=== PATIENT | female | born 1940 | race Caucasian/White ===

== ENCOUNTER 2018-06-09 12:43 | Outpatient (REF) | payer MEDICARE, OTHER, SELFPAY ==
[2018-06-09 20:32] LABS: Abs Immature Grans 0.01 k/cumm (0.0-0.09); Absolute Basophil Count 0.02 k/cumm (0.0-0.2); Absolute Eosinophil Count 0.12 k/cumm (0.0-0.7); Absolute Lymphocyte Count 1.36 k/cumm (1.2-3.4); Absolute Monocyte Count 0.38 k/cumm (0.11-0.7); Absolute Neutrophil Count 1.95 k/cumm (1.2-6.7); Basophils % 0.5; Eosinophils % 3.1; HCT 37.9 % (36.0-46.0); HGB 12.2 g/dL (12.0-15.5); Immature Grans % 0.3; Lymphocytes % 35.4; Mean Corp. HGB Concentration 32.2 g/dL (32.0-36.0); Mean Corpuscular Hemoglobin 26.1 pg (27.0-33.0); Mean Corpuscular Volume 81.2 fL (80-95); Mean Platelet Volume 11.3 fL (8.0-11.0); Monocytes % 9.9; Neutrophils % 50.8; Platelet Count 183 x1000/uL (130-400); RBC 4.67 m/cumm (4.00-5.20); RBC Distribution Width 17.2 % (11.7-14.6); White Blood Cell Count 3.84 k/cumm (4.4-10.8)
[2018-06-09 21:08] LABS: Iron 150 ug/dL (50-175); Total Iron Binding Capacity 386 ug/dL (250-450); Transferrin Sat 39 % (15-50)
[2018-06-09 21:26] LABS: Anion Gap 10.1 mmol/L (3-11); BUN 17 mg/dL (7-18); CO2 25.9 mmol/L (21.0-32.0); CREATININE 0.99 mg/dL (0.55-1.02); Calcium 8.8 mg/dL (8.5-10.1); Chloride 106 mmol/L (98-107); Estimated GFR 54.25 (mL/min/1.73m2); Glucose 95 mg/dL (70-100); Potassium 4.5 mmol/L (3.5-5.1); Sodium 142 mmol/L (136-145); TSH (W/Ref FT4) 0.44 uIU/mL (0.358-3.74)
[2018-06-09 21:57] LABS: Cholesterol 160 mg/dL (50-200); Ferritin 13 ng/mL (8-388); HDL Cholesterol 63 mg/dL (40-60); LDL CHOLESTEROL 86 mg/dL (<100); Triglyceride 69 mg/dL (30-150)
== END 2018-06-09 13:03 ==
LOC: NCHCN 12:43
PROVIDERS: PCP Nurse Practitioner Family; Visit Provider Nurse Practitioner Family
DX: I71.2 Thoracic aortic aneurysm, without rupture (principal); D50.9 Iron deficiency anemia, unspecified; K92.1 Melena; R42 Dizziness and giddiness; I48.0 Paroxysmal atrial fibrillation; I10 Essential (primary) hypertension; E03.9 Hypothyroidism, unspecified; F41.9 Anxiety disorder, unspecified
CPT/HCPCS: 80048; 80061; 83721; 82728; 83540; 83550; 84443; 85025

== ENCOUNTER 2018-08-06 11:54 | Emergency (ER) | payer MEDICARE, OTHER, SELFPAY ==
[2018-08-06 11:59] VITALS: BP 166/105; PULSE 75; RESP 18; TEMP 37.1; O2SAT 98
--- NOTE | 2018-08-06 12:08 | DI.RAD_ITS ---
SYMPTOM/DIAGNOSIS: MEDIAL LEFT KNEE PAIN AFTER FALL. LEFT KNEE: Three views. No acute fracture or dislocation is identified. There is moderate joint space narrowing in medial femoral tibial joint space. Periarticular spurring is seen involving all three joint compartments. There is chondrocalcinosis present. The soft tissues are unremarkable. IMPRESSION: 1. No acute abnormality. 2. Osteoarthritis of the left knee.
[2018-08-06] MEDS: Acetaminophen 500 MG TAB 1000 MG PO (12:22)
[2018-08-06] MEDS: Lidocaine 5% Patch 1 PATCH TP (12:25)
--- NOTE | 2018-08-06 13:03 | NUR.NOTE ---
Nursing Note: Escort to xray via stretcher with therapy technician
--- NOTE | 2018-08-06 13:12 | NUR.NOTE ---
returns from xray to EDNursing Note:
--- NOTE | 2018-08-06 13:26 | W.ED.GENAD ---
Discharge Plan Disposition Patient Disposition: HOME Condition: Good Discharge Details Chief Complaint: Orthopedic Clinical Impression: Arthritis of left knee Primary Care Provider: Fatuma Boyer ED Provider: Garrett Antonio Home Meds and New Rx's Prescriptions: New acetaminophen [Mapap Extra Strength] 500 MG tablet 1,000 mg PO Q6H 5 Days Qty: 60 RF: 0 lidocaine [Lidoderm] 1 PATCH patch 1 patch Topical Q24H Qty: 4 RF: 0 No Action ascorbic acid (vitamin C) [Vitamin C] 500 MG tablet 500 mg PO DAILY RF: 0 warfarin [Coumadin] 3 MG tablet 3 mg PO HS RF: 0 kcqfmrqr-ryhog-jgl 2-C-D3-kiersten [Yzsokssv-Lxspxi-ZFK with vit D] 1 EACH tablet 1 ea PO DAILY RF: 0 multivitamin [Daily Multiple] 1 EACH tablet 1 ea PO DAILY RF: 0 verapamil 180 MG tablet extended release 180 mg PO DAILY RF: 0 acetaminophen [Tylenol Extra Strength] 500 MG tablet 1,000 tab PO DAILY PRNRF: 0 levothyroxine 88 MCG tablet 88 mcg PO DAILY RF: 0 calcium carbonate-vitamin D3 1 EACH tablet 1 tab PO DAILY RF: 0 Discharge Instructions Instructions: Arthritis (ED) Additional Instructions: Please take the Tylenol and use Lidoderm patch as directed. Please follow-up with Dr. Montague as soon as possible for reassessment. Please use a cane or walker to help relieve the stress on your knee. Please keep your knee elevated and wrapped in an Reynold wrap as often as possible. If you notice any worsening of your symptoms, or any new symptoms such as vomiting, diarrhea, fever, chills, shortness of breath, chest pain, numbness, weakness, or fainting , please return immediately to the emergency department for reevaluation. Please follow up with your primary care provider as soon as possible for reassessment and reevaluation. As always, it was a pleasure participating in your medical care today. Referrals: Fatuma Boyer [Primary Care Provider] - Discharge Data Discharge Date/Time-TO BE ENTERED AT DEPARTURE: 08/06/18 13:53 Medical Decision Making This is a pleasant 78-year-old female with a history of arthritis in her left knee was also on Coumadin for A. fib who presents for left knee pain after she fell 4 days ago. Is gradually worsening, it is worsened with movement, improved with acetaminophen. She denies any swelling, no evidence of effusion on exam. Pain is located over the medial aspect of the knee over the tibial plateau, as well as minimal pain worsening with posterior cruciate ligament stressing. X-ray demonstrates no acute fracture, however notable severe arthritis over the patient's point of maximal tenderness. After Lidoderm patch and Tylenol she had complete improvement of her pain. I have discussed with her the importance of using a cane, crutches or a walker to relieve stress over the leg however the patient is refusing all of these. She states that if it gets really bad she can start using them but she would rather just walk on her own without any assistance. We did get her up and ambulate her and she seems to do well with this. I have encouraged her to continue her follow-up with Dr. Montague, we discussed red flags which to return the patient understands. I have extensively reviewed the treatment plan and discharge instructions with the patient. I have addressed all patient concerns at this time. The patient was made aware of what symptoms to monitor for that would warrant a return to the emergency department. Discussed the plan with the patient, they demonstrate verbal understanding and agreement with our assessment and plan at this time. HPI General Date/Time Provider Initiated Documentation: 08/06/18 11:57. HPI Narrative: This is a 78-year-old female with a past medical history of A. fib, for which she is on Coumadin, as well as chronic left-sided knee pain, who presents today for left knee pain. Patient states that he she has an appointment with Dr. Montague in the next 3-4 days for chronic knee pain however there is been a notable worsening over the last 4 days. 4 days ago she was walking upstairs when she fell and hit her left knee, since then she has had pain on the medial aspect. It is worse with movement, improved with acetaminophen. She has not been using a cane, crutches or a walker for assistance. She denies any significant swelling. She denies any other pain on her lower extremity. The time that she did fall she only hit her knee, she denies hitting her head or any other component of her body. She denies any previous surgeries on the knees. She denies any other modifying factors at this time Related Data Home Medications Medication Instructions Recorded Confirmed acetaminophen [Tylenol Extra 1,000 tab PO DAILY PRN 07/28/17 08/06/18 Strength] calcium carbonate-vitamin D3 1 tab PO DAILY 07/28/17 08/06/18 levothyroxine 88 mcg PO DAILY 07/28/17 08/06/18 multivitamin [Daily Multiple] 1 ea PO DAILY 07/28/17 08/06/18 verapamil 180 mg PO DAILY 07/28/17 08/06/18 ascorbic acid (vitamin C) [Vitamin 500 mg PO DAILY 08/17/17 08/06/18 C] hluxuwkh-hcrpb-lpm 2-C-D3-kiersten 1 ea PO DAILY 08/17/17 08/06/18 [Grobjioxpq-Fphizgcyodl-UBD Tab] warfarin [Coumadin] 3 mg PO HS 08/17/17 08/06/18 acetaminophen [Mapap Extra 1,000 mg PO Q6H 5 Days #60 tab 08/06/18 Strength] lidocaine [Lidoderm] 1 patch TOPICAL Q24H #4 patch 08/06/18 Previous Rx's Medication Instructions Recorded acetaminophen [Mapap Extra 1,000 mg PO Q6H 5 Days #60 tab 08/06/18 Strength] lidocaine [Lidoderm] 1 patch TOPICAL Q24H #4 patch 08/06/18 Allergies Allergy/AdvReac Type Severity Reaction Status Date / Time No Known Allergies Allergy Unverified 08/06/18 12:03 General Stated Complaint: Orthopedic DARIUS: 4 Review of Systems Review of Systems All systems reviewed & are unremarkable except as noted in HPI and below PFSH Medical History Carotid stenosis GERD (gastroesophageal reflux disease) HTN (hypertension) Hypothyroidism Social History Smoking/Tobacco Use Status: Never Surgical History Cholecystectomy Colonoscopy - MAC (08/23/17) EGD - MAC (08/23/17) Exam Narrative Exam Narrative: 1.Const: Well-nourished, Well-developed, appearing stated age 2.Eyes: PERRL, no conjunctival injection, and symmetrical lids. 3.ENT: Atraumatic external nose and ears. Moist MM. Neck: Symmetric, trachea midline, No thyromegaly. 4.CVS: +S1/S2, No murmurs or gallops. Peripheral pulses 2+ and equal in all extremities. Brisk capillary refill in all extremities. 5.RESP: Unlabored respiratory effort. Clear to auscultation bilaterally. No wheezes rales or rhonchi 6.GI: Soft, Nontender/Nondistended, No hepatosplenomegaly. No guarding or rebound. 7.MSK: Normocephalic/Atraumatic, Extremities w/o deformity No cyanosis or clubbing, Normal movement of all extremities. In regards to the patient's left knee she demonstrates mild point tenderness on the medial aspect of the knee by the medial tibial plateau. No pain over the patella. No pain in the posterior or other components of the knee. No pain with flexion or extension, normal 5 out of 5 strength and normal sensation. No pain with varus stressing, however she does have mild pain with valgus stressing. Mild pain on stressing of the posterior cruciate ligament no pain with the anterior drawer test. No pain with Rupa's test. Patient is able to ambulate with a mild limp. No cracking or popping with movement of the knee. 8.Skin: Warm, Dry. No rashes or lesions. 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 Sensation grossly intact, no focal neurologic deficits. 10.Psych: (AAO) x3. Appropriate mood and affect Course Vital Signs Temperature 37.1 C 08/06/18 11:59 Pulse 75 08/06/18 11:59 Respiratory Rate 18 08/06/18 11:59 Blood Pressure 166/105 H 08/06/18 11:59 Pulse Oximetry 98 08/06/18 11:59 Temperature 37.1 C 08/06/18 11:59 Temperature Source Skin 08/06/18 11:59 Pulse 75 08/06/18 11:59 Respiratory Rate 18 08/06/18 11:59 Respiratory Effort 08/06/18 12:04 Blood Pressure 166/105 H 08/06/18 11:59 Blood Pressure Position Sitting 08/06/18 11:59 Pulse Oximetry 98 08/06/18 11:59 Oxygen Delivery Method Room Air 08/06/18 11:59 Oxygen Flow Rate 0 08/06/18 11:59 Pain Level 0 08/06/18 13:04
--- NOTE | 2018-08-06 13:33 | ED.GENADUL_ITS ---
Discharge Plan Disposition Patient Disposition: HOME Condition: Good Discharge Details Chief Complaint: Orthopedic Clinical Impression: Arthritis of left knee Primary Care Provider: Fatuma Boyer ED Provider: Garrett Antonio Home Meds and New Rx's Prescriptions: New acetaminophen [Mapap Extra Strength] 500 MG tablet 1,000 mg PO Q6H 5 Days Qty: 60 RF: 0 lidocaine [Lidoderm] 1 PATCH patch 1 patch Topical Q24H Qty: 4 RF: 0 No Action ascorbic acid (vitamin C) [Vitamin C] 500 MG tablet 500 mg PO DAILY RF: 0 warfarin [Coumadin] 3 MG tablet 3 mg PO HS RF: 0 axhcxgbi-lkthu-rvs 2-C-D3-kiersten [Biixgmlz-Oastem-POK with vit D] 1 EACH tablet 1 ea PO DAILY RF: 0 multivitamin [Daily Multiple] 1 EACH tablet 1 ea PO DAILY RF: 0 verapamil 180 MG tablet extended release 180 mg PO DAILY RF: 0 acetaminophen [Tylenol Extra Strength] 500 MG tablet 1,000 tab PO DAILY PRNRF: 0 levothyroxine 88 MCG tablet 88 mcg PO DAILY RF: 0 calcium carbonate-vitamin D3 1 EACH tablet 1 tab PO DAILY RF: 0 Discharge Instructions Instructions: Arthritis (ED) Additional Instructions: Please take the Tylenol and use Lidoderm patch as directed. Please follow-up with Dr. Montague as soon as possible for reassessment. Please use a cane or walker to help relieve the stress on your knee. Please keep your knee elevated and wrapped in an Reynold wrap as often as possible. If you notice any worsening of your symptoms, or any new symptoms such as vomiting, diarrhea, fever, chills , shortness of breath, chest pain, numbness, weakness, or fainting , please return immediately to the emergency department for reevaluation. Please follow up with your primary care provider as soon as possible for reassessment and reevaluation. As always, it was a pleasure participating in your medical care today. Referrals: Fatuma Boyer [Primary Care Provider] - Discharge Data Discharge Date/Time-TO BE ENTERED AT DEPARTURE: 08/06/18 13:53 Medical Decision Making This is a pleasant 78-year-old female with a history of arthritis in her left knee was also on Coumadin for A. fib who presents for left knee pain after she fell 4 days ago. Is gradually worsening, it is worsened with movement , improved with acetaminophen. She denies any swelling, no evidence of effusion on exam. Pain is located over the medial aspect of the knee over the tibial plateau, as well as minimal pain worsening with posterior cruciate ligament stressing. X-ray demonstrates no acute fracture, however notable severe arthritis over the patient's point of maximal tenderness. After Lidoderm patch and Tylenol she had complete improvement of her pain. I have discussed with her the importance of using a cane, crutches or a walker to relieve stress over the leg however the patient is refusing all of these. She states that if it gets really bad she can start using them but she would rather just walk on her own without any assistance. We did get her up and ambulate her and she seems to do well with this. I have encouraged her to continue her follow-up with Dr. Montague, we discussed red flags which to return the patient understands. I have extensively reviewed the treatment plan and discharge instructions with the patient. I have addressed all patient concerns at this time. The patient was made aware of what symptoms to monitor for that would warrant a return to the emergency department. Discussed the plan with the patient, they demonstrate verbal understanding and agreement with our assessment and plan at this time. HPI General Date/Time Provider Initiated Documentation: 08/06/18 11:57 . HPI Narrative: This is a 78-year-old female with a past medical history of A. fib, for which she is on Coumadin, as well as chronic left-sided knee pain, who presents today for left knee pain. Patient states that he she has an appointment with Dr. Montague in the next 3-4 days for chronic knee pain however there is been a notable worsening over the last 4 days. 4 days ago she was walking upstairs when she fell and hit her left knee, since then she has had pain on the medial aspect. It is worse with movement, improved with acetaminophen. She has not been using a cane, crutches or a walker for assistance. She denies any significant swelling. She denies any other pain on her lower extremity. The time that she did fall she only hit her knee, she denies hitting her head or any other component of her body. She denies any previous surgeries on the knees. She denies any other modifying factors at this time Related Data Home Medications Medication Instructions Recorded Confirmed acetaminophen [Tylenol Extra 1,000 tab PO DAILY PRN 07/28/17 08/06/18 Strength] calcium carbonate-vitamin D3 1 tab PO DAILY 07/28/17 08/06/18 levothyroxine 88 mcg PO DAILY 07/28/17 08/06/18 multivitamin [Daily Multiple] 1 ea PO DAILY 07/28/17 08/06/18 verapamil 180 mg PO DAILY 07/28/17 08/06/18 ascorbic acid (vitamin C) [Vitamin 500 mg PO DAILY 08/17/17 08/06/18 C] vzrwwakm-tnaoe-jqa 2-C-D3-kiersten 1 ea PO DAILY 08/17/17 08/06/18 [Vabfbbnhmd-Tcnejmbhjpl-RAO Tab] warfarin [Coumadin] 3 mg PO HS 08/17/17 08/06/18 acetaminophen [Mapap Extra 1,000 mg PO Q6H 5 Days #60 tab 08/06/18 Strength] lidocaine [Lidoderm] 1 patch TOPICAL Q24H #4 patch 08/06/18 Previous Rx's Medication Instructions Recorded acetaminophen [Mapap Extra 1,000 mg PO Q6H 5 Days #60 tab 08/06/18 Strength] lidocaine [Lidoderm] 1 patch TOPICAL Q24H #4 patch 08/06/18 Allergies Allergy/AdvReac Type Severity Reaction Status Date / Time No Known Allergies Allergy Unverified 08/06/18 12:03 General Stated Complaint: Orthopedic DARIUS: 4 Review of Systems Review of Systems All systems reviewed & are unremarkable except as noted in HPI and below PFSH Medical History Carotid stenosis GERD (gastroesophageal reflux disease) HTN (hypertension) Hypothyroidism Social History Smoking/Tobacco Use Status: Never Surgical History Cholecystectomy Colonoscopy - MAC (08/23/17) EGD - MAC (08/23/17) Exam Narrative Exam Narrative: 1.Const: Well-nourished, Well-developed, appearing stated age 2.Eyes: PERRL, no conjunctival injection, and symmetrical lids. 3.ENT: Atraumatic external nose and ears. Moist MM. Neck: Symmetric, trachea midline, No thyromegaly. 4.CVS: +S1/S2, No murmurs or gallops. Peripheral pulses 2+ and equal in all extremities. Brisk capillary refill in all extremities. 5.RESP: Unlabored respiratory effort. Clear to auscultation bilaterally. No wheezes rales or rhonchi 6.GI: Soft, Nontender/Nondistended, No hepatosplenomegaly. No guarding or rebound. 7.MSK: Normocephalic/Atraumatic, Extremities w/o deformity No cyanosis or clubbing, Normal movement of all extremities. In regards to the patient's left knee she demonstrates mild point tenderness on the medial aspect of the knee by the medial tibial plateau. No pain over the patella. No pain in the posterior or other components of the knee. No pain with flexion or extension, normal 5 out of 5 strength and normal sensation. No pain with varus stressing, however she does have mild pain with valgus stressing. Mild pain on stressing of the posterior cruciate ligament no pain with the anterior drawer test. No pain with Rupa's test. Patient is able to ambulate with a mild limp. No cracking or popping with movement of the knee. 8.Skin: Warm, Dry. No rashes or lesions. 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 Sensation grossly intact, no focal neurologic deficits. 10.Psych: (AAO) x3. Appropriate mood and affect Course Vital Signs Temperature 37.1 C 08/06/18 11:59 Pulse 75 08/06/18 11:59 Respiratory Rate 18 08/06/18 11:59 Blood Pressure 166/105 H 08/06/18 11:59 Pulse Oximetry 98 08/06/18 11:59 Temperature 37.1 C 08/06/18 11:59 Temperature Source Skin 08/06/18 11:59 Pulse 75 08/06/18 11:59 Respiratory Rate 18 08/06/18 11:59 Respiratory Effort 08/06/18 12:04 Blood Pressure 166/105 H 08/06/18 11:59 Blood Pressure Position Sitting 08/06/18 11:59 Pulse Oximetry 98 08/06/18 11:59 Oxygen Delivery Method Room Air 08/06/18 11:59 Oxygen Flow Rate 0 08/06/18 11:59 Pain Level 0 08/06/18 13:04
--- NOTE | 2018-08-06 13:34 | DI.VRAD_ITS ---
EXAM: XR Left Knee, 3 Views EXAM DATE/TIME: 08/06/2018 12:10 PM CLINICAL HISTORY: 78 years old, female; Pain; Knee; Left; Additional info: Lidocaine patch on affected knee TECHNIQUE: XR Left knee 3 views. COMPARISON: No relevant prior studies available. FINDINGS: Medial joint space narrowing consistent with moderate degenerative arthritis. No acute fracture. Soft tissues unremarkable for age. IMPRESSION: Degenerative arthritis without evidence of acute bony abnormality. Dictated and Authenticated by: Bryon Burrell MD. Ordering:SHANNON ARMSTRONG MD
== END 2018-08-06 13:53 | disposition home or self-care (01) ==
PROVIDERS: Emergency Provider Student in an Organized Health Care Education/Training Program; PCP Nurse Practitioner Family
DX: M17.12 Unilateral primary osteoarthritis, left knee (principal); I48.91 Unspecified atrial fibrillation; Z79.01 Long term (current) use of anticoagulants
CPT/HCPCS: 73562; 96374; 99284

== ENCOUNTER → 2018-08-09 13:40 | Outpatient (BNVA) | payer MEDICARE, OTHER, SELFPAY | PROVIDERS: PCP Nurse Practitioner Family; Referring Provider Nurse Practitioner Family; Visit Provider Student in an Organized Health Care Education/Training Program | DX: S83.412A Sprain of medial collateral ligament of left knee, initial encounter (principal); W10.9XXA Fall (on) (from) unspecified stairs and steps, initial encounter; M17.12 Unilateral primary osteoarthritis, left knee; I10 Essential (primary) hypertension | CPT/HCPCS: 99204; 99214 ==

== ENCOUNTER → 2018-09-04 10:28 | Outpatient (BNVA) | payer MEDICARE, OTHER, SELFPAY | PROVIDERS: PCP Nurse Practitioner Family; Referring Provider Nurse Practitioner Family; Visit Provider Student in an Organized Health Care Education/Training Program | DX: M17.0 Bilateral primary osteoarthritis of knee (principal); I10 Essential (primary) hypertension | CPT/HCPCS: 20610; 99213; J1040 ==

== ENCOUNTER 2018-09-15 12:56 | Outpatient (REF) | payer MEDICARE, OTHER, SELFPAY ==
[2018-09-15 13:46] LABS: INR 3.8 (1.0-3.5); Prothrombin Time 38.4 sec (9.3-11.0)
== END 2018-09-15 13:16 ==
LOC: NCHCN 12:56
PROVIDERS: PCP Nurse Practitioner Family; Visit Provider Nurse Practitioner Family
DX: I48.0 Paroxysmal atrial fibrillation (principal); Z79.01 Long term (current) use of anticoagulants
CPT/HCPCS: 85610

== ENCOUNTER → 2019-01-08 10:27 | Outpatient (BNVA) | payer MEDICARE, OTHER, SELFPAY | PROVIDERS: PCP Nurse Practitioner Family; Referring Provider Nurse Practitioner Family; Visit Provider Student in an Organized Health Care Education/Training Program | DX: M17.12 Unilateral primary osteoarthritis, left knee (principal); M25.561 Pain in right knee; I10 Essential (primary) hypertension | CPT/HCPCS: 20610; 99213; J1040 ==

== ENCOUNTER 2019-03-05 15:32 | Outpatient (REF) | payer MEDICARE, OTHER, SELFPAY ==
[2019-03-05 21:20] LABS: HCT 43.3 % (36.0-46.0); HGB 14.4 g/dL (12.0-15.5); Mean Corp. HGB Concentration 33.3 g/dL (32.0-36.0); Mean Corpuscular Volume 87.3 fL (80-95); Mean Platelet Volume 11.2 fL (8.0-11.0); Platelet Count 186 x1000/uL (130-400); RBC 4.96 m/cumm (4.00-5.20); RBC Distribution Width 14.9 % (11.7-14.6); White Blood Cell Count 5.02 k/cumm (4.4-10.8)
[2019-03-05 22:00] LABS: Anion Gap 10.4 mmol/L (3-11); BUN 22 mg/dL (7-18); CO2 25.6 mmol/L (21.0-32.0); CREATININE 0.98 mg/dL (0.55-1.02); Calcium 9.7 mg/dL (8.5-10.1); Chloride 106 mmol/L (98-107); Estimated GFR 54.89 (mL/min/1.73m2); Glucose 95 mg/dL (70-100); Potassium 4.6 mmol/L (3.5-5.1); Sodium 142 mmol/L (136-145); TSH (W/Ref FT4) 0.56 uIU/mL (0.358-3.74); Vitamin B12 826 pg/mL (193-986)
== END 2019-03-05 15:52 ==
LOC: NCHCN 15:32
PROVIDERS: PCP Nurse Practitioner Family; Visit Provider Nurse Practitioner Family
DX: R41.3 Other amnesia (principal)
CPT/HCPCS: 80048; 85027; 82607; 84443

== ENCOUNTER → 2019-03-21 14:20 | Outpatient (BNVA) | payer MEDICARE, OTHER, SELFPAY | PROVIDERS: PCP Nurse Practitioner Family; Referring Provider Nurse Practitioner Family; Visit Provider Student in an Organized Health Care Education/Training Program | DX: Z01.818 Encounter for other preprocedural examination (principal); I10 Essential (primary) hypertension; M17.12 Unilateral primary osteoarthritis, left knee ==

== ENCOUNTER 2019-04-03 09:41 | Outpatient (CLI) | payer MEDICARE, OTHER, SELFPAY ==
[2019-04-03 11:52] LABS: HGB 13.9 g/dL (12.0-15.5); Mean Corp. HGB Concentration 33.1 g/dL (32.0-36.0); Mean Corpuscular Hemoglobin 29.3 pg (27.0-33.0); Mean Corpuscular Volume 88.6 fL (80-95); Mean Platelet Volume 10.3 fL (8.0-11.0); Platelet Count 168 x1000/uL (130-400); RBC 4.74 m/cumm (4.00-5.20); RBC Distribution Width 14.8 % (11.7-14.6); White Blood Cell Count 5.92 k/cumm (4.4-10.8)
[2019-04-03 12:17] LABS: Prothrombin Time 29.9 sec (9.3-11.0)
[2019-04-03 12:23] LABS: Anion Gap 8.8 mmol/L (3-11); BUN 18 mg/dL (7-18); CO2 25.2 mmol/L (21.0-32.0); CREATININE 0.93 mg/dL (0.55-1.02); Calcium 9.4 mg/dL (8.5-10.1); Chloride 108 mmol/L (98-107); Estimated GFR 58.16 (mL/min/1.73m2); Glucose 105 mg/dL (70-100); Potassium 4.2 mmol/L (3.5-5.1); Sodium 142 mmol/L (136-145)
== END 2019-04-03 10:01 ==
PROVIDERS: PCP Nurse Practitioner Family; Visit Provider Student in an Organized Health Care Education/Training Program
DX: M25.562 Pain in left knee (principal); M17.12 Unilateral primary osteoarthritis, left knee; I10 Essential (primary) hypertension; I48.91 Unspecified atrial fibrillation; Z79.01 Long term (current) use of anticoagulants; Z01.812 Encounter for preprocedural laboratory examination; Z01.818 Encounter for other preprocedural examination
CPT/HCPCS: 36415; 80048; 85027; 85610

== ENCOUNTER → 2019-04-10 07:51 | Outpatient (BNVA) | payer MEDICARE, OTHER, SELFPAY | PROVIDERS: PCP Nurse Practitioner Family; Referring Provider Nurse Practitioner Family; Visit Provider Student in an Organized Health Care Education/Training Program | DX: R69 Illness, unspecified (principal) ==

== ENCOUNTER 2019-04-10 08:46 | Inpatient (IN) | payer MEDICARE, OTHER, SELFPAY ==
[2019-04-03 10:11] VITALS: BP 150/84; PULSE 77; RESP 18; TEMP 36.9; O2SAT 95
[2019-04-03 10:18] VITALS: BP 150/84; PULSE 77; RESP 18; TEMP 36.9; O2SAT 95
[2019-04-10] VITALS (15 sets, daily range): BP systolic 108–150; BP diastolic 59–85; PULSE 53–67; RESP 14–18; TEMP 36.1–36.5; O2SAT 92–99
[2019-04-10] MEDS: Lactated Ringers 1,000 ML 80 ML IV ×2 (09:35→14:21)
[2019-04-10] MEDS: Gabapentin 300 MG CAP PO (09:48)
[2019-04-10] MEDS: oxyCODONE-CR 10 MG TABCR PO (09:48)
[2019-04-10] MEDS: Acetaminophen 500 MG TAB 1000 MG PO ×3 (09:48→19:23)
[2019-04-10] MEDS: Celecoxib 200 MG CAP 400 MG PO (09:49)
[2019-04-10 09:57] LABS: HCT 39.9 % (36.0-46.0); HGB 13.2 g/dL (12.0-15.5); Mean Corp. HGB Concentration 33.1 g/dL (32.0-36.0); Mean Corpuscular Hemoglobin 29.2 pg (27.0-33.0); Mean Corpuscular Volume 88.3 fL (80-95); Mean Platelet Volume 10.6 fL (8.0-11.0); Platelet Count 174 x1000/uL (130-400); RBC 4.52 m/cumm (4.00-5.20); RBC Distribution Width 14.6 % (11.7-14.6); White Blood Cell Count 4.01 k/cumm (4.4-10.8)
[2019-04-10 10:08] LABS: Anion Gap 8.5 mmol/L (3-11); BUN 23 mg/dL (7-18); CO2 26.5 mmol/L (21.0-32.0); CREATININE 0.91 mg/dL (0.55-1.02); Calcium 9.5 mg/dL (8.5-10.1); Chloride 108 mmol/L (98-107); Estimated GFR 59.63 (mL/min/1.73m2); Glucose 103 mg/dL (70-100); Potassium 4.4 mmol/L (3.5-5.1); Sodium 143 mmol/L (136-145)
[2019-04-10 10:21] LABS: INR 1.2 (0.9-1.1); Prothrombin Time 12.3 sec (9.3-11.0)
[2019-04-10] MEDS: Bupivacaine 0.5% Pres-Free 30 ML VIAL (10:34)
[2019-04-10] MEDS: Bupivacaine LIPOSOME/PF 133 MG/10 ML VIAL IJ ×2 (10:34→12:20)
[2019-04-10] MEDS: ceFAZolin 2 GM/50 ML BAG IVPB (10:54)
[2019-04-10] MEDS: Ketorolac 30 MG/ML VIAL (12:20)
[2019-04-10] MEDS: Normal Saline 20 ML VIAL (12:20)
[2019-04-10] MEDS: Bupivacaine 0.25% Pres-Free 30 ML VIAL (12:20)
--- NOTE | 2019-04-10 16:22 | IN_ITS ---
Date of service: 04/10/19 Time of Service: 03:42 PT Notes Inpatient Physical Therapy Evaluation Date: 04/10/2019 Referring Doctor: Иван Montague MD PT Orders: PT CONSULT: Status post left TKA Precautions: Fall. Standard. WBAT on left LE. Patient Profile/Admitting Diagnosis: Patient is a 79-year-old female with primary unilateral osteoarthritis of left knee status post left total knee arthroplasty on post operative day 0. PMHX: Medical History Paroxysmal atrial fibrillation (Chronic) Anxiety (Chronic) Carotid stenosis GERD (gastroesophageal reflux disease) HTN (hypertension) Hypothyroidism Surgical History Cholecystectomy Colonoscopy - MAC (08/23/17) EGD - MAC (08/23/17) Social History/Home Situation: Patient lives with of 60 years in a 1 floor house with 2 steps to enter with rails on both sides. She states that she uses a front wheeled walker at home for all her long distance ambulation and can go without walker for short distances prior to surgery. Patient further reports that she is able to do activities of daily living independently without the need for an adaptive equipment. She states that she has a sister and kids who live close by and are willing to help if needed. Current Functional Limitations: Need for assistive device for all transfer and ambulation tasks for safety Equipment Owned/DME: Front wheeled walker Subjective: Patient is agreeable to a PT consult. She reports no pain on left LE. She report mild lightheadedness upon sitting up that subsided within a few minutes. She denied pain on L knee during weight bearing and short distance ambulation from bedside to chair. She denies headache, chest pain, and dizziness throughout PT session. She is very happy with the result of the surgery and is looking forward to going home as soon as she is safe to do so. Objective: General Observation: Patient seen resting in be. BEREKET wraps on the left LE. Cryocuff on left LE. Anti-embolic pump on the right leg. IV in right UE. Kerr catheter in place. Mental Status: Alert and oriented x4 Pain: 0/10 Vital Signs: Negative for orthostatic hypotension as measured with RADIAL ROUTER OPERATOR. ROM: Right Upper Extremity: Shoulder Flexion WFL. Shoulder abduction WFL. Elbow flexion WFL. Wrist flexion WFL. Functional opening and closing of hand WFL. Left Upper Extremity: Shoulder Flexion WFL. Shoulder abduction WFL. Elbow flexion WFL. Wrist flexion WFL. Functional opening and closing of hand WFL. Right Lower Extremity: Hip flexion WFL. Hip abduction WFL. Knee flexion WFL. Ankle dorsiflexion WFL. Ankle plantarflexion WFL. Left Lower Extremity: Hip flexion WFL. Hip abduction WFL. Knee flexion 0 to 114 degrees with active range minimally limited by BEREKET wraps. Patient is able to achieve full knee extension without any discomfort. Ankle dorsiflexion WFL. An kle plantarflexion WFL. Strength: Right Upper Extremity: Shoulder flexors 5/5. Shoulder abductors 5/5. Elbow flexors 5/5. Elbow extensors 5/5. Child Care Sitter strong. Left Upper Extremity: Shoulder flexors 5/5. Shoulder abductors 5/5. Elbow flexors 5/5. Elbow extensors 5/5. Child Care Sitter strong. Right Lower Extremity: Hip flexors 5/5. Hip abductors 5/5. Knee flexors 5/5. Knee extensors 5/5. Ankle dorsiflexors 5/5. Ankle plantarflexors 5/5. Left Lower Extremity:Hip flexors 4/5. Hip abductors 4/5. Knee flexors 3-/5. Knee extensors 4-/5. Ankle dorsiflexors 5/5. Ankle plantarflexors 5/5. Sensation: Intact as to pain and pressure on right lower extremities. Minimally diminished on the left LE due to post anesthesia effect. Bed Mobility/Transfers: Rolling CGA Supine to sit CGA Sit to supine CGA Sit to stand CGA Stand to sit CGA Bed to chair CGA Chair to bed CGA Gait: Patient was able to tolerate in room ambulation of up to 12 feet using front wheeled walker with CGA and IV pole management provided by this PT. No report of increased pain or instability on the L knee received. Balance: Static Sitting: Good Dynamic Sitting: Good Static Standing: Fair Dynamic Standing: Fair Special Tests: Mobility Limitations Standardized Measure [facility]-P[facility] 6 clicks Basic Mobility Inpatient Short Form: Raw Score: 18 CMS Score: 47% deficit Informed Consent/Education: Patient instructed in purpose of PT consult and plan of care. Assessment: Patient is a 79-year-old female with primary unilateral osteoarthritis of left knee status post left total knee arthroplasty on post operative day 0. Patient presents with clinical signs and symptoms consistent with current/admitting diagnoses that have resulted to mobility limitations, gait instability, generalized weakness, and impairment of motor control as demonstrated by the following impairment level findings: 1. Decreased strength to L kne major muscle groups 2. Impaired sitting/standing balance 3. Impaired activity tolerance 4. Limitation of joint range of motion in L knee Impairments are contributing to the following functional limitations: 1. Dependent bed mobility skills 2. Increased dependence with transfers 3. Inability to safely ambulate without assistive device and physical assistance 4. Increase completion time for mobility ADL performance 5. Increased fall risk 6. Inability to negotiate steps alone safely Patient is assessed as a 28591 moderate complexity based on the following: History: Patient is a 79-year-old female with primary unilateral osteoarthritis of left knee status post left total knee arthroplasty on post operative day 0 Examination: Demonstrable impairment in strength, balance, and range of motion with underlying impairments and functional limitations as documented above Presentation:Evolving Decision Makin moderate complexity Goals: Goals X1 week 1. Supine-Sit independent 2. Sit-Supine independent 3. Sit-Stand independent 4. Stand-Sit independent 5. Bed-Chair independent 6. Chair-Bed independent 7. Independent gait on level surface with use of least restrictive device for at least 200 feet without report of pain nor dyspnea 8. Independent stair negotiation while holding onto bilateral rails for at least 5 steps without report of pain nor dyspnea 9. Independent with home exercise program 10. Good static and dynamic standing balance/tolerance Plan of Care/Treatment Plan: 1-2x/day, 7 days/week x 1 week. Plan of care has been reviewed with the CONCRETE CARPENTER providing the service under Physical Therapy direction. Initiate Physical Therapy intervention for strengthening, bed mobility, transfers, gait, stairs, balance training, use of assistive device. DISCHARGE RECOMMENDATIONS: May benefit from skilled physical therapy services according to orthopedic surgeon timeline recommendations. Patient will be educated and trained on home exercise program per TKA exercise protocol in preparation for outpatient physical therapy services. TREATMENT CODE/TIME: 93587 x 35 minutes beginning at 3:42 PM. Thank you very much for this referral. Natasha Youssef PT, DPT, CLT [facility]
[2019-04-10] MEDS: Celecoxib 100 MG CAP 200 MG PO (19:23)
[2019-04-10] MEDS: oxyCODONE 5 MG TAB PO (22:04)
[2019-04-11] VITALS (7 sets, daily range): BP systolic 109–155; BP diastolic 68–90; PULSE 74–78; RESP 17–20; TEMP 35.8–36.7; O2SAT 94–99
[2019-04-11] MEDS: Lactated Ringers 1,000 ML 80 ML IV (03:57)
[2019-04-11] MEDS: Levothyroxine 88 MCG TAB PO (05:32)
--- NOTE | 2019-04-11 05:43 | ROE_ITS ---
Date of service: 04/10/19 Time of Service: 13:43 Operative Note DATE OF PROCEDURE: 04/10/19 PRE-OP DIAGNOSIS: Left knee osteoarthritis POST-OP DIAGNOSIS: same PROCEDURE: Left Total Knee Replacement SURGEON: Иван Montague SLAT BASKET MAKER HELPER MACHINE: Emmanuelle Kulkarni ANESTHESIA: regional and spinal ESTIMATED BLOOD LOSS: 150 PATHOLOGY: none sent TOURNIQUET TIME: 31 COMPLICATIONS: None Patient was transported to: PACU Patient's condition: stable Implants: 1. Depuy Attune Posterior Stabilized Femoral Component, Size 5 narrow 2. Depuy Attune Fixed Platform Tibial Component, Size 3 3. Depuy Attune 5 x 6 mm fixed, Stabilized Poly 4. Depuy Attune Patellar Component, Size 32 mm Indications: I have seen Shanell in clinic for symptoms of left knee arthritis, confirmed with radiographic findings. Shanell has exhausted nonoperative methods and was having significant limitations in daily function and desired better function and less pain. I discussed the technical details of a knee replacement. I explained the risks of the procedure to include, but not limited to, bleeding, infection, pain, stiffness, fracture, damage to nerves and vessels, damage to muscles and tendons, loosening, need for repeat procedure, blood clot and cardiopulmonary demise. Despite these risks, she elected to proceed. Findings: There was significant signs of arthritis throughout the knee. These are throughout the whole knee with notable eburnation of the medial tibia with large osteophytes. There is also a sizable cyst encountered over the distal end of the medial femur which thinned out the medial cortex of the femur. The cyst was approximately 1 cm wide by 1 similar tall and nearly 7 to 8 mm deep. This was bone grafted with bone removed from the surgery and then cemented with the usual technique. Procedure Description: Shanell was greeted in the preoperative holding area where the correct side was identified and marked. The consent was reviewed with the patient and signed. The history and physical was updated. All questions were answered. Preoperative mediacations were administered: Acetaminophen 1000mg, Celebrex 400mg, Gabapentin 300mg, and Oxycontin 10mg. An adductor canal block was then administered by the anesthesia team in the PACU. Shanell was taken back to the operating room. A spinal anesthestic was then administered. The patient was placed into the supine position on the operating room table. A nonsterile tourniquet was placed high onto the leg but only used for cementing. Posts were placed for positioning during the procedure. All bony prominences were well padded. Prophylactic antibiotics in the form of cefazolin were administered. 1g of Tranxemic Acid was given intravenously within 30 minutes of incision. The left leg was then prepped with Chloraprep and draped in a standard fashion with impervious stockinette and extremity drape with Iodine impregnated skin protection. A timeout to confirm correct identity, side and site, procedure, allergies, anesthesia, and medical concerns was performed. With the knee in some flexion, a midline incision was made overlying the knee. Full thickness skin flaps were raised once the extensor mechanism was encountered. These were raised medially and laterally. Any bleeding was controlled with electrocautery. Once the extensor mechanism was fully exposed, a medial parapatellar arthrotomy was performed in a flexed position. All bleeding from the arthrotomy and the geniculate arteries was coagulated. A medial subperiosteal peel was performed with electrocautery to the midcoronal plane. Due to the significant varus deformity the entire medial tibial plateau was exposed. The fat pad was removed while keeping the patellar tendon protected. The anterior distal femur synovium was removed for later visualization. The ACL and PCL were resected and the anterior horn of the lateral meniscus was transected. The knee was then flexed with the patella everted. Large osteophytes from the tibia were removed. Large osteophytes from the femur were removed. Using a step drill, and based on preoperative templating, the femoral canal was entered. This was done with a step drill without any difficulty. The intramedullary distal femoral cut guide was inserted, set to a 5 degree valgus cut and 10mm cut thickness. The distal femoral cut guide was then held in position and pinned. With the soft tissues protected, the distal cut was performed. This was passed over a few times to ensure a planar cut. After performing this cut there was an obvious cyst encountered on the very medial aspect of the distal femur. It measured approximately was but it would still be on the face of the distal femur was about 7 to 8 mm deep. The cyst and its lining was removed with curette down to bone. There is no suspicious findings about this. I then turned attention to the tibia. The extramedullary guide was placed onto the leg. The distal aspect was slid medial to adjust for position of center of ankle and stay in line with shaft of the tibia. Approximately 3-5 degrees of posterior slope was kept in the proximal cutting guide. The center of the guide was aligned with the PCL. The stylus was used to assess cut thickness. The medial side, most involved side, was set for a 4mm cut. This was then held in position and pinned into place with 2 additional pins and a cross pin for stability. The medial and lateral collateral ligaments were protected and the cut was performed. With this completed, it was assessed and noted to be of appropriate dimensions. The guide was removed. A spacer block was inserted and the knee was brought into extension. The 6mm spacer block provided full extension, without hyperextension and with stability of both the medial and lateral collateral ligaments was assessed. The pins from the femur and the tibia were then removed. The distal femur was then sized. The anterior stylus was placed onto the lateral ridge of the anterior femur. This indicated a size 5 femur. The ext ernal rotation of the guide was adjusted to 3 degrees to match the epicondylar axis, perpendicular to Clive?s line. The 4-in-1 cutting guide was the placed. The posterior medial femur cut was evaluated and appeared of good thickness. The spacer block was inserted underneath the cutting guide and stability was confirmed in 90 degrees of flexion. An aaliyah wing was used to confirm appropriate position of the anterior cut to avoid notching. This cutting guide was ensured to be flush on the cut surface and then pinned into place with headed pins. While protecting the soft tissues, quad tendon, and collateral ligaments, the anterior and posterior cuts were performed with a saw. The central two pins were removed and the posterior and anterior chamfers were cut next. The notch-cutting guide was placed. This was pinned to lateralize the femoral component as much as possible while keeping it flush on the cut surface. This was then pinned into position. A reciprocating saw was used to make the notch cut. A rasp smoothed the cut surfaces. A trial posterior stabilized femoral component was then inserted, impacted down to the cut surfaces, and the lug holes were drilled. A provisional trial tibial component was placed and the knee was brought through range of motion. There was noted to be excellent extension and flexion. There was no significant instability. The patella was tracking without thumbs. The tibial cut surface was fully exposed. The medial and lateral menisci were removed. The tibia was then sized as a 3. The tibia had been previously marked during trialing to correspond to the center of the tibial component to help with rotation. The trial was aligned to this russel, approximately rotated to the medial 1/3rd of the tibial tubercle. The trial was pinned into place. The tibia was prepared with a reamer and a keel punch. The knee was then brought into extension and the patella was measured as 23 mm. Using the patellar clamp and cut guide, this was resected to a flat surface with at least 13mm of thickness remaining. The size 32 patella fit the best. This was oriented and then clamped into position. The lugs were drilled. The trial components were removed. The final components, except for the polyethylene were opened on the back table. The periosteal and capsular tissues, especially posteriorly, around the knee were then systematically injected with a periarticular cocktail consisting of 50cc 0.25% Marcaine, 30mg Ketorolac, 20cc of Exparal and 50cc of injectable saline. The tourniquet was then inflated to 275mmHg. The knee was thoroughly irrigated with a pulse lavage and dried. The cyst of the medial distal femur was then packed with bone graft taken from the bony pieces resected during the cuts. This was impacted with a bone tamp so that the majority of the bone void was filled. On the back table, with the implants opened, the cement was mixed. 2 batches of antibiotic laden cement were prepared with vacuum assistance. After the cement was ready a small amount was placed on to the back side of the tibial component at the keel. A small amount was placed onto the posterior flange of the femur. Cement was manual pressurized and impregnated into the cut surface of the tibia. The tibial component was then inserted into the cut surface and impacted into position. Excess cement was removed and the component was reimpacted. Again, excess cement was removed and our attention was then turned to the femur. The femoral cut surface was once again dried and cement was manually impacted into the cut surface. The femoral component was lined with the lug holes and impacted. Excess cement was removed. It was ensured to be down against the cut surface. Care was taken not to remove cement from under the implant where the cyst resided. The trial polyethylene was then inserted and the leg was brought out into full extension for the duration of the cement curing process, approximately 15min. Cement was lastly manually impacted into the cut surface of the patella and the patellar button was clamped into position and held. During this process attention was turned to the gutters of the knee and for all interfaces for any excess cement. After the cement had finally cured, approximately 15min, the clamp was removed from the patella and the knee was taken through range of motion. A size 6mm polyethylene component provided the best range of motion and stability with less than 2mm gapping with medial and lateral stress and full extension without significant hyperextension. The patella was tracking with a no-thumbs technique. The trial poly was removed and once again the knee was checked for any loose, excess, or errant cement. The poly component was then inserted and impacted into position after cleaning and drying the tibial tray. The capsule was then reapproximated with a No. 1 Vicryl at multiple locations. The capsule was finally closed with a No. 2 Stratafix, barbed suture. The tourniquet was then released and the arthrotomy appeared watertight without significant bleeding. The second dosing of 1g TXA was started. Deep tissues were then reapproximated with 0 Vicryl and 2-0 Vicryl. The skin was closed with a running 3-0 Monocryl in a subcuticular fashion. This was reinforced with skin glue. A Mepilex silver dressing was applied along with a [id number] BEREKET wrap. A CryoCuff was applied. Shanell was transferred to the hospital bed without difficulty an suffering no apparent complication. Shanell has a good prognosis. Physical therapy will start today and without restrictions, weight-bearing as tolerated. Coumadin will be resumed for DVT prophylaxis.
[2019-04-11 07:28] LABS: INR 1.2 (0.9-1.1); Prothrombin Time 11.9 sec (9.3-11.0)
[2019-04-11] MEDS: Acetaminophen 500 MG TAB 1000 MG PO ×3 (07:36→19:38)
[2019-04-11] MEDS: Celecoxib 100 MG CAP 200 MG PO ×2 (07:37→19:40)
[2019-04-11] MEDS: Calcium 600mg/Vit D 200U TAB 1 TAB PO (07:45)
[2019-04-11] MEDS: Oxybutynin 5 MG TAB PO (07:45)
[2019-04-11] MEDS: Multivitamin TAB 1 TAB PO (07:45)
[2019-04-11] MEDS: Losartan 50 MG TAB PO (07:45)
[2019-04-11] MEDS: Docusate Sodium 100 MG CAP PO (10:00)
[2019-04-11] MEDS: traMADol 50 MG TAB PO ×3 (10:00→22:59)
--- NOTE | 2019-04-11 12:48 | PT.INTREAT ---
Date of service: 04/11/19 Time of Service: 12:48 PT Notes Inpatient Physical Therapy Treatment Note [facility] Date: 04/11/19 PRECAUTIONS: Fall, WBAT L SUBJECTIVE: Shanell states this is not as easy as I was hoping it would be. She reports that she had a rough night her first night, which she believes was several nights ago. She indicates that she has a difficult time remembering things. OBJECTIVE: Patient appears easily confused and flustered, requiring significant redirection and cueing t/o sessions. PAIN: Patient reports L knee pain as 10/10 in a.m. with ther ex completion. She reports continued pain in the afternoon, although indicates that it is not as significant as this morning. BED MOBILITY/TRANSFERS Sit-stand: SBA Stand-sit: SBA GAIT Assistive Device: FWW Weight bearing: WBAT L Assist: SBA Distance: 100' in a.m.; 200' in p.m. Deviation: Step-through gait pattern utilized THEREX: Patient completed a LE strengthening program, in a seated position, as per flow sheet. She c/o significant pain, even reporting 10/10 pain in L knee in a.m. Patient ends with cryocuff to L knee. STAIRS: Up/down 3x4 and 2x6 using B rails and a step-to pattern with supervision. ASSESSMENT: Patient tolerated session c/o L knee pain with ther ex and gait training. Patient was able to tolerate a progression in gait distance with FWW support and with SBA. She would benefit from continued gait and transfer training, as well as strengthening for improved mobility. PLAN: Continue with PT's POC TREATMENT CODE/TIME: Session 1: 30 minutes; [id number], [id number] Session 2: 35 minutes; [id number], [id number]
--- NOTE | 2019-04-11 14:50 | CHAPLAIN ---
Shanell was sitting up in her chair. She told me about her knee surgery and said the pain has been more than she expected, but her goal is to get out walking again. Before her knee was very painful, Shanell said she used to walk a lot, and dance with her . She said years ago they went to dance halls on Tuesday and Tuesday night to purnima blum.
--- NOTE | 2019-04-11 15:24 | PDOC.CMIN ---
- If Service Date Differs Date of service: 04/11/19 Time of Service: 15:25 Care Management Initial Assess REASON FOR HOSPITALIZATION:: Primary osteoarthritis of left knee PAST MEDICAL HISTORY/PAST SURGICAL HISTORY:: Medical History. Paroxysmal atrial fibrillation (Chronic). Anxiety (Chronic). Carotid stenosis. GERD (gastroesophageal reflux disease). HTN (hypertension). Hypothyroidism. Surgical History. Cholecystectomy. Colonoscopy - MAC (08/23/17). EGD - MAC (08/23/17) PREVIOUS FUNCTIONAL STATUS/SOCIAL/FAMILY SUPPORTS:: Shanell lives in a single family home in [place] with her Alessandro. They enjoy one floor living. Shanell and Alessandro have 2 children, 2 grandchildren and 4 great grandchildren, and all of them are very supportive. Shanell is independent with all ADLs and self care. CURRENT FUNCTIONAL STATUS:: Shanell was sitting up in the chair visiting with her sister when CM arrived. She was open and friendly and asked many appropriate questions. Shanell was concerned about limitations and expectations after discharge. CM answered questions and provided support to Shanell. ADVANCE DIRECTIVES:: On file. [facility]- [facility] Evangelista Has patient been provided with information about the portal?: Yes Did the patient sign up for the portal?: No CODE STATUS:: DNR/DNI INSURANCE COVERAGE / FINANCIAL ISSUES:: medicare. [employer] CURRENT HOME/COMMUNITY SERVICES/EQUIPMENT:: none currently. Has borrowed a walker to use when she gets home PRIMARY CARE PHYSICIAN:: Fatuma Boyer POTENTIAL DISCHARGE NEEDS:: Follow up with Dr. Montague and discharge plan of care PATIENT/FAMILY EDUCATION NEEDS:: Discharge plan, limitations, follow up plan, Ask Me Three. ANTICIPATED BARRIERS TO DISCHARGE:: none identified TRANSPORTATION:: via private vehicle with sister or PLAN:: Shanell will likely be discharged home with no additional services. She will receive OP PT when directed by physician. CM will continue to provide support to patient, family and discharge planning process.
--- NOTE | 2019-04-11 17:16 | W.PM.PROGNOT ---
Date of Service Date of service: 04/11/19 Time of Service: 12:31 Assessment and Plan (1) Primary osteoarthritis of left knee: Current visit: No Status: Chronic Shanell is status post left knee replacement. Doing well. She did have pain which responded to Tramadol. We will continue to follow her pain as she is not interested in using start pain medication but is concerned about the success and efficacy of the tramadol. She will continue with physical therapy. She will resume her Coumadin at her home dose. Subjective Interval history since last seen: Shanell is doing well. She did have some pain last night which responded well to tramadol. She has been able to work with physical therapy. She still feels unsure of the left leg. She is concerned about her pain control. Her Kerr has been removed and she has been able to void. Exam Narrative Exam Narrative: Resting in the chair. No acute distress. Alert and oriented x3. Left knee dressing is clean dry and intact. She is able to extend the left knee against gravity. She has intact ankle dorsiflexion, plantar flexion, great toe extension. Sensation intact touch over the deep and superficial peroneal nerve and tibial nerve. The foot is warm and well perfused. Objective Objective Clinical Data: Abnormal lab results 04/11/19 Range/Units 06:48 PT 11.9 H (9.3-11.0) sec INR 1.2 H (0.9-1.1) Vital Signs Temperature 36.1 C L 04/11/19 15:00 Temperature Source Tympanic 04/11/19 15:00 Pulse 78 04/11/19 15:00 Pulse Rhythm Irregular 04/11/19 07:26 Respiratory Rate 20 04/11/19 15:00 Respiratory Effort 04/11/19 07:26 Respiratory Depth Normal 04/11/19 07:26 Respiratory Pattern Normal 04/11/19 07:26 Blood Pressure 155/90 H 04/11/19 15:00 Pulse Oximetry 96 04/11/19 15:00 Respiratory End-tidal CO2 32 04/10/19 13:43 Oxygen Delivery Method Room Air 04/11/19 15:00 Oxygen Flow Rate 0 04/11/19 15:00 Pain Level 1 04/11/19 15:00 Intake & Output 04/10/19 04/11/19 04/11/19 23:59 11:59 23:59 Intake Total 2128 / 2238 2140 / 2880 740 / 2880 Output Total 925 / 925 650 / 1350 700 / 1350 Balance 1203 / 1313 1490 / 1530 40 / 1530 Intake: IV 1728 / 1838 1460 / 1460 Oral 400 / 400 680 / 1420 740 / 1420 Output: Urine 775 / 775 650 / 1350 700 / 1350 Estimated Blood Loss 150 / 150 Other: Urine Color Light Jayla Yellow Yellow Urine Appearance Clear Clear Clear Urine Odor Normal Stool Size Small Stool Characteristics Formed Brown Emesis Description None Voiding Methods Toilet Laboratory Results WBC 4.01 k/cumm (4.4-10.8) L 04/10/19 09:47 RBC 4.52 m/cumm (4.00-5.20) 04/10/19 09:47 Hgb 13.2 g/dL (12.0-15.5) 04/10/19 09:47 Hct 39.9 % (36.0-46.0) 04/10/19 09:47 MCV 88.3 fL (80-95) 04/10/19 09:47 MCH 29.2 pg (27.0-33.0) 04/10/19 09:47 MCHC 33.1 g/dL (32.0-36.0) 04/10/19 09:47 RDW 14.6 % (11.7-14.6) 04/10/19 09:47 Plt Count 174 x1000/uL (130-400) 04/10/19 09:47 MPV 10.6 fL (8.0-11.0) 04/10/19 09:47 PT 11.9 sec (9.3-11.0) H 04/11/19 06:48 INR 1.2 (0.9-1.1) H 04/11/19 06:48 Sodium 143 mmol/L (136-145) 04/10/19 09:47 Potassium 4.4 mmol/L (3.5-5.1) 04/10/19 09:47 Chloride 108 mmol/L (98-107) H 04/10/19 09:47 Carbon Dioxide 26.5 mmol/L (21.0-32.0) 04/10/19 09:47 8.5 mmol/L (3-11) 04/10/19 09:47 BUN 23 mg/dL (7-18) H 04/10/19 09:47 0.91 mg/dL (0.55-1.02) 04/10/19 09:47 59.63 (mL/min/1.73m2) 04/10/19 09:47 Glucose 103 mg/dL (70-100) H 04/10/19 09:47 Calcium 9.5 mg/dL (8.5-10.1) 04/10/19 09:47
[2019-04-12 02:45] VITALS: BP 127/80; PULSE 69; RESP 18; TEMP 36.7; O2SAT 95
[2019-04-12] MEDS: traMADol 50 MG TAB PO ×2 (04:18→08:50)
--- NOTE | 2019-04-12 05:52 | DSE_ITS ---
Date of service: 04/12/19 Time of Service: 08:52 DS: Diagnosis Discharge Diagnosis (1) Primary osteoarthritis of left knee: Status: Chronic Discharge Plan Disposition Patient Disposition: HOME Condition: Good Discharge Details Reason For Visit: LEFT KNEE DJD Admit Date/Time: 04/10/19 08:46 Admit Provider: Иван Montague Attending Provider: Иван Montague Primary Care Provider: Fatuma Boyer [facility] Course Hospital Course: Patient was admitted to the medical/surgical floor following the procedure. It was tolerated well without any notable medical, surgical, or anesthetic complications. Mobilization began postoperatively. The burciaga catheter was removed and voiding spontaneously. Vitals were stable. Physical therapy worked with the patient and was cleared for discharge home. No acute medical issues. Home Meds and New Rx's Prescriptions: New acetaminophen 500 mg tablet 1,000 mg PO Q8H PRN (Reason: pain) Qty: 90 RF: 3 celecoxib 100 mg capsule 100 mg PO BID Qty: 60 RF: 0 hydrocodone-acetaminophen 7.5-325 mg Tablet 1 tab PO Q6H PRN PRNQty: 10 RF: 0 Continued oxybutynin chloride 5 mg tablet 5 mg PO DAILY RF: 0 losartan 50 mg tablet 50 mg PO DAILY RF: 0 warfarin [Coumadin] 3 MG tablet 3 mg PO DAILY RF: 0 Vutmxcvf-Hbobyb-XGH with vit D 1 EACH tablet 1 ea PO DAILY RF: 0 multivitamin [Daily Multiple] 1 EACH tablet 1 ea PO DAILY RF: 0 verapamil 180 MG tablet extended release 180 mg PO DAILY RF: 0 levothyroxine 88 MCG tablet 88 mcg PO DAILY RF: 0 calcium carbonate-vitamin D3 1 EACH tablet 1 tab PO DAILY RF: 0 Discontinued acetaminophen [Tylenol Extra Strength] 500 MG tablet 1,000 tab PO DAILY PRNRF: 0 Discharge Instructions Additional Instructions: Dr. Montague?s Total Knee Discharge Instructions Activity: The most important activity is to walk. You should try to take short walks a few times a day. It is important that when resting you work on keeping the knee straight. Avoid putting a pillow behind the knee as this will encourage flexion. Work on range of motion exercises as provided by Physical Therapy. - Start outpatient physical therapy within 2 weeks. - You should wear the BENNY hose on both legs for 2 weeks. Dressing: Keep the surgical dressing in place for at least one week. After the first week it may be removed and replace with light gauze and tape or nothing. It may get wet after 3 days but avoid soaking the dressing. If it gets wet, just lightly pat dry. Medications: - You should take Tylenol and anti-inflammatory Celebrex as your primary pain control medications - You have been prescribed a stronger pain medication tramadol for breakthrough pain, take as needed as prescribed. - You will be taking Coumadin as per your usual schedule and instruction for DVT prevention unless instructed otherwise. - If you have constipation you should take Colace or Miralax (both [id number]). It takes most people 3-4 days to have a bowel movement. Follow-up: 2 weeks 1. Encounter Date and Reason I certify that SHANELL TORO was seen by Иван Montague MD on 04/12/19 and that I had a [id number] encounter with this patient that meets the physician face to face encounter requirements. 2. Clinical Findings Supporting Skilled Need and Homebound Status I certify that home health services are medically necessary, include either intermittent detention and/or physical/speech therapy, and that this patient is homebound in that absences from the home require considerable and taxing effort and are infrequent or of short duration, or are attributable to the need to receive medical care. [X] (a) Attached documentation from encounter provides clinical findings supporting skilled need and homebound status (including what assistance patient requires to leave the home). The encounter with the patient was in whole, or in part, for the following medical condition, which is the primary reason for home health care: LEFT KNEE DJD Custodial: Shanell would benefit from detention to assist with medical management. She has dementia and is under taking new medications. She also has a healing wound from her knee replacement as well as pain medications for treating that. Physical Therapy: Shanell would benefit from physical therapy due to her significant weakness, stiffness, gait disturbance status post left knee replacement. She will need to focus on extension range of motion, and flexion range of motion. She has notable weakness about her quadriceps mechanism which will need to be addressed. She should use an assistive device as indicated, preferably a walker. Speech Therapy: Homebound: Shanell is homebound due to significant weakness and gait abnormality. She is unable to leave her home unassisted. 3. Certification and Authentication I certify that I composed the above information based on my clinical judgement relating to this patient's medical condition and, if applicable, clinical findings communicated to me by the NPP or inpatient physician who performed the Home Health Referral. All further orders will be obtained through Dr. Montague Referrals: Иван Montague MD [ [facility]] - Activity:: Activity as Tolerated Equipment/Supplies:: No Equipment Needed Diet:: As Tolerated Discharge Orders Discharge Orders: Discharge Order (Routine); Ordered 04/13/19 Ordered By: Иван Montague DS: Data Vitals/I&O Vitals and I&O: Vital Signs Temperature 36.7 C 04/12/19 02:45 Temperature Source Tympanic 04/12/19 02:45 Pulse 69 04/12/19 02:45 Pulse Rhythm Regular 04/11/19 23:50 Respiratory Rate 18 04/12/19 02:45 Respiratory Effort 04/11/19 23:50 Respiratory Depth Normal 04/11/19 23:50 Respiratory Pattern Normal 04/11/19 23:50 Blood Pressure 127/80 04/12/19 02:45 Pulse Oximetry 95 04/12/19 02:45 Respiratory End-tidal CO2 32 04/10/19 13:43 Oxygen Delivery Method Room Air 04/12/19 02:45 Oxygen Flow Rate 0 04/12/19 02:45 Pain Level 6 04/12/19 04:18 Intake & Output 04/11/19 04/11/19 04/12/19 11:59 23:59 11:59 Intake Total 2140 / 3120 980 / 3120 Output Total 650 / 1350 700 / 1350 400 / 400 Balance 1490 / 1770 280 / 1770 -400 / -400 Intake: IV 1460 / 1460 Oral 680 / 1660 980 / 1660 Output: Urine 650 / 1350 700 / 1350 400 / 400 Other: Urine Color Yellow Yellow Yellow Urine Appearance Clear Clear Clear Urine Odor Normal Normal Stool Size Small Stool Characteristics Formed Brown Voiding Methods Toilet Toilet Labs on day of discharge: Labs from last 24 hours 04/12/19 04/11/19 05:35 06:48 PT Pending 11.9 H INR Pending 1.2 H PFS Medical History Anxiety (Chronic) Carotid stenosis GERD (gastroesophageal reflux disease) HTN (hypertension) Hypothyroidism Paroxysmal atrial fibrillation (Chronic) Surgical History Cholecystectomy Colonoscopy - MAC (08/23/17) EGD - MAC (08/23/17) History of bladder surgery (Acute) Social History Smoking/Tobacco Use Status: Never Drug use: Never Do you feel safe in your relationship?: Yes
[2019-04-12] MEDS: Levothyroxine 88 MCG TAB PO (06:45)
[2019-04-12 07:20] VITALS: BP 145/82; PULSE 72; RESP 18; TEMP 37.2; O2SAT 96
[2019-04-12 07:26] LABS: INR 1.3 (0.9-1.1); Prothrombin Time 12.7 sec (9.3-11.0)
[2019-04-12] MEDS: Losartan 50 MG TAB PO (07:54)
[2019-04-12] MEDS: Acetaminophen 500 MG TAB 1000 MG PO (07:54)
[2019-04-12] MEDS: Oxybutynin 5 MG TAB PO (07:54)
[2019-04-12] MEDS: Celecoxib 100 MG CAP 200 MG PO ×2 (07:54→20:35)
[2019-04-12] MEDS: Calcium 600mg/Vit D 200U TAB 1 TAB PO (07:54)
[2019-04-12] MEDS: Multivitamin TAB 1 TAB PO (07:54)
[2019-04-12 11:20] VITALS: BP 146/81; PULSE 65; RESP 18; TEMP 36.7; O2SAT 95
--- NOTE | 2019-04-12 11:54 | PDOC.CMDIS ---
- If Service Date Differs Date of service: 04/12/19 Time of Service: 11:54 Care Management Discharge Reason for Hospitalization: Primary osteoarthritis of left knee
[2019-04-12] MEDS: Acetaminophen 500 MG TAB PO ×3 (12:30→23:10)
--- NOTE | 2019-04-12 13:46 | PDOC.CMPRO ---
- If Service Date Differs Date of service: 04/12/19 Time of Service: 13:46 Care Management Progress Note S/O:Shanell was scheduled to be discharged today but is going to remain another day. Shanell was confused about time and events last evening and seems to have problems with memory. Nurse Ever approached with concerns about Shanell's ability to safely administer her own medications at home, especially pain medications. CM contacted Dr. Montague's office and he added nursing for medicaation safety monitoring to the discharge plan. also conversed with Shanell's and sister who confirmed that Shanell has early dementia. Her sister stated that she intends to remain with Shanell and will administer her pain medications and ensure that her other daily medications are taken appropriately. Shanell remains in good spirits and is working with PT to improve mobility. A: Shanell is a pleasant 79 year old lady admitted to [facility] on 04/10/19 for a total knee replacement P: Shanell is receiving PT and medication for pain control. She will be discharged home with new home health services of PT and nursing. will continue to support patient, family and the discharge planning process.
[2019-04-12 15:46] VITALS: BP 146/81; PULSE 62; RESP 17; TEMP 36.5; O2SAT 97
--- NOTE | 2019-04-12 15:48 | PT.INTREAT ---
Date of service: 04/12/19 Time of Service: 15:48 PT Notes Inpatient Physical Therapy Treatment Note [facility] Date: 04/12/19 PRECAUTIONS: Fall, WBAT L SUBJECTIVE: Shanell reports that she had a rough night, she was in a lot of pain. She states that she does not feel ready to return home today due to the pain in her left knee. OBJECTIVE: Patient appears easily confused and flustered, requiring significant redirection and cueing t/o sessions. PAIN: Patient complains of significant left knee pain with ther ex and gait training BED MOBILITY/TRANSFERS Sit?supine: S with HOB flat Sit-stand: SBA Stand-sit: SBA GAIT Assistive Device: FWW Weight bearing: WBAT L Assist: SBA Distance: 200' in a.m.; 200' in p.m. Deviation: Step-through gait pattern utilized following instruction and tactile cueing THEREX: Patient completed a LE strengthening and stabilization program, in a seated position, as per flow sheet. She c/o significant pain and requires assist with SLR. Patient ends with cryocuff to left knee. STAIRS: Up/down 3x4 using B rails and a step-to pattern with supervision. ASSESSMENT: Patient tolerated session c/o L knee pain with ther ex and gait training. Patient required instruction and tactile cueing to resume utilizing step through gait pattern with gait training. She would benefit from continued gait and transfer training, as well as strengthening for improved mobility. Recommend patient participate with Home Health PT upon discharge for continued instruction in appropriate gait mechanics and ther ex completion for safety and improved mobility. PLAN: Continue with PT's POC TREATMENT CODE/TIME: Session 1: 40 minutes; 68069 x2, [id number] Session 2: 30 minutes; [id number], [id number]
[2019-04-12 20:10] VITALS: BP 144/86; PULSE 70; RESP 17; TEMP 36.3; O2SAT 95
[2019-04-12 23:10] VITALS: BP 139/79; PULSE 81; RESP 17; TEMP 36.5; O2SAT 98
[2019-04-13 03:35] VITALS: BP 144/83; PULSE 73; RESP 17; TEMP 36.3; O2SAT 94
[2019-04-13] MEDS: Acetaminophen 500 MG TAB PO ×2 (05:59→11:56)
[2019-04-13] MEDS: Levothyroxine 88 MCG TAB PO (05:59)
[2019-04-13 08:06] LABS: INR 1.3 (0.9-1.1); Prothrombin Time 12.7 sec (9.3-11.0)
[2019-04-13 08:35] VITALS: BP 133/81; PULSE 77; RESP 18; TEMP 36.2; O2SAT 98
[2019-04-13] MEDS: Celecoxib 100 MG CAP 200 MG PO (08:37)
[2019-04-13] MEDS: Losartan 50 MG TAB PO (08:37)
[2019-04-13] MEDS: Oxybutynin 5 MG TAB PO (08:37)
[2019-04-13] MEDS: Multivitamin TAB 1 TAB PO (08:37)
[2019-04-13] MEDS: Calcium 600mg/Vit D 200U TAB 1 TAB PO (08:37)
--- NOTE | 2019-04-13 09:57 | PDOC.CMDIS ---
- If Service Date Differs Date of service: 04/13/19 Time of Service: 09:57 LACE Index Scoring Tool - Questions: Length of Stay (in days): 3 Acuity (Admit via E.D.?): No E.D. Visits: 1 - Answers: Total Score: 4 Risk of Readmission: Low Risk Care Management Discharge Reason for Hospitalization: Primary osteoarthritis of left knee Discharge Plan: Shanell will be discharged home with new home health services of PT and nursing. She will be transported via private vehicle with family. Shanell will follow up with her surgeon and the discharge plan of care. Patient/Family Education Needs: Discharge plan, limitations, follow up plan, Ask Me Three. Services Needed at Discharge: Home Health Care Services
[2019-04-13 11:51] VITALS: BP 128/73; PULSE 75; RESP 20; TEMP 36.3; O2SAT 98
[2019-04-13] MEDS: Normal Saline Flush 10 ML SYR IV (11:57)
--- NOTE | 2019-04-13 13:33 | W.PM.PROGNOT ---
Date of Service Date of service: 04/13/19 Time of Service: 07:33 Assessment and Plan (1) Primary osteoarthritis of left knee: Current visit: No Status: Chronic Shanell is a 79-year-old status post left knee replacement. She is doing well at this point. She did have a hiccup with increasing pain yesterday which is much better now. While she was a plan to discharge home yesterday she was discharged home today with home health services. I reviewed her discharge instructions with her and her family. All questions were answered. I will see her back in 2 weeks. Subjective Interval history since last seen: Shanell reports been doing much better this morning. Initially, we plan on discharge yesterday. However, she continued to have some pain throughout the day. Her pain is much better control with a switch to hydrocodone. She has been able to mobilize with nursing overnight. She denies any chest pain or shortness of breath. She has been able to mobilize in her room to the commode with little assistance. Pain has been well controlled. Exam Narrative Exam Narrative: Shanell is in no acute distress. She is sitting in the chair. Evaluation of the left knee shows a clean and dry dressing. Range of motion is approximately 5 to 85 degrees. The knee is stable to varus and valgus stress. She is able straight leg raise but does so with a lag. Objective Objective Clinical Data: Vital Signs Temperature 36.3 C L 04/13/19 11:51 Temperature Source Tympanic 04/13/19 11:51 Pulse 75 04/13/19 11:51 Pulse Rhythm Regular 04/13/19 08:35 Respiratory Rate 20 04/13/19 11:51 Respiratory Effort Non-Labored 04/13/19 08:35 Respiratory Depth Normal 04/13/19 08:35 Respiratory Pattern Normal 04/13/19 08:35 Blood Pressure 128/73 04/13/19 11:51 Pulse Oximetry 98 04/13/19 11:51 Respiratory End-tidal CO2 32 04/10/19 13:43 Oxygen Delivery Method Room Air 04/13/19 11:51 Oxygen Flow Rate 0 04/13/19 11:51 Pain Level 4 04/13/19 12:20 Comment 04/13/19 11:51 Laboratory Results WBC 4.01 k/cumm (4.4-10.8) L 04/10/19 09:47 RBC 4.52 m/cumm (4.00-5.20) 04/10/19 09:47 Hgb 13.2 g/dL (12.0-15.5) 04/10/19 09:47 Hct 39.9 % (36.0-46.0) 04/10/19 09:47 MCV 88.3 fL (80-95) 04/10/19 09:47 MCH 29.2 pg (27.0-33.0) 04/10/19 09:47 MCHC 33.1 g/dL (32.0-36.0) 04/10/19 09:47 RDW 14.6 % (11.7-14.6) 04/10/19 09:47 Plt Count 174 x1000/uL (130-400) 04/10/19 09:47 MPV 10.6 fL (8.0-11.0) 04/10/19 09:47 PT 12.7 sec (9.3-11.0) H 04/13/19 07:28 INR 1.3 (0.9-1.1) H 04/13/19 07:28 Sodium 143 mmol/L (136-145) 04/10/19 09:47 Potassium 4.4 mmol/L (3.5-5.1) 04/10/19 09:47 Chloride 108 mmol/L (98-107) H 04/10/19 09:47 Carbon Dioxide 26.5 mmol/L (21.0-32.0) 04/10/19 09:47 8.5 mmol/L (3-11) 04/10/19 09:47 BUN 23 mg/dL (7-18) H 04/10/19 09:47 0.91 mg/dL (0.55-1.02) 04/10/19 09:47 59.63 (mL/min/1.73m2) 04/10/19 09:47 Glucose 103 mg/dL (70-100) H 04/10/19 09:47 Calcium 9.5 mg/dL (8.5-10.1) 04/10/19 09:47
--- NOTE | 2019-04-13 15:13 | PT.INTREAT ---
Date of service: 04/13/19 Time of Service: 15:13 PT Notes Inpatient Physical Therapy Treatment Note [facility] Date: 04/13/19 PRECAUTIONS: Fall, WBAT L SUBJECTIVE: Shanell states that she is feeling much better today, she had a much better night last night. She believes that she is ready to be discharged to home today. OBJECTIVE: Patient appears less confused and flustered, however, continues to require redirection and cueing t/o session. PAIN: Patient complains of left knee pain with ther ex and gait training BED MOBILITY/TRANSFERS Sit-stand: S Stand-sit: S GAIT Assistive Device: FWW Weight bearing: WBAT L Assist: SBA Distance: 250' Deviation: Step-through gait pattern, standing rest x3 THEREX: Patient completed a LE strengthening and stabilization program, in a seated position, as per flow sheet. Patient's left knee AROM is -8-101 degrees. Patient ends with cryocuff to left knee. ASSESSMENT: Patient tolerated session with c/o L knee pain with ther ex and gait training. Patient was able to tolerate a progression in gait distance with FWW support and SBA, utilizing a step through gait pattern requiring standing rest x3. Recommend patient participate with Home Health PT upon discharge for continued instruction in appropriate gait mechanics and ther ex completion for safety and improved mobility. PLAN: As per primary PT TREATMENT CODE/TIME: 40 minutes; 94789 x2, [id number]
--- NOTE | 2019-04-13 17:24 | PT.INDS ---
Date of service: 04/13/19 PT Notes Inpatient Physical Therapy Discharge Summary Dates: 04/13/2019 Dates of Service: 04/10/2019 through 04/13/2019 This is a clinical summary of care provided on the duration of dates listed above. No charge was made in the completion of this documentation. Referring Doctor: Иван Montague MD PT Orders: PT CONSULT: Status post left TKA Precautions: Fall. Standard. WBAT on left LE. Patient Profile/Admitting Diagnosis: Patient is a 79-year-old female with primary unilateral osteoarthritis of left knee status post left total knee arthroplasty on post operative day 3. PMHX: Medical History Paroxysmal atrial fibrillation (Chronic) Anxiety (Chronic) Carotid stenosis GERD (gastroesophageal reflux disease) HTN (hypertension) Hypothyroidism Surgical History Cholecystectomy Colonoscopy - MAC (08/23/17) EGD - MAC (08/23/17) Social History/Home Situation: Patient lives with of 60 years in a 1 floor house with 2 steps to enter with rails on both sides. She states that she uses a front wheeled walker at home for all her long distance ambulation and can go without walker for short distances prior to surgery. Patient further reports that she is able to do activities of daily living independently without the need for an adaptive equipment. She states that she has a sister and kids who live close by and are willing to help if needed. Current Functional Limitations: Need for assistive device for all transfer and ambulation tasks for safety Equipment Owned/DME: Front wheeled walker Subjective: NT Objective: General Observation: NT Mental Status: NT Pain: NT Vital Signs: NT ROM: Right Upper Extremity: Shoulder Flexion WFL. Shoulder abduction WFL. Elbow flexion WFL. Wrist flexion WFL. Functional opening and closing of hand WFL. Left Upper Extremity: Shoulder Flexion WFL. Shoulder abduction WFL. Elbow flexion WFL. Wrist flexion WFL. Functional opening and closing of hand WFL. Right Lower Extremity: Hip flexion WFL. Hip abduction WFL. Knee flexion WFL. Ankle dorsiflexion WFL. Ankle plantarflexion WFL. Left Lower Extremity: Hip flexion WFL. Hip abduction WFL. Knee flexion 0 to 114 degrees with active range minimally limited by BEREKET wraps. Patient is able to achieve full knee extension without any discomfort. Ankle dorsiflexion WFL. Ankle plantarflexion WFL. Strength: Right Upper Extremity: Shoulder flexors 5/5. Shoulder abductors 5/5. Elbow flexors 5/5. Elbow extensors 5/5. Energy And Conservation Technician strong. Left Upper Extremity: Shoulder flexors 5/5. Shoulder abductors 5/5. Elbow flexors 5/5. Elbow extensors 5/5. Energy And Conservation Technician strong. Right Lower Extremity: Hip flexors 5/5. Hip abductors 5/5. Knee flexors 5/5. Knee extensors 5/5. Ankle dorsiflexors 5/5. Ankle plantarflexors 5/5. Left Lower Extremity:Hip flexors 4/5. Hip abductors 4/5. Knee flexors 3-/5. Knee extensors 4-/5. Ankle dorsiflexors 5/5. Ankle plantarflexors 5/5. Sensation: Intact as to pain and pressure on right lower extremities. Minimally diminished on the left LE due to post anesthesia effect. Bed Mobility/Transfers: Rolling supervision supervision Supine to sit CGA Sit to supine supervision Sit to stand supervision Stand to sit supervision Bed to chair supervision Chair to bed supervision Gait: Patient was able to tolerate in room ambulation of up to 250 feet using front wheeled walker with SBA and step through gait pattern with 3 standing rests. No report of increased pain or instability on the L knee received. Balance: Static Sitting: Good Dynamic Sitting: Good Static Standing: Fair Dynamic Standing: Fair Assessment: Patient is a 79-year-old female with primary unilateral osteoarthritis of left knee status post left total knee arthroplasty on post operative day 0. Patient presents with clinical signs and symptoms consistent with current/admitting diagnoses that have resulted to mobility limitations, gait instability, generalized weakness, and impairment of motor control as demonstrated by the following impairment level findings: 1. Decreased strength to L kne major muscle groups 2. Impaired sitting/standing balance 3. Impaired activity tolerance 4. Limitation of joint range of motion in L knee Impairments are contributing to the following functional limitations: 1. Dependent bed mobility skills 2. Increased dependence with transfers 3. Inability to safely ambulate without assistive device and physical assistance 4. Increase completion time for mobility ADL performance 5. Increased fall risk 6. Inability to negotiate steps alone safely Goals: Goals X1 week 1. Supine-Sit independent NOT MET 2. Sit-Supine independent NOT MET 3. Sit-Stand independent NOT MET 4. Stand-Sit independent NOT MET 5. Bed-Chair independent NOT MET 6. Chair-Bed independent NOT MET 7. Independent gait on level surface with use of least restrictive device for at least 200 feet without report of pain nor dyspnea NOT MET 8. Independent stair negotiation while holding onto bilateral rails for at least 5 steps without report of pain nor dyspnea NOT MET 9. Independent with home exercise program NOT MET 10. Good static and dynamic standing balance/tolerance NOT MET DISCHARGE RECOMMENDATIONS: Patient will benefit from home health PT services in order to progress mobility level using least restrictive assistive ambulatory device/using no device, assess home safety, identify additional equipment needs, and establish a functional maintenance program that will increase ability of patient to remain at home. TREATMENT CODE/TIME: NC. Thank you very much for this referral. Natasha Youssef PT, DPT, CLT [facility]
== END 2019-04-13 14:15 | disposition home or self-care (01) | DRG 470 ==
LOC: PDS 10:30 → MS 13:52
PROVIDERS: Admitting Provider Student in an Organized Health Care Education/Training Program; PCP Nurse Practitioner Family; Visit Provider Student in an Organized Health Care Education/Training Program
PROC: 0SRD0J9 Replacement of Left Knee Joint with Synthetic Substitute, Cemented, Open Approach (ICD-10-PCS; CPT 27447; principal; 2019-04-10 11:15)
DX: M17.12 Unilateral primary osteoarthritis, left knee (principal); Z96.652 Presence of left artificial knee joint; I48.0 Paroxysmal atrial fibrillation; Z79.01 Long term (current) use of anticoagulants; I10 Essential (primary) hypertension; K21.9 Gastro-esophageal reflux disease without esophagitis; E03.9 Hypothyroidism, unspecified; M85.48 Solitary bone cyst, other site
CPT/HCPCS: 27447; 36415; 76942; 80048; 85027; 97110; 97162; 97530; NC; 85610; J0690; J1100; J1885; J2370

== ENCOUNTER 2019-04-25 14:23 | Outpatient (CLI) | payer MEDICARE, OTHER, SELFPAY ==
--- NOTE | 2019-04-25 13:47 | DI.RAD_ITS ---
SYMPTOMS/DIAGNOSIS: F/U LEFT TOTAL KNEE ARTHROPLASTY LEG LENGTH: The left leg measures 80 cm, the right leg 79 cm. The patient is status post left TKA. There are degenerative changes involving the right knee. LEFT KNEE: A single lateral upright projection of the left knee reveals a TKA, the prosthesis in good position, surrounding bone intact.
== END 2019-04-25 14:43 ==
PROVIDERS: PCP Nurse Practitioner Family; Referring Provider Nurse Practitioner Family; Visit Provider Student in an Organized Health Care Education/Training Program
DX: M17.12 Unilateral primary osteoarthritis, left knee (principal); Z96.652 Presence of left artificial knee joint; M17.11 Unilateral primary osteoarthritis, right knee; Z47.1 Aftercare following joint replacement surgery
CPT/HCPCS: 73560; 77073

== ENCOUNTER → 2019-05-23 13:16 | Outpatient (BNVA) | payer MEDICARE, OTHER, SELFPAY | PROVIDERS: PCP Nurse Practitioner Family; Referring Provider Nurse Practitioner Family; Visit Provider Student in an Organized Health Care Education/Training Program | DX: M17.12 Unilateral primary osteoarthritis, left knee (principal); Z47.1 Aftercare following joint replacement surgery; Z96.652 Presence of left artificial knee joint ==

== ENCOUNTER 2019-06-11 11:54 | Outpatient (REF) | payer MEDICARE, OTHER, SELFPAY ==
[2019-06-11 22:01] LABS: Abs Immature Grans 0.01 k/cumm (0.0-0.09); Absolute Basophil Count 0.03 k/cumm (0.0-0.2); Absolute Eosinophil Count 0.13 k/cumm (0.0-0.7); Absolute Lymphocyte Count 1.41 k/cumm (1.2-3.4); Absolute Monocyte Count 0.47 k/cumm (0.11-0.7); Absolute Neutrophil Count 2.53 k/cumm (1.2-6.7); Basophils % 0.7; Eosinophils % 2.8; HCT 38.9 % (36.0-46.0); HGB 12.8 g/dL (12.0-15.5); Immature Grans % 0.2; Lymphocytes % 30.8; Mean Corp. HGB Concentration 32.9 g/dL (32.0-36.0); Mean Corpuscular Hemoglobin 29.2 pg (27.0-33.0); Mean Corpuscular Volume 88.8 fL (80-95); Mean Platelet Volume 11.2 fL (8.0-11.0); Monocytes % 10.3; Neutrophils % 55.2; Platelet Count 206 x1000/uL (130-400); RBC 4.38 m/cumm (4.00-5.20); RBC Distribution Width 14.4 % (11.7-14.6); White Blood Cell Count 4.58 k/cumm (4.4-10.8)
[2019-06-11 22:24] LABS: Iron 74 ug/dL (50-175)
== END 2019-06-11 12:14 ==
LOC: NCHCN 11:54
PROVIDERS: PCP Nurse Practitioner Family; Visit Provider Nurse Practitioner Family
DX: I48.0 Paroxysmal atrial fibrillation (principal); I77.9 Disorder of arteries and arterioles, unspecified; I71.2 Thoracic aortic aneurysm, without rupture; I51.9 Heart disease, unspecified; R41.3 Other amnesia; I10 Essential (primary) hypertension; Z79.01 Long term (current) use of anticoagulants
CPT/HCPCS: 83540; 85025

== ENCOUNTER → 2019-07-09 13:21 | Outpatient (BNVA) | payer MEDICARE, OTHER, SELFPAY | PROVIDERS: PCP Nurse Practitioner Family; Referring Provider Nurse Practitioner Family; Visit Provider Student in an Organized Health Care Education/Training Program | DX: M17.12 Unilateral primary osteoarthritis, left knee (principal); Z47.1 Aftercare following joint replacement surgery; Z96.652 Presence of left artificial knee joint ==

== ENCOUNTER 2019-09-24 01:00 | Outpatient (CLI) | payer MEDICARE, OTHER, SELFPAY ==
--- NOTE | 2019-09-24 10:45 | DI.MRI_ITS ---
EXAM: MR BRAIN WO CLINICAL HISTORY: MILD COGNITIVE IMPAIRMENT, DIZZINESS, MEMORY PROBLEM. TECHNIQUE: Multiplanar multisequence MRI was performed. COMPARISON: No exams were available for comparison FINDINGS: The ventricles and sulci are consistent with the patient's age. There are multiple foci of hyperinte nse signal in the white matter in the FLAIR and T2 weighted images consistent with small vessel ische victor manuel disease. The diffusion-weighted images show no evidence of an acute infarct. No intracranial he morrhage is seen. The ventricles are intact. The basilar cisterns are patent. There is normal flow void in the [id number]. Pituitary gland is unremarkable. 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
== END 2019-09-24 01:20 ==
PROVIDERS: PCP Nurse Practitioner Family; Visit Provider Psychiatry & Neurology Neurology
DX: R42 Dizziness and giddiness (principal); R41.3 Other amnesia; G31.84 Mild cognitive impairment of uncertain or unknown etiology; I67.82 Cerebral ischemia; G31.89 Other specified degenerative diseases of nervous system
CPT/HCPCS: 70551

== ENCOUNTER 2020-01-15 10:19 | Outpatient (REF) | payer OTHER, SELFPAY ==
[2020-01-15 19:48] LABS: Abs Immature Grans 0.01 k/cumm (0.0-0.09); Absolute Basophil Count 0.02 k/cumm (0.0-0.2); Absolute Eosinophil Count 0.18 k/cumm (0.0-0.7); Absolute Lymphocyte Count 1.75 k/cumm (1.2-3.4); Absolute Neutrophil Count 2.27 k/cumm (1.2-6.7); Basophils % 0.4; Eosinophils % 3.7; HCT 42.8 % (36.0-46.0); Immature Grans % 0.2 %; Lymphocytes % 36.2; Mean Corp. HGB Concentration 32.7 g/dL (32.0-36.0); Mean Corpuscular Hemoglobin 27.9 pg (27.0-33.0); Mean Corpuscular Volume 85.3 fL (80-95); Mean Platelet Volume 11.4 fL (8.0-11.0); Monocytes % 12.4; Neutrophils % 47.1; Platelet Count 199 x1000/uL (130-400); RBC 5.02 m/cumm (4.00-5.20); RBC Distribution Width 15.5 % (11.7-14.6); White Blood Cell Count 4.83 k/cumm (4.4-10.8)
[2020-01-15 20:03] LABS: Iron 81 ug/dL (50-170)
[2020-01-15 20:15] LABS: Anion Gap 7.9 mmol/L (3-11); BUN 15 mg/dL (7-18); CO2 27.1 mmol/L (21.0-32.0); CREATININE 1.02 mg/dL (0.55-1.02); Calcium 9.3 mg/dL (8.5-10.1); Chloride 108 mmol/L (98-107); Estimated GFR 52.28 (mL/min/1.73m2); Glucose 106 mg/dL (74-106); Potassium 4.5 mmol/L (3.5-5.1); Sodium 143 mmol/L (136-145); TSH (W/Ref FT4) 0.53 uIU/mL (0.36-3.74)
[2020-01-15 20:58] LABS: Vitamin B12 951 pg/mL (193-986)
== END 2020-01-15 10:39 ==
LOC: NCHCN 10:19
PROVIDERS: PCP Nurse Practitioner Family; Visit Provider Nurse Practitioner Family
DX: E03.9 Hypothyroidism, unspecified (principal); I10 Essential (primary) hypertension; Z86.2 Personal history of diseases of the blood and blood-forming organs and certain disorders involving the immune mechanism
CPT/HCPCS: 80048; 82607; 83540; 84443; 85025

== ENCOUNTER 2020-04-14 15:38 | Outpatient (CLI) | payer OTHER, MEDICARE, SELFPAY ==
--- NOTE | 2020-04-14 13:00 | DI.RAD_ITS ---
EXAM: XR KNEE LT 2V AP,LAT CLINICAL HISTORY: annual f/u. TECHNIQUE: 2D digital imaging was performed. COMPARISON: CR XR knee LT 3V AP,lat,elena from 08/06/2018 CR XR standing alignment from 04/25/2019 CR XR knee LT 1V from 04/25/2019 FINDINGS: Stable postsurgical changes of a left total knee replacement are noted. The bones are intact. There is a small joint effusion. The soft tissues are unremarkable. IMPRESSION: Left TKR. DATA REPOSITORY: RADIATION DOSE DELIVERED:
== END 2020-04-14 15:58 ==
PROVIDERS: PCP Nurse Practitioner Family; Visit Provider Student in an Organized Health Care Education/Training Program
DX: Z47.1 Aftercare following joint replacement surgery (principal); Z96.652 Presence of left artificial knee joint; M17.12 Unilateral primary osteoarthritis, left knee
CPT/HCPCS: 99213; 73560

== ENCOUNTER 2020-09-11 18:44 | Outpatient (REF) | payer OTHER, MEDICARE, SELFPAY ==
[2020-09-15 17:08] LABS: COVID-19 RT-PCR Result NEGATIVE (Negative)
== END 2020-09-11 19:04 ==
LOC: NCHCN 18:44
PROVIDERS: PCP Nurse Practitioner Family; Visit Provider Internal Medicine
DX: Z20.828 Contact with and (suspected) exposure to other viral communicable diseases (principal)
CPT/HCPCS: U0003

== ENCOUNTER 2020-12-01 18:17 | Outpatient (REF) | payer OTHER, SELFPAY ==
[2020-12-01 21:19] LABS: Absolute Basophil Count 0.03 10^3/uL (0.0-0.2); Absolute Eosinophil Count 0.09 10^3/uL (0.0-0.7); Absolute Lymphocyte Count 1.52 10^3/uL (1.2-3.4); Absolute Monocyte Count 0.42 10^3/uL (0.1-0.8); Absolute Neutrophil Count 2.45 10^3/uL (1.2-6.7); Basophils % 0.7; HCT 39.9 % (36.0-46.0); HGB 12.9 g/dL (11.2-15.7); Lymphocytes % 33.7; MCH 28.3 pg (27.0-33.0); MCHC 32.3 % (32.0-36.0); MCV 87.5 fL (80-95); Monocytes % 9.3; Neutrophils % 54.3; Nucleated RBC 0 %; Platelet Count 175 10^3/uL (130-400); RBC 4.56 10^6/uL (3.93-5.22); RDW 14.8 % (11.7-14.6); RDW-SD 47.8 fL; WBC 4.51 10^3/uL (4.4-10.8)
[2020-12-01 21:46] LABS: ALT 29 U/L (14-59); AST 26 U/L (15-37); Albumin 3.5 g/dL (3.4-5.0); Alkaline Phosphatase 106 U/L (46-116); Anion Gap 4.5 mmol/L (3-11); BUN 18 mg/dL (7-18); Bilirubin, Total 0.9 mg/dL (0.2-1.0); CO2 27.5 mmol/L (21.0-32.0); Calcium 9.3 mg/dL (8.5-10.1); Chloride 110 mmol/L (98-107); Estimated GFR 53.35 (mL/min/1.73m2); Ferritin 18 ng/mL (8-252); Glucose 92 mg/dL (74-106); Potassium 4.9 mmol/L (3.5-5.1); Sodium 142 mmol/L (136-145); TSH (W/Ref FT4) 0.49 uIU/mL (0.36-3.74); Total Protein 6.9 g/dL (6.4-8.2)
[2020-12-01 21:55] LABS: Iron 81 ug/dL (50-170); Total Iron Binding Capacity 396 ug/dL (250-450); Transferrin Sat 20 % (15-50)
== END 2020-12-01 18:18 | disposition home or self-care (01) ==
LOC: NCHCN 18:17
PROVIDERS: PCP Nurse Practitioner Family; Visit Provider Nurse Practitioner Family
DX: I87.8 Other specified disorders of veins (principal); F02.80 Dementia in other diseases classified elsewhere, unspecified severity, without behavioral disturbance, psychotic disturbance, mood disturbance, and anxiety; K20.90 Esophagitis, unspecified without bleeding; R53.83 Other fatigue; E03.9 Hypothyroidism, unspecified; I48.0 Paroxysmal atrial fibrillation; Z86.2 Personal history of diseases of the blood and blood-forming organs and certain disorders involving the immune mechanism; N39.3 Stress incontinence (female) (male)
CPT/HCPCS: 80053; 82728; 83540; 83550; 84443; 85025

== ENCOUNTER 2021-05-14 16:38 | Outpatient (REF) | payer OTHER, SELFPAY ==
[2021-05-16 13:23] LABS: COVID-19 RT-PCR UVMMC Result Negative (Negative)
== END 2021-05-14 16:39 | disposition home or self-care (01) ==
LOC: NCHCN 16:38
PROVIDERS: PCP Nurse Practitioner Family; Visit Provider Nurse Practitioner Family
DX: Z20.822 Contact with and (suspected) exposure to COVID-19 (principal)
CPT/HCPCS: U0003

== ENCOUNTER 2021-06-04 14:57 | Observation (INO) | payer OTHER, SELFPAY ==
[2021-06-04] VITALS (41 sets, daily range): BP systolic 140–183; BP diastolic 60–84; PULSE 60–80; RESP 11–24; TEMP 36.2–36.9; O2SAT 94–100
--- NOTE | 2021-06-04 15:15 | DI.CT_ITS ---
Exam(s) CT HEAD CERVICAL SPINE WO EXAM: CT HEAD CERVICAL SPINE WO CLINICAL HISTORY: fall, [place]. TECHNIQUE: Imaging Protocol: Axial computed tomography images with coronal and sagittal reformatted images were created and reviewed COMPARISON: No exams were available for comparison FINDINGS: Head CT Ventricles and Extra axial spaces: Normal in size and morphology for the patient's age. Hemorrhage: None. Cerebral parenchyma: Atrophy, consistent with the patient's age. Midline shift: None. Brainstem/Cerebellum: Normal. Calvarium: Normal. Visualized Paranasal sinuses/Mastoids: Clear. Cervical Spine CT BONES: Vertebral body heights are maintained. Alignment is normal. There is no evidence of acute frac ture. Degenerative disc changes and facet degenerative changes are seen . SOFT TISSUES: No paraspinal hematoma. The airway appears intact. No pneumothorax is seen at the lung apices. IMPRESSION: Head CT: No acute abnormality. C-spine CT: Degenerative changes, no acute abnormality. RADIATION DOSE DELIVERED: 1,318.63mGy.cm Total DLP DATA REPOSITORY: All CT scans at this facility are submitted to the National Radiology Data Registry (NRDR) Dose Index Registry (DIR) with the [employer] (A[employer]). RADIATION OPTIMIZATION: All CT scans at this facility use at least one of these dose optimization te chniques: automated exposure control; mA and/or kV adjustment per patient size (includes targeted exa ms where dose is matched to clinical indication); or iterative reconstruction.
--- NOTE | 2021-06-04 15:15 | RT.EKG_ITS ---
APPROVED REPORT Exam: Resting ECG Reason for Exam: syncope Patient Location: E HR:70 bpm ECG Measurements Heart Rate 70 AXIS AL 177 P 29 QRSd 104 QRS 27 QT 409 T 24 QTc 441 Conclusion Sinus rhythm...normal P axis, V-rate 60- 99 Inferior infarct, old...Q >35mS, II III aVF. Sinus. No STEMI. I have reviewed and interpreted ECG and agree with software generated interpretation.
--- NOTE | 2021-06-04 15:30 | DI.CT_ITS ---
Exam(s) CT CHEST/ABD/PEL W EXAM: CT CHEST/ABD/PEL W CLINICAL HISTORY: thoracic, aortic aneurysm and fall. TECHNIQUE: Imaging Protocol: Axial computed tomography images with coronal and sagittal reformatted images were created and reviewed CONTRAST MATERIAL: Intravenous: Omnipaque 350 Contrast volume:100 ml COMPARISON: No exams were available for comparison FINDINGS: CHEST: Enlarged nodular thyroid, particularly the left lobe, likely multinodular goiter. Tracheobronchial tree: Patent where visualized. Mediastinum and [place]: No dominant adenopathy or fluid collection. Pulmonary parenchyma: Expiratory changes. No consolidation or dominant measurable mass. Pleura: No effusion or pneumothorax. Lymph nodes: Within normal limits. Aorta: Thoracic portion non-dilated. Heart: Enlarged. Coronary artery and mitral valve calcifications. Bones: Degenerative disc changes, unremarkable for age. No fracture or lytic or blastic lesions. ABDOMEN: Liver: Normal density. No measurable mass. Gallbladder and biliary tract: Status post cholecystectomy. No radiodense calculus or dilation. Pancreas: Normal density, no abnormal calcifications or inflammatory process. Stomach: Moderate size hiatal hernia. Spleen: Normal size. Calcified granulomas. Small accessory spleen.. Kidneys: Normal size, contour and axis. No radiodense stones or obstructive uropathy. No masses seen. Adrenal glands: No masses seen. Aorta: Abdominal portion non-dilated. Atherosclerotic changes. No evidence of a dissection. Lymph nodes: Within normal limits. Soft tissues: Unremarkable. PELVIS: Bladder: Symmetric distention, no gross wall thickening. Bowel: No obstruction or bowel wall thickening. Severe diverticulosis throughout. No evidence of div erticulitis. Peritoneal cavity: No ascites, collection or mesenteric inflammatory response. Bones: Degenerative changes and levoscoliosis. Reproductive organs: Within normal limits. IMPRESSION: No acute abnormality in the chest abdomen or pelvis.. RADIATION DOSE DELIVERED: 1,372.81mGy.cm Total DLP DATA REPOSITORY: All CT scans at this facility are submitted to the National Radiology Data Registry (NRDR) Dose Index Registry (DIR) with the [employer] (ACR). RADIATION OPTIMIZATION: All CT scans at this facility use at least one of these dose optimization te chniques: automated exposure control; mA and/or kV adjustment per patient size (includes targeted exa ms where dose is matched to clinical indication); or iterative reconstruction.
--- NOTE | 2021-06-04 15:33 | NUR.NOTE ---
Fingerstick glucose 110Nursing Note:
[2021-06-04 15:34] LABS: Abs Immature Grans 0.02 10^3/uL (0.0-0.06); Absolute Basophil Count 0.03 10^3/uL (0.0-0.2); Absolute Eosinophil Count 0.11 10^3/uL (0.0-0.7); Absolute Lymphocyte Count 1.91 10^3/uL (1.2-3.4); Absolute Monocyte Count 0.47 10^3/uL (0.1-0.8); Absolute Neutrophil Count 2.46 10^3/uL (1.2-6.7); Basophils % 0.6; Eosinophils % 2.2; HCT 39.4 % (36.0-46.0); HGB 13.1 g/dL (11.2-15.7); Immature Grans % 0.4; Lymphocytes % 38.2; MCH 29.8 pg (27.0-33.0); MCHC 33.2 % (32.0-36.0); MCV 89.7 fL (80-95); MPV 10.5 fL (8.0-11.0); Monocytes % 9.4; Neutrophils % 49.2; Nucleated RBC 0 %; Platelet Count 157 10^3/uL (130-400); RBC 4.39 10^6/uL (3.93-5.22); RDW 14.3 % (11.7-14.6); RDW-SD 46.9 fL
--- NOTE | 2021-06-04 15:34 | NUR.NOTE ---
To DI per cart with transporter Nursing Note:
[2021-06-04 15:45] LABS: Magnesium 1.9 mg/dL (1.8-2.4)
[2021-06-04 15:46] LABS: INR 1.8 (0.9-1.1); Prothrombin Time 17.5 sec (9.3-11.0)
[2021-06-04 15:51] LABS: ALT 23 U/L (14-59); AST 23 U/L (15-37); Albumin 3.6 g/dL (3.4-5.0); Alkaline Phosphatase 80 U/L (46-116); Anion Gap 7.5 mmol/L (3-11); BUN 19 mg/dL (7-18); Bilirubin, Total 1.1 mg/dL (0.2-1.0); CO2 24.5 mmol/L (21.0-32.0); CREATININE 1.1 mg/dL (0.55-1.02); Calcium 9.3 mg/dL (8.5-10.1); Chloride 107 mmol/L (98-107); Estimated GFR 47.67 (mL/min/1.73m2); Glucose 118 mg/dL (74-106); Potassium 4.1 mmol/L (3.5-5.1); Sodium 139 mmol/L (136-145); Total Protein 7.1 g/dL (6.4-8.2)
[2021-06-04 15:54] LABS: Troponin I < 0.05 ng/mL (<0.06)
[2021-06-04] MEDS: Omnipaque 350 MG/ML 100 ML BTL IJ (16:00)
[2021-06-04] MEDS: Normal Saline Flush 10 ML SYR IVP (16:01)
--- NOTE | 2021-06-04 16:19 | ED.GENADUL_ITS ---
Discharge Plan Disposition Patient Disposition: [facility] Condition: Stable Discharge Details Clinical Impression: Acute UTI, Syncope and collapse, Closed head injury Admit Date/Time: 06/04/21 18:56 Admit Provider: Orlando Navas Attending Provider: Orlando Navas Primary Care Provider: Fatuma Boyer ED Provider: Jordyn Kerr Discharge Data Discharge Date/Time-TO BE ENTERED AT DEPARTURE: 06/04/21 20:48 Medical Decision Making <ANIA Melara - Last Filed: 06/06/21 19:09> Patient is alert and oriented, of decisional capacity, she is able to answer all my questions She has some bleeding from her known without septal hematoma, her oropharynx is patent, her uvula is midline She has a small 5 mm laceration to the buccal mucosa on her lower lip without evidence of dental trauma, she is able to move her jaw Her abdomen is nontender and she has no additional evidence of trauma Date concerning presentation is that she does not recall event and did not have any presyncopal findings or symptoms She is also anticoagulated on Coumadin and lives independently, she is pending CT head and cervical spine, chest abdomen and pelvis evaluation by the radiologist She declines any analgesia She has an INR pending She is on telemetry monitoring She will be signed out to Lili Hook nurse practitioner at 1615 pending reassessment and disposition Blood glucose 110 upon arrival, mildly hypertensive at 181/70, Initial EKG reassuring, no QTC prolongation or ST elevation or depression Subtherapeutic, 1.8 with INR, BUN mildly elevated Not grossly changed from prior <Jordyn Kerr - Last Filed: 06/04/21 20:52> Care assumed from provider Vera JORGE, Patient is awaiting CT results and disposition. In short patient is an 81-year-old female who presents to the ER status post syncope and collapse episode and closed head injury prior to arrival. Patient has a past medical history of dementia, CAD, thoracic aortic aneurysm, atrial fibrillation and anxiety. Patient was walking across the street and had a witnessed fall. Patient denies any dizziness or symptoms prior to the syncopal episode. At the time of the signout we are awaiting CT results. Patient is in a c-collar and is returning from diagnostic imaging upon my initial exam. CT results received. C-collar removed, patient alert and oriented, requesting to use bathroom. FINDINGS: Brain: Normal. No hemorrhage. Unremarkable white matter. No mass effect. Cerebral ventricles: No ventriculomegaly. Paranasal sinuses: Visualized sinuses are unremarkable. No fluid levels. Mastoid air cells: Visualized mastoid air cells are well aerated. Bones/joints: Unremarkable. No acute fracture. Soft tissues: Unremarkable. IMPRESSION: No acute intracranial abnormality IMPRESSION: 1. Straightening of the spine which could be related to positional artifact or muscle spasms. 2. Diffuse degenerative disc disease. 3. Disc osteophyte complexes at C4-C5, C5-C6 and C6-C7. 4. Grade 1 anterolisthesis of C7 on T1. 5. Facet arthrosis at C2-C3, C4-C5 and C7-T1. 6. Left paracentral protrusion at C5-C6. 7. Mild bulge at C6-C7. Right neural foraminal narrowing at C4-C5. 8. Bilateral neural foraminal narrowing at C5-C6 and C6-C7. 9. Heterogeneous thyroid gland with multiple subcentimeter bilateral thyroid nodules FINDINGS: Thyroid: There is thyroid heterogeneity with a left lobe nodule up to 2 cm. Recommend sonography. Lungs: Unremarkable. No consolidation. No masses. Pleural spaces: Unremarkable. No pneumothorax. No pleural effusion. Heart: Mild cardiomegaly. Coronary artery calcifications/stents identified. Mediastinal space: Moderate-sized hiatal hernia. Trace fluid is adjacent to the hiatal hernia. Aorta: Ascending aorta upper limits of normal. Lymph nodes: Unremarkable. No enlarged lymph nodes. Bones/joints: No evidence for fracture. Mild thoracic spondylosis. Soft tissues: Unremarkable. Other findings: Respiratory motion noted. IMPRESSION: Trace fluid adjacent to hiatal hernia, uncertain chronicity. No definite acute posttraumatic abnormality. COMPARISON: None relevant. FINDINGS: Liver: Normal. No mass. Gallbladder and bile ducts: Status post cholecystectomy. Pancreas: Normal. No ductal dilation. Spleen: Multiple splenic calcifications consistent with old granulomatous change. Incidental note made of accessory splenic ossicle. Adrenal glands: Normal. No mass. Kidneys and ureters: Normal. No hydronephrosis. Stomach and bowel: Diverticulosis without acute diverticulitis. No abnormal bowel distention or wall edema evident. Appendix: No evidence of appendicitis. Intraperitoneal space: Unremarkable. No free air. No significant fluid collection. Vasculature: Moderate to severe atherosclerotic change present in the vasculature. Lymph nodes: Unremarkable. No enlarged lymph nodes. Urinary bladder: There is minimal soft tissue thickening at the anterior aspect of the bladder with adjacent soft tissue stranding. Reproductive: Unremarkable as visualized. Bones/joints: Mild levoscoliosis with moderate spondylosis. No evidence for fracture. Soft tissues: Unremarkable. IMPRESSION: No evidence for acute posttraumatic abnormality Urine shows large leukocytes, small blood Discussed CT results with patient and family who verbalized understanding. Patient is alert and oriented slightly confused at times. Does ask repetitive questions. Daughter is requesting to have patient admitted for observation overnight due to patients sudden syncopal episode. Will consult with hospitalist. Spoke with Dr. Sosa regarding patient case and details he accepts patient for admission at this time. Patient and family aware of plan of care and are in agreement. Patient remained hemodynamically stable throughout the remainder of her stay. Patient was transported up to the floor. HPI <ANIA Melara - Last Filed: 06/06/21 19:09> General Mode of arrival: EMS . Date/Time Provider Initiated Documentation: 06/04/21 15:08 . Limitations to Documentation: no limitations . Information obtained by: patient . HPI Narrative: This very pleasant 81-year-old female presents with history of dementia, thoracic aortic aneurysm, paroxysmal atrial fibrillation, anticoagulated on Coumadin, carotid artery disease, stress incontinence, osteopenia, diastolic dysfunction. Patient reportedly was going out for a walk when the next thing she remembers is waking up on the ground. She denies any prior history of syncope. She is unsure as to what happened. She states she has stepped up onto the sidewalk and Mepro-As pirin she remembers. She denies remembering hitting her head. She is on Coumadin. She does have a mild headache. She also states she cut her gum. She denies any chest pain or shortness of breath. She denies any dizziness or weakness. She denies any urinary complaints. She felt quite well prior to her walk. Related Data Home Medications Medication Instructions Recorded Confirmed calcium carbonate-vitamin D3 1 tab PO DAILY 07/28/17 06/04/21 levothyroxine 88 mcg PO DAILY 07/28/17 06/04/21 multivitamin [Daily Multiple] 1 ea PO DAILY 07/28/17 06/04/21 verapamil 180 mg PO DAILY 07/28/17 06/04/21 [id number] with vit D 1 ea PO DAILY 08/17/17 06/04/21 warfarin [Coumadin] 3 mg PO DAILY 08/17/17 06/04/21 losartan 50 mg tablet 50 mg PO DAILY 08/09/18 06/04/21 oxybutynin chloride 5 mg tablet 5 mg PO DAILY tab 08/09/18 06/04/21 acetaminophen 1,000 mg PO Q8H PRN #90 tab 04/12/19 06/04/21 Previous Rx's Medication Instructions Recorded acetaminophen 1,000 mg PO Q8H PRN #90 tab 04/12/19 Allergies Allergy/AdvReac Type Severity Reaction Status Date / Time No Known Allergies Allergy Verified 06/04/21 15:03 General Stated Complaint: Trauma DARIUS: 3 Review of Systems <ANIA Melara - Last Filed: 06/06/21 19:09> All systems reviewed & are unremarkable except as noted in HPI and below PFSH <ANIA Melara - Last Filed: 06/06/21 19:09> Medical History Anxiety Carotid stenosis GERD (gastroesophageal reflux disease) HTN (hypertension) Hypothyroidism Paroxysmal atrial fibrillation Surgical History Cholecystectomy Colonoscopy - MAC (08/23/17) EGD - MAC (08/23/17) History of bladder surgery Bladder sling surgery x 2 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 Montague Family History Father Alcohol use disorder Mother Dementia Social History Smoking/Tobacco Use Status: Never Smoking risk assessment performed?: Yes Alcohol Intake: current Alcohol Intake frequency: 0-2 drinks per day Alcohol type: wine Details: rare use, nothing in past several weeks Drug use: Never Substance use type: does not use Current gender identity: female Do you feel safe at home: Yes Do you feel safe in your relationship?: Yes Additional Social history: Lives in her own apartment in [facility]. of many years in 06/2020. Kids in area. Exam <ANIA Melara - Last Filed: 06/06/21 19:09> HENMT Other: No evidence of dental injury, small laceration to buccal mucosa lower lip, swelling noted and tenderness to nasal bridge, no septal hematoma, no active bleeding Eyes Pupils: PERRL Neck Other: No midline tenderness, collar in place Chest Other: No visible sign of trauma, no crepitus Resp Effort & Inspection: normal respiratory effort Auscultation: clear to auscultation bilaterally Cardio Rate: regular rate Rhythm: regular rhythm GI Other: No abdominal tenderness or visible sign of trauma, no abdominal bruit or pulsatile mass Distal pulses intact Bimanual Exam- Vagina & Uterus: uterine mobility normal Neuro General: patient alert, patient oriented x3 and CN's II-XI intact bilaterally Cognition: normal cognition Speech: speech normal Other: Strength and sensation intact distally, GCS 15 Extrem Other: No visible sign of lower extremity trauma Psych Appearance: well kempt Mental Status: mental status grossly normal Course <ANIA Melara - Last Filed: 06/06/21 19:09> Vital Signs Vital signs: Vital Signs Temperature 36.2 C L 06/04/21 14:57 Pulse 67 06/04/21 14:57 Respiratory Rate 16 06/04/21 14:57 Blood Pressure 181/70 H 06/04/21 14:57 Pulse Oximetry 99 06/04/21 14:57 Temperature 36.2 C L 06/04/21 14:57 Temperature Source Skin 06/04/21 14:57 Pulse 68 06/04/21 16:02 Pulse 66 06/04/21 16:10 Respiratory Rate 18 06/04/21 16:10 Respiratory Effort Non-Labored 06/04/21 15:12 Respiratory Depth Normal 06/04/21 15:12 Respiratory Pattern Normal 06/04/21 15:12 Blood Pressure 153/83 H 06/04/21 16:02 Blood Pressure Mean 99 06/04/21 16:02 Blood Pressure Position Supine 06/04/21 14:57 Pulse Oximetry 100 06/04/21 16:10 Oxygen Delivery Method Room Air 06/04/21 14:57 Oxygen Flow Rate 0 06/04/21 14:57 Pain Level 8 06/04/21 14:57 Lab/Test Results Lab/Test Results: Laboratory Tests Range/Units 0906/04/21 06/04/21 15:30 15:30 15:30 WBC (4.4-10.8) 10^3/uL 5.00 RBC (3.93-5.22) 10^6/uL 4.39 Hgb (11.2-15.7) g/dL 13.1 Hct (36.0-46.0) % 39.4 MCV (80-95) fL 89.7 MCH (27.0-33.0) pg 29.8 MCHC (32.0-36.0) % 33.2 RDW (11.7-14.6) % 14.3 Plt Count (130-400) 10^3/uL 157 MPV (8.0-11.0) fL 10.5 Immature Gran % 0.4 Neutrophils % 49.2 Lymphocytes % 38.2 Monocytes % 9.4 Eosinophils % 2.2 Basophils % 0.6 Nucleated RBC % % 0 Absolute Neutrophils (1.2-6.7) 10^3/uL 2.46 Absolute Lymphocytes (1.2-3.4) 10^3/uL 1.91 Absolute Monocytes (0.1-0.8) 10^3/uL 0.47 Absolute Eosinophils (0.0-0.7) 10^3/uL 0.11 Absolute Basophils (0.0-0.2) 10^3/uL 0.03 PT (9.3-11.0) sec INR (0.9-1.1) Sodium (136-145) mmol/L 139 Potassium (3.5-5.1) mmol/L 4.1 Chloride (98-107) mmol/L 107 Carbon Dioxide (21.0-32.0) mmol/L 24.5 Anion Gap (3-11) mmol/L 7.5 BUN (7-18) mg/dL 19 H Creatinine (0.55-1.02) mg/dL 1.1 H Estimated GFR/1.73 m2 (mL/min/1.73m2) 47.67 Glucose (74-106) mg/dL 118 H Calcium (8.5-10.1) mg/dL 9.3 Magnesium (1.8-2.4) mg/dL 1.9 Total Bilirubin (0.2-1.0) mg/dL 1.1 H AST (15-37) U/L 23 ALT (14-59) U/L 23 Alkaline Phosphatase (46-116) U/L 80 Troponin I (<0.06) ng/mL < 0.05 Total Protein (6.4-8.2) g/dL 7.1 Albumin (3.4-5.0) g/dL 3.6 Range/Units /06/16 15:30 WBC (4.4-10.8) 10^3/uL RBC (3.93-5.22) 10^6/uL Hgb (11.2-15.7) g/dL Hct (36.0-46.0) % MCV (80-95) fL MCH (27.0-33.0) pg MCHC (32.0-36.0) % RDW (11.7-14.6) % Plt Count (130-400) 10^3/uL MPV (8.0-11.0) fL Immature Gran % Neutrophils % Lymphocytes % Monocytes % Eosinophils % Basophils % Nucleated RBC % % Absolute Neutrophils (1.2-6.7) 10^3/uL Absolute Lymphocytes (1.2-3.4) 10^3/uL Absolute Monocytes (0.1-0.8) 10^3/uL Absolute Eosinophils (0.0-0.7) 10^3/uL Absolute Basophils (0.0-0.2) 10^3/uL PT (9.3-11.0) sec 17.5 H INR (0.9-1.1) 1.8 H Sodium (136-145) mmol/L Potassium (3.5-5.1) mmol/L Chloride (98-107) mmol/L Carbon Dioxide (21.0-32.0) mmol/L Anion Gap (3-11) mmol/L BUN (7-18) mg/dL Creatinine (0.55-1.02) mg/dL Estimated GFR/1.73 m2 (mL/min/1.73m2) Glucose (74-106) mg/dL Calcium (8.5-10.1) mg/dL Magnesium (1.8-2.4) mg/dL Total Bilirubin (0.2-1.0) mg/dL AST (15-37) U/L ALT (14-59) U/L Alkaline Phosphatase (46-116) U/L Troponin I (<0.06) ng/mL Total Protein (6.4-8.2) g/dL Albumin (3.4-5.0) g/dL Sign Out <ANIA Melara - Last Filed: 06/06/21 19:09> Sign Out Data: Sign Out Comment: pending ct's and reassessment Last updated by Vera Hernandez PA at 06/04/21 16:25
--- NOTE | 2021-06-04 16:40 | DI.VRAD_ITS ---
PROCEDURE INFORMATION: Exam: CT Head Without Contrast Exam date and time: 06/04/2021 3:48 PM Age: 81 years old Clinical indication: Injury or trauma; Patient HX: Fall, hi TECHNIQUE: Imaging protocol: Computed tomography of the head without contrast. COMPARISON: MR BRAIN WO 09/24/2019 10:20 AM FINDINGS: Brain: Normal. No hemorrhage. Unremarkable white matter. No mass effect. Cerebral ventricles: No ventriculomegaly. Paranasal sinuses: Visualized sinuses are unremarkable. No fluid levels. Mastoid air cells: Visualized mastoid air cells are well aerated. Bones/joints: Unremarkable. No acute fracture. Soft tissues: Unremarkable. IMPRESSION: No acute intracranial abnormality. PROCEDURE INFORMATION: Exam: CT Cervical Spine Without Contrast Exam date and time: 06/04/2021 3:48 PM Age: 81 years old Clinical indication: Injury or trauma; Patient HX: Fall, hi TECHNIQUE: Imaging protocol: Computed tomography images of the cervical spine without contrast. COMPARISON: MR BRAIN WO 09/24/2019 10:20 AM FINDINGS: Bones/joints: Grade 1 anterolisthesis of C7 on T1. Discs/Spinal canal/Neural foramina: Diffuse degenerative disc disease. Disc osteophyte complexes at C4-C5, C5-C6 and C6-C7. Facet arthrosis at C2-C3, C4-C5 and C7-T1. Left paracentral protrusion at C5-C6. Mild bulge at C6-C7. Right neural foraminal narrowing at C4-C5. Bilateral neural foraminal narrowing at C5-C6 and C6-C7. Thyroid: Heterogeneous thyroid gland with multiple subcentimeter bilateral thyroid nodules. Lungs: Lung apices are normal. Soft tissues: Straightening of the spine which could be related to positional artifact or muscle spasms. IMPRESSION: 1. Straightening of the spine which could be related to positional artifact or muscle spasms. 2. Diffuse degenerative disc disease. 3. Disc osteophyte complexes at C4-C5, C5-C6 and C6-C7. 4. Grade 1 anterolisthesis of C7 on T1. 5. Facet arthrosis at C2-C3, C4-C5 and C7-T1. 6. Left paracentral protrusion at C5-C6. 7. Mild bulge at C6-C7. Right neural foraminal narrowing at C4-C5. 8. Bilateral neural foraminal narrowing at C5-C6 and C6-C7. 9. Heterogeneous thyroid gland with multiple subcentimeter bilateral thyroid nodules. Dictated and Authenticated by: Raine Wu MD. Ordering:RHEA Gamez MD
[2021-06-04] MEDS: Normal Saline 500 ML IV (16:45)
--- NOTE | 2021-06-04 17:06 | DI.VRAD_ITS ---
PROCEDURE INFORMATION: Exam: CT Chest With Contrast; Diagnostic Exam date and time: 06/04/2021 3:54 PM Age: 81 years old Clinical indication: Other: Fall, thoracic aortic aneurysm; Chest wall pain TECHNIQUE: Imaging protocol: Diagnostic computed tomography of the chest with contrast. 3D rendering (Not supervised by radiologist): MIP and/or 3D reconstructed images were created by the technologist. COMPARISON: None relevant. FINDINGS: Thyroid: There is thyroid heterogeneity with a left lobe nodule up to 2 cm. Recommend sonography. Lungs: Unremarkable. No consolidation. No masses. Pleural spaces: Unremarkable. No pneumothorax. No pleural effusion. Heart: Mild cardiomegaly. Coronary artery calcifications/stents identified. Mediastinal space: Moderate-sized hiatal hernia. Trace fluid is adjacent to the hiatal hernia. Aorta: Ascending aorta upper limits of normal. Lymph nodes: Unremarkable. No enlarged lymph nodes. Bones/joints: No evidence for fracture. Mild thoracic spondylosis. Soft tissues: Unremarkable. Other findings: Respiratory motion noted. IMPRESSION: Trace fluid adjacent to hiatal hernia, uncertain chronicity. No definite acute posttraumatic abnormality. PROCEDURE INFORMATION: Exam: CT Abdomen And Pelvis With Contrast Exam date and time: 06/04/2021 3:54 PM Age: 81 years old Clinical indication: Other: Fall, thoracic aortic aneurysm; Chest wall pain TECHNIQUE: Imaging protocol: Computed tomography of the abdomen and pelvis with contrast. 3D rendering (Not supervised by radiologist): MIP and/or 3D reconstructed images were created by the technologist. COMPARISON: None relevant. FINDINGS: Liver: Normal. No mass. Gallbladder and bile ducts: Status post cholecystectomy. Pancreas: Normal. No ductal dilation. Spleen: Multiple splenic calcifications consistent with old granulomatous change. Incidental note made of accessory splenic ossicle. Adrenal glands: Normal. No mass. Kidneys and ureters: Normal. No hydronephrosis. Stomach and bowel: Diverticulosis without acute diverticulitis. No abnormal bowel distention or wall edema evident. Appendix: No evidence of appendicitis. Intraperitoneal space: Unremarkable. No free air. No significant fluid collection. Vasculature: Moderate to severe atherosclerotic change present in the vasculature. Lymph nodes: Unremarkable. No enlarged lymph nodes. Urinary bladder: There is minimal soft tissue thickening at the anterior aspect of the bladder with adjacent soft tissue stranding. Reproductive: Unremarkable as visualized. Bones/joints: Mild levoscoliosis with moderate spondylosis. No evidence for fracture. Soft tissues: Unremarkable. IMPRESSION: No evidence for acute posttraumatic abnormality. Dictated and Authenticated by: Floresita Diaz MD. Ordering:RHEA Gamez MD
[2021-06-04 17:16] LABS: Bilirubin Negative (Negative); Blood Small (Negative); Clarity Sl Cloudy (Clear); Glucose Negative (Negative); Ketones Negative (Negative); Leukocyte Esterase Large (Negative); Nitrite Negative (Negative); Specific Gravity 1.015 (1.005-1.025)
[2021-06-04 18:50] LABS: Troponin I < 0.05 ng/mL (<0.06)
[2021-06-04 18:59] LABS: Bacteria Few HPF (Negative); Crystals Negative HPF (Negative); Epithelial Cells Negative HPF (Negative); Mucus Negative (Negative); RBC 0-2 HPF (0-2); WBC 0-2 HPF (0-5)
[2021-06-04 19:00] LABS: C & S Indicated? C&S Done As Ordered
[2021-06-04 19:16] LABS: Source Nasal/Nares
[2021-06-04 20:12] LABS: COVID-19 PCR Negative (Negative)
--- NOTE | 2021-06-04 20:37 | NUR.NOTE ---
Report to JUNG Garcia [id number].Nursing Note:
--- NOTE | 2021-06-04 21:56 | W.PM.HP.N ---
Date of service: 06/04/21 Time of Service: 21:56 Assessment and Plan Assessment and plan (1) Syncope and collapse: Status: Acute Assessment and plan: The history suggests cardiogenic source with lack or prodrome, possibly a non-perfusing rhythm. Her quick recovery of baseline mental status and lack of focal neurologic symptoms are not consistent with a seizure or CVA. EKG and troponins do not suggest acute ischemia, though she does have some vascular disease and she is at risk for structural heart disease. Will cycle troponins Telemetry monitoring. Should consider discharge on monitor, especially if she wants to go home tomorrow. Echocardiogram in the morning. Interestingly, stents are noted in the CT scan. Her PCP's EHR is down for maintenance right now, but should clarify history. She may benefit from statin. (2) Thoracic aortic aneurysm: Status: Acute Assessment and plan: Not noted in CT of chest. (3) Closed head injury: Status: Acute Assessment and plan: CT head and neck reassuring. She is at risk for bleeding on warfarin, but no signs on CT. I would only repeat CT for subacute subdural if MS worsens acutely. Continue wound care for facial wounds. (4) Paroxysmal atrial fibrillation: Status: Chronic Assessment and plan: NSR on this admission. She has not had syncope with pAFIB in the past. Continue monitor, verapamil for rate, and warfarin. (5) Memory loss: Status: Acute Assessment and plan: She appears at her baseline dementia based on report. I did hold her oxybutynin which is likely to contribute to her dementia symptoms. (6) Hypothyroidism: Status: None Assessment and plan: TSH low around 0.5 which is lower than ideal for her age, will repeat with labs. Goal of around 2 better to avoid cardiac arrythmias, but will defer Lt4 dose change to PCP. (7) HTN (hypertension): Status: None Assessment and plan: BP running a little high, will resume her home medicaitons and monitor. (8) Acute UTI: Status: Acute Assessment and plan: She denies urinary symtpoms, and her mental status is good enough to report symtoms and give a good history. I don't think +LE should be treated. (9) DVT prophylaxis: Status: Acute Assessment and plan: on warfarin (10) Discharge planning issues: Status: Acute Assessment and plan: stable on medical floor with tele monitor. she is DNR/DNI History of Present Illness Narrative: 81 yo F with history of mild dementia, thoracic aortic aneurysm, and paroxysmal atrial fibrillation who presented after syncopal episode with facial trauma this afternoon. She was feeling in her normal state of health this morning. She went out for her typically walk on [address] from her home in [facility]. She had walked about 2 blocks when episode happened. She doesn't remember the episode, she just woke up on the sidewalk with a bloody face. She denies any symptoms preceding the episode, including headache, chest pain, SOB, palpitations, dizziness, or nausea. She denies any focal numbness or weakness before or after. She denies any abnormal movements. She states a booking police officer was there and came to help immediately after she was on the ground. She hit her face and cyrus hands. She states nothing like this has ever happened to her in the past. She states she may have been eating a little less than normal this week, but she did have breakfast of donut and coffee, orange juice. She denies missing her meds or any medication changes recently. She has a history of GI bleed but she hasn't noticed any bleeding recently. She did not experience incontinence with the event. She did break her upper dentures in the fall. Reviewing the history, carotid disease and diastolic dyfunction are mentioned but I could not find documentation in imaging or cardiology notes. Cardiology notes mention normal LVEF in 2017 (Dr. Carmona in [place]). Review of Systems Constitutional Constitutional: Denies chills, Denies fever(s), Denies frequent falls, Denies headache(s), Denies lethargy, Denies weakness, Denies weight gain and Denies weight loss Eyes Eyes: Denies change in vision and Denies irritation ENT Ears, Nose, Mouth, and Throat: Denies change in voice, Denies dysphagia, Denies vertigo, Denies dizziness, Denies headache(s), Denies nasal congestion (nose just feels congested since trauma, not before), Denies nasal discharge and Denies sore throat Cardiovascular Cardiovascular: Denies chest pain, Denies leg edema, Denies palpitations, Denies dyspnea and Denies orthopnea Respiratory Respiratory: Denies cough, Denies excessive phlegm production, Denies dyspnea and Denies wheezing Gastrointestinal Gastrointestinal: Denies abdominal pain, Denies dysphagia, Denies heartburn and Denies vomiting Genitourinary Genitourinary: Denies hematuria, Denies dysuria and Denies urinary incontinence Musculoskeletal Musculoskeletal: Denies abnormal gait and Denies joint swelling Integumentary/Breasts Skin/Breast: Denies rash and Denies skin ulcer Comments: just cuts/bruises from fall today Neurologic Neurologic: Denies abnormal speech, Denies abnormal gait, Denies vertigo, Denies dizziness, Denies frequent falls, Denies headache(s), Denies lack of coordination, Denies other visual disturbances, Denies convulsions, Denies sensory deficit, Denies tremor(s) and Denies weakness Psychiatric Psychiatric: Denies mood swings and Denies panic attacks Endocrine Endocrine: Denies palpitations Hematologic/Lymphatic Hematologic/Lymphatic: Denies easy bleeding Allergic/Immunologic Allergic/Immunologic: Denies wheezing PFSH Medical History (Updated 06/04/21 @ 22:48 by Orlando Navas) Anxiety Carotid stenosis GERD (gastroesophageal reflux disease) HTN (hypertension) Hypothyroidism Paroxysmal atrial fibrillation Surgical History Cholecystectomy Colonoscopy - MAC (08/23/17) EGD - MAC (08/23/17) History of bladder surgery Bladder sling surgery x 2 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 Montague Family History (Updated 06/04/21 @ 22:20 by Orlando Navas) Father Alcohol use disorder Mother Dementia Social History (Updated 06/04/21 @ 22:21 by Orlando Navas) Smoking/Tobacco Use Status: Never Smoking risk assessment performed?: Yes Alcohol Intake: current Alcohol Intake frequency: 0-2 drinks per day Alcohol type: wine Details: rare use, nothing in past several weeks Drug use: Never Substance use type: does not use Current gender identity: female Do you feel safe at home: Yes Do you feel safe in your relationship?: Yes Additional Social history: Lives in her own apartment in [facility]. of many years in 06/2020. Kids in area. Meds Allergies and Home Medications Allergies Allergy/AdvReac Type Severity Reaction Status Date / Time No Known Allergies Allergy Verified 06/04/21 15:03 Home Medications Medication Instructions Recorded Confirmed Type calcium carbonate-vitamin D3 1 tab PO DAILY 07/28/17 06/04/21 History levothyroxine 88 mcg PO DAILY 07/28/17 06/04/21 History multivitamin [Daily Multiple] 1 ea PO DAILY 07/28/17 06/04/21 History verapamil 180 mg PO DAILY 07/28/17 06/04/21 History Sjtinpal-Tvmewq-ICS with vit D 1 ea PO DAILY 08/17/17 06/04/21 History warfarin [Coumadin] 3 mg PO DAILY 08/17/17 06/04/21 History losartan 50 mg tablet 50 mg PO DAILY 08/09/18 06/04/21 History oxybutynin chloride 5 mg tablet 5 mg PO DAILY tab 08/09/18 06/04/21 History acetaminophen 1,000 mg PO Q8H PRN #90 tab 04/12/19 06/04/21 Rx Exam Narrative Exam Narrative: GEN: Alert and pleasant, able to give linear history. Oriented to self and place, not year/month No acute distress at rest. HEENT: Head with diffuse redness of nose, punctures in upper lip. No scalp lacerations. Conjunctiva clear, no icterus. PEERL, EOMI. no rhinorrhea. MMM, OP benign. Neck is supple with no masses or lymphadenopathy, no thyromegaly LUNGS: CTAB with normal effort CV: RRR with no murmurs, gallops, or rubs. ABD: +BS, soft, NT/ND EXT: no cyanosis, clubbing, or edema, legs not tender to palpation MSK: No joint redness or swelling NEURO: CN 2-12 grossly intact x hearing worse on right. Normal movement of 4 extremities. Normal speech and coordination. no tremor SKIN: No rashs, wounds from traum on mid face. Also excoriation and bruising cyrus thenar eminences. PSYCH: normal mood and affect Results Imaging Abdomen CT scan report/results: report reviewed CT scan - chest: report reviewed (Trace fluid adjacent to hiatal hernia, uncertain chronicity. No definite acute posttraumatic abnormality.) CT scan - pelvis: report reviewed (No evidence for acute posttraumatic abnormality) Additional studies: CT Head: no acute disease CT neck: 1. Straightening of the spine which could be related to positional artifact or muscle spasms. 2. Diffuse degenerative disc disease. 3. Disc osteophyte complexes at C4-C5, C5-C6 and C6-C7. 4. Grade 1 anterolisthesis of C7 on T1. 5. Facet arthrosis at C2-C3, C4-C5 and C7-T1. 6. Left paracentral protrusion at C5-C6. 7. Mild bulge at C6-C7. Right neural foraminal narrowing at C4-C5. 8. Bilateral neural foraminal narrowing at C5-C6 and C6-C7. 9. Heterogeneous thyroid gland with multiple subcentimeter bilateral thyroid nodules EKG: report reviewed and image reviewed (NSR, nl axis/intervals, no ST abnormaliites.) Labs Result diagrams: 06/04/21 15:30 06/04/21 15:30 Labs: Laboratory Results - last 24 hr 06/04/21 06/04/21 06/04/21 15:30 15:30 15:30 WBC 5.00 RBC 4.39 Hgb 13.1 Hct 39.4 MCV 89.7 MCH 29.8 MCHC 33.2 RDW 14.3 Plt Count 157 MPV 10.5 Immature Gran % 0.4 Neutrophils % 49.2 Lymphocytes % 38.2 Monocytes % 9.4 Eosinophils % 2.2 Basophils % 0.6 Nucleated RBC % 0 Absolute Neutrophils 2.46 Absolute Lymphocytes 1.91 Absolute Monocytes 0.47 Absolute Eosinophils 0.11 Absolute Basophils 0.03 PT INR Sodium 139 Potassium 4.1 Chloride 107 Carbon Dioxide 24.5 Anion Gap 7.5 BUN 19 H Creatinine 1.1 H Estimated GFR/1.73 m2 47.67 Glucose 118 H Calcium 9.3 Magnesium 1.9 Total Bilirubin 1.1 H AST 23 ALT 23 Alkaline Phosphatase 80 Troponin I < 0.05 Total Protein 7.1 Albumin 3.6 Urine Color Urine Clarity Urine pH Ur Specific [place] Urine Protein Urine Ketones Urine Blood Urine Nitrite Urine Bilirubin Urine Urobilinogen Ur Leukocyte Esterase Urine RBC Urine WBC Ur Epithelial Cells Urine Crystals Urine Bacteria Urine Casts Urine Mucus Urine Other Ur Culture Indicated? Urine Glucose COVID-19 Source SARS-CoV-2 (PCR) 06/04/21 06/04/21 06/04/21 15:30 16:17 17:34 WBC RBC Hgb Hct MCV MCH MCHC RDW Plt Count MPV Immature Gran % Neutrophils % Lymphocytes % Monocytes % Eosinophils % Basophils % Nucleated RBC % Absolute Neutrophils Absolute Lymphocytes Absolute Monocytes Absolute Eosinophils Absolute Basophils PT 17.5 H INR 1.8 H Sodium Potassium Chloride Carbon Dioxide Anion Gap BUN Creatinine Estimated GFR/1.73 m2 Glucose Calcium Magnesium Total Bilirubin AST ALT Alkaline Phosphatase Troponin I Total Protein Albumin Urine Color Yellow Urine Clarity Sl Cloudy Urine pH 8.0 Ur Specific [place] 1.015 Urine Protein 30 H Urine Ketones Negative Urine Blood Small H Urine Nitrite Negative Urine Bilirubin Negative Urine Urobilinogen 1.0 H Ur Leukocyte Esterase Large H Urine RBC Cancelled 0-2 Urine WBC Cancelled 0-2 Ur Epithelial Cells Cancelled Negative Urine Crystals Cancelled Negative Urine Bacteria Cancelled Few Urine Casts Cancelled Urine Mucus Cancelled Negative Urine Other Cancelled Ur Culture Indicated? Cancelled C&S Done As Ordered Urine Glucose Negative COVID-19 Source SARS-CoV-2 (PCR) 06/04/21 06/04/21 18:15 19:10 WBC RBC Hgb Hct MCV MCH MCHC RDW Plt Count MPV Immature Gran % Neutrophils % Lymphocytes % Monocytes % Eosinophils % Basophils % Nucleated RBC % Absolute Neutrophils Absolute Lymphocytes Absolute Monocytes Absolute Eosinophils Absolute Basophils PT INR Sodium Potassium Chloride Carbon Dioxide Anion Gap BUN Creatinine Estimated GFR/1.73 m2 Glucose Calcium Magnesium Total Bilirubin AST ALT Alkaline Phosphatase Troponin I < 0.05 Total Protein Albumin Urine Color Urine Clarity Urine pH Ur Specific [place] Urine Protein Urine Ketones Urine Blood Urine Nitrite Urine Bilirubin Urine Urobilinogen Ur Leukocyte Esterase Urine RBC Urine WBC Ur Epithelial Cells Urine Crystals Urine Bacteria Urine Casts Urine Mucus Urine Other Ur Culture Indicated? Urine Glucose COVID-19 Source Nasal/Nares SARS-CoV-2 (PCR) Negative Last Vital Signs Temp 36.5 C 06/04/21 21:15 Pulse 65 06/04/21 21:15 Resp 18 06/04/21 21:15 BP 174/84 H 06/04/21 21:15 Pulse Ox 98 06/04/21 21:15
[2021-06-04 22:36] LABS: Troponin I < 0.05 ng/mL (<0.06)
[2021-06-05] VITALS (7 sets, daily range): BP systolic 144–163; BP diastolic 83–87; PULSE 60–74; RESP 14–18; TEMP 36.2–36.5; O2SAT 95–97
[2021-06-05] MEDS: Acetaminophen 500 MG TAB 1000 MG PO (04:45)
[2021-06-05] MEDS: Levothyroxine 88 MCG TAB PO (06:28)
[2021-06-05 07:02] LABS: INR 1.6 (0.9-1.1); Prothrombin Time 16.4 sec (9.3-11.0)
[2021-06-05] MEDS: Losartan 50 MG TAB PO (09:13)
[2021-06-05] MEDS: Glucosamine/Chondroitin CAP 1 CAP PO (09:13)
[2021-06-05] MEDS: Multivitamin TAB 1 TAB PO (09:14)
[2021-06-05] MEDS: Calcium 600mg/Vit D 200U TAB 1 TAB PO (09:14)
--- NOTE | 2021-06-05 09:28 | INITIAL_ITS ---
- If Service Date Differs Date of service: 06/05/21 Time of Service: 09:42 Care Management Initial Assess REASON FOR HOSPITALIZATION:: Sycope PAST MEDICAL HISTORY/PAST SURGICAL HISTORY:: Medical History (Updated 06/04/21 @ 22:48 by Orlando Navas). Anxiety. Carotid stenosis. GERD (gastroesophageal reflux disease). HTN (hypertension). Hypothyroidism. Paroxysmal atrial fibrillation. Surgical History . Cholecystectomy. Colonoscopy - MAC (08/23/17). EGD - MAC (08/23/17). History of bladder surgery. Bladder sling surgery x 2. 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 Dr. Montague PREVIOUS FUNCTIONAL STATUS/SOCIAL/FAMILY SUPPORTS:: Thomas lives by herself at the [facility]. She is independent in her ADL's with no community services. Her daughter Vonda provides transportation and helps her with her daily needs and supports her independence. CURRENT FUNCTIONAL STATUS:: Shanell was lying in bed visiting her daughter when CM met with her. She was alert, oriented and easily engaged in conversation. Shanell shares that she really wanted to be discharged home today, but is agreeable to the doctors recommendation to stay another night on telemetry. Shanell and her daughter met with Dr. Barnett today and anticipate that she will be discharged tomorrow with a 30 day cardiac event monitor if she is stable overnight. ADVANCE DIRECTIVES:: Not on file Has patient been provided with info about the portal/API?: Yes Did the patient sign up for the portal?: No CODE STATUS:: DNR/DNI INSURANCE COVERAGE / FINANCIAL ISSUES:: A[employer]. [employer]. Commercial Medicare Replacement. Medicare CURRENT HOME/COMMUNITY SERVICES/EQUIPMENT:: None at this time PRIMARY CARE PHYSICIAN:: Fatuma Boyer PATIENT/FAMILY EDUCATION NEEDS:: Review of cardiac event recorder info and discharge instructions,limitations and plan to follow up with community providers. ask me three. TRANSPORTATION:: Via private vehicle with daughter Vonda. PLAN:: Discharge home with no new services via private vehicle with family. Anticipate that Shanell will be discharged home with a 30 day cardiac event recorder. Will need to follow up with PCP and cardiology.
--- NOTE | 2021-06-05 14:06 | W.PM.PROGNOT ---
Date of Service Date of service: 06/05/21 Time of Service: 14:06 Assessment and Plan Assessment and plan (1) Syncope and collapse: Status: Acute Assessment and plan: Sudden onset with no prodromal symptoms suggest an arrhythmic event. We will monitor her overnight and if no arrhythmias she can be discharged home in the morning with a 30-day cardiac event recorder with results to go to (2) Thoracic aortic aneurysm: Status: Acute Assessment and plan: Not noted in CT of chest. (3) Closed head injury: Status: Acute Assessment and plan: CT head and neck reassuring. She is at risk for bleeding on warfarin, but no signs on CT. I would only repeat CT for subacute subdural if MS worsens acutely. Continue wound care for facial wounds. (4) Paroxysmal atrial fibrillation: Status: Chronic Assessment and plan: NSR on this admission. She has not had syncope with pAFIB in the past. Continue monitor, verapamil for rate, and warfarin. Of note the patient's verapamil dose of verapamil ER 180 mg is not available. She was given verapamil ER 120 mg this morning. I asked her daughter to bring in her medications. Patient should be discharged on a 30-day cardiac event recorder with results sent to Dr. Sunshine (5) Memory loss: Status: Acute Assessment and plan: Her cognitive function is back to her baseline according to her daughter. Oxybutynin was held by the school coordinator last night (6) Hypothyroidism: Status: None Assessment and plan: TSH low around 0.5 which is lower than ideal for her age, will repeat with labs. Goal of around 2 better to avoid cardiac arrythmias, but will defer Lt4 dose change to PCP. (7) HTN (hypertension): Status: None Assessment and plan: BP running a little high, will resume her home medicaitons and monitor. (8) Acute UTI: Status: Suspected Assessment and plan: I agree with Dr. Navas's decision not to treat her urinalysis since she is asymptomatic. Preliminary urinary culture report is mixed gram-positive chato (9) DVT prophylaxis: Status: Acute Assessment and plan: on warfarin (10) Discharge planning issues: Status: Acute Assessment and plan: stable on medical floor with tele monitor. she is DNR/DNI Subjective Subjective Interval history since last seen: Patient 81-year-old female who lives alone at [facility] who was out walking yesterday when she had a syncopal spell. She had contusions to her face but CT scan of her head was negative for any bleed or skull fracture. Patient has a history of a thoracic aortic aneurysm as well as paroxysmal atrial fibrillation for which she is on warfarin. Patient had no antecedent warning prior to the syncopal spell. The suggest that it was probably an arrhythmic event. Her troponin levels were negative for an acute coronary event. She is not anemic and the rest of her labs are unremarkable. Patient is asking when she can go home I explained her we would like to monitor for a full 24 hours to be sure that she is not having any heart block. Review of telemetry with the ICU nurses reveals her to be in sinus rhythm with no tachydysrhythmias and no AV block. I met with the patient and her daughter and answered all their questions to their satisfaction. I explained to both of them that when the patient leaves tomorrow morning she would need to go on a 30-day event recorder with the results sent to her secretary office clerk Dr. Sunshine in [facility]. Exam Narrative Exam Narrative: Elderly white female who is alert and oriented who has periorbital ecchymosis around the right eye as well as abrasions on her nose and her forehead. 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 and she has an ecchymosis of the right knee but normal range of motion with no crepitus and no pain and no deformity Objective Last Vital Signs Temp 36.5 C 06/05/21 10:44 Pulse 70 06/05/21 10:44 Resp 18 06/05/21 10:44 BP 163/87 H 06/05/21 10:44 Pulse Ox 97 06/05/21 10:44 Laboratory Results - last 24 hr 06/04/21 06/04/21 06/04/21 15:30 15:30 15:30 WBC 5.00 RBC 4.39 Hgb 13.1 Hct 39.4 MCV 89.7 MCH 29.8 MCHC 33.2 RDW 14.3 Plt Count 157 MPV 10.5 Immature Gran % 0.4 Neutrophils % 49.2 Lymphocytes % 38.2 Monocytes % 9.4 Eosinophils % 2.2 Basophils % 0.6 Nucleated RBC % 0 Absolute Neutrophils 2.46 Absolute Lymphocytes 1.91 Absolute Monocytes 0.47 Absolute Eosinophils 0.11 Absolute Basophils 0.03 PT INR Sodium 139 Potassium 4.1 Chloride 107 Carbon Dioxide 24.5 Anion Gap 7.5 BUN 19 H Creatinine 1.1 H Estimated GFR/1.73 m2 47.67 Glucose 118 H Calcium 9.3 Magnesium 1.9 Total Bilirubin 1.1 H AST 23 ALT 23 Alkaline Phosphatase 80 Troponin I < 0.05 Total Protein 7.1 Albumin 3.6 TSH Urine Color Urine Clarity Urine pH Ur Specific [place] Urine Protein Urine Ketones Urine Blood Urine Nitrite Urine Bilirubin Urine Urobilinogen Ur Leukocyte Esterase Urine RBC Urine WBC Ur Epithelial Cells Urine Crystals Urine Bacteria Urine Casts Urine Mucus Urine Other Ur Culture Indicated? Urine Glucose COVID-19 Source SARS-CoV-2 (PCR) 06/04/21 06/04/21 06/04/21 15:30 16:17 17:34 WBC RBC Hgb Hct MCV MCH MCHC RDW Plt Count MPV Immature Gran % Neutrophils % Lymphocytes % Monocytes % Eosinophils % Basophils % Nucleated RBC % Absolute Neutrophils Absolute Lymphocytes Absolute Monocytes Absolute Eosinophils Absolute Basophils PT 17.5 H INR 1.8 H Sodium Potassium Chloride Carbon Dioxide Anion Gap BUN Creatinine Estimated GFR/1.73 m2 Glucose Calcium Magnesium Total Bilirubin AST ALT Alkaline Phosphatase Troponin I Total Protein Albumin TSH Urine Color Yellow Urine Clarity Sl Cloudy Urine pH 8.0 Ur Specific [place] 1.015 Urine Protein 30 H Urine Ketones Negative Urine Blood Small H Urine Nitrite Negative Urine Bilirubin Negative Urine Urobilinogen 1.0 H Ur Leukocyte Esterase Large H Urine RBC Cancelled 0-2 Urine WBC Cancelled 0-2 Ur Epithelial Cells Cancelled Negative Urine Crystals Cancelled Negative Urine Bacteria Cancelled Few Urine Casts Cancelled Urine Mucus Cancelled Negative Urine Other Cancelled Ur Culture Indicated? Cancelled C&S Done As Ordered Urine Glucose Negative COVID-19 Source SARS-CoV-2 (PCR) 06/04/21 06/04/21 06/04/21 18:15 19:10 22:10 WBC RBC Hgb Hct MCV MCH MCHC RDW Plt Count MPV Immature Gran % Neutrophils % Lymphocytes % Monocytes % Eosinophils % Basophils % Nucleated RBC % Absolute Neutrophils Absolute Lymphocytes Absolute Monocytes Absolute Eosinophils Absolute Basophils PT INR Sodium Potassium Chloride Carbon Dioxide Anion Gap BUN Creatinine Estimated GFR/1.73 m2 Glucose Calcium Magnesium Total Bilirubin AST ALT Alkaline Phosphatase Troponin I < 0.05 < 0.05 Total Protein Albumin TSH Urine Color Urine Clarity Urine pH Ur Specific [place] Urine Protein Urine Ketones Urine Blood Urine Nitrite Urine Bilirubin Urine Urobilinogen Ur Leukocyte Esterase Urine RBC Urine WBC Ur Epithelial Cells Urine Crystals Urine Bacteria Urine Casts Urine Mucus Urine Other Ur Culture Indicated? Urine Glucose COVID-19 Source Nasal/Nares SARS-CoV-2 (PCR) Negative 06/05/21 06/05/21 06:07 06:07 WBC RBC Hgb Hct MCV MCH MCHC RDW Plt Count MPV Immature Gran % Neutrophils % Lymphocytes % Monocytes % Eosinophils % Basophils % Nucleated RBC % Absolute Neutrophils Absolute Lymphocytes Absolute Monocytes Absolute Eosinophils Absolute Basophils PT 16.4 H INR 1.6 H Sodium Potassium Chloride Carbon Dioxide Anion Gap BUN Creatinine Estimated GFR/1.73 m2 Glucose Calcium Magnesium Total Bilirubin AST ALT Alkaline Phosphatase Troponin I Total Protein Albumin TSH 0.70 Urine Color Urine Clarity Urine pH Ur Specific [place] Urine Protein Urine Ketones Urine Blood Urine Nitrite Urine Bilirubin Urine Urobilinogen Ur Leukocyte Esterase Urine RBC Urine WBC Ur Epithelial Cells Urine Crystals Urine Bacteria Urine Casts Urine Mucus Urine Other Ur Culture Indicated? Urine Glucose COVID-19 Source SARS-CoV-2 (PCR)
--- NOTE | 2021-06-05 14:13 | CHAPLAIN ---
Shanell told me about her fall on [address] while she was out walking as usual. She lives in the [facility]. Shanell said she doesn't remember feeling dizzy or light headed, but was all of a sudden on the ground. A Police Office nearby helped her and called an ambulance. Shanell hopes to go back home soon, but said she will wait to hear what the doctors says in case she has any heart issue. She walks daily and has not had heart trouble before, she said.
[2021-06-05] MEDS: Normal Saline Flush 10 ML SYR IVP (18:55)
[2021-06-06 03:24] VITALS: BP 169/92; PULSE 77; RESP 16; TEMP 35.2; O2SAT 96
[2021-06-06] MEDS: Levothyroxine 88 MCG TAB PO (06:46)
[2021-06-06 07:00] VITALS: PULSE 60
[2021-06-06 08:06] LABS: INR 1.7 (0.9-1.1); Prothrombin Time 16.7 sec (9.3-11.0)
[2021-06-06 09:36] VITALS: BP 131/76; PULSE 85; RESP 20; TEMP 36.4; O2SAT 97
[2021-06-06] MEDS: Glucosamine/Chondroitin CAP 1 CAP PO (09:45)
[2021-06-06] MEDS: Losartan 50 MG TAB PO (09:46)
[2021-06-06] MEDS: Calcium 600mg/Vit D 200U TAB 1 TAB PO (09:46)
[2021-06-06] MEDS: Multivitamin TAB 1 TAB PO (09:46)
[2021-06-06] MEDS: Normal Saline Flush 10 ML SYR IVP (09:47)
--- NOTE | 2021-06-06 12:48 | W.PM.DS.N ---
Date of service: 06/06/21 Time of Service: 12:50 DS: Diagnosis Discharge Diagnosis (1) Syncope and collapse: Start date: 06/06/21 Start time: 12:50 Status: Acute Asessment and Plan: Suggestive of cardiogenic source however no irregular HR on telemetry, therefore was going to be sent home with 30 day event recorder; however was not comfortable she would remember to be able to carry phone therefore will do 48 hour holter and wait prior auth for zio patch with results to go to . She is at baseline mentation and was at time of syncope which means it is unlikely that this was seizure or CVA Head CT negative for acute abnormality follow up with PCP in 1 week (2) Thoracic aortic aneurysm: Start date: 06/06/21 Start time: 13:33 Status: Chronic Asessment and Plan: Not noted in CT of chest. (3) Closed head injury: Start date: 06/06/21 Start time: 13:35 Status: Acute Asessment and Plan: CT head and neck reassuring. She is at risk for bleeding on warfarin, but no signs on CT. I would only repeat CT for subacute subdural if MS worsens acutely, however over last 24 hours it has not and she is subtheraputic Continue wound care for facial wounds. (4) Paroxysmal atrial fibrillation: Start date: 06/06/21 Start time: 13:35 Status: Chronic Asessment and Plan: NSR on this admission. She has not had syncope with pAFIB in the past. Will continue home dosing on discharge she states she is very active (5) Memory loss: Start date: 06/06/21 Start time: 13:36 Status: Acute Asessment and Plan: Mentation at baseline, she is able to tell us she has dementia. Mild clearly. (6) Hypothyroidism: Start date: 06/06/21 Start time: 13:37 Status: None Asessment and Plan: TSH low around 0.5 which is lower than ideal for her age, will repeat with labs. Goal of around 2 better to avoid cardiac arrythmias, but will defer Lt4 dose change to PCP. (7) HTN (hypertension): Start date: 06/06/21 Start time: 13:38 Status: None Asessment and Plan: continue home medications (8) Acute UTI: Start date: 06/06/21 Start time: 13:38 Status: Suspected Asessment and Plan: 50-100,000 colonies, gram positive chato, mixed, asymptomatic, will not treat at this time due to no symptoms Discussed with Dr. Altman Discharge Plan Disposition Patient Disposition: HOME Condition: Stable Discharge Details Reason For Visit: Syncope Admit Date/Time: 06/04/21 18:56 Admit Provider: Orlando Navas Attending Provider: Orlando Navas Primary Care Provider: Fatuma Boyer Hospital Course Hospital Course: 81 yo F with history of mild dementia, thoracic aortic aneurysm, and paroxysmal atrial fibrillation who was admitted to [facility] after syncopal episode with facial trauma. She was feeling in her normal state of health day of admission. She went out for her typical walk on [address] from her home in [facility]. She had walked about 2 blocks when episode happened. She doesn't remember the episode, she just woke up on the sidewalk with a bloody face. She denies any symptoms preceding the episode, including headache, chest pain, SOB, palpitations, dizziness, or nausea. She denies any focal numbness or weakness before or after. She denies any abnormal movements. She states a police officer booking was there and came to help immediately after she was on the ground. She hit her face and bilateral hands. She states nothing like this has ever happened to her in the past. She was admitted to /s for further management. Labs in ED unremarkable. Head and neck CT negative. She has been NSR on telemetry. Trops negative. She is doing well and has not had any more episodes, therefore she is being discharged home on holter monitor. She was initially going to be sent home on a 30 day event recorder but felt it would be too much for her so she will be discharged home on 48 hour holter while prior auth is arranged for zio patch. She should follow up with her PCP in 1 week. She will need her tfree 4 checked see dx. Also she was subtheraputic on coumadin on admission and is still only 1.7. She was given increased dose to get her theraputic today. She denies CP, SOB, N/V/D. Home Meds and New Rx's Prescriptions: Continued oxybutynin chloride 5 mg tablet 5 mg PO DAILY RF: 0 losartan 50 mg tablet 50 mg PO DAILY RF: 0 warfarin [Coumadin] 3 MG tablet 3 mg PO DAILY RF: 0 Ucoduidf-Axfass-PUO with vit D 1 EACH tablet 1 ea PO DAILY RF: 0 multivitamin [Daily Multiple] 1 EACH tablet 1 ea PO DAILY RF: 0 verapamil 180 MG tablet extended release 180 mg PO DAILY RF: 0 levothyroxine 88 MCG tablet 88 mcg PO DAILY RF: 0 calcium carbonate-vitamin D3 1 EACH tablet 1 tab PO DAILY RF: 0 acetaminophen 500 mg tablet 1,000 mg PO Q8H PRN (Reason: pain) Qty: 90 RF: 3 Discharge Instructions Instructions: Warfarin (By mouth), Syncope (DC), Head Injury (DC), Holter Monitor (GEN) Additional Instructions: Follow up with your PCP in 1 week call Tuesday to make appt. Tell them you just got released from hospital. You can use cold packs for swelling and take tylenol for pain three times a day Increased confusion, or headaches after head injury is not uncommon Stand Alone Forms: Nursing Discharge Form Referrals: Fatuma Boyer [Primary Care Provider] - Activity:: Activity as Tolerated Equipment/Supplies:: No Equipment Needed Diet:: Low Sodium Discharge Orders Discharge Orders: Discharge Order (Routine); Ordered 06/06/21 Ordered By: Jill Hsu Other Ambulatory Orders: Cardiac Event Recorder (Routine) Timeframe: 30 Days Facility: [facility] - Location: Respiratory Therapy Ordered By: Jill Hsu DS: Summary Time Spent with Patient providing and/or coordinating discharge services: Greater than 30 minutes Status at Discharge Functional status at discharge: independent ambulation Overall status at discharge: patient is back to baseline Mental Status: mental status grossly normal Speech and Movement: speech and movement normal Mood: congruent mood Affect: normal affect Exam Narrative Exam Narrative: Elderly female who is alert and oriented who has periorbital ecchymosis around the right eye as well as abrasions on her nose and her forehead. 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 and she has an ecchymosis of the right knee but normal range of motion with no crepitus and no pain and no deformity Psych Mental Status: mental status grossly normal Speech and Movement: speech and movement normal Mood: congruent mood Affect: normal affect DS: Data Vitals/I&O Vitals and I&O: Vital Signs Temperature 36.4 C L 06/06/21 09:36 Temperature Source Tympanic 06/06/21 09:36 Pulse 85 06/06/21 09:36 Pulse Rhythm Regular 06/06/21 09:30 Pulse 66 06/04/21 20:32 Respiratory Rate 20 06/06/21 09:36 Respiratory Effort 06/06/21 09:30 Respiratory Depth Normal 06/06/21 09:30 Respiratory Pattern Normal 06/06/21 09:30 Blood Pressure 131/76 06/06/21 09:36 Blood Pressure Mean 90 06/04/21 20:31 Blood Pressure Position Supine 06/04/21 14:57 Pulse Oximetry 97 06/06/21 09:36 Oxygen Delivery Method Room Air 06/06/21 09:36 Oxygen Flow Rate 0 06/06/21 09:36 Pain Level 0 06/06/21 09:36 Comment 06/06/21 09:36 Intake & Output 06/05/21 06/06/21 06/06/21 23:59 11:59 23:59 Intake Total 240 / 240 Output Total 300 / 300 Balance 240 / -60 -300 / -60 Intake: Oral 240 / 240 Output: Urine 300 / 300 Other: Urine Color Yellow Pale Yellow Yellow Urine Appearance Clear Clear Clear Urine Odor Normal Comment patient was ambulated to the toilet for void and bm unmeasured in toilet Stool Size Large Large Stool Characteristics Soft Soft Formed Voiding Methods Toilet Toilet Toilet Data Completed and Pending Completed studies during hospitalization [Text1]: : 1940Age: 81 Exam(s) a CT:CT head & cervical spine wo Exam(s) CT HEAD CERVICAL SPINE WO EXAM: CT HEAD CERVICAL SPINE WO CLINICAL HISTORY: fall, [place]. TECHNIQUE: Imaging Protocol: Axial computed tomography images with coronal and sagittal reformatted images were created and reviewed COMPARISON: No exams were available for comparison FINDINGS: Head CT Ventricles and Extra axial spaces: Normal in size and morphology for the patient's age. Hemorrhage: None. Cerebral parenchyma: Atrophy, consistent with the patient's age. Midline shift: None. Brainstem/Cerebellum: Normal. Calvarium: Normal. Visualized Paranasal sinuses/Mastoids: Clear. Cervical Spine CT BONES: Vertebral body heights are maintained. Alignment is normal. There is no evidence of acute fracture. Degenerative disc changes and facet degenerative changes are seen . SOFT TISSUES: No paraspinal hematoma. The airway appears intact. No pneumothorax is seen at the lung apices. IMPRESSION: Head CT: No acute abnormality. : 1940Age: 81 Exam(s) PROCEDURE INFORMATION: Exam: CT Head Without Contrast Exam date and time: 06/04/2021 3:48 PM Age: 81 years old Clinical indication: Injury or trauma; Patient HX: Fall, hi TECHNIQUE: Imaging protocol: Computed tomography of the head without contrast. COMPARISON: MR BRAIN WO 09/24/2019 10:20 AM FINDINGS: Brain: Normal. No hemorrhage. Unremarkable white matter. No mass effect. Cerebral ventricles: No ventriculomegaly. Paranasal sinuses: Visualized sinuses are unremarkable. No fluid levels. Mastoid air cells: Visualized mastoid air cells are well aerated. Bones/joints: Unremarkable. No acute fracture. Soft tissues: Unremarkable. IMPRESSION: No acute intracranial abnormality. Labs on day of discharge: Labs from last 24 hours 06/06/21 07:27 PT 16.7 H INR 1.7 H [facility] Medical History Anxiety Carotid stenosis GERD (gastroesophageal reflux disease) HTN (hypertension) Hypothyroidism Paroxysmal atrial fibrillation Surgical History Cholecystectomy Colonoscopy - MAC (08/23/17) EGD - MAC (08/23/17) History of bladder surgery Bladder sling surgery x 2 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 Montague Family History Father Alcohol use disorder Mother Dementia Social History Smoking/Tobacco Use Status: Never Smoking risk assessment performed?: Yes Alcohol Intake: current Alcohol Intake frequency: 0-2 drinks per day Alcohol type: wine Details: rare use, nothing in past several weeks Drug use: Never Substance use type: does not use Current gender identity: female Do you feel safe at home: Yes Do you feel safe in your relationship?: Yes Additional Social history: Lives in her own apartment in [facility]. of many years in 06/2020. Kids in area.
--- NOTE | 2021-06-06 13:30 | HOLTER_ITS ---
APPROVED REPORT Conclusion This is a 24-hour monitor ordered for indication of syncope. The patient was in normal sinus rhythm for the majority of the recording with an average heart rate o f 73 bpm (54-107 bpm) There were no episodes of ventricular tachycardia and rare PVCs. There were 2 episodes of supraventricular tachycardia with the longest lasting 3 beats. There were r are PACs. There were no episodes of atrial fibrillation, no pauses greater than 3 seconds and no evidence of hi gh degree heart block. There was 1 patient diary event associated with dizziness for 1.5 minutes. There was a singular PAC that occurred 1 minute after this episode.
[2021-06-06 14:30] VITALS: PULSE 74
--- NOTE | 2021-06-06 17:36 | PDOC.CMDIS ---
- If Service Date Differs Date of service: 06/06/21 Time of Service: 17:36 LACE Index Scoring Tool - Questions: Length of Stay (in days): 1 Acuity (Admit via E.D.?): Yes E.D. Visits: 1 - Answers: Total Score: 5 Risk of Readmission: Low Risk Care Management Discharge Reason for Hospitalization: Sycope Discharge Plan: Discharge home with no new services via private vehicle with daughter. She will be discharged with a 30 day cardiac event recorder. Will need to follow up with her PCP and cardiology. Patient/Family Education Needs: Review discharge instructions and plan to follow up with PCP and Cardiology. ask me three.
== END 2021-06-06 15:20 | disposition home or self-care (01) | DRG 312 ==
LOC: ER 19:00 → MS 06-05 09:39
PROVIDERS: Physician Assistant; Admitting Provider Family Medicine; Emergency Provider Registered Nurse Emergency; PCP Nurse Practitioner Family; Visit Provider Family Medicine
DX: R55 Syncope and collapse (principal); N39.0 Urinary tract infection, site not specified; F41.9 Anxiety disorder, unspecified; I65.29 Occlusion and stenosis of unspecified carotid artery; K21.9 Gastro-esophageal reflux disease without esophagitis; I10 Essential (primary) hypertension; E03.9 Hypothyroidism, unspecified; I48.0 Paroxysmal atrial fibrillation; Z96.652 Presence of left artificial knee joint; I71.2 Thoracic aortic aneurysm, without rupture; F03.90 Unspecified dementia, unspecified severity, without behavioral disturbance, psychotic disturbance, mood disturbance, and anxiety; Z79.01 Long term (current) use of anticoagulants; N39.3 Stress incontinence (female) (male); M85.80 Other specified disorders of bone density and structure, unspecified site; S09.90XA Unspecified injury of head, initial encounter; W18.39XA Other fall on same level, initial encounter; R41.3 Other amnesia; Z20.822 Contact with and (suspected) exposure to COVID-19
CPT/HCPCS: 36415; 36416; 74177; 80053; 82962; 87635; 90471; 93005; 96360; 96361; 99285; 70450; 71260; 72125; 81003; 81015; 83735; 84443; 84484; 85025; 85610; 87086; 93010; 93225; 99217; 99224; 99231; 99239; G0378; J3490

== ENCOUNTER 2021-06-06 13:30 | Outpatient (RCR) | payer OTHER, SELFPAY | END 2021-06-25 23:59 | disposition home or self-care (01) | LOC: RT 13:30 | PROVIDERS: PCP Nurse Practitioner Family; Visit Provider Family Medicine | DX: R55 Syncope and collapse (principal); I47.1 Supraventricular tachycardia | CPT/HCPCS: 93227; 93226 ==

== ENCOUNTER 2021-06-08 16:18 | Outpatient (CLI) | payer OTHER, SELFPAY | END 2021-06-08 16:38 | PROVIDERS: PCP Nurse Practitioner Family; Visit Provider Family Medicine | DX: R69 Illness, unspecified (principal) | CPT/HCPCS: 93226 ==

== ENCOUNTER 2021-06-18 11:12 | Emergency (ER) | payer MEDICARE, OTHER, SELFPAY ==
[2021-06-18] VITALS (56 sets, daily range): BP systolic 117–164; BP diastolic 61–99; PULSE 55–68; RESP 11–29; TEMP 36.5; O2SAT 86–97
--- NOTE | 2021-06-18 12:15 | DI.CT_ITS ---
Exam(s) CT BRAIN NECK CTA EXAM: CT BRAIN NECK CTA CLINICAL HISTORY: confusion, altered mental status. TECHNIQUE: Imaging Protocol: Axial CT angiography was performed with multi-slice acquisition and mu lti-planar and/or 3D reconstructions. CONTRAST MATERIAL: Intravenous: Omnipaque 350 Contrast volume:structured data in ml COMPARISON: CT CT CHEST/ABD/PEL W from 06/04/2021 FINDINGS: CTA Neck W: Aortic arch anatomy: The aortic arch anatomy is conventional. Ascending thoracic aorta is dilated wit h maximum external diameter 4 cm. Anterior circulation: Both common carotid arteries ascend with normal luminal diameters. No significant stenosis at the ca rotid bifurcations proximal internal carotid arteries and both internal carotid arteries are patent i n the neck and skull base. Posterior circulation: Left vertebral artery is dominant and ascends in the foramen transverse area with luminal diameter of 4.8 millimeters. At the skull base it exhibits some mural calcification but without critical stenos is. Right vertebral artery is a thin vessel throughout its course, exhibiting luminal diameter of 1.5 mil limeters. It is hypoplastic at the skull base and does not contribute to the formation of the basila r artery. CTA Brain W: Anterior circulation: Both internal carotid arteries are patent in the skull base-carotid canals. Also within the cavernou s sinuses, albeit peripherally calcified. Supraclinoid aspects are patent. A1 segments are patent a s are both anterior cerebral arteries. There is no aneurysm at the level of the anterior communicati ng artery. Right middle cerebral artery is patent. There is a significant focal stenosis in the M2 segment of t he left middle cerebral artery. No intraluminal thrombus in this vessel seen. Posterior circulation: Basilar artery is formed by the dominant left vertebral artery. Bibasilar artery exhibits a mild-mod erate stenosis proximally. Distally it gives off patent superior cerebellar arteries and above this level terminates as patent bilateral posterior cerebral arteries. CT BRAIN: There is no evidence of intracranial hemorrhage, mass effect, or shift of midline structures. There are no extra-axial fluid collections. Ventricles are not enlarged or shifted. There are no ring enh ancing lesions in the brain and no abnormal meningeal enhancement. No evidence of dural venous sinus thrombosis IMPRESSION: 1. There appears to be a tight focal stenosis in the left middle cerebral artery M2 segment. No intr aluminal thrombus evident. 2. Calcification in the dominant left vertebral artery at the skull base is noted and mild focal liss nosis in the proximal half of the basilar artery. No evidence of intraluminal thrombus nor dissectio n. 3. No evidence of significant atherosclerotic narrowing at the carotid bifurcations and proximal in ternal carotid arteries on either side of the neck.. Report called by myself to the emergency room RADIATION DOSE DELIVERED: 1,779.62mGy.cm Total DLP DATA REPOSITORY: All CT scans at this facility are submitted to the National Radiology Data Registry (NRDR) Dose Index Registry (DIR) with the [employer] ([employer]). RADIATION OPTIMIZATION: All CT scans at this facility use at least one of these dose optimization te chniques: automated exposure control; mA and/or kV adjustment per patient size (includes targeted exa ms where dose is matched to clinical indication); or iterative reconstruction.
--- NOTE | 2021-06-18 12:32 | W.ED.GENAD ---
Discharge Plan Disposition Patient Disposition: HOME Condition: Stable Discharge Details Clinical Impression: Subdural hematoma, Recent head injury, Chronic anticoagulation Primary Care Provider: Fatuma Boyer ED Provider: Johnathon Huff [place] Meds and New Rx's Prescriptions: New levetiracetam [Keppra] 500 mg tablet 500 mg PO BID Qty: 60 RF: 0 Continued oxybutynin chloride 5 mg tablet 5 mg PO DAILY RF: 0 losartan 50 mg tablet 50 mg PO DAILY RF: 0 [id number]-[id number]-[id number] with vit D 1 EACH tablet 1 ea PO DAILY RF: 0 multivitamin [Daily Multiple] 1 EACH tablet 1 ea PO DAILY RF: 0 verapamil 180 MG tablet extended release 180 mg PO DAILY RF: 0 levothyroxine 88 MCG tablet 88 mcg PO DAILY RF: 0 calcium carbonate-vitamin D3 1 EACH tablet 1 tab PO DAILY RF: 0 acetaminophen 500 mg tablet 1,000 mg PO Q8H PRN (Reason: pain) Qty: 90 RF: 3 Discontinued warfarin [Coumadin] 3 MG tablet 3 mg PO DAILY RF: 0 Discharge Instructions Instructions: Head Injury (ED), Hematoma (ED) Additional Instructions: Follow-up with [facility] neurosurgery in 2 weeks. They will call you to confirm your follow-up appointment. Call [facility]'s main number and ask for the neurosurgery clinic if you do not hear from them within 1 week. A prescription for Keppra has been sent electronically to your pharmacy. Discontinue warfarin until cleared by neurosurgery to restart. Follow up with PCP and consider follow up with neurology, Dr. Woods for further seizure/TIA work up. Referrals: [facility] [Outside] Fatuma Boyer [Primary Care Provider] - Monika Woods MD [ [facility] STAFF PHYSICIAN] - Discharge Data Discharge Date/Time-TO BE ENTERED AT DEPARTURE: 06/19/21 01:33 Discharge Physician: Leigha Gomes Medical Decision Making <Leigha Gomes DO - Last Filed: 06/20/21 11:12> 1420 -- 81yo F w/ a history of paroxysmal atrial fibrillation on Coumadin, dementia, anxiety, hypertension, hypothyroidism, GERD who presents for a 1 hour period of altered mental status today. She was admitted here 2 weeks ago after a syncopal episode with head injury for telemetry monitoring with an uneventful admission, negative head CT with discharged home with Holter monitor which was unremarkable. She is asymptomatic here without focal deficits. Her vitals are within normal limits. Differential diagnosis includes TIA, CVA, arrhythmia, electrolyte abnormality, UTI, dehydration. Will place an IV, bolus IV fluids, screening labs, urinalysis, CTA head and neck. Labs and imaging reviewed. Normal white blood cell count and hemoglobin. INR slightly subtherapeutic at 1.9. Normal electrolytes. Troponin negative. Urinalysis negative. CTA head and neck notes: IMPRESSION: 1. There appears to be a tight focal stenosis in the left middle cerebral artery M2 segment. No intraluminal thrombus evident. 2. Calcification in the dominant left vertebral artery at the skull base is noted and mild focal stenosis in the proximal half of the basilar artery. No evidence of intraluminal thrombus nor dissection. 3. No evidence of significant atherosclerotic narrowing at the carotid bifurcations and proximal internal carotid arteries on either side of the neck. Patient then referred for: MRI brain imaging which noted: IMPRESSION: Trace acute to early subacute subdural hematoma along the right parietal convexity, approximately 5 mm in greatest thickness. No significant mass effect or other acute intracranial abnormality. 1800 -- MRI imaging reviewed with [facility] neurosurgery. With patient's history of 1 hour of difficulty word finding and confusion, consider potential seizure. Recommend starting Keppra 500 mg p.o. twice daily. Recommend repeat CT head 6 hours from MRI which will be at 10 PM this evening. If CT scan unchanged, can discharge to home with plan for follow-up with [facility] neurology in 2 weeks. 2100 --Case endorsed to Dr. Huff to follow-up on repeat CT head at 10 PM and to discuss with neurosurgery for review and to discuss recs re: coumadin. If unchanged, will plan for discharge to home with follow-up with [facility] neuro in 2 weeks. Medical Records Medical records reviewed: Yes I reviewed the patient's medical records. Imaging Data Radiologic Study: Radiologist's impression: CT BRAIN NECK CTA CLINICAL HISTORY: confusion, altered mental status. TECHNIQUE: Imaging Protocol: Axial CT angiography was performed with multi-slice acquisition and multi-planar and/or 3D reconstructions. CONTRAST MATERIAL: Intravenous: Omnipaque 350 Contrast volume:structured data in ml COMPARISON: CT CT CHEST/ABD/PEL W from 06/04/2021 FINDINGS: CTA Neck W: Aortic arch anatomy: The aortic arch anatomy is conventional. Ascending thoracic aorta is dilated with maximum external diameter 4 cm. Anterior circulation: Both common carotid arteries ascend with normal luminal diameters. No significant stenosis at the carotid bifurcations proximal internal carotid arteries and both internal carotid arteries are patent in the neck and skull base. Posterior circulation: Left vertebral artery is dominant and ascends in the foramen transverse area with luminal diameter of 4.8 millimeters. At the skull base it exhibits some mural calcification but without critical stenosis. Right vertebral artery is a thin vessel throughout its course, exhibiting luminal diameter of 1.5 millimeters. It is hypoplastic at the skull base and does not contribute to the formation of the basilar artery. CTA Brain W: Anterior circulation: Both internal carotid arteries are patent in the skull base-carotid canals. Also within the cavernous sinuses, albeit peripherally calcified. Supraclinoid aspects are patent. A1 segments are patent as are both anterior cerebral arteries. There is no aneurysm at the level of the anterior communicating artery. Right middle cerebral artery is patent. There is a significant focal stenosis in the M2 segment of the left middle cerebral artery. No intraluminal thrombus in this vessel seen. Posterior circulation: Basilar artery is formed by the dominant left vertebral artery. Bibasilar artery exhibits a mild-moderate stenosis proximally. Distally it gives off patent superior cerebellar arteries and above this level terminates as patent bilateral posterior cerebral arteries. CT BRAIN: There is no evidence of intracranial hemorrhage, mass effect, or shift of midline structures. There are no extra-axial fluid collections. Ventricles are not enlarged or shifted. There are no ring enhancing lesions in the brain and no abnormal meningeal enhancement. No evidence of dural venous sinus thrombosis IMPRESSION: 1. There appears to be a tight focal stenosis in the left middle cerebral artery M2 segment. No intraluminal thrombus evident. 2. Calcification in the dominant left vertebral artery at the skull base is noted and mild focal stenosis in the proximal half of the basilar artery. No evidence of intraluminal thrombus nor dissection. 3. No evidence of significant atherosclerotic narrowing at the carotid bifurcations and proximal internal carotid arteries on either side of the neck. MR Head Without Contrast Exam date and time: 06/18/2021 3:52 PM Age: 81 years old Clinical indication: Altered mental status/memory loss; Confusion or disorientation TECHNIQUE: Imaging protocol: MR of the head without contrast. COMPARISON: CT HEAD CERVICAL SPINE WO 06/04/2021 3:48 PM FINDINGS: Brain: Trace acute to early subacute subdural hematoma along the right parietal convexity, approximately 5 mm in greatest thickness. No acute parenchymal hematoma. No diffusion signal abnormality to suggest axonal injury. No acute infarction. Mild parenchymal volume loss and mild nonspecific T2/FLAIR hyperintense signal abnormality in the periventricular and subcortical white matter, likely reflecting chronic microangiopathy. Cerebral ventricles: No hydrocephalus. No midline shift. Bones/joints: No suspicious calvarial lesion. Paranasal sinuses: Mild ethmoid sinus disease. Mastoid air cells: Nonspecific bilateral mastoid effusions. Orbital cavity: Status post lens replacement. Soft tissues: Unremarkable. IMPRESSION: Trace acute to early subacute subdural hematoma along the right parietal convexity, approximately 5 mm in greatest thickness. No significant mass effect or other acute intracranial abnormality. Lab Data Lab results reviewed: Yes I reviewed the patient's lab results. Labs: Laboratory Tests Range/Units 06/18/21 06/18/21 06/18/21 12:20 12:20 12:24 WBC (4.4-10.8) 10^3/uL 4.81 RBC (3.93-5.22) 10^6/uL 4.73 Hgb (11.2-15.7) g/dL 14.2 Hct (36.0-46.0) % 43.3 MCV (80-95) fL 91.5 MCH (27.0-33.0) pg 30.0 MCHC (32.0-36.0) % 32.8 RDW (11.7-14.6) % 13.5 Plt Count (130-400) 10^3/uL 188 MPV (8.0-11.0) fL 10.8 Immature Gran % 0.2 Neutrophils % 51.6 Lymphocytes % 34.7 Monocytes % 10.2 Eosinophils % 2.5 Basophils % 0.8 Nucleated RBC % % 0 Absolute Neutrophils (1.2-6.7) 10^3/uL 2.48 Absolute Lymphocytes (1.2-3.4) 10^3/uL 1.67 Absolute Monocytes (0.1-0.8) 10^3/uL 0.49 Absolute Eosinophils (0.0-0.7) 10^3/uL 0.12 Absolute Basophils (0.0-0.2) 10^3/uL 0.04 PT (9.3-11.0) sec 19.2 H INR (0.9-1.1) 1.9 H APTT (21.0-27.5) sec 31.5 H Sodium (136-145) mmol/L 142 Potassium (3.5-5.1) mmol/L 4.3 Chloride (98-107) mmol/L 106 Carbon Dioxide (21.0-32.0) mmol/L 28.9 Anion Gap (3-11) mmol/L 7.1 BUN (7-18) mg/dL 15 Creatinine (0.55-1.02) mg/dL 1.0 Estimated GFR/1.73 m2 (mL/min/1.73m2) 53.21 Glucose (74-106) mg/dL 97 Calcium (8.5-10.1) mg/dL 9.8 Magnesium (1.8-2.4) mg/dL 2.1 Total Bilirubin (0.2-1.0) mg/dL 1.4 H AST (15-37) U/L 32 ALT (14-59) U/L 26 Alkaline Phosphatase (46-116) U/L 94 Troponin I (<0.06) ng/mL < 0.05 Total Protein (6.4-8.2) g/dL 7.5 Albumin (3.4-5.0) g/dL 3.8 Urine Color (Yellow) Urine Clarity (Clear) Urine pH (5-8) Ur Specific [place] (1.005-1.025) Urine Protein (Negative) mg/dL Urine Ketones (Negative) mg/dL Urine Blood (Negative) Urine Nitrite (Negative) Urine Bilirubin (Negative) Urine Urobilinogen (Up TO 0.2) EU/dL Ur Leukocyte Esterase (Negative) Urine Glucose (Negative) mg/dL Range/Units 06/18/21 13:15 WBC (4.4-10.8) 10^3/uL RBC (3.93-5.22) 10^6/uL Hgb (11.2-15.7) g/dL Hct (36.0-46.0) % MCV (80-95) fL MCH (27.0-33.0) pg MCHC (32.0-36.0) % RDW (11.7-14.6) % Plt Count (130-400) 10^3/uL MPV (8.0-11.0) fL Immature Gran % Neutrophils % Lymphocytes % Monocytes % Eosinophils % Basophils % Nucleated RBC % % Absolute Neutrophils (1.2-6.7) 10^3/uL Absolute Lymphocytes (1.2-3.4) 10^3/uL Absolute Monocytes (0.1-0.8) 10^3/uL Absolute Eosinophils (0.0-0.7) 10^3/uL Absolute Basophils (0.0-0.2) 10^3/uL PT (9.3-11.0) sec INR (0.9-1.1) APTT (21.0-27.5) sec Sodium (136-145) mmol/L Potassium (3.5-5.1) mmol/L Chloride (98-107) mmol/L Carbon Dioxide (21.0-32.0) mmol/L Anion Gap (3-11) mmol/L BUN (7-18) mg/dL Creatinine (0.55-1.02) mg/dL Estimated GFR/1.73 m2 (mL/min/1.73m2) Glucose (74-106) mg/dL Calcium (8.5-10.1) mg/dL Magnesium (1.8-2.4) mg/dL Total Bilirubin (0.2-1.0) mg/dL AST (15-37) U/L ALT (14-59) U/L Alkaline Phosphatase (46-116) U/L Troponin I (<0.06) ng/mL Total Protein (6.4-8.2) g/dL Albumin (3.4-5.0) g/dL Urine Color (Yellow) Yellow Urine Clarity (Clear) Clear Urine pH (5-8) 7.0 Ur Specific [place] (1.005-1.025) 1.010 Urine Protein (Negative) mg/dL Negative Urine Ketones (Negative) mg/dL Negative Urine Blood (Negative) Negative Urine Nitrite (Negative) Negative Urine Bilirubin (Negative) Negative Urine Urobilinogen (Up TO 0.2) EU/dL 0.2 Ur Leukocyte Esterase (Negative) Negative Urine Glucose (Negative) mg/dL Negative <Johnathon Huff MD - Last Filed: 06/19/21 02:08> Patient signed out to me pending repeat head CT at 10 PM. Instructions were to discuss with neurosurgery prior to discharge for confirmation no change in plan. Repeat head CT shows no change in the small subdural hematoma present. Neurosurgery has no change in plan. Discontinue Coumadin. Start Keppra. Follow-up with him in 2 weeks, they have already ordered repeat CT scan prior to appointment. Neurosurgery also recommends follow-up with primary care as well as neurology for further outpatient assessment of other possible etiologies for her episode today which could include seizure, TIA. I have discussed all of the above with patient and daughter. Patient discharged home in stable condition with no change in neurologic status. Lab Data Lab results reviewed: Yes I reviewed the patient's lab results. ECG Data Attestation: I personally reviewed and interpreted this ECG (s) as follows: Prior ECG tracings: available for review Interpretation: see EKG HPI <Leigha Gomes, - Last Filed: 06/20/21 11:12> General Mode of arrival: wheelchair. Date/Time Provider Initiated Documentation: 06/18/21 11:48. Limitations to Documentation: no limitations. Information obtained by: patient and family. HPI Narrative: Patient is an 81-year-old female with a history of paroxysmal atrial fibrillation on Coumadin, dementia, anxiety, GERD, hypertension and hypothyroidism who presents for a 1 hour period of confusion today. Patient states she had a 1 hour period where she was having difficulty focusing and concentrating and had difficulty finding words. Daughter states that her and was with patient when she appeared to be confused and was having trouble recalling what day it was. Daughter states that patient appears almost near her baseline but still more sleepy than usual. Patient was seen here 2 weeks ago for syncope with closed head injury and had negative CT head and was admitted for telemetry monitoring which was unremarkable and she was discharged home. It was thought at that time that she likely did not have a seizure CVA due to normal mentation at the time of syncope. She was sent home with a Holter monitor which was essentially unremarkable. She denies any new head injury since this event. She denies any headache, dizziness, blurry vision, chest pain, shortness of breath, abdominal pain, vomiting or diarrhea during this event today. Related Data Home Medications Medication Instructions Recorded Confirmed calcium carbonate-vitamin D3 1 tab PO DAILY 07/28/17 06/18/21 levothyroxine 88 mcg PO DAILY 07/28/17 06/18/21 multivitamin [Daily Multiple] 1 ea PO DAILY 07/28/17 06/18/21 verapamil 180 mg PO DAILY 07/28/17 06/18/21 Zxijzlvc-Uolscx-CSP with vit D 1 ea PO DAILY 08/17/17 06/18/21 losartan 50 mg tablet 50 mg PO DAILY 08/09/18 06/18/21 oxybutynin chloride 5 mg tablet 5 mg PO DAILY tab 08/09/18 06/18/21 acetaminophen 1,000 mg PO Q8H PRN #90 tab 04/12/19 06/18/21 levetiracetam [Keppra] 500 mg PO BID #60 tab 06/18/21 Previous Rx's Medication Instructions Recorded acetaminophen 1,000 mg PO Q8H PRN #90 tab 04/12/19 levetiracetam [Keppra] 500 mg PO BID #60 tab 06/18/21 Allergies Allergy/AdvReac Type Severity Reaction Status Date / Time No Known Allergies Allergy Verified 06/18/21 14:11 General DARIUS: 3 Review of Systems <Leigha Gomes DO - Last Filed: 06/20/21 11:12> All systems reviewed & are unremarkable except as noted in HPI and below Constitutional Constitutional: Reports as per HPI, Denies chills and Denies fever(s) Eyes Eyes: Denies blurry vision ENT Ears, Nose, Mouth, and Throat: Denies dizziness, Denies sore throat and Denies throat swelling Cardiovascular Cardiovascular: Denies chest pain and Denies dyspnea Respiratory Respiratory: Denies cough and Denies dyspnea Gastrointestinal Gastrointestinal: Denies abdominal pain, Denies diarrhea and Denies vomiting Genitourinary Genitourinary: Denies hematuria and Denies dysuria Musculoskeletal Musculoskeletal: Denies back pain and Denies numbness Integumentary/Breasts Skin/Breast: Denies lesions and Denies rash Neurologic Neurologic: Reports confusion, Denies dizziness, Denies localized weakness and Denies numbness Psychiatric Psychiatric: Reports confusion Allergic/Immunologic Allergic/Immunologic: Denies throat swelling PFSH <Leigha Gomes DO - Last Filed: 06/20/21 11:12> Medical History Anxiety Carotid stenosis GERD (gastroesophageal reflux disease) HTN (hypertension) Hypothyroidism Paroxysmal atrial fibrillation Surgical History Cholecystectomy Colonoscopy - MAC (08/23/17) EGD - MAC (08/23/17) History of bladder surgery Bladder sling surgery x 2 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 Montague Family History Father Alcohol use disorder Mother Dementia Social History Smoking/Tobacco Use Status: Never Smoking risk assessment performed?: Yes Alcohol Intake: current Alcohol Intake frequency: 0-2 drinks per day Alcohol type: wine Details: rare use, nothing in past several weeks Drug use: Never Substance use type: does not use Current gender identity: female Do you feel safe at home: Yes Do you feel safe in your relationship?: Yes Additional Social history: Lives in her own apartment in [place]. of many years in 06/2020. Kids in area. Exam <Leigha Gomes DO - Last Filed: 06/20/21 11:12> Const General: cooperative and no acute distress HENMT Head: normal to inspection Face and sinus: normal facial exam Eyes General: appearance normal, both eyes and all related structures Pupils: PERRL EOM: EOM intact bilaterally Neck Neck: normal visual inspection and No submandibular swelling Lymphatic: no lymphadenopathy noted Chest Chest: normal inspection of the chest and no tenderness Resp Effort & Inspection: normal respiratory effort and able to speak in complete sentences Auscultation: clear to auscultation bilaterally Cardio Rate: regular rate Rhythm: regular rhythm GI Inspection: normal to inspection Palpation: soft, not firm, not rigid and nontender Auscultation: normal bowel sounds Skin General skin exam: no rashes or lesions noted Neuro General: patient alert, patient awake, patient oriented x3, moves all extremities, no meningeal signs and no focal motor deficits Cranial Nerves: CN's II-XI intact bilaterally Cognition: normal cognition Speech: speech normal Motor: muscle tone normal throughout and strength 5/5 throughout Sensory Exam: no sensory deficits noted Extrem General: normal to inspection, full ROM, capillary refill normal, no calf tenderness bilaterally and no edema Psych Appearance: grossly normal Mental Status: mental status grossly normal Speech and Movement: speech and movement normal Affect: normal affect Sign Out <Leigha Gomes DO - Last Filed: 06/20/21 11:12> Sign Out Data: Sign Out Comment: 1 hour period of confusion earlier today. Asymptomatic on arrival here without focal deficits. Trace subdural hematoma noted on MRI brain. Discussion with [facility] neurosurgery recommended starting Keppra for possible seizure today. Plan is for repeat CT head at 10 PM this evening. Push images to [facility] neurosurgery for review and discussion. If no acute change, likely will discharge home with follow-up with [facility] neurosurgery in 2 weeks. Also discuss with [facility] neurosurgery whether to hold patient's Coumadin at this time. Last updated by Leigha Gomes DO at 06/18/21 20:02
[2021-06-18 12:46] LABS: Abs Immature Grans 0.01 10^3/uL (0.0-0.06); Absolute Basophil Count 0.04 10^3/uL (0.0-0.2); Absolute Eosinophil Count 0.12 10^3/uL (0.0-0.7); Absolute Lymphocyte Count 1.67 10^3/uL (1.2-3.4); Absolute Monocyte Count 0.49 10^3/uL (0.1-0.8); Absolute Neutrophil Count 2.48 10^3/uL (1.2-6.7); Basophils % 0.8; Eosinophils % 2.5; HCT 43.3 % (36.0-46.0); HGB 14.2 g/dL (11.2-15.7); Immature Grans % 0.2; Lymphocytes % 34.7; MCHC 32.8 % (32.0-36.0); MCV 91.5 fL (80-95); MPV 10.8 fL (8.0-11.0); Monocytes % 10.2; Neutrophils % 51.6; Nucleated RBC 0 %; Platelet Count 188 10^3/uL (130-400); RBC 4.73 10^6/uL (3.93-5.22); RDW 13.5 % (11.7-14.6); RDW-SD 46.4 fL; WBC 4.81 10^3/uL (4.4-10.8)
[2021-06-18 13:10] LABS: ALT 26 U/L (14-59); AST 32 U/L (15-37); Albumin 3.8 g/dL (3.4-5.0); Alkaline Phosphatase 94 U/L (46-116); Anion Gap 7.1 mmol/L (3-11); BUN 15 mg/dL (7-18); Bilirubin, Total 1.4 mg/dL (0.2-1.0); CO2 28.9 mmol/L (21.0-32.0); Calcium 9.8 mg/dL (8.5-10.1); Chloride 106 mmol/L (98-107); Estimated GFR 53.21 (mL/min/1.73m2); Glucose 97 mg/dL (74-106); Magnesium 2.1 mg/dL (1.8-2.4); Potassium 4.3 mmol/L (3.5-5.1); Sodium 142 mmol/L (136-145); Total Protein 7.5 g/dL (6.4-8.2)
[2021-06-18 13:11] LABS: Troponin I < 0.05 ng/mL (<0.06)
[2021-06-18 13:34] LABS: Bilirubin Negative (Negative); Blood Negative (Negative); Clarity Clear (Clear); Glucose Negative (Negative); Ketones Negative (Negative); Leukocyte Esterase Negative (Negative); Nitrite Negative (Negative); Urobilinogen 0.2 EU/dL (Up TO 0.2)
[2021-06-18] MEDS: Omnipaque 350 MG/ML 100 ML BTL IJ (14:41)
--- NOTE | 2021-06-18 15:15 | DI.MRI_ITS ---
Exam(s) MR BRAIN WO EXAM: MR BRAIN WO CLINICAL HISTORY: confusion, altered mental status, r/o cva TECHNIQUE: Multiplanar multisequence MRI of the brain was performed. COMPARISON: MR MR BRAIN WO from 09/24/[address] BRAIN NECK CTA from 06/18/[address] BRAIN NECK CTA from 06/18/2021 FINDINGS: CEREBRAL PARENCHYMA: No evidence of intra-axial hemorrhage but there is subtle early subacute hematoma along the right par ietal convexity, approximately 4 millimeters maximum thickness. There is FLAIR bright signal in the periventricular and subcortical white matter consistent with chromium plater zeyad small vessel changes. No signal abnormality in the cerebellar hemispheres nor within the jeremy, m idbrain, and thalami. No evidence of restricted diffusion on DWI to suggest acute infarct. Ventricles are not enlarged or shifted. No blood within the ventricular system. PITUITARY GLAND: No mass nor parasellar abnormality. No obvious abnormality in the cavernous sinuses. FLOW VOIDS: The expected flow void are noted. No evidence of obvious aneurysm nor obvious vascular ma lformation. Left vertebral artery is dominant PARANASAL SINUSES: Small fluid level noted in the left sphenoid sinus. Also mucosal thickening-fluid in both mastoid air cells, more so on the left side. ORBITS: No obvious findings. IMPRESSION: Small right parietal convexity subdural hematoma, approximately 4 millimeters in greatest thickness. No shift. No intra-axial hemorrhage. Chronic small-vessel white matter ischemic changes. No abnormal signal on diffusion imaging to sugge st acute infarct. Please note that CTA study earlier today revealed possible stenosis in the intracranial middle cerebr al artery left side. If clinically indicated this could be further studied with MRA. DATA REPOSITORY:
--- NOTE | 2021-06-18 16:31 | DI.VRAD_ITS ---
Addendum created by Lauren Madden MD on 06/18/2021 4:43:00 PM EDT: Comments: THIS REPORT CONTAINS FINDINGS THAT MAY BE CRITICAL TO PATIENT CARE. The findings were verbally communicated via telephone conference at 4:41 PM EDT on 06/18/2021 with Leigha Patel. The findings were acknowledged and understood. Initial report created on 06/18/2021 4:30:52 PM EDT: PROCEDURE INFORMATION: Exam: MR Head Without Contrast Exam date and time: 06/18/2021 3:52 PM Age: 81 years old Clinical indication: Altered mental status/memory loss; Confusion or disorientation TECHNIQUE: Imaging protocol: MR of the head without contrast. COMPARISON: CT HEAD CERVICAL SPINE WO 06/04/2021 3:48 PM FINDINGS: Brain: Trace acute to early subacute subdural hematoma along the right parietal convexity, approximately 5 mm in greatest thickness. No acute parenchymal hematoma. No diffusion signal abnormality to suggest axonal injury. No acute infarction. Mild parenchymal volume loss and mild nonspecific T2/FLAIR hyperintense signal abnormality in the periventricular and subcortical white matter, likely reflecting chronic microangiopathy. Cerebral ventricles: No hydrocephalus. No midline shift. Bones/joints: No suspicious calvarial lesion. Paranasal sinuses: Mild ethmoid sinus disease. Mastoid air cells: Nonspecific bilateral mastoid effusions. Orbital cavity: Status post lens replacement. Soft tissues: Unremarkable. IMPRESSION: Trace acute to early subacute subdural hematoma along the right parietal convexity, approximately 5 mm in greatest thickness. No significant mass effect or other acute intracranial abnormality. Dictated and Authenticated by: Lauren Madden MD. Ordering:CASSANDRA Ahuja MD
[2021-06-18 17:49] LABS: INR 1.9 (0.9-1.1); PTT Activated 31.5 sec (21.0-27.5); Prothrombin Time 19.2 sec (9.3-11.0)
[2021-06-18] MEDS: levETIRAcetam 250 MG TAB 500 MG PO (20:00)
--- NOTE | 2021-06-18 20:45 | RT.EKG_ITS ---
APPROVED REPORT Exam: Resting ECG Reason for Exam: confusion Patient Location: E HR:58 bpm ECG Measurements Heart Rate 58 AXIS MI 185 P 44 QRSd 90 QRS 35 QT 412 T 23 QTc 406 Conclusion Sinus bradycardia...rate< 60 Normal [place] I have reviewed and interpreted ECG and agree with software generated interpretation. There are no significant changes compared to prior EKG performed on 06/04/2021 at 16:10.
[2021-06-18] MEDS: Normal Saline 250 ML 500 ML IV (21:27)
--- NOTE | 2021-06-18 22:36 | DI.CT_ITS ---
Exam(s) CT HEAD WO EXAM: CT HEAD WO CLINICAL HISTORY: subdural hematoma on MRI. TECHNIQUE: Imaging Protocol: Axial computed tomography images with coronal and sagittal reformatted images were created and reviewed COMPARISON: MR MR BRAIN WO from 06/18/[address] BRAIN NECK CTA from 06/18/[address] BRAIN NECK CTA from 06/18/2021 FINDINGS: Ventricles and Extra axial spaces: Normal in size and morphology for the patient's age. Hemorrhage: There is a stable 6 mm subdural hematoma in the right parietal region. There appears to be a fluid debris level suggesting an acute on chronic hematoma. No herniation is identified. No ma ss effect on the adjacent sulci. Cerebral parenchyma: No acute territorial infarct. There are areas of decreased attenuation in the w jose rafael matter most consistent with chronic microvascular ischemic disease. Midline shift: None. Brainstem/Cerebellum: Normal. Calvarium: Normal. Visualized Paranasal sinuses/Mastoids: Clear. Soft Tissues: Unremarkable. IMPRESSION: Stable 6 mm subdural hematoma in the right parietal region. It has an acute high density component i n addition to an older chronic component. There is no midline shift or mass effect. RADIATION DOSE DELIVERED: 702.89mGy.cm Total DLP DATA REPOSITORY: All CT scans at this facility are submitted to the National Radiology Data Registry (NRDR) Dose Index Registry (DIR) with the [employer] ([employer]). RADIATION OPTIMIZATION: All CT scans at this facility use at least one of these dose optimization te chniques: automated exposure control; mA and/or kV adjustment per patient size (includes targeted exa ms where dose is matched to clinical indication); or iterative reconstruction.
--- NOTE | 2021-06-18 22:36 | DI.RAD_ITS ---
Exam(s) XR CHEST 2V PA LATERAL EXAM: XR CHEST 2V PA LATERAL CLINICAL HISTORY: altered mental status, r/o acute disease TECHNIQUE: 2D digital imaging was performed of the chest. Two images were obtained. AP and lateral views were obtained. COMPARISON: No exams were available for comparison FINDINGS: MEDIASTINUM: Normal. HEART: Normal. PULMONARY VASCULATURE: Normal. LUNGS: Clear. PLEURAL SPACE: No pleural effusion or pneumothorax. BONE:Within normal limits for the patient's age. OTHER FINDINGS:Normal. IMPRESSION: No acute pulmonary findings. DATA REPOSITORY: RADIATION DOSE DELIVERED:
--- NOTE | 2021-06-18 22:55 | DI.VRAD_ITS ---
PROCEDURE INFORMATION: Exam: CT Head Without Contrast Exam date and time: 06/18/2021 6:11 PM Age: 81 years old Clinical indication: Abnormal findings; Abnormal radiologic findings of head/skull; Not specified; Patient HX: Subdural hematoma seen on mri; Additional info: Subdural hematoma seen on mri. Rad report - see below. Small right parietal convexity subdural hematoma, approximately 4 millimeters in greatest thickness. No shift. No intra-axial hemorrhage. Chronic small-vessel white matter ischemic changes. No abnormal signal on diffusion imaging to suggest acute infarct. Subdural hematoma seen on mri. 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 If clinically indicated this could be further studied with mra. TECHNIQUE: Imaging protocol: Computed tomography of the head without contrast. Radiation optimization: All CT scans at this facility use at least one of these dose optimization techniques: automated exposure control; mA and/or kV adjustment per patient size (includes targeted exams where dose is matched to clinical indication); or iterative reconstruction. COMPARISON: MR BRAIN WO 06/18/2021 3:49 PM FINDINGS: Brain: There is a 6 mm acute subdural hematoma in the right parietal region (image 37, series 2). No acute territorial infarct. No midline shift or herniation. Cerebral ventricles: The ventricles are prominent in size, at least in part due to global cerebral volume loss. Paranasal sinuses: Visualized sinuses are unremarkable. No fluid levels. Mastoid air cells: Visualized mastoid air cells are well aerated. Bones/joints: No acute fracture. Degenerative changes noted at the right temporomandibular joint. Soft tissues: Unremarkable. IMPRESSION: 6 mm acute subdural hematoma in the right parietal region, as seen on prior MRI. No significant mass effect or midline shift. Dictated and Authenticated by: Luz Maria Rm MD. Ordering:CASSANDRA Ahuja MD
--- NOTE | 2021-06-18 22:57 | DI.VRAD_ITS ---
PROCEDURE INFORMATION: Exam: XR Chest Exam date and time: 06/18/2021 8:57 PM Age: 81 years old Clinical indication: Other: Altered mental status; Additional info: Subdural hematoma seen on mri. Rad report - see below. Small right parietal convexity subdural hematoma, approximately 4 millimeters in greatest thickness. No shift. No intra-axial hemorrhage. Chronic small-vessel white matter ischemic changes. No abnormal signal on diffusion imaging to suggest acute infarct. Subdural hematoma seen on mri. 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 If clinically indicated this could be further studied with mra. TECHNIQUE: Imaging protocol: XR of the chest. Views: 2 views. COMPARISON: CT CHEST/ABD/PEL W 06/04/2021 3:58 PM FINDINGS: Lungs: Unremarkable. No consolidation. Pleural spaces: Unremarkable. No pleural effusion. No pneumothorax. Heart/Mediastinum: Unremarkable. No cardiomegaly. Bones/joints: Unremarkable. IMPRESSION: No acute findings. Dictated and Authenticated by: Luz Maria Rm MD. Ordering:CASSANDRA Ahuja MD
[2021-06-19] VITALS (11 sets, daily range): BP systolic 131–133; BP diastolic 68–72; PULSE 56–67; RESP 16–22; O2SAT 92–97
[2021-06-19] MEDS: levETIRAcetam 250 MG TAB 1000 MG PO (01:32)
== END 2021-06-19 01:33 | disposition home or self-care (01) ==
PROVIDERS: Physician Assistant; Emergency Provider Emergency Medicine; PCP Nurse Practitioner Family
DX: S06.5X0A Traumatic subdural hemorrhage without loss of consciousness, initial encounter (principal); S09.8XXA Other specified injuries of head, initial encounter; W19.XXXA Unspecified fall, initial encounter; R79.1 Abnormal coagulation profile; Z79.01 Long term (current) use of anticoagulants; R41.0 Disorientation, unspecified
CPT/HCPCS: 36415; 36416; 70496; 70498; 80053; 82962; 93005; 96360; 99285; 70450; 70551; 71046; 81003; 83735; 84484; 85025; 85610; 85730; 93010; J3490

== ENCOUNTER 2021-06-22 16:33 | Inpatient (IN) | payer OTHER, SELFPAY ==
[2021-06-22 16:37] VITALS: BP 124/56; PULSE 96; RESP 18; TEMP 37; O2SAT 97
--- NOTE | 2021-06-22 16:45 | RT.EKG_ITS ---
APPROVED REPORT Exam: Resting ECG Reason for Exam: ataxia Patient Location: E HR:83 bpm ECG Measurements Heart Rate 83 AXIS OH 173 P 6 QRSd 91 QRS 40 QT 342 T 29 QTc 402 Conclusion Sinus rhythm...normal P axis, V-rate 60- 99
--- NOTE | 2021-06-22 16:45 | DI.RAD_ITS ---
Exam(s) XR CHEST 2V PA LATERAL EXAM: XR CHEST 2V PA LATERAL CLINICAL HISTORY: ataxia TECHNIQUE: 2D digital imaging was performed of the chest. Images were obtained. PA and lateral v iews were obtained. COMPARISON: CT CT CHEST/ABD/PEL W from 06/04/[address] CHEST/ABD/PEL W from 06/04/2021 CR,XR XR CHEST 2V PA LATERAL from 06/18/2021 FINDINGS: MEDIASTINUM: Normal. HEART: Normal. PULMONARY VASCULATURE: Normal. LUNGS: Clear. PLEURAL SPACE: No pleural effusion or pneumothorax. BONE:Within normal limits for the patient's age. OTHER FINDINGS:Small hiatal hernia. IMPRESSION: No acute pulmonary findings. DATA REPOSITORY: RADIATION DOSE DELIVERED:
--- NOTE | 2021-06-22 16:45 | DI.CT_ITS ---
Exam(s) CT HEAD - STROKE PROTOCOL EXAM: CT HEAD - STROKE PROTOCOL CLINICAL HISTORY: ataxia. TECHNIQUE: Imaging Protocol: Axial computed tomography images with coronal and sagittal reformatted images were created and reviewed COMPARISON: CT CT HEAD WO from 06/18/2021 FINDINGS: Ventricles and Extra axial spaces: Normal in size and morphology for the patient's age. Hemorrhage: None. Cerebral parenchyma: No evidence of an acute territorial infarct. There are areas of decreased atten uation in the white matter consistent with small vessel ischemic disease. The small area of hyperden sity along the right parietal bone is again seen and is unchanged compared to the prior examination. This might represent extra-axial hemorrhage, however, avascular structure cannot be excluded. Midline shift: None. Brainstem/Cerebellum: Normal. Calvarium: Normal. Visualized Paranasal sinuses/Mastoids: Unchanged small amount of fluid in the left mastoid air cells. The remaining visualized paranasal sinuses and right mastoid air cells are clear. Soft Tissues: Unremarkable. IMPRESSION: 1. No change in appearance of the hyperdensity along the right parietal bone since 06/18/2021. 2. No acute intracranial process. RADIATION DOSE DELIVERED: 623.94mGy.cm Total DLP DATA REPOSITORY: All CT scans at this facility are submitted to the National Radiology Data Registry (NRDR) Dose Index Registry (DIR) with the [employer] (ACR). RADIATION OPTIMIZATION: All CT scans at this facility use at least one of these dose optimization te chniques: automated exposure control; mA and/or kV adjustment per patient size (includes targeted exa ms where dose is matched to clinical indication); or iterative reconstruction.
[2021-06-22 17:18] VITALS: RESP 20
[2021-06-22 17:25] LABS: Abs Immature Grans 0.04 10^3/uL (0.0-0.06); Absolute Basophil Count 0.02 10^3/uL (0.0-0.2); Absolute Eosinophil Count 0.03 10^3/uL (0.0-0.7); Absolute Lymphocyte Count 0.41 10^3/uL (1.2-3.4); Absolute Monocyte Count 0.42 10^3/uL (0.1-0.8); Absolute Neutrophil Count 7.52 10^3/uL (1.2-6.7); Basophils % 0.2; Eosinophils % 0.4; HCT 40.4 % (36.0-46.0); HGB 13.2 g/dL (11.2-15.7); Immature Grans % 0.5; Lymphocytes % 4.9; MCH 29.8 pg (27.0-33.0); MCHC 32.7 % (32.0-36.0); MCV 91.2 fL (80-95); MPV 10.6 fL (8.0-11.0); Nucleated RBC 0 %; Platelet Count 160 10^3/uL (130-400); RBC 4.43 10^6/uL (3.93-5.22); RDW 13.5 % (11.7-14.6); RDW-SD 45.9 fL; WBC 8.44 10^3/uL (4.4-10.8)
[2021-06-22 17:37] LABS: INR 1.4 (0.9-1.1); Prothrombin Time 14.2 sec (9.3-11.0)
[2021-06-22 17:49] LABS: ALT 19 U/L (14-59); AST 20 U/L (15-37); Albumin 3.4 g/dL (3.4-5.0); Alkaline Phosphatase 95 U/L (46-116); Anion Gap 8.1 mmol/L (3-11); BUN 20 mg/dL (7-18); Bilirubin, Total 2.4 mg/dL (0.2-1.0); CO2 25.9 mmol/L (21.0-32.0); CREATININE 1.3 mg/dL (0.55-1.02); Calcium 9.3 mg/dL (8.5-10.1); Chloride 107 mmol/L (98-107); Estimated GFR 39.31 (mL/min/1.73m2); Glucose 136 mg/dL (74-106); Magnesium 1.9 mg/dL (1.8-2.4); Potassium 3.9 mmol/L (3.5-5.1); Sodium 141 mmol/L (136-145); TSH (W/Ref FT4) 0.13 uIU/mL (0.36-3.74); Total Protein 7.4 g/dL (6.4-8.2)
[2021-06-22 17:50] LABS: Troponin I < 0.05 ng/mL (<0.06)
--- NOTE | 2021-06-22 17:55 | DI.VRAD_ITS ---
PROCEDURE INFORMATION: Exam: CT Head Without Contrast Exam date and time: 06/22/2021 5:00 PM Age: 81 years old Clinical indication: Other: Ataxia TECHNIQUE: Imaging protocol: Computed tomography of the head without contrast. Other technique: STROKE PROTOCOL was implemented. COMPARISON: CT HEAD WO 06/18/2021 10:24 PM FINDINGS: Brain: Mild small vessel ischemic changes in the periventricular white matter. No evidence of an acute cortical infarct. Cerebral ventricles: No ventriculomegaly. Paranasal sinuses: Visualized sinuses are unremarkable. No fluid levels. Mastoid air cells: Fluid left mastoid air cells. Bones/joints: Unremarkable. No acute fracture. Soft tissues: Unremarkable. IMPRESSION: No acute intracranial abnormality. Changes of an acute infarct may not be visible on CT for up to 24 to 48 hours. ASSESSMENT: ASPECTS ([place] Stroke Program Early CT Score) is 10. Dictated and Authenticated by: Tony Pretty MD. Ordering:VENKAT Garcia MD
--- NOTE | 2021-06-22 17:56 | DI.VRAD_ITS ---
PROCEDURE INFORMATION: Exam: XR Chest Exam date and time: 06/22/2021 5:00 PM Age: 81 years old Clinical indication: Other: Ataxia TECHNIQUE: Imaging protocol: XR of the chest. Views: 2 views. COMPARISON: CR XR CHEST 2V PA LATERAL 06/18/2021 10:32 PM FINDINGS: Lungs: Unremarkable. No consolidation. Pleural spaces: Unremarkable. No pleural effusion. No pneumothorax. Heart/Mediastinum: Small hiatal hernia. Bones/joints: Unremarkable. IMPRESSION: No acute abnormality identified. Dictated and Authenticated by: Tony Pretty MD. Ordering:VENKAT Garcia MD
[2021-06-22 18:05] LABS: FREE T4 1.43 ng/dL (0.76-1.46)
--- NOTE | 2021-06-22 19:21 | ED.GENADUL_ITS ---
Discharge Plan Disposition Patient Disposition: [facility] INPATIENT Condition: Serious Discharge Details Clinical Impression: Acute UTI Primary Care Provider: Fatuma Boyer ED Provider: Jose Shelton Home Meds and New Rx's Prescriptions: New cephalexin 500 mg capsule 500 mg PO BID Qty: 14 RF: 0 Continued oxybutynin chloride 5 mg tablet 5 mg PO DAILY RF: 0 losartan 50 mg tablet 50 mg PO DAILY RF: 0 Xgaxublh-[id number]-SPD with vit D 1 EACH tablet 1 ea PO DAILY RF: 0 multivitamin [Daily Multiple] 1 EACH tablet 1 ea PO DAILY RF: 0 verapamil 180 MG tablet extended release 180 mg PO DAILY RF: 0 levothyroxine 88 MCG tablet 88 mcg PO DAILY RF: 0 calcium carbonate-vitamin D3 1 EACH tablet 1 tab PO DAILY RF: 0 acetaminophen 500 mg tablet 1,000 mg PO Q8H PRN (Reason: pain) Qty: 90 RF: 3 levetiracetam [Keppra] 500 mg tablet 500 mg PO BID Qty: 60 RF: 0 No Action donepezil 5 mg Tablet 5 mg PO QHS RF: 0 memantine 5 mg Tablet 5 mg PO DAILY RF: 0 Medical Decision Making This is an 81-year-old female with multiple comorbidities, recent syncopal episode and admission to our facility 2 weeks ago, subsequently seen in our ER a few days ago diagnosed with a subdural, question of potential TIA versus seizure. Now today presenting with general weakness, shakes, confusion and potential ataxia. Currently she is asymptomatic. Given her age, multiple comorbidities, would like to initiate cardiac work-up and obtain CT imaging of her head given her recent diagnosis of subdural. Will give IV fluid in the meantime. Blood pressure 124/56, she is afebrile, O2 sat 97% on room air. Clinically she appears well, nontoxic. Laboratory values reveal no evidence of leukocytosis or anemia, her INR is 1.4 but she did discontinue her anticoagulation. Electrolytes unremarkable. Creatinine 1.3 with a GFR of 39.31 which is below her baseline, she is receiving IV fluid. Total bili is 2.4, she is status post cholecystectomy. Troponin less than 0.05. TSH 0.13. Urinalysis with greater than 50 white cells, many bacteria. CT imaging and chest x-ray unremarkable. Likely UTI, patient given first dose of p.o. Keflex here. Given her age and comorbidities we discussed disposition, she is very adamant that she would like to go home and her daughter is comfortable taking her home in her current condition. They are agreeable to awaiting a repeat troponin Repeat troponin is less than 0.05. Patient is requesting discharge. I will provide a prescription for 7 days of Keflex. Recommend following up as an ou tpatient with her primary care provider, call their office tomorrow. Strict return precautions provided Upon discharge patient is shaking uncontrollably, reports that she is very cold. Given her UTI, concern for rigors. Will add on blood cultures, give IV Rocephin, add a Covid swab and a Keppra level. Patient is now agreeable to admission to our facility, daughter no longer feels comfortable taking her home. She has been in the ER for observation. Of nearly 5 hours. In that timeframe she was able to ambulate steadily but now recently after her shakes, she feels generally weak and unsteady. I will discuss the case with Dr. Cosme for admission. Medical Records Medical records reviewed: Yes I reviewed the patient's medical records. Imaging Data Radiologic Study: Attestation: I personally reviewed and interpreted this imaging study as follows: Imaging: CT Scan Radiologist's impression: PROCEDURE INFORMATION: Exam: CT Head Without Contrast Exam date and time: 06/22/2021 5:00 PM Age: 81 years old Clinical indication: Other: Ataxia TECHNIQUE: Imaging protocol: Computed tomography of the head without contrast. Other technique: STROKE PROTOCOL was implemented. COMPARISON: CT HEAD WO 06/18/2021 10:24 PM FINDINGS: Brain: Mild small vessel ischemic changes in the periventricular white matter. No evidence of an acute cortical infarct. Cerebral ventricles: No ventriculomegaly. Paranasal sinuses: Visualized sinuses are unremarkable. No fluid levels. Mastoid air cells: Fluid left mastoid air cells. Bones/joints: Unremarkable. No acute fracture. Soft tissues: Unremarkable. IMPRESSION: No acute intracranial abnormality. Changes of an acute infarct may not be visible on CT for up to 24 to 48 hours. Radiologic Study #2: Attestation: I personally reviewed and interpreted this imaging study as follows: Imaging: X-Ray Radiologist's impression: PROCEDURE INFORMATION: Exam: XR Chest Exam date and time: 06/22/2021 5:00 PM Age: 81 years old Clinical indication: Other: Ataxia TECHNIQUE: Imaging protocol: XR of the chest. Views: 2 views. COMPARISON: CR XR CHEST 2V PA LATERAL 06/18/2021 10:32 PM FINDINGS: Lungs: Unremarkable. No consolidation. Pleural spaces: Unremarkable. No pleural effusion. No pneumothorax. Heart/Mediastinum: Small hiatal hernia. Bones/joints: Unremarkable. IMPRESSION: No acute abnormality identified. Lab Data Lab results reviewed: Yes I reviewed the patient's lab results. Labs: 06/22/21 22:24 Blood Blood Culture - Pending 06/22/21 22:35 Blood Blood Culture - Pending 06/22/21 18:50 Urine - Reflex from Ua Urine Culture - Pending Laboratory Tests Range/Units 06/22/21 06/22/21 06/22/21 17:10 17:10 17:10 WBC (4.4-10.8) 10^3/uL 8.44 RBC (3.93-5.22) 10^6/uL 4.43 Hgb (11.2-15.7) g/dL 13.2 Hct (36.0-46.0) % 40.4 MCV (80-95) fL 91.2 MCH (27.0-33.0) pg 29.8 MCHC (32.0-36.0) % 32.7 RDW (11.7-14.6) % 13.5 Plt Count (130-400) 10^3/uL 160 MPV (8.0-11.0) fL 10.6 Immature Gran % 0.5 Neutrophils % 89.0 Lymphocytes % 4.9 Monocytes % 5.0 Eosinophils % 0.4 Basophils % 0.2 Nucleated RBC % % 0 Absolute Neutrophils (1.2-6.7) 10^3/uL 7.52 H Absolute Lymphocytes (1.2-3.4) 10^3/uL 0.41 L Absolute Monocytes (0.1-0.8) 10^3/uL 0.42 Absolute Eosinophils (0.0-0.7) 10^3/uL 0.03 Absolute Basophils (0.0-0.2) 10^3/uL 0.02 PT (9.3-11.0) sec 14.2 H INR (0.9-1.1) 1.4 H Sodium (136-145) mmol/L 141 Potassium (3.5-5.1) mmol/L 3.9 Chloride (98-107) mmol/L 107 Carbon Dioxide (21.0-32.0) mmol/L 25.9 Anion Gap (3-11) mmol/L 8.1 BUN (7-18) mg/dL 20 H Creatinine (0.55-1.02) mg/dL 1.3 H Estimated GFR/1.73 m2 (mL/min/1.73m2) 39.31 Glucose (74-106) mg/dL 136 H Calcium (8.5-10.1) mg/dL 9.3 Magnesium (1.8-2.4) mg/dL 1.9 Total Bilirubin (0.2-1.0) mg/dL 2.4 H AST (15-37) U/L 20 ALT (14-59) U/L 19 Alkaline Phosphatase (46-116) U/L 95 Troponin I (<0.06) ng/mL < 0.05 Total Protein (6.4-8.2) g/dL 7.4 Albumin (3.4-5.0) g/dL 3.4 TSH (0.36-3.74) uIU/mL 0.13 L Free T4 (0.76-1.46) ng/dL 1.43 Urine Color (Yellow) Urine Clarity (Clear) Urine pH (5-8) Ur Specific [place] (1.005-1.025) Urine Protein (Negative) mg/dL Urine Ketones (Negative) mg/dL Urine Blood (Negative) Urine Nitrite (Negative) Urine Bilirubin (Negative) Urine Urobilinogen (Up TO 0.2) EU/dL Ur Leukocyte Esterase (Negative) Urine RBC (0-2) HPF Urine WBC (0-5) HPF Ur Epithelial Cells (Negative) HPF Urine Crystals (Negative) HPF Urine Bacteria (Negative) HPF Urine Casts (Negative) LPF Urine Mucus (Negative) Ur Culture Indicated? Urine Glucose (Negative) mg/dL COVID-19 Source Range/Units 06/22/21 06/22/21 06/22/21 18:50 20:05 22:20 WBC (4.4-10.8) 10^3/uL RBC (3.93-5.22) 10^6/uL Hgb (11.2-15.7) g/dL Hct (36.0-46.0) % MCV (80-95) fL MCH (27.0-33.0) pg MCHC (32.0-36.0) % RDW (11.7-14.6) % Plt Count (130-400) 10^3/uL MPV (8.0-11.0) fL Immature Gran % Neutrophils % Lymphocytes % Monocytes % Eosinophils % Basophils % Nucleated RBC % % Absolute Neutrophils (1.2-6.7) 10^3/uL Absolute Lymphocytes (1.2-3.4) 10^3/uL Absolute Monocytes (0.1-0.8) 10^3/uL Absolute Eosinophils (0.0-0.7) 10^3/uL Absolute Basophils (0.0-0.2) 10^3/uL PT (9.3-11.0) sec INR (0.9-1.1) Sodium (136-145) mmol/L Potassium (3.5-5.1) mmol/L Chloride (98-107) mmol/L Carbon Dioxide (21.0-32.0) mmol/L Anion Gap (3-11) mmol/L BUN (7-18) mg/dL Creatinine (0.55-1.02) mg/dL Estimated GFR/1.73 m2 (mL/min/1.73m2) Glucose (74-106) mg/dL Calcium (8.5-10.1) mg/dL Magnesium (1.8-2.4) mg/dL Total Bilirubin (0.2-1.0) mg/dL AST (15-37) U/L ALT (14-59) U/L Alkaline Phosphatase (46-116) U/L Troponin I (<0.06) ng/mL < 0.05 Total Protein (6.4-8.2) g/dL Albumin (3.4-5.0) g/dL TSH (0.36-3.74) uIU/mL Free T4 (0.76-1.46) ng/dL Urine Color (Yellow) Yellow Urine Clarity (Clear) Cloudy Urine pH (5-8) 5.5 Ur Specific [place] (1.005-1.025) 1.020 Urine Protein (Negative) mg/dL 30 H Urine Ketones (Negative) mg/dL Negative Urine Blood (Negative) Small H Urine Nitrite (Negative) Negative Urine Bilirubin (Negative) Negative Urine Urobilinogen (Up TO 0.2) EU/dL 1.0 H Ur Leukocyte Esterase (Negative) Large H Urine RBC (0-2) HPF 3-5 H Urine WBC (0-5) HPF >50 H Ur Epithelial Cells (Negative) HPF Few Urine Crystals (Negative) HPF Negative Urine Bacteria (Negative) HPF Many Urine Casts (Negative) LPF Negative Urine Mucus (Negative) Negative Ur Culture Indicated? Yes Urine Glucose (Negative) mg/dL Negative COVID-19 Source Nasal/Nares ECG Data Attestation: I personally reviewed and interpreted this ECG (s) as follows: Interpretation: Please see official report by Dr. Batres. Sinus rhythm, ventricular rate of 83, no STEMI HPI General Mode of arrival: EMS . Date/Time Provider Initiated Documentation: 06/22/21 16:46 . Limitations to Documentation: no limitations . Information obtained by: patient, family and EMS . HPI Narrative: This is an 81-year-old female, past medical history that includes anxiety, GERD, hypertension, proximal atrial fibrillation, hypothyroidism, early dementia, presenting to the ER via EMS for evaluation of feeling cold all day, shaking, generalized weakness, attention of mild ataxia, and potential confusion. Patient was seen in our ER a couple of weeks ago for a syncopal episode and then subsequently just a few days ago, imaging revealed a small subdural, neurology was consulted, question potential seizure and/or TIA, recommended that she discontinue anticoagulation, initiate Keppra, and follow-up as an outpatient in 2 weeks. Patient denies any fall since her ER visit, headache, neck pain, chest pain, shortness of breath, cough, abdominal pain, nausea, vomiting. She does admit to a decreased appetite. She denies dysuria, hematuria, back pain, diarrhea, pain or swelling in her extremities. She denies any focal weakness. Patient actually states that she is feeling better now than she was earlier today. She currently denies any pain whatsoever. No medications were given prior to arrival. Related Data Home Medications Medication Instructions Recorded Confirmed calcium carbonate-vitamin D3 1 tab PO DAILY 07/28/17 06/18/21 levothyroxine 88 mcg PO DAILY 07/28/17 06/22/21 multivitamin [Daily Multiple] 1 ea PO DAILY 07/28/17 06/22/21 verapamil 180 mg PO DAILY 07/28/17 06/22/21 Wwkhxevq-Znferc-EEB with vit D 1 ea PO DAILY 08/17/17 06/18/21 losartan 50 mg tablet 50 mg PO DAILY 08/09/18 06/22/21 oxybutynin chloride 5 mg tablet 5 mg PO DAILY tab 08/09/18 06/22/21 acetaminophen 1,000 mg PO Q8H PRN #90 tab 04/12/19 06/22/21 levetiracetam [Keppra] 500 mg PO BID #60 tab 06/18/21 06/22/21 cephalexin 500 mg PO BID #14 cap 06/22/21 donepezil 5 mg PO QHS 06/22/21 06/22/21 memantine 5 mg PO DAILY 06/22/21 06/22/21 Previous Rx's Medication Instructions Recorded acetaminophen 1,000 mg PO Q8H PRN #90 tab 04/12/19 levetiracetam [Keppra] 500 mg PO BID #60 tab 06/18/21 cephalexin 500 mg PO BID #14 cap 06/22/21 Allergies Allergy/AdvReac Type Severity Reaction Status Date / Time No Known Allergies Allergy Verified 06/22/21 16:48 General Stated Complaint: CVA/TIA DARIUS: 3 Review of Systems Constitutional Constitutional: Reports chills, Reports fatigue, Denies fever(s) and Denies headache(s) Eyes Eyes: Denies change in vision ENT Ears, Nose, Mouth, and Throat: Denies headache(s) Cardiovascular Cardiovascular: Denies chest pain and Denies dyspnea Respiratory Respiratory: Denies cough and Denies dyspnea Gastrointestinal Gastrointestinal: Denies abdominal pain, Denies nausea and Denies vomiting Genitourinary Genitourinary: Denies dysuria Musculoskeletal Musculoskeletal: Denies back pain, Denies numbness and Denies tingling Integumentary/Breasts Skin/Breast: Denies rash Neurologic Neurologic: Denies headache(s), Denies numbness, Denies tingling and Reports weakness (Generalized) Endocrine Endocrine: Reports fatigue [facility] Medical History Anxiety Carotid stenosis GERD (gastroesophageal reflux disease) HTN (hypertension) Hypothyroidism Paroxysmal atrial fibrillation Surgical History Cholecystectomy Colonoscopy - MAC (08/23/17) EGD - MAC (08/23/17) History of bladder surgery Bladder sling surgery x 2 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 Montague Family History Father Alcohol use disorder Mother Dementia Social History Smoking/Tobacco Use Status: Never Smoking risk assessment performed?: Yes Alcohol Intake: current Alcohol Intake frequency: 0-2 drinks per day Alcohol type: wine Details: rare use, nothing in past several weeks Drug use: Never Substance use type: does not use Current gender identity: female Do you feel safe at home: Yes Do you feel safe in your relationship?: Yes Additional Social history: of many years in 06/2020. Kids in area. Exam Const General: cooperative, healthy appearing, comfortable and no acute distress Orientation: alert and awake HENMT Head: normal to inspection, normocephalic and atraumatic Face and sinus: normal facial exam Mouth: moist mucous membranes Eyes General: appearance normal, both eyes and all related structures Conjunctivae: conjunctivae normal Neck Neck: normal visual inspection, trachea midline and supple Resp Effort & Inspection: normal respiratory effort and able to speak in complete sentences Auscultation: clear to auscultation bilaterally Cardio Rate: regular rate Rhythm: regular rhythm GI Palpation: soft, not firm, no guarding, no pulsatile masses and tender Auscultation: normal bowel sounds Back/Spine/Pelvis Back: No back tenderness Skin General skin exam: no rashes or lesions noted Neuro General: patient alert, patient awake, moves all extremities and no focal motor deficits Cognition: normal cognition Speech: speech normal Gait: normal gait Motor: muscle tone normal throughout Sensory Exam: no sensory deficits noted Extrem General: normal to inspection, full ROM, capillary refill normal, no pedal edema and no calf tenderness Psych Appearance: grossly normal Mental Status: mental status grossly normal Course Vital Signs Vital signs: Vital Signs Temperature 37 C 06/22/21 16:37 Pulse 96 H 06/22/21 16:37 Respiratory Rate 18 06/22/21 16:37 Blood Pressure 124/56 L 06/22/21 16:37 Pulse Oximetry 97 06/22/21 16:37 Temperature 37 C 06/22/21 16:37 Temperature Source Skin 06/22/21 16:37 Pulse 96 H 06/22/21 16:37 Respiratory Rate 20 06/22/21 17:18 Respiratory Effort Splinting 06/22/21 17:18 Respiratory Depth Normal 06/22/21 17:18 Respiratory Pattern Normal 06/22/21 17:18 Blood Pressure 124/56 L 06/22/21 16:37 Blood Pressure Position Sitting 06/22/21 16:37 Pulse Oximetry 97 06/22/21 16:37 Oxygen Delivery Method Room Air 06/22/21 16:37 Oxygen Flow Rate 0 06/22/21 16:37 Pain Level 0 06/22/21 16:37 Lab/Test Results Lab/Test Results: Laboratory Tests Range/Units 06/22/21 06/22/21 06/22/21 17:10 17:10 17:10 WBC (4.4-10.8) 10^3/uL 8.44 RBC (3.93-5.22) 10^6/uL 4.43 Hgb (11.2-15.7) g/dL 13.2 Hct (36.0-46.0) % 40.4 MCV (80-95) fL 91.2 MCH (27.0-33.0) pg 29.8 MCHC (32.0-36.0) % 32.7 RDW (11.7-14.6) % 13.5 Plt Count (130-400) 10^3/uL 160 MPV (8.0-11.0) fL 10.6 Immature Gran % 0.5 Neutrophils % 89.0 Lymphocytes % 4.9 Monocytes % 5.0 Eosinophils % 0.4 Basophils % 0.2 Nucleated RBC % % 0 Absolute Neutrophils (1.2-6.7) 10^3/uL 7.52 H Absolute Lymphocytes (1.2-3.4) 10^3/uL 0.41 L Absolute Monocytes (0.1-0.8) 10^3/uL 0.42 Absolute Eosinophils (0.0-0.7) 10^3/uL 0.03 Absolute Basophils (0.0-0.2) 10^3/uL 0.02 PT (9.3-11.0) sec 14.2 H INR (0.9-1.1) 1.4 H Sodium (136-145) mmol/L 141 Potassium (3.5-5.1) mmol/L 3.9 Chloride (98-107) mmol/L 107 Carbon Dioxide (21.0-32.0) mmol/L 25.9 Anion Gap (3-11) mmol/L 8.1 BUN (7-18) mg/dL 20 H Creatinine (0.55-1.02) mg/dL 1.3 H Estimated GFR/1.73 m2 (mL/min/1.73m2) 39.31 Glucose (74-106) mg/dL 136 H Calcium (8.5-10.1) mg/dL 9.3 Magnesium (1.8-2.4) mg/dL 1.9 Total Bilirubin (0.2-1.0) mg/dL 2.4 H AST (15-37) U/L 20 ALT (14-59) U/L 19 Alkaline Phosphatase (46-116) U/L 95 Troponin I (<0.06) ng/mL < 0.05 Total Protein (6.4-8.2) g/dL 7.4 Albumin (3.4-5.0) g/dL 3.4 TSH (0.36-3.74) uIU/mL 0.13 L Free T4 (0.76-1.46) ng/dL 1.43
[2021-06-22 19:28] LABS: Bilirubin Negative (Negative); Blood Small (Negative); Clarity Cloudy (Clear); Glucose Negative (Negative); Ketones Negative (Negative); Leukocyte Esterase Large (Negative); Nitrite Negative (Negative); pH 5.5 (5-8)
[2021-06-22 19:36] LABS: Bacteria Many HPF (Negative); Crystals Negative HPF (Negative); Epithelial Cells Few HPF (Negative); WBC >50 HPF (0-5)
[2021-06-22 19:37] LABS: C & S Indicated? Yes; Casts Negative LPF (Negative); Mucus Negative (Negative)
[2021-06-22] MEDS: Cephalexin 500 MG CAP PO (20:05)
[2021-06-22 21:16] VITALS: BP 119/64; PULSE 74; RESP 18; TEMP 36.3; O2SAT 98
[2021-06-22 21:25] LABS: Troponin I < 0.05 ng/mL (<0.06)
[2021-06-22] MEDS: cefTRIAXone 1 GM/50 ML BAG IVPB (22:00)
--- NOTE | 2021-06-22 22:26 | W.PM.HP.N ---
Date of service: 06/22/21 Time of Service: 22:26 Assessment and Plan Assessment and plan (1) Acute UTI: Status: Suspected Assessment and plan: UTI. The rigors indicate possible bacteremia but clinically not manifesting signs of sepsis physiology. Will await cxx and continue Rocephin as is. The hyperbilirubinemia is of unknown significance at present but for now will track. The recently described SDH is not being reported out on today's CT, though there is some artefact and to my read I do believe I can make out some possible presence of previously described SDH. In any case will continue Coumadin on hold as per NS, continue Keppra and await NS follow up. Reviewed ADs, daughter confirms DNR status. History of Present Illness History of Present Illness Chief Complaint: weakness Narrative: 81 female seen here 3 daysPTA fpr possible spell of confusion, found to have small right parietal SDH, and concern for possible seizure. Reviewed with NS, advised hold Coumadin (for PAF) and repeat scan 6 hours. Repeat scan stable and d/kenneth home on Keppra, with planned f/u with [facility]. Now, comes back tonight with one day of weakness and shaking chills. In ER findings of note for afebrile, no leukocytosis, and pyuria (>50 WBC/hpf). Given 500 Keflex, with planned d/c to home, but patient then developed rigors and family felt she was too weak to go home. Blood cxx obtained and given 1 gr Rocephin. I was asked to evaluate for admission. Patient has baseline dementia, limited history, but juany dysuria, abd pain or back pain or nausea. Daughter states patient is somewhat more confused than usual. Apparently incidental finding of modest hyperbilirubinemia (2.4 today; 1.4 on 06/18, 1.1 on 06/04). Normal TAs. Review of Systems All systems reviewed & are unremarkable except as noted in HPI and below PFSH Medical History Anxiety Carotid stenosis GERD (gastroesophageal reflux disease) HTN (hypertension) Hypothyroidism Paroxysmal atrial fibrillation Surgical History Cholecystectomy Colonoscopy - MAC (08/23/17) EGD - MAC (08/23/17) History of bladder surgery Bladder sling surgery x 2 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 Montague Family History Father Alcohol use disorder Mother Dementia Social History Smoking/Tobacco Use Status: Never Smoking risk assessment performed?: Yes Alcohol Intake: current Alcohol Intake frequency: 0-2 drinks per day Alcohol type: wine Details: rare use, nothing in past several weeks Drug use: Never Substance use type: does not use Current gender identity: female Do you feel safe at home: Yes Do you feel safe in your relationship?: Yes Additional Social history: of many years in 06/2020. Kids in area. Meds Allergies and Home Medications Allergies Allergy/AdvReac Type Severity Reaction Status Date / Time No Known Allergies Allergy Verified 06/22/21 16:48 Home Medications Medication Instructions Recorded Confirmed Type calcium carbonate-vitamin D3 1 tab PO DAILY 07/28/17 06/18/21 History levothyroxine 88 mcg PO DAILY 07/28/17 06/22/21 History multivitamin [Daily Multiple] 1 ea PO DAILY 07/28/17 06/22/21 History verapamil 180 mg PO DAILY 07/28/17 06/22/21 History Nzlqcudt-Ejfpap-MUO with vit D 1 ea PO DAILY 08/17/17 06/18/21 History losartan 50 mg tablet 50 mg PO DAILY 08/09/18 06/22/21 History oxybutynin chloride 5 mg tablet 5 mg PO DAILY tab 08/09/18 06/22/21 History acetaminophen 1,000 mg PO Q8H PRN #90 tab 04/12/19 06/22/21 Rx levetiracetam [Keppra] 500 mg PO BID #60 tab 06/18/21 06/22/21 Rx cephalexin 500 mg PO BID #14 cap 06/22/21 Rx donepezil 5 mg PO QHS 06/22/21 06/22/21 History memantine 5 mg PO DAILY 06/22/21 06/22/21 History Exam Narrative Exam Narrative: 119/64, 74, 36.3, 18, 98% RA. HEENT atraumatic; neck supple; lungs clear; heart RRR 2/6 sys murmur LUSB; neg CVAT; abdomen soft and NT w/o HSM; extremitie w/o edema; neuro Ox1, moves all 4s Results Labs Result diagrams: 06/22/21 17:10 06/22/21 17:10 Labs: Laboratory Results - last 24 hr 06/22/21 06/22/21 06/22/21 17:10 17:10 17:10 WBC 8.44 RBC 4.43 Hgb 13.2 Hct 40.4 MCV 91.2 MCH 29.8 MCHC 32.7 RDW 13.5 Plt Count 160 MPV 10.6 Immature Gran % 0.5 Neutrophils % 89.0 Lymphocytes % 4.9 Monocytes % 5.0 Eosinophils % 0.4 Basophils % 0.2 Nucleated RBC % 0 Absolute Neutrophils 7.52 H Absolute Lymphocytes 0.41 L Absolute Monocytes 0.42 Absolute Eosinophils 0.03 Absolute Basophils 0.02 PT 14.2 H INR 1.4 H Sodium 141 Potassium 3.9 Chloride 107 Carbon Dioxide 25.9 Anion Gap 8.1 BUN 20 H Creatinine 1.3 H Estimated GFR/1.73 m2 39.31 Glucose 136 H Calcium 9.3 Magnesium 1.9 Total Bilirubin 2.4 H AST 20 ALT 19 Alkaline Phosphatase 95 Troponin I < 0.05 Total Protein 7.4 Albumin 3.4 TSH 0.13 L Free T4 1.43 Urine Color Urine Clarity Urine pH Ur Specific [place] Urine Protein Urine Ketones Urine Blood Urine Nitrite Urine Bilirubin Urine Urobilinogen Ur Leukocyte Esterase Urine RBC Urine WBC Ur Epithelial Cells Urine Crystals Urine Bacteria Urine Casts Urine Mucus Ur Culture Indicated? Urine Glucose 06/22/21 06/22/21 18:50 20:05 WBC RBC Hgb Hct MCV MCH MCHC RDW Plt Count MPV Immature Gran % Neutrophils % Lymphocytes % Monocytes % Eosinophils % Basophils % Nucleated RBC % Absolute Neutrophils Absolute Lymphocytes Absolute Monocytes Absolute Eosinophils Absolute Basophils PT INR Sodium Potassium Chloride Carbon Dioxide Anion Gap BUN Creatinine Estimated GFR/1.73 m2 Glucose Calcium Magnesium Total Bilirubin AST ALT Alkaline Phosphatase Troponin I < 0.05 Total Protein Albumin TSH Free T4 Urine Color Yellow Urine Clarity Cloudy Urine pH 5.5 Ur Specific [place] 1.020 Urine Protein 30 H Urine Ketones Negative Urine Blood Small H Urine Nitrite Negative Urine Bilirubin Negative Urine Urobilinogen 1.0 H Ur Leukocyte Esterase Large H Urine RBC 3-5 H Urine WBC >50 H Ur Epithelial Cells Few Urine Crystals Negative Urine Bacteria Many Urine Casts Negative Urine Mucus Negative Ur Culture Indicated? Yes Urine Glucose Negative Last Vital Signs Temp 36.3 C L 06/22/21 21:16 Pulse 74 06/22/21 21:16 Resp 18 06/22/21 21:16 BP 119/64 06/22/21 21:16 Pulse Ox 98 06/22/21 21:16
[2021-06-22 22:39] LABS: Source Nasal/Nares
[2021-06-22 23:44] LABS: COVID-19 PCR Negative (Negative)
[2021-06-23 01:50] VITALS: BP 113/60; PULSE 91; RESP 18; TEMP 37.2; O2SAT 95
[2021-06-23] MEDS: Lactated Ringers 1,000 ML 75 ML IV ×2 (03:27→18:54)
[2021-06-23 07:20] LABS: ALT 18 U/L (14-59); AST 17 U/L (15-37); Bilirubin, Direct 0.5 mg/dL (0.0-0.2); Bilirubin, Total 1.7 mg/dL (0.2-1.0)
[2021-06-23 07:24] VITALS: BP 105/65; PULSE 65; RESP 15; TEMP 36.9; O2SAT 96
[2021-06-23] MEDS: Levothyroxine 75 MCG TAB PO (07:48)
[2021-06-23] MEDS: Oxybutynin 5 MG TAB PO (07:48)
[2021-06-23] MEDS: Memantine 5 MG TAB PO (07:48)
[2021-06-23] MEDS: Losartan 50 MG TAB PO (07:48)
[2021-06-23] MEDS: levETIRAcetam 500 MG TAB PO ×2 (07:48→21:08)
--- NOTE | 2021-06-23 10:20 | PT.INIE ---
Date of service: 06/23/21 Time of Service: 10:20 PT Notes Visit Reasons: Urinary tract infection Physical Therapy Inpatient Initial Evaluation Date: 06/23/2021 Referring Doctor: Preeti Faith NP PT Orders: PT CONSULT: Eval/treat. Precautions: Fall. Standard. Activity as tolerated. Patient Profile/Admitting Diagnosis: Shanell is an 81-year-old female recently diagnosed with subdural hematoma who again presented to the ED on 06/22/2021 for altered mental status and generalized weakness. Patient is diagnosed with acute urinary tract infection and hyperbilirubinemia. 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 Montague Social History/Home Situation: Lives with daughter in a private home with no stairs to enter. Stays with her sister during the day while daughter works. passed last June 2020. Did not thrive well at the [facility] which was why daughter decided to take care of her. Equipment Owned/DME: None Subjective: Agreeable to PT consult. Was asking if she could go home today. Denies headache, chest pain, and lightheadedness throughout session. Objective: General Observation: Patient in bed. IV access to the L UE. Mental Status: Alert and oriented as to person and place. Thinks that it is June and that the is the year 1999 and . Able to follow single step commands. Pain: 0/10 ROM: Right Upper Extremity: Shoulder Flexion WFL. Shoulder abduction WFL. Elbow flexion WFL. Wrist flexion WFL. Functional opening and closing of hand WFL. Left Upper Extremity: Shoulder Flexion WFL. Shoulder abduction WFL. Elbow flexion WFL. Wrist flexion WFL. Functional opening and closing of hand WFL. Right Lower Extremity: Hip flexion WFL. Hip abduction WFL. Knee flexion WFL. Ankle dorsiflexion WFL. Ankle plantarflexion WFL. Left Lower Extremity: Hip flexion WFL. Hip abduction WFL. Knee flexion WFL. Ankle dorsiflexion WFL. Ankle plantarflexion WFL. Strength: Right Upper Extremity: Shoulder flexors 4/5. Shoulder abductors 4/5. Elbow flexors 4/5. Elbow extensors 4/5. Aboriginal Education Teacher strong. Left Upper Extremity: Shoulder flexors 4/5. Shoulder abductors 4/5. Elbow flexors 4/5. Elbow extensors 4/5. Aboriginal Education Teacher strong. Right Lower Extremity: Hip flexors 4/5. Hip abductors 4/5. Knee flexors 4/5. Knee extensors 4/5. Ankle dorsiflexors 4/5. Ankle plantarflexors 4/5. Left Lower Extremity: Hip flexors 4-/5. Hip abductors 4-/5. Knee flexors 4-/5. Knee extensors 4-/5. Ankle dorsiflexors 4-/5. Ankle plantarflexors 4-/5. Bed Mobility/Transfers: Rolling independent Supine to sit supervision due to need for IV pole management Sit to supine supervision due to need for IV pole management Sit to stand supervision due to need for IV pole management Stand to sit supervision due to need for IV pole management Bed to reclining chair supervision due to need for IV pole management Reclining chair to bed supervision due to need for IV pole management Gait: Instructed patient with level surface ambulation of 250 feet requiring supervision assist. No SOB. No path deviation. Did seem to falter one time but had no LOB. Balance: Static Sitting: Normal Dynamic Sitting: Normal Static Standing: Good Dynamic Standing: Good Special Tests: Mobility Limitations Standardized Measure [facility] 6 clicks Basic Mobility Inpatient Short Form: Raw Score: 24 CMS Score: 0% deficit 4-stage Balance test: Needed help with full tandem and one-legged stance. Safely performed feet together and semi-tandem stance. Informed Consent/Education: Patient was instructed in purpose of PT consult and plan of care. Agreeable to proceed with established PT POC to achieve personal goals. Assessment: Patient just needed supervision for directions and IV pole management. Will have supervision from sister and daughter at all times. Does not need any assistive device at this time. Patient presents with clinical signs and symptoms consistent with current/admitting diagnoses that have resulted to mobility limitations, gait instability, generalized weakness, and overall ADL decline as demonstrated by the following impairment level findings: 1. Decreased strength to B UE/LE major muscle groups 2. Impaired standing balance 3. Impaired activity tolerance Impairments are contributing to the following functional limitations: 1. Increased completion time for mobility ADL performance 2. Increased risk for falls Patient is assessed as a 22396 moderate complexity based on the following: History: 80-year-old female with past medical history as indicated above Examination: Demonstrable impairment in strength, balance, and mobility level with underlying impairments and functional limitations as exhibited above as well as deficit score of % utilizing the [facility] Mobility Inpatient Short Form Presentation: Stable Decision Makin moderate complexity Goals: Goals X1 week 1. Supine-Sit independent 2. Sit-Supine independent 3. Sit-Stand independent 4. Stand-Sit independent 5. Bed-Chair independent 6. Chair-Bed independent 7. Independent gait on level surface with no assistive device for at least 500 feet without report of pain nor dyspnea 8. Good static and dynamic standing balance/tolerance Plan of Care/Treatment Plan: 1-2x/day, 7 days/week x 1 week. Plan of care has been reviewed with the [employer]ING [employer] providing the service under Physical Therapy direction. Initiate Physical Therapy intervention for pain management as needed, strengthening, bed mobility, transfers, gait, stairs, balance training, and use of assistive device. DISCHARGE RECOMMENDATIONS: Check to TREATMENT CODE/TIME: 96779 x 20 minutes, 29822 x 9 minutes 10:20 AM. Thank you for the opportunity to participate in the care of this patient. Natasha Youssef PT, DPT, CLT [facility] [place], [place]
--- NOTE | 2021-06-23 10:25 | W.PM.PROGNOT ---
Date of Service Date of service: 06/23/21 Time of Service: 10:25 Assessment and Plan Assessment and plan (1) Acute UTI: Status: Acute Assessment and plan: UTI. awaiting culture reports, urine growing gram negative rods will continue with ceftriaxone and increased dose to 2 gm as it was thought her symptoms were concerning for bacteremia. (2) HTN (hypertension): Status: Chronic Assessment and plan: blood pressure has been controlled. continue home medication and monitor. (3) Hypothyroidism: Status: Chronic Assessment and plan: TSH 0.13 will decrease synthroid dose need recheck TSH in 6 weeks. (4) Recent head injury: Status: Resolved Assessment and plan: no new bleeding, no seizures, stable. continue keppra (5) Paroxysmal atrial fibrillation: Status: Chronic Assessment and plan: rate controlled. no anticoagulation in setting of recent head injuries. (6) DVT prophylaxis: Status: Acute (7) Discharge planning issues: Status: Acute Assessment and plan: will return home +/- home health services. PT consulted case management following. discussed with Dr Altman. Subjective Subjective Patient reports: no new complaints and afebrile Exam Const General: cooperative, healthy appearing, comfortable and no acute distress Orientation: alert and awake HENFL Head: normal to inspection, normocephalic and atraumatic Face and sinus: normal facial exam Mouth: moist mucous membranes Eyes General: appearance normal, both eyes and all related structures Neck Neck: normal visual inspection and supple Resp Effort & Inspection: normal respiratory effort and able to speak in complete sentences Auscultation: clear to auscultation bilaterally Cardio Rate: regular rate Rhythm: regular rhythm GI Palpation: soft, not firm, no guarding, no pulsatile masses and tender Auscultation: normal bowel sounds Skin General skin exam: no rashes or lesions noted Neuro General: patient alert, patient awake, moves all extremities and no focal motor deficits Cognition: normal cognition Speech: speech normal Gait: normal gait Motor: muscle tone normal throughout Sensory Exam: no sensory deficits noted Extrem General: normal to inspection, full ROM, capillary refill normal, no pedal edema and no calf tenderness Psych Appearance: grossly normal Mental Status: mental status grossly normal Objective Last Vital Signs Temp 36.9 C 06/23/21 07:24 Pulse 65 06/23/21 07:24 Resp 15 06/23/21 07:24 BP 105/65 06/23/21 07:24 Pulse Ox 96 09/28/21 07:24 Laboratory Results - last 24 hr 06/22/21 06/22/21 06/22/21 17:10 17:10 17:10 WBC 8.44 RBC 4.43 Hgb 13.2 Hct 40.4 MCV 91.2 MCH 29.8 MCHC 32.7 RDW 13.5 Plt Count 160 MPV 10.6 Immature Gran % 0.5 Neutrophils % 89.0 Lymphocytes % 4.9 Monocytes % 5.0 Eosinophils % 0.4 Basophils % 0.2 Nucleated RBC % 0 Absolute Neutrophils 7.52 H Absolute Lymphocytes 0.41 L Absolute Monocytes 0.42 Absolute Eosinophils 0.03 Absolute Basophils 0.02 PT 14.2 H INR 1.4 H Sodium 141 Potassium 3.9 Chloride 107 Carbon Dioxide 25.9 Anion Gap 8.1 BUN 20 H Creatinine 1.3 H Estimated GFR/1.73 m2 39.31 Glucose 136 H Calcium 9.3 Magnesium 1.9 Total Bilirubin 2.4 H Conjugated Bilirubin AST 20 ALT 19 Alkaline Phosphatase 95 Troponin I < 0.05 Total Protein 7.4 Albumin 3.4 TSH 0.13 L Free T4 1.43 Urine Color Urine Clarity Urine pH Ur Specific [place] Urine Protein Urine Ketones Urine Blood Urine Nitrite Urine Bilirubin Urine Urobilinogen Ur Leukocyte Esterase Urine RBC Urine WBC Ur Epithelial Cells Urine Crystals Urine Bacteria Urine Casts Urine Mucus Ur Culture Indicated? Urine Glucose COVID-19 Source SARS-CoV-2 (PCR) 06/22/21 06/22/21 06/22/21 18:50 20:05 22:20 WBC RBC Hgb Hct MCV MCH MCHC RDW Plt Count MPV Immature Gran % Neutrophils % Lymphocytes % Monocytes % Eosinophils % Basophils % Nucleated RBC % Absolute Neutrophils Absolute Lymphocytes Absolute Monocytes Absolute Eosinophils Absolute Basophils PT INR Sodium Potassium Chloride Carbon Dioxide Anion Gap BUN Creatinine Estimated GFR/1.73 m2 Glucose Calcium Magnesium Total Bilirubin Conjugated Bilirubin AST ALT Alkaline Phosphatase Troponin I < 0.05 Total Protein Albumin TSH Free T4 Urine Color Yellow Urine Clarity Cloudy Urine pH 5.5 Ur Specific [place] 1.020 Urine Protein 30 H Urine Ketones Negative Urine Blood Small H Urine Nitrite Negative Urine Bilirubin Negative Urine Urobilinogen 1.0 H Ur Leukocyte Esterase Large H Urine RBC 3-5 H Urine WBC >50 H Ur Epithelial Cells Few Urine Crystals Negative Urine Bacteria Many Urine Casts Negative Urine Mucus Negative Ur Culture Indicated? Yes Urine Glucose Negative COVID-19 Source Nasal/Nares SARS-CoV-2 (PCR) Negative 06/23/21 06:33 WBC RBC Hgb Hct MCV MCH MCHC RDW Plt Count MPV Immature Gran % Neutrophils % Lymphocytes % Monocytes % Eosinophils % Basophils % Nucleated RBC % Absolute Neutrophils Absolute Lymphocytes Absolute Monocytes Absolute Eosinophils Absolute Basophils PT INR Sodium Potassium Chloride Carbon Dioxide Anion Gap BUN Creatinine Estimated GFR/1.73 m2 Glucose Calcium Magnesium Total Bilirubin 1.7 H Conjugated Bilirubin 0.5 H AST 17 ALT 18 Alkaline Phosphatase Troponin I Total Protein Albumin TSH Free T4 Urine Color Urine Clarity Urine pH Ur Specific [place] Urine Protein Urine Ketones Urine Blood Urine Nitrite Urine Bilirubin Urine Urobilinogen Ur Leukocyte Esterase Urine RBC Urine WBC Ur Epithelial Cells Urine Crystals Urine Bacteria Urine Casts Urine Mucus Ur Culture Indicated? Urine Glucose COVID-19 Source SARS-CoV-2 (PCR)
[2021-06-23] MEDS: cefTRIAXone 2 GM/50 ML BAG IVPB (12:57)
[2021-06-23] MEDS: Normal Saline Flush 10 ML SYR (14:12)
[2021-06-23 16:07] VITALS: BP 110/70; PULSE 71; RESP 15; TEMP 36.1; O2SAT 100
--- NOTE | 2021-06-23 16:24 | CHAPLAIN ---
When I visited Shanell this afternoon her sister and daughter (Ellie Ayoub and Quang) were visiting her. When I explained I was the reverser, her daughter said right away, don't tell her what you've been talking about, that you're ready to go, so you don't need to eat. Through conversation with the three of them I learned that Shanell's less than a year ago and Shanell later moved into the [facility] but found it to be lonely, so she will be moving in with her daughter when she is discharged. Her daughter said that Shanell has also blacked out four times since moving into the [facility]. I didn't not get to talk with Shanell about why she wants to not eat any more, and will try to visit her tomorrow before visiting hours. She is also likely to be discharged tomorrow.
--- NOTE | 2021-06-23 17:45 | INITIAL_ITS ---
- If Service Date Differs Date of service: 06/23/21 Time of Service: 17:45 Care Management Initial Assess REASON FOR HOSPITALIZATION:: UTI PAST MEDICAL HISTORY/PAST SURGICAL HISTORY:: Anxiety. Carotid stenosis. GERD (gastroesophageal reflux disease). HTN (hypertension). Hypothyroidism. Paroxysmal atrial fibrillation. Cholecystectomy. Colonoscopy - MAC (08/23/17). EGD - MAC (08/23/17). History of bladder surgery. Bladder sling surgery x 2. 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 Dr. Montague PREVIOUS FUNCTIONAL STATUS/SOCIAL/FAMILY SUPPORTS:: Shanell reports residing at her daughter, Vonda Evangelista's home in [place], [place]. She reports being too lonely at [facility] and really enjoying Vonda's home where there is a garage, tractors, and a large deck/porch where she enjoys spending time. She reports no longer driving due to dementia. She shares that she likes spending time with Ellie Ayoub, her adopted sister as well. She requires supports with most ADLs. CURRENT FUNCTIONAL STATUS:: Shanell is lying in bed when CM meets with her. She is quite pleasant in interaction and forthcoming with information. Has patient been provided with info about the portal/API?: No Did the patient sign up for the portal?: No CODE STATUS:: DNR/DNI INSURANCE COVERAGE / FINANCIAL ISSUES:: [facility]. [employer]. AARP CURRENT HOME/COMMUNITY SERVICES/EQUIPMENT:: None currently. PRIMARY CARE PHYSICIAN:: Fatuma Boyer POTENTIAL DISCHARGE NEEDS:: Follow up appointments. PATIENT/FAMILY EDUCATION NEEDS:: Review discharge instructions, discuss [employer]. ANTICIPATED BARRIERS TO DISCHARGE:: None identified. TRANSPORTATION:: Via private vehicle with her daughter. PLAN:: Shanell will return to her daughter's home when ready per MD. No additional services anticipated at this time. She will follow up with her PCP and plan of care as prescribed. CM continues to follow.
[2021-06-23] MEDS: Donepezil 5 MG TAB PO (21:34)
[2021-06-23 23:30] VITALS: BP 127/72; PULSE 64; RESP 18; TEMP 36; O2SAT 96
[2021-06-24] MEDS: Levothyroxine 50 MCG TAB PO (05:17)
[2021-06-24 06:02] LABS: Abs Immature Grans 0.01 10^3/uL (0.0-0.06); Absolute Basophil Count 0.02 10^3/uL (0.0-0.2); Absolute Eosinophil Count 0.14 10^3/uL (0.0-0.7); Absolute Lymphocyte Count 0.92 10^3/uL (1.2-3.4); Absolute Monocyte Count 0.63 10^3/uL (0.1-0.8); Absolute Neutrophil Count 2.91 10^3/uL (1.2-6.7); Basophils % 0.4; HCT 32.7 % (36.0-46.0); HGB 10.6 g/dL (11.2-15.7); Immature Grans % 0.2; Lymphocytes % 19.9; MCHC 32.4 % (32.0-36.0); MCV 92.6 fL (80-95); MPV 11.5 fL (8.0-11.0); Monocytes % 13.6; Neutrophils % 62.9; Nucleated RBC 0 %; Platelet Count 114 10^3/uL (130-400); RBC 3.53 10^6/uL (3.93-5.22); RDW 13.7 % (11.7-14.6); RDW-SD 46.5 fL; WBC 4.63 10^3/uL (4.4-10.8)
[2021-06-24 06:15] LABS: BUN 19 mg/dL (7-18); Calcium 8.9 mg/dL (8.5-10.1); Chloride 110 mmol/L (98-107); Estimated GFR 53.21 (mL/min/1.73m2); Glucose 95 mg/dL (74-106); Sodium 142 mmol/L (136-145)
[2021-06-24] MEDS: Memantine 5 MG TAB PO (07:32)
[2021-06-24] MEDS: Oxybutynin-CR 5 MG TABCR PO (07:32)
[2021-06-24] MEDS: levETIRAcetam 500 MG TAB PO ×2 (07:32→20:56)
[2021-06-24] MEDS: Losartan 50 MG TAB PO (07:32)
[2021-06-24] MEDS: Lactated Ringers 1,000 ML 75 ML IV ×2 (07:32→21:29)
[2021-06-24 08:04] VITALS: BP 135/79; PULSE 86; RESP 18; TEMP 36.5; O2SAT 96
--- NOTE | 2021-06-24 08:59 | PDOC.CMPRO ---
- If Service Date Differs Date of service: 06/24/21 Time of Service: 08:59 Care Management Progress Note S/O: Shanell was sitting up in her chair when CM met with her. She was pleasant and easily engaged in conversation. She is anticipating going home tomorrow after her urine cultures are back. Shanell hopes to be discharged home on PO antibiotics but understands she may need IV antibiotics. Cultures are pending, CM continues to support discharge needs. A: 81 year old female admitted to [facility] on 05/22/21 for UTI P: Anticipate Shanell will be discharged home via private vehicle with her daughter when ready per MD. No additional services anticipated at this time. She will follow up with her PCP and plan of care as prescribed. CM continues to follow.
--- NOTE | 2021-06-24 10:47 | W.PM.PROGNOT ---
Date of Service Date of service: 06/24/21 Time of Service: 10:47 Assessment and Plan Assessment and plan (1) Acute UTI: Status: Acute Assessment and plan: UTI. awaiting culture reports, urine and blood growing gram negative rods will continue with ceftriaxone 2 gm daily day 12/07 (2) HTN (hypertension): Status: Chronic Assessment and plan: blood pressure has been controlled. continue home medication and monitor. (3) Hypothyroidism: Status: Chronic Assessment and plan: TSH 0.13 will decrease synthroid dose need recheck TSH in 6 weeks. (4) Recent head injury: Status: Resolved Assessment and plan: no new bleeding, no seizures, stable. continue keppra (5) Paroxysmal atrial fibrillation: Status: Chronic Assessment and plan: rate controlled. no anticoagulation in setting of recent head injuries. (6) DVT prophylaxis: Status: Acute (7) Discharge planning issues: Status: Acute Assessment and plan: will return home +/- home health services. PT consulted case management following. discussed with Dr Altman. Subjective Subjective Patient reports: no new complaints, tolerating liquids well, tolerating a regular diet and afebrile Interval history since last seen: patient remains pleasantly confused, no behavioral issues. redirects easily Exam Const General: cooperative, healthy appearing, comfortable and no acute distress Orientation: alert and awake HENMT Head: normal to inspection, normocephalic and atraumatic Face and sinus: normal facial exam Mouth: moist mucous membranes Eyes General: appearance normal, both eyes and all related structures Neck Neck: normal visual inspection and supple Resp Effort & Inspection: normal respiratory effort and able to speak in complete sentences Auscultation: clear to auscultation bilaterally Cardio Rate: regular rate Rhythm: regular rhythm GI Palpation: soft, not firm, no guarding, no pulsatile masses and tender Auscultation: normal bowel sounds Skin General skin exam: no rashes or lesions noted Neuro General: patient alert, patient awake, moves all extremities and no focal motor deficits Cognition: normal cognition Speech: speech normal Gait: normal gait Motor: muscle tone normal throughout Sensory Exam: no sensory deficits noted Extrem General: normal to inspection, full ROM, capillary refill normal, no pedal edema and no calf tenderness Psych Appearance: grossly normal Mental Status: mental status grossly normal Objective Last Vital Signs Temp 36.5 C 06/24/21 08:04 Pulse 86 06/24/21 08:04 Resp 18 09/29/21 08:04 BP 135/79 06/24/21 08:04 Pulse Ox 96 06/24/21 08:04 Laboratory Results - last 24 hr 06/24/21 06/24/21 05:20 05:20 WBC 4.63 RBC 3.53 L Hgb 10.6 L D Hct 32.7 L MCV 92.6 MCH 30.0 MCHC 32.4 RDW 13.7 Plt Count 114 L MPV 11.5 H Immature Gran % 0.2 Neutrophils % 62.9 Lymphocytes % 19.9 Monocytes % 13.6 Eosinophils % 3.0 Basophils % 0.4 Nucleated RBC % 0 Absolute Neutrophils 2.91 Absolute Lymphocytes 0.92 L Absolute Monocytes 0.63 Absolute Eosinophils 0.14 Absolute Basophils 0.02 Sodium 142 Potassium 4.0 Chloride 110 H Carbon Dioxide 28.0 Anion Gap 4.0 BUN 19 H Creatinine 1.0 Estimated GFR/1.73 m2 53.21 Glucose 95 Calcium 8.9
--- NOTE | 2021-06-24 10:50 | PT.INTREAT ---
Date of service: 06/24/21 Time of Service: 09:50 PT Notes Visit Reasons: Urinary tract infection Inpatient Physical Therapy Treatment Note [facility] Date: 06/24/2021 PRECAUTIONS: Activity as tolerated SUBJECTIVE: Shanell is pleasant and agreeable to participating in PT. She states that she feels good today and would like to go home. She also states that she isn't sure why she is in the hospital. OBJECTIVE: PAIN: No c/o pain BED MOBILITY/TRANSFERS Supine-sit: I with HOB flat Sit-stand: I Stand-sit: I Bed-chair: I Chair-bed: I GAIT Assistive Device: No AD Weight bearing: Full Assist: I Distance: 400' Deviation: Assist with IV pole management THEREX: Patient was instructed in a seated LE strengthening program, as per flow sheet. ASSESSMENT: Patient tolerated session without complaint. She was able to tolerate a progression in gait distance without assistive device support, independently, although requires assist for IV pole management. PLAN: Continue with global strengthening for improved activity tolerance. TREATMENT CODE/TIME: 28 minutes; 51751, 03515 (09:50)
[2021-06-24] MEDS: cefTRIAXone 2 GM/50 ML BAG IVPB (12:08)
[2021-06-24 15:35] VITALS: BP 123/82; PULSE 55; RESP 18; TEMP 36.4; O2SAT 99
[2021-06-24 16:21] LABS: Levetiracetam 14.9 mcg/mL
--- NOTE | 2021-06-24 17:12 | CHAPLAIN ---
Shanell thought she may be discharged today, but that's been delayed a day. Shanell was sitting up in the chair when I visited. We talked about her 's last June and the upcoming anniversary of his . She shared some personal history telling me about her childhood, early marriage, and life as a and mom. She will be going home to live with her daughter after trying out living at the [facility] for the past few months. She felt lonely there, she said. She said she's had a good life, spoke about a few regrets, (not going to high school) and dealing with some family issues, but she was primarily upbeat. She would like to know what's causing her to blackout.
[2021-06-24] MEDS: Donepezil 5 MG TAB PO (20:56)
[2021-06-24 23:46] VITALS: BP 128/70; PULSE 60; RESP 17; TEMP 36.5; O2SAT 96
[2021-06-25] MEDS: Levothyroxine 50 MCG TAB PO (05:06)
[2021-06-25 07:40] VITALS: BP 145/78; PULSE 60; RESP 19; TEMP 36.6; O2SAT 98
[2021-06-25] MEDS: Memantine 5 MG TAB PO (07:41)
[2021-06-25] MEDS: Losartan 50 MG TAB PO (07:42)
[2021-06-25] MEDS: levETIRAcetam 500 MG TAB PO ×2 (07:42→21:03)
[2021-06-25] MEDS: Oxybutynin-CR 5 MG TABCR PO (07:42)
[2021-06-25] MEDS: Lactated Ringers 1,000 ML 75 ML IV (10:47)
[2021-06-25] MEDS: cefTRIAXone 2 GM/50 ML BAG IVPB (12:42)
[2021-06-25 13:30] VITALS: BP 116/73; PULSE 53; RESP 16; TEMP 37.6; O2SAT 99
--- NOTE | 2021-06-25 14:54 | PT.INTREAT ---
Date of service: 06/25/21 Time of Service: 11:29 PT Notes Visit Reasons: Urinary tract infection Inpatient Physical Therapy Treatment Note [facility] Date: 06/25/2021 PRECAUTIONS: Activity as tolerated SUBJECTIVE: Shanell is pleasant and agreeable to participating in PT. She states that she would really like to go home, although feels that she has been treated very well and has received great care. OBJECTIVE: PAIN: No c/o pain BED MOBILITY/TRANSFERS Sit-stand: I Stand-sit: I Bed-chair: I Chair-bed: I GAIT Assistive Device: No AD Weight bearing: Full Assist: I Distance: 600' Deviation: Assist with IV pole management TOILETING: Patient toileted independently ASSESSMENT: Patient tolerated session without complaint. She was able to tolerate a progression in gait distance without assistive device support, independently, although requires assist for IV pole management. PLAN: Continue with global strengthening for improved activity tolerance. TREATMENT CODE/TIME: 23 minutes; 63994 x2 (11:29)
--- NOTE | 2021-06-25 15:56 | W.PM.PROGNOT ---
Date of Service Date of service: 06/25/21 Time of Service: 15:56 Assessment and Plan Assessment and plan (1) Acute UTI: Status: Acute Assessment and plan: UTI. awaiting culture reports, urine and blood growing gram negative rods will continue with ceftriaxone 2 gm daily day 01/07 (2) HTN (hypertension): Status: Chronic Assessment and plan: blood pressure has been controlled. continue home medication and monitor. (3) Hypothyroidism: Status: Chronic Assessment and plan: TSH 0.13 will decrease synthroid dose need recheck TSH in 6 weeks. (4) Recent head injury: Status: Resolved Assessment and plan: no new bleeding, no seizures, stable. continue keppra (5) Paroxysmal atrial fibrillation: Status: Chronic Assessment and plan: rate controlled. no anticoagulation in setting of recent head injuries. (6) DVT prophylaxis: Status: Acute (7) Discharge planning issues: Status: Acute Assessment and plan: will return home +/- home health services. PT consulted case management following. discussed with Dr Altman. Subjective Subjective Patient reports: no new complaints, tolerating liquids well, tolerating a regular diet and afebrile Interval history since last seen: patient remains pleasantly confused, no behavioral issues. redirects easily Exam Const General: cooperative, healthy appearing, comfortable and no acute distress Orientation: alert and awake HENMT Head: normal to inspection, normocephalic and atraumatic Face and sinus: normal facial exam Mouth: moist mucous membranes Eyes General: appearance normal, both eyes and all related structures Neck Neck: normal visual inspection and supple Resp Effort & Inspection: normal respiratory effort and able to speak in complete sentences Auscultation: clear to auscultation bilaterally Cardio Rate: regular rate Rhythm: regular rhythm GI Palpation: soft, not firm, no guarding, no pulsatile masses and tender Auscultation: normal bowel sounds Skin General skin exam: no rashes or lesions noted Neuro General: patient alert, patient awake, moves all extremities and no focal motor deficits Cognition: normal cognition Speech: speech normal Gait: normal gait Motor: muscle tone normal throughout Sensory Exam: no sensory deficits noted Extrem General: normal to inspection, full ROM, capillary refill normal, no pedal edema and no calf tenderness Psych Appearance: grossly normal Mental Status: mental status grossly normal Objective Last Vital Signs Temp 36.6 C 06/25/21 07:40 Pulse 60 06/25/21 07:40 Resp 19 09/30/21 07:40 BP 145/78 H 06/25/21 07:40 Pulse Ox 98 06/25/21 07:40 Laboratory Results - last 24 hr 06/22/21 22:35 Levetiracetam 14.9
--- NOTE | 2021-06-25 17:20 | PDOC.CMPRO ---
Care Management Progress Note S/O: Shanell was sitting up in her chair when CM met with her, visiting with her two sisters. She was pleasant and easily engaged in conversation. No change to overall plan, CM continues to support discharge needs. A: 81 year old female admitted to [facility] on 05/22/21 for UTI P: Anticipate Shanell will be discharged home via private vehicle with her daughter when ready per MD. No additional services anticipated at this time. She will follow up with her PCP and plan of care as prescribed. CM continues to follow.
--- NOTE | 2021-06-25 18:00 | INDS_ITS ---
Date of service: 06/25/21 PT Notes Visit Reasons: Urinary tract infection Physical Therapy Inpatient Discharge Summary Date: 06/25/2021 Dates of Service: 06/23/2021 through 06/25/2021 This is a clinical summary of care provided for the duration of dates listed above. No charge was made in the completion of this documentation. Referring Doctor: Preeti Faith NP PT Orders: PT CONSULT: Eval/treat. Precautions: Fall. Standard. Activity as tolerated. Patient Profile/Admitting Diagnosis: Shanell is an 81-year-old female recently diagnosed with subdural hematoma who again presented to the ED on 06/22/2021 for altered mental status and generalized weakness. Patient is diagnosed with acute urinary tract infection and hyperbilirubinemia. 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 Montague Social History/Home Situation: Lives with daughter in a private home with no stairs to enter. Stays with her sister during the day while daughter works. passed last June 2020. Did not thrive well at the [facility] which was why daughter decided to take care of her. Equipment Owned/DME: None Subjective: NT. See most recent ECOLOGY TEACHER notes. Objective: General Observation: NT. See most recent ECOLOGY TEACHER notes. Mental Status: NT. See most recent ECOLOGY TEACHER notes. Pain: NT. See most recent ECOLOGY TEACHER notes. ROM: Right Upper Extremity: Shoulder Flexion WFL. Shoulder abduction WFL. Elbow flexion WFL. Wrist flexion WFL. Functional opening and closing of hand WFL. Left Upper Extremity: Shoulder Flexion WFL. Shoulder abduction WFL. Elbow flexion WFL. Wrist flexion WFL. Functional opening and closing of hand WFL. Right Lower Extremity: Hip flexion WFL. Hip abduction WFL. Knee flexion WFL. Ankle dorsiflexion WFL. Ankle plantarflexion WFL. Left Lower Extremity: Hip flexion WFL. Hip abduction WFL. Knee flexion WFL. Ankle dorsiflexion WFL. Ankle plantarflexion WFL. Strength: Right Upper Extremity: Shoulder flexors 4/5. Shoulder abductors 4/5. Elbow flexors 4/5. Elbow extensors 4/5. Ethnoarchaeology Professor strong. Left Upper Extremity: Shoulder flexors 4/5. Shoulder abductors 4/5. Elbow flexors 4/5. Elbow extensors 4/5. Ethnoarchaeology Professor strong. Right Lower Extremity: Hip flexors 4/5. Hip abductors 4/5. Knee flexors 4/5. Knee extensors 4/5. Ankle dorsiflexors 4/5. Ankle plantarflexors 4/5. Left Lower Extremity: Hip flexors 4-/5. Hip abductors 4-/5. Knee flexors 4-/5. Knee extensors 4-/5. Ankle dorsiflexors 4-/5. Ankle plantarflexors 4-/5. Bed Mobility/Transfers: Rolling independent Supine to sit independent Sit to supine independent Sit to stand independent Stand to sit independent Bed to reclining chair independent Reclining chair to bed independent Gait: Instructed patient with level surface ambulation of 250 feet requiring supervision assist. No SOB. No path deviation. Did seem to falter one time but had no LOB. Balance: Static Sitting: Normal Dynamic Sitting: Normal Static Standing: Good Dynamic Standing: Good 4-stage Balance test: Needed help with full tandem and one-legged stance. Safely performed feet together and semi-tandem stance. Assessment: Patient is independent with all mobility ADL performance using no assistive device. Will have supervision from sister and daughter at all times. Does not need any assistive device at this time. Patient presents with clinical signs and symptoms consistent with current/admitting diagnoses that have resulted to mobility limitations, gait instability, generalized weakness, and overall ADL decline as demonstrated by the following impairment level findings: 1. Decreased strength to B UE/LE major muscle groups 2. Impaired standing balance 3. Impaired activity tolerance Impairments are contributing to the following functional limitations: 1. Increased completion time for mobility ADL performance 2. Increased risk for falls Goals: Goals X1 week 1. Supine-Sit independent MET 2. Sit-Supine independent MET 3. Sit-Stand independent MET 4. Stand-Sit independent MET 5. Bed-Chair independent MET 6. Chair-Bed independent MET 7. Independent gait on level surface with no assistive device for at least 500 feet without report of pain nor dyspnea MET 8. Good static and dynamic standing balance/tolerance MET DISCHARGE RECOMMENDATIONS: Patient will benefit from home health PT services in order to progress mobility level using least restrictive assistive ambulatory device, assess home safety, identify additional equipment needs, and establish a functional maintenance program that will increase ability of patient to remain at home. TREATMENT CODE/TIME: IN Thank you for the opportunity to participate in the care of this patient. Natasha Youssef PT, DPT, CLT [facility] [place], [place]
[2021-06-25 20:29] VITALS: BP 144/76; PULSE 60; RESP 16; TEMP 36.4; O2SAT 98
[2021-06-25] MEDS: Donepezil 5 MG TAB PO (21:03)
[2021-06-26 03:57] VITALS: BP 150/73; PULSE 59; RESP 17; TEMP 36.4; O2SAT 95
[2021-06-26] MEDS: Levothyroxine 50 MCG TAB PO (05:19)
[2021-06-26 07:30] VITALS: BP 154/89; PULSE 60; RESP 16; TEMP 36.8; O2SAT 96
[2021-06-26] MEDS: Losartan 50 MG TAB PO (07:51)
[2021-06-26] MEDS: Oxybutynin-CR 5 MG TABCR PO (07:51)
[2021-06-26] MEDS: Memantine 5 MG TAB PO (07:51)
[2021-06-26] MEDS: levETIRAcetam 500 MG TAB PO (07:51)
--- NOTE | 2021-06-26 08:46 | CMPROGNOTE_ITS ---
- If Service Date Differs Date of service: 06/26/21 Time of Service: 08:46 Care Management Progress Note S/O: A: 81 year old female admitted to [facility] on 05/22/21 for UTI P: Anticipate Shanell will be discharged home via private vehicle with her daughter when ready per MD. No additional services anticipated at this time. She will follow up with her PCP and plan of care as prescribed. CM continues to follow.
--- NOTE | 2021-06-26 11:50 | DSE_ITS ---
Date of service: 06/26/21 Time of Service: 11:51 DS: Diagnosis Discharge Diagnosis (1) Bacteremia: Start date: 06/26/21 Start time: 11:57 Status: Acute Asessment and Plan: From UTI grew e.coli, second set blood cultures on 06/24 negative. Will need to be treated for 4 weeks with antibiotics due to TKR. She feels well. She is ready to go home. She will be treated with cefpdoxime x 4 weeks. She is currently on ceftrixone 2 gm. Will switch to cefpdoxime She does not need any services. She Will be discharge back to [facility] home Follow up with PCP in 1-2 weeks (2) Acute UTI: Start date: 06/26/21 Start time: 11:54 Status: Acute Asessment and Plan: UTI with e.coli and bactermia as above. (3) HTN (hypertension): Start date: 06/26/21 Start time: 12:05 Status: Chronic Asessment and Plan: continue current medications (4) Hypothyroidism: Start date: 06/26/21 Start time: 12:05 Status: Chronic Asessment and Plan: TSH 0.13 will decrease synthroid dose (5) Recent head injury: Start date: 06/26/21 Start time: 12:05 Status: Resolved Asessment and Plan: no new bleeding, no seizures, stable. continue keppra (6) Paroxysmal atrial fibrillation: Start date: 06/26/21 Start time: 12:07 Status: Chronic Asessment and Plan: rate controlled. no anticoagulation in setting of recent head injuries. discussed with Dr. Altman Discharge Plan Disposition Patient Disposition: HOME Condition: Good Discharge Details Reason For Visit: UTI Admit Date/Time: 06/22/21 22:44 Admit Provider: Tony Cosme Attending Provider: Tony Cosme Primary Care Provider: Fatuma Boyer [facility] Course Hospital Course: 81 y.o female with PMH of hypothyroidism, HTN, recent subduram hematoma, afib, closed head injury, TKR, admitted to [facility] with UTI. Found to have bactermia, e. coli in both urine and blood. She was initiated on 2 gm ceftriaxone, blood cultures positive on 06/22. Labs in Ed reveal tsh 0.13 t 4 1.43. otherwise unremarkable, cxr unremarkable and brain CT stable with subdural hematoma. Repeat blood cultures from 06/24 cleared with no growth. Both urine and blood cultures are pansensitive, therefore she is being discharged home on 4 weeks antibiotics due to TKR she will be going home on cefpdoxime x 4 weeks. She denies Cp, SOB N/V/d. Will also send home on bio-k. Home Meds and New Rx's Prescriptions: New levothyroxine 50 mcg Tablet 50 mcg PO DAILY@0600 Qty: 30 RF: 0 cefpodoxime 200 mg tablet 200 mg PO BID Qty: 56 RF: 0 Bio-K plus 50 billion cell capsule,delayed release(DR/EC) 1 cap PO DAILY Qty: 120 RF: 0 Continued losartan 50 mg tablet 50 mg PO DAILY RF: 0 [id number] with vit D 1 EACH tablet 1 ea PO DAILY RF: 0 donepezil 5 mg Tablet 5 mg PO QHS RF: 0 memantine 5 mg Tablet 5 mg PO DAILY RF: 0 multivitamin [Daily Multiple] 1 EACH tablet 1 ea PO DAILY RF: 0 verapamil 180 MG tablet extended release 180 mg PO DAILY RF: 0 levothyroxine 88 MCG tablet 88 mcg PO DAILY RF: 0 calcium carbonate-vitamin D3 1 EACH tablet 1 tab PO DAILY RF: 0 acetaminophen 500 mg tablet 1,000 mg PO Q8H PRN (Reason: pain) Qty: 90 RF: 3 levetiracetam [Keppra] 500 mg tablet 500 mg PO BID Qty: 60 RF: 0 No Action oxybutynin chloride 5 mg tablet extended release 24hr 5 mg PO DAILY RF: 0 Discharge Instructions Instructions: Urinary Tract Infection in Women (ED), Bacteremia (DC) Additional Instructions: You will need to take cefpdoxime x 4 weeks Take bio k for 1 month as well F/u with PCP as needed. Referrals: Fatuma Boyer [Primary Care Provider] - Activity:: Activity as Tolerated Equipment/Supplies:: No Equipment Needed Diet:: Low Sodium Discharge Orders Discharge Orders: Discharge Order (Routine); Ordered 06/26/21 Ordered By: Jill Hsu DS: Summary Time Spent with Patient providing and/or coordinating discharge services: Greater than 30 minutes Status at Discharge Functional status at discharge: independent ambulation Overall status at discharge: patient is back to baseline Mental Status: mental status grossly normal Speech and Movement: speech and movement normal Mood: congruent mood Affect: normal affect Exam Const General: cooperative, healthy appearing, comfortable and no acute distress Orientation: alert and awake HENMT Head: normal to inspection, normocephalic and atraumatic Face and sinus: normal facial exam Mouth: moist mucous membranes Eyes General: appearance normal, both eyes and all related structures Neck Neck: normal visual inspection and supple Resp Effort & Inspection: normal respiratory effort and able to speak in complete sentences Auscultation: clear to auscultation bilaterally Cardio Rate: regular rate Rhythm: regular rhythm GI Palpation: soft, not firm, no guarding, no pulsatile masses and tender Auscultation: normal bowel sounds Skin General skin exam: no rashes or lesions noted Neuro General: patient alert, patient awake, moves all extremities and no focal motor deficits Cognition: normal cognition Speech: speech normal Gait: normal gait Motor: muscle tone normal throughout Sensory Exam: no sensory deficits noted Extrem General: normal to inspection, full ROM, capillary refill normal, no pedal edema and no calf tenderness Psych Appearance: grossly normal Mental Status: mental status grossly normal Speech and Movement: speech and movement normal Mood: congruent mood Affect: normal affect DS: Data Vitals/I&O Vitals and I&O: Vital Signs Temperature 36.8 C 06/26/21 07:30 Temperature Source Tympanic 06/26/21 07:30 Pulse 60 06/26/21 07:30 Pulse Rhythm Regular 06/26/21 07:30 Respiratory Rate 16 06/26/21 07:30 Respiratory Effort Non-Labored 06/26/21 07:30 Respiratory Depth Normal 06/26/21 07:30 Respiratory Pattern Normal 06/26/21 07:30 Blood Pressure 154/89 H 06/26/21 07:30 Blood Pressure Position Sitting 06/22/21 16:37 Pulse Oximetry 96 06/26/21 07:30 Oxygen Delivery Method Room Air 06/26/21 07:30 Oxygen Flow Rate 0 06/26/21 07:30 Pain Level 0 06/26/21 07:30 Comment 06/26/21 03:57 Intake & Output 06/25/21 06/25/21 06/26/21 11:59 23:59 11:59 Intake Total 1177.5 788.75 / 600 / 600 Balance 1177.5 788.75 / 1966.25 600 / 600 Intake: IV 997.5 / 1386.25 388.75 / 1386.25 Oral 180 / 580 400 / 580 600 / 600 Other: Urine Color Yellow Yellow Yellow Urine Appearance Clear Clear Clear Urine Odor None Comment Per pt report voiding x 2 so far this morning, independently. No urine noted in hat in toilet. Voiding Methods Toilet Toilet Toilet Data Completed and Pending Completed studies during hospitalization [Text1]: Exam(s) a CT:CT head - stroke protocol Exam(s) CT HEAD - STROKE PROTOCOL EXAM: CT HEAD - STROKE PROTOCOL CLINICAL HISTORY: ataxia. TECHNIQUE: Imaging Protocol: Axial computed tomography images with coronal and sagittal reformatted images were created and reviewed COMPARISON: CT CT HEAD WO from 06/18/2021 FINDINGS: Ventricles and Extra axial spaces: Normal in size and morphology for the patient's age. Hemorrhage: None. Cerebral parenchyma: No evidence of an acute territorial infarct. There are areas of decreased attenuation in the white matter consistent with small vessel ischemic disease. The small area of hyperdensity along the right parietal bone is again seen and is unchanged compared to the prior examination. This might represent extra-axial hemorrhage, however, avascular structure cannot be excluded. Midline shift: None. Brainstem/Cerebellum: Normal. Calvarium: Normal. Visualized Paranasal sinuses/Mastoids: Unchanged small amount of fluid in the left mastoid air cells. The remaining visualized paranasal sinuses and right mastoid air cells are clear. Soft Tissues: Unremarkable. IMPRESSION: 1. No change in appearance of the hyperdensity along the right parietal bone since 06/18/2021. 2. No acute intracranial process. Exam(s) XR CHEST 2V PA LATERAL EXAM: XR CHEST 2V PA LATERAL CLINICAL HISTORY: ataxia TECHNIQUE: 2D digital imaging was performed of the chest. Images were obtained. PA and lateral views were obtained. COMPARISON: CT CT CHEST/ABD/PEL W from 06/04/[address] CHEST/ABD/PEL W from 06/04/2021 CR,XR XR CHEST 2V PA LATERAL from 06/18/2021 FINDINGS: MEDIASTINUM: Normal. HEART: Normal. PULMONARY VASCULATURE: Normal. LUNGS: Clear. PLEURAL SPACE: No pleural effusion or pneumothorax. BONE:Within normal limits for the patient's age. OTHER FINDINGS:Small hiatal hernia. IMPRESSION: No acute pulmonary findings. 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 Montague Family History Father Alcohol use disorder Mother Dementia Social History Smoking/Tobacco Use Status: Never Smoking risk assessment performed?: Yes Alcohol Intake: current Alcohol Intake frequency: 0-2 drinks per day Alcohol type: wine Details: rare use, nothing in past several weeks Drug use: Never Substance use type: does not use Current gender identity: female Do you feel safe at home: Yes Do you feel safe in your relationship?: Yes Additional Social history: of many years in 06/2020. Kids in area.
--- NOTE | 2021-06-26 12:17 | PDOC.CMDIS ---
- If Service Date Differs Date of service: 06/26/21 Time of Service: 12:17 LACE Index Scoring Tool - Questions: Length of Stay (in days): 4 - 6 Acuity (Admit via E.D.?): Yes E.D. Visits: 3 - Answers: Total Score: 10 Risk of Readmission: High Risk Care Management Discharge Reason for Hospitalization: UTI Discharge Plan: Shanell will discharge home via private vehicle with her daughter with no new services. She will follow up with her PCP and plan of care as prescribed. Patient/Family Education Needs: Review discharge instructions, limitations and plan to follow up with community providers. Ask Me Three.
== END 2021-06-26 13:52 | disposition home or self-care (01) | DRG 690 ==
LOC: ER 23:13 → MS 23:41
PROVIDERS: Nurse Practitioner Acute Care; Admitting Provider General Practice; Emergency Provider Physician Assistant; PCP Nurse Practitioner Family; Visit Provider General Practice
DX: N39.0 Urinary tract infection, site not specified (principal); Z20.822 Contact with and (suspected) exposure to COVID-19; E03.9 Hypothyroidism, unspecified; I10 Essential (primary) hypertension; I65.29 Occlusion and stenosis of unspecified carotid artery; K21.9 Gastro-esophageal reflux disease without esophagitis; I48.0 Paroxysmal atrial fibrillation; Z96.652 Presence of left artificial knee joint; B96.20 Unspecified Escherichia coli [E. coli] as the cause of diseases classified elsewhere
CPT/HCPCS: 36410; 36415; 36416; 80048; 80053; 82962; 87040; 87077; 87635; 93005; 96365; 97110; 97162; 97530; 99285; 70450; 71046; 80177; 81003; 81015; 82247; 82248; 83735; 84439; 84443; 84450; 84460; 84484; 85025; 85610; 87086; 87186; 93010; 99222; 99233; 99239; J0696

== ENCOUNTER 2021-07-23 16:21 | Outpatient (REF) | payer MEDICARE, SELFPAY ==
[2021-07-23 15:10] LABS: Abs Immature Grans 0.01 10^3/uL (0.0-0.06); Absolute Basophil Count 0.03 10^3/uL (0.0-0.2); Absolute Eosinophil Count 0.15 10^3/uL (0.0-0.7); Absolute Lymphocyte Count 1.31 10^3/uL (1.2-3.4); Absolute Monocyte Count 0.39 10^3/uL (0.1-0.8); Absolute Neutrophil Count 1.98 10^3/uL (1.2-6.7); Basophils % 0.8; Eosinophils % 3.9; HCT 43.1 % (36.0-46.0); HGB 13.9 g/dL (11.2-15.7); Immature Grans % 0.3; Lymphocytes % 33.8; MCH 29.3 pg (27.0-33.0); MCHC 32.3 % (32.0-36.0); MCV 90.7 fL (80-95); MPV 11.5 fL (8.0-11.0); Monocytes % 10.1; Neutrophils % 51.1; Nucleated RBC 0 %; Platelet Count 143 10^3/uL (130-400); RBC 4.75 10^6/uL (3.93-5.22); RDW 13.6 % (11.7-14.6); RDW-SD 45.6 fL; WBC 3.88 10^3/uL (4.4-10.8)
[2021-07-23 15:58] LABS: Ferritin 57 ng/mL (8-252); TSH (W/Ref FT4) 0.89 uIU/mL (0.36-3.74)
[2021-07-23 16:04] LABS: Iron 164 ug/dL (50-170); Total Iron Binding Capacity 295 ug/dL (250-450); Transferrin Sat 56 % (15-50)
== END 2021-07-23 16:22 | disposition home or self-care (01) ==
LOC: NCHCN 16:21
PROVIDERS: PCP Nurse Practitioner Family; Visit Provider Nurse Practitioner Family
DX: I48.0 Paroxysmal atrial fibrillation (principal); I62.00 Nontraumatic subdural hemorrhage, unspecified; I10 Essential (primary) hypertension; F02.80 Dementia in other diseases classified elsewhere, unspecified severity, without behavioral disturbance, psychotic disturbance, mood disturbance, and anxiety; K20.90 Esophagitis, unspecified without bleeding
CPT/HCPCS: 82728; 83540; 83550; 84443; 85025

== ENCOUNTER 2021-09-21 16:06 | Outpatient (REF) | payer MEDICARE, SELFPAY ==
[2021-09-21 21:48] LABS: Iron 123 ug/dL (50-170); Total Iron Binding Capacity 310 ug/dL (250-450); Transferrin Sat 40 % (15-50)
[2021-09-21 22:01] LABS: Ferritin 53 ng/mL (8-252)
[2021-09-21 22:13] LABS: INR 1.8 (0.9-1.1); Prothrombin Time 18.2 sec (9.3-11.0)
== END 2021-09-21 16:07 | disposition home or self-care (01) ==
LOC: NCHCN 16:06
PROVIDERS: PCP Nurse Practitioner Family; Visit Provider Nurse Practitioner Family
DX: D64.9 Anemia, unspecified (principal); R55 Syncope and collapse; I71.2 Thoracic aortic aneurysm, without rupture; I10 Essential (primary) hypertension; I48.0 Paroxysmal atrial fibrillation; Z79.01 Long term (current) use of anticoagulants
CPT/HCPCS: 82728; 83540; 83550; 85025; 85610

== ENCOUNTER 2021-09-29 20:32 | Outpatient (REF) | payer MEDICARE, SELFPAY ==
[2021-09-29 20:28] LABS: Abs Immature Grans 0.01 10^3/uL (0.0-0.06); Absolute Basophil Count 0.04 10^3/uL (0.0-0.2); Absolute Eosinophil Count 0.09 10^3/uL (0.0-0.7); Absolute Lymphocyte Count 1.74 10^3/uL (1.2-3.4); Absolute Monocyte Count 0.53 10^3/uL (0.1-0.8); Absolute Neutrophil Count 2.91 10^3/uL (1.2-6.7); Basophils % 0.8; Eosinophils % 1.7; HCT 40.1 % (36.0-46.0); HGB 13.1 g/dL (11.2-15.7); Immature Grans % 0.2; Lymphocytes % 32.7; MCH 29.6 pg (27.0-33.0); MCHC 32.7 % (32.0-36.0); MCV 90.5 fL (80-95); Neutrophils % 54.6; Nucleated RBC 0 %; Platelet Count 160 10^3/uL (130-400); RBC 4.43 10^6/uL (3.93-5.22); RDW 13.7 % (11.7-14.6); RDW-SD 46.3 fL; WBC 5.32 10^3/uL (4.4-10.8)
== END 2021-09-29 20:33 | disposition home or self-care (01) ==
LOC: NCHCN 20:32
PROVIDERS: PCP Nurse Practitioner Family; Visit Provider Nurse Practitioner Family
DX: D64.9 Anemia, unspecified (principal)
CPT/HCPCS: 85025

== ENCOUNTER 2022-02-11 16:41 | Emergency (ER) | payer OTHER, SELFPAY ==
[2022-02-11] VITALS (21 sets, daily range): BP systolic 161–174; BP diastolic 66–92; PULSE 55–73; RESP 7–22; TEMP 36.6–36.8; O2SAT 91–100
--- NOTE | 2022-02-11 16:47 | ED.GENADUL_ITS ---
Discharge Plan Disposition Patient Disposition: HOME Condition: Improving Discharge Details Clinical Impression: Dizziness, Subconjunctival hemorrhage Primary Care Provider: Fatuma Boyer ED Provider: Leigha Gomes Home Meds and New Rx's Prescriptions: Continued losartan 50 mg tablet 50 mg PO DAILY Oyabpqfs-Dqrrgo-[id number] with vit D 1 EACH tablet 1 ea PO DAILY donepezil 5 mg Tablet 5 mg PO QHS memantine 5 mg Tablet 5 mg PO DAILY levothyroxine 50 mcg Tablet 50 mcg PO DAILY@0600 Qty: 30 0RF Bio-K plus 50 billion cell capsule,delayed release(DR/EC) 1 cap PO DAILY Qty: 120 0RF warfarin [Jantoven] 1 mg tablet PO DAILY multivitamin [Daily Multiple] 1 EACH tablet 1 ea PO DAILY verapamil 180 MG tablet extended release 180 mg PO DAILY acetaminophen 500 mg tablet 1,000 mg PO Q8H PRN (Reason: pain) Qty: 90 3RF Discharge Instructions Instructions: Subconjunctival Hemorrhage (ED), Dizziness (ED) Additional Instructions: Your lab work, EKG and imaging today is reassuring and shows no evidence of acute concerning or significant findings. Drink plenty of fluids and get plenty of rest. Please be aware that you were seen during a time of global shortage of iodinated contrast media. This means an alternative approach to your diagnosis and treatment may have been employed in order to provide optimal care during this shortage. If you have any worsening symptoms, please go to the nearest Emergency Department or call 911 immediately. Follow-up with your scheduled appointment with your primary care doctor next week. Return immediately to the emergency department if you develop any worsening or new concerning symptoms. Discharge Data Discharge Date/Time-TO BE ENTERED AT DEPARTURE: 02/11/22 19:48 Discharge Physician: Leigha Gomes Medical Decision Making 1700 -- 81-year-old female with history of dementia, atrial fibrillation on Coumadin, hypertension, GERD, hypothyroidism who presents for dizziness for the past few days with blood in right eyes since yesterday and confusion per daughter today. Blood pressure hypertensive at 169/66. Remainder vitals within normal limits. Patient appears comfortable and nontoxic. She is moving all extremities without focal deficits or meningeal signs. EKG noted a rate of 62, sinus, normal axis, no STEMI and nondiagnostic. Right eye appears consistent with subconjunctival hemorrhage. Patient and daughter given reassurance and history and presentation does not appear consistent with corneal abrasion, ecchymosis, globe rupture without report of trauma. History and presentation does not appear consistent with sepsis, ACS, subarachnoid hemorrhage, dissection, PE, meningitis. Considered dehydration, electrolyte abnormality, UTI. We will place an IV, bolus IV fluids, screening labs, urinalysis, CT head and chest x-ray. Discussed with patient and daughter that patient is being evaluated during a time of global shortage of iodinated contrast media. Based on guidance from [employer], best practices and local institutional approach is an alternative test for evaluating and managing the patient may have been employed in order to provide optimal care during the shortage. 1835 --labs and imaging reviewed. Potassium 5.3, discussed with lab but it was hemolyzed and redrawn and now 4.1. Remainder of labs within normal limits. CT head and chest x-ray negative. Patient reassessed and she states her dizziness is completely resolved. Unable to give urine sample. Discussed with patient and daughter at bedside who states that patient drinks 2 cups of coffee and 1 cup of tea with small sips of water. Discussed that her symptoms may be secondary to dehydration and encouraged to increase water intake. They are agreeable with straight cath urine sample. Urinalysis shows high specific gravity likely consistent with dehydration but no evidence of infection. Patient reassessed again and she is requesting to go home. Advised to increase fluids, rest. Given reassurance regarding the subconjunctival hemorrhage. She has a follow-up appoint with her primary care doctor next Tuesday. Usual and customary return precautions given prior to discharge. Medical Records Medical records reviewed: Yes I reviewed the patient's medical records. Imaging Data Radiologic Study: Radiologist's impression: CT Head Without Contrast Exam date and time: 02/11/2022 5:35 PM Age: 81 years old Clinical indication: Other: Dizziness, R/O acute disease TECHNIQUE: Imaging protocol: Computed tomography of the head without contrast. Radiation optimization: All CT scans at this facility use at least one of these dose optimization techniques: automated exposure control; mA and/or kV adjustment per patient size (includes targeted exams where dose is matched to clinical indication); or iterative reconstruction. COMPARISON: CT HEAD - STROKE PROTOCOL 06/22/2021 5:36 PM FINDINGS: Brain: Prominence of cerebral sulci reflects diffuse cerebral atrophy. Poorly marginated hypodensities seen throughout the deep and periventricular white matter of both cerebral hemispheres are consistent with microvascular ischemic changes. Brainstem and cerebellum are unremarkable and there is no evidence of acute infarct or intracranial hemorrhage. Cerebral ventricles: Dilatation of the 3rd and lateral ventricles is commensurate with the degree of cerebral atrophy. Paranasal sinuses:? Minimal mucosal density is seen along the posterior margin of the sphenoid sinus to the right of midline with other paranasal sinuses grossly clear throughout. Mastoid air cells: Grossly clear bilaterally. ? Probable cerumen seen in the external auditory canals bilaterally. Bones/joints: Bony calvarium and skull base are intact and no acute fractures are detected. Soft tissues: Unremarkable. IMPRESSION: Diffuse atrophy and probable microvascular ischemic changes with no evidence of acute infarct, recent hemorrhage or hydrocephalus. No acute intracranial process is detected. Dictated and Authenticated by: Kaveh Garcia MD. XR Chest Exam date and time: 02/11/2022 5:46 PM Age: 81 years old Clinical indication: Other: Dizziness, R/O acute disease TECHNIQUE: Imaging protocol: XR of the chest. Views: 2 views. COMPARISON: CR XR CHEST 2V PA LATERAL 06/22/2021 5:39 PM FINDINGS: Lungs: Lungs are clear throughout with no mass or consolidation detected. Pleural spaces: No pneumothorax or pleural effusion detected. Heart/Mediastinum: Heart size is normal and vessel margins are sharply defined. Bones/joints: No acute osseous lesions are detected.? IMPRESSION: No acute findings. Lab Data Lab results reviewed: Yes I reviewed the patient's lab results. Labs: Laboratory Tests Range/Units 02/11/22 02/11/22 02/11/22 17:20 17:20 17:20 WBC (4.4-10.8) 10^3/uL 4.64 RBC (3.93-5.22) 10^6/uL 4.58 Hgb (11.2-15.7) g/dL 13.7 Hct (36.0-46.0) % 41.3 MCV (80-95) fL 90 MCH (27.0-33.0) pg 29.9 MCHC (32.0-36.0) % 33.2 RDW (11.7-14.6) % 14.1 Plt Count (130-400) 10^3/uL 151 MPV (8.0-11.0) fL 10.3 Immature Gran % 0.2 Neutrophils % 53.6 Lymphocytes % 33.4 Monocytes % 8.8 Eosinophils % 3.4 Basophils % 0.6 Nucleated RBC % (0.0-0.3) % 0.0 Absolute Neutrophils (1.2-6.7) 10^3/uL 2.48 Absolute Lymphocytes (1.2-3.4) 10^3/uL 1.55 Absolute Monocytes (0.1-0.8) 10^3/uL 0.41 Absolute Eosinophils (0.0-0.7) 10^3/uL 0.16 Absolute Basophils (0.0-0.2) 10^3/uL 0.03 PT (9.3-11.0) sec INR (0.9-1.1) APTT (21.0-27.5) sec Sodium (136-145) mmol/L 139 Potassium (3.5-5.1) mmol/L 5.3 H Chloride (98-107) mmol/L 108 H Carbon Dioxide (21.0-32.0) mmol/L 27.7 Anion Gap (3-11) mmol/L 3.3 BUN (7-18) mg/dL 19 H Creatinine (0.55-1.02) mg/dL 0.9 Estimated GFR/1.73 m2 (mL/min/1.73m2) >= 60.00 Glucose (74-106) mg/dL 111 H Calcium (8.5-10.1) mg/dL 9.2 Magnesium (1.8-2.4) mg/dL 2.1 Total Bilirubin (0.2-1.0) mg/dL 0.7 AST (15-37) U/L 37 ALT (14-59) U/L 23 Alkaline Phosphatase (46-116) U/L 91 Troponin I (<or=60) ng/L < 50 Total Protein (6.4-8.2) g/dL 7.3 Albumin (3.4-5.0) g/dL 3.6 TSH (0.36-3.74) uIU/mL 0.55 Range/Units 02/11/22 02/11/22 17:25 18:15 WBC (4.4-10.8) 10^3/uL RBC (3.93-5.22) 10^6/uL Hgb (11.2-15.7) g/dL Hct (36.0-46.0) % MCV (80-95) fL MCH (27.0-33.0) pg MCHC (32.0-36.0) % RDW (11.7-14.6) % Plt Count (130-400) 10^3/uL MPV (8.0-11.0) fL Immature Gran % Neutrophils % Lymphocytes % Monocytes % Eosinophils % Basophils % Nucleated RBC % (0.0-0.3) % Absolute Neutrophils (1.2-6.7) 10^3/uL Absolute Lymphocytes (1.2-3.4) 10^3/uL Absolute Monocytes (0.1-0.8) 10^3/uL Absolute Eosinophils (0.0-0.7) 10^3/uL Absolute Basophils (0.0-0.2) 10^3/uL PT (9.3-11.0) sec 21.2 H INR (0.9-1.1) 2.1 H APTT (21.0-27.5) sec 32.6 H Sodium (136-145) mmol/L 141 Potassium (3.5-5.1) mmol/L 4.1 D Chloride (98-107) mmol/L 110 H Carbon Dioxide (21.0-32.0) mmol/L 27.3 Anion Gap (3-11) mmol/L 3.7 BUN (7-18) mg/dL 19 H Creatinine (0.55-1.02) mg/dL 0.9 Estimated GFR/1.73 m2 (mL/min/1.73m2) >= 60.00 Glucose (74-106) mg/dL 111 H Calcium (8.5-10.1) mg/dL 8.6 Magnesium (1.8-2.4) mg/dL Total Bilirubin (0.2-1.0) mg/dL AST (15-37) U/L ALT (14-59) U/L Alkaline Phosphatase (46-116) U/L Troponin I (<or=60) ng/L Total Protein (6.4-8.2) g/dL Albumin (3.4-5.0) g/dL TSH (0.36-3.74) uIU/mL ECG Data Attestation: I personally reviewed and interpreted this ECG (s) as follows: Interpretation: Rate of 62, sinus, normal, no STEMI. HPI General Mode of arrival: ambulatory . Date/Time Provider Initiated Documentation: 02/11/22 16:43 . Limitations to Documentation: no limitations . Information obtained by: patient . HPI Narrative: Patient is an 81-year-old female with a history of dementia, atrial fibrillation on coumadin, GERD, hypertension, hypothyroidism who presents for dizziness today. Daughter presents at bedside and states patient appeared more off balance and confused today compared to usual. She states patient would normally know the day but was unaware of this today and thought it was Tuesday. Patient states her dizziness is mostly worse when she is getting up and walking around. She describes it as a lightheadedness but denies any spinning sensation. She denies any headache, blurry vision, chest pain, shortness of breath, abdominal pain, nausea, vomiting, diarrhea or urinary symptoms. Daughter states that patient does not eat or drink a lot. She states she also noted that patient's right eye appeared bloody yesterday and appears worse today. Patient denies any right eye pain or photophobia. Related Data Home Medications Medication Instructions Recorded Confirmed multivitamin (Daily Multiple 1 ea PO DAILY 07/28/17 02/11/22 tablet) verapamil 180 mg tablet,extended 180 mg PO DAILY 07/28/17 02/11/22 release glucosamine 750 [id number]-[id number] 2-C 1 ea PO DAILY 08/17/17 02/11/22 30 mg-D3 1,000 unit-kiersten 1 mg tablet (Ilfrisicrdo-Ptakhwguszx-GYS + vitD) losartan 50 mg tablet 50 mg PO DAILY 08/09/18 02/11/22 acetaminophen 500 mg tablet 1,000 mg PO Q8H PRN pain #90 tabs 04/12/19 02/11/22 donepezil 5 mg tablet 5 mg PO QHS 06/22/21 02/11/22 memantine 5 mg tablet 5 mg PO DAILY 06/22/21 02/11/22 L. acidophilus,casei,rhamnosus 50 1 cap PO DAILY #120 caps 06/26/21 billion cell capsule,delayed release (Bio-K plus) levothyroxine 50 mcg tablet 50 mcg PO DAILY@0600 #30 tabs 06/26/21 02/11/22 warfarin 1 mg tablet (Jantoven) tab PO DAILY 02/11/22 Previous Rx's Medication Instructions Recorded acetaminophen 500 mg tablet 1,000 mg PO Q8H PRN pain #90 tabs 04/12/19 L. acidophilus,casei,rhamnosus 50 1 cap PO DAILY #120 caps 06/26/21 billion cell capsule,delayed release (Bio-K plus) levothyroxine 50 mcg tablet 50 mcg PO DAILY@0600 #30 tabs 06/26/21 Allergies Allergy/AdvReac Type Severity Reaction Status Date / Time No Known Allergies Allergy Verified 02/11/22 17:01 General Stated Complaint: Dizzy/Sync DARIUS: 3 Review of Systems All systems reviewed & are unremarkable except as noted in HPI and below Constitutional Constitutional: Denies chills, Denies excessive sweating, Denies fatigue, Denies fever(s), Denies weakness and Denies weight loss Eyes Eyes: Reports system reviewed and no additional complaints, except as documented and Denies blurry vision ENT Ears, Nose, Mouth, and Throat: Denies vertigo, Reports dizziness, Denies otalgia, Denies nasal congestion, Denies sore throat and Denies throat swelling Cardiovascular Cardiovascular: Denies chest pain, Denies syncope, Denies rapid heart rate and Denies dyspnea Respiratory Respiratory: Denies chest congestion, Denies cough, Denies pain on inspiration and Denies dyspnea Gastrointestinal Gastrointestinal: Denies abdominal pain, Denies diarrhea and Denies vomiting Genitourinary Genitourinary: Denies hematuria, Denies dysuria and Denies flank pain Musculoskeletal Musculoskeletal: Denies back pain and Denies joint swelling Integumentary/Breasts Skin/Breast: Denies lesions and Denies rash Neurologic Neurologic: Denies behavioral changes, Denies confusion, Denies vertigo, Reports dizziness, Denies syncope, Denies localized weakness and Denies weakness Psychiatric Psychiatric: Denies behavioral changes, Denies confusion and Denies depression Endocrine Endocrine: Denies excessive sweating and Denies fatigue Hematologic/Lymphatic Hematologic/Lymphatic: Denies easy bruising and Denies lymphadenopathy Allergic/Immunologic Allergic/Immunologic: Denies throat swelling PFSH All Active Problems (Updated 02/11/22 @ 19:42 by Leigha Gomes DO) Dizziness (Acute) Subconjunctival hemorrhage (Acute) Bacteremia (Acute) Subdural hematoma (Acute) Chronic anticoagulation (Acute) Acute UTI (Acute) Discharge planning issues (Acute) DVT prophylaxis (Acute) Hypothyroidism (Chronic) HTN (hypertension) (Chronic) Acute UTI (Acute) Syncope and collapse (Acute) Closed head injury (Acute) 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 Montague Sprain of medial collateral ligament of left knee (Acute) Osteoarthritis of right knee (Chronic) Injected: 09/04/2018 Memory loss (Acute) Thoracic aortic aneurysm (Chronic) Diastolic dysfunction (Acute) Iron deficiency anemia (Acute) Esophagitis (Acute) Bloody stools (Acute) Carotid arterial disease (Acute) Dizziness (Acute) Fatigue (Acute) Stress incontinence (Acute) Overweight (Acute) Osteopenia (Acute) Osteoarthritis (Chronic) Skin lesion of face (Acute) Varicose veins of both lower extremities (Acute) Tubular adenoma of colon (Acute) Paroxysmal atrial fibrillation (Chronic) Anxiety (Chronic) Medical History Anxiety Carotid stenosis GERD (gastroesophageal reflux disease) HTN (hypertension) Hypothyroidism Paroxysmal atrial fibrillation Surgical History Cholecystectomy Colonoscopy - MAC (08/23/17) EGD - MAC (08/23/17) History of bladder surgery Bladder sling surgery x 2 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 Montague Family History Father Alcohol use disorder Mother Dementia Social History Smoking/Tobacco Use Status: Never Smoking risk assessment performed?: Yes Alcohol Intake: current Alcohol Intake frequency: a few times a month Alcohol type: wine Details: rare use, nothing in past several weeks Drug use: Never Substance use type: does not use Current gender identity: female Do you feel safe at home: Yes Do you feel safe in your relationship?: Yes Additional Social history: of many years in 06/2020. Kids in area. Exam Const General: cooperative Orientation: alert, awake and oriented x3 HENMT Head: normal to inspection Ears: hearing grossly normal bilaterally, external ears normal and TM's normal bilaterally General nose exam: external nose normal Face and sinus: normal facial exam Mouth: oral mucosae normal Teeth and gingiva: dentition normal Throat: posterior oropharynx normal Eyes General: appearance normal, both eyes and all related structures Eyelids: eyelids normal Conjunctivae: conjunctival abnormality right subconjunctival hemorrhage Pupils: PERRL EOM: EOM intact bilaterally Neck Neck: normal visual inspection Lymphatic: no lymphadenopathy noted Chest Chest: normal inspection of the chest Resp Effort & Inspection: normal respiratory effort and able to speak in complete sentences Auscultation: clear to auscultation bilaterally Cardio Rate: regular rate Rhythm: regular rhythm GI Inspection: normal to inspection Palpation: soft, not firm, no guarding, no hepatosplenomegaly, no masses and nontender Auscultation: normal bowel sounds Back/Spine/Pelvis Back: no CVA tenderness Skin General skin exam: no rashes or lesions noted Neuro General: patient alert and patient awake Cognition: normal cognition Speech: speech normal Gait: normal gait Motor: muscle tone normal throughout Sensory Exam: no sensory deficits noted Extrem General: normal to inspection, full ROM and capillary refill normal Psych Appearance: grossly normal Mental Status: mental status grossly normal Speech and Movement: speech and movement normal Affect: normal affect Thought Process: normal
--- NOTE | 2022-02-11 17:00 | RT.EKG_ITS ---
APPROVED REPORT Exam: Resting ECG Reason for Exam: dizziness Patient Location: E HR:62 bpm ECG Measurements Heart Rate 62 AXIS AR 174 P 50 QRSd 96 QRS 20 QT 389 T 40 QTc 395 Conclusion Sinus rhythm...normal P axis, V-rate 60- 99. Sinus. Normal axis. No STEMI. I have reviewed and interpreted ECG and agree with software generated interpretation.
--- NOTE | 2022-02-11 17:15 | DI.CT_ITS ---
Exam(s) CT HEAD WO EXAM: CT HEAD WO CLINICAL HISTORY: dizziness, r/o acute process. TECHNIQUE: Imaging Protocol: Axial computed tomography images with coronal and sagittal reformatted images were created and reviewed COMPARISON: CT CT HEAD - STROKE PROTOCOL from 06/22/2021 FINDINGS: Ventricles and Extra axial spaces: Normal in size and morphology for the patient's age. Hemorrhage: None. Cerebral parenchyma: No acute territorial infarct is present. There are areas of decreased attenuati on in the white matter likely reflecting small vessel ischemic disease. Midline shift: None. Brainstem/Cerebellum: Normal. Calvarium: Normal. Visualized Paranasal sinuses/Mastoids: No significant sinus disease. Soft Tissues: Unremarkable. IMPRESSION: No acute intracranial process. RADIATION DOSE DELIVERED: 685.11mGy.cm Total DLP DATA REPOSITORY: All CT scans at this facility are submitted to the National Radiology Data Registry (NRDR) Dose Index Registry (DIR) with the [employer] ([employer]). RADIATION OPTIMIZATION: All CT scans at this facility use at least one of these dose optimization te chniques: automated exposure control; mA and/or kV adjustment per patient size (includes targeted exa ms where dose is matched to clinical indication); or iterative reconstruction.
--- NOTE | 2022-02-11 17:15 | DI.RAD_ITS ---
Exam(s) XR CHEST 2V PA LATERAL EXAM: XR CHEST 2V PA LATERAL CLINICAL HISTORY: dizziness, r/o acute disease TECHNIQUE: 2D digital imaging was performed of the chest. Two images were obtained. PA and lateral views were obtained. COMPARISON: CR,XR XR CHEST 2V PA LATERAL from 06/22/2021 FINDINGS: MEDIASTINUM: Normal. HEART: Normal. PULMONARY VASCULATURE: Normal. LUNGS: Clear. PLEURAL SPACE: No pleural effusion or pneumothorax. BONE:Within normal limits for the patient's age. OTHER FINDINGS:Normal. IMPRESSION: No acute pulmonary findings. DATA REPOSITORY: RADIATION DOSE DELIVERED:
[2022-02-11 17:34] LABS: Abs Immature Grans 0.01 10^3/uL (0.0-0.06); Absolute Basophil Count 0.03 10^3/uL (0.0-0.2); Absolute Eosinophil Count 0.16 10^3/uL (0.0-0.7); Absolute Lymphocyte Count 1.55 10^3/uL (1.2-3.4); Absolute Monocyte Count 0.41 10^3/uL (0.1-0.8); Absolute Neutrophil Count 2.48 10^3/uL (1.2-6.7); Basophils % 0.6; Eosinophils % 3.4; HCT 41.3 % (36.0-46.0); HGB 13.7 g/dL (11.2-15.7); Immature Grans % 0.2; Lymphocytes % 33.4; MCH 29.9 pg (27.0-33.0); MCHC 33.2 % (32.0-36.0); MCV 90 fL (80-95); MPV 10.3 fL (8.0-11.0); Monocytes % 8.8; Neutrophils % 53.6; Platelet Count 151 10^3/uL (130-400); RBC 4.58 10^6/uL (3.93-5.22); RDW 14.1 % (11.7-14.6); RDW-SD 46.8 fL; WBC 4.64 10^3/uL (4.4-10.8)
[2022-02-11] MEDS: Normal Saline 1,000 ML 1000 ML IV (17:45)
--- NOTE | 2022-02-11 17:50 | DI.VRAD_ITS ---
PROCEDURE INFORMATION: Exam: CT Head Without Contrast Exam date and time: 02/11/2022 5:35 PM Age: 81 years old Clinical indication: Other: Dizziness, R/O acute disease TECHNIQUE: Imaging protocol: Computed tomography of the head without contrast. Radiation optimization: All CT scans at this facility use at least one of these dose optimization techniques: automated exposure control; mA and/or kV adjustment per patient size (includes targeted exams where dose is matched to clinical indication); or iterative reconstruction. COMPARISON: CT HEAD - STROKE PROTOCOL 06/22/2021 5:36 PM FINDINGS: Brain: Prominence of cerebral sulci reflects diffuse cerebral atrophy. Poorly marginated hypodensities seen throughout the deep and periventricular white matter of both cerebral hemispheres are consistent with microvascular ischemic changes. Brainstem and cerebellum are unremarkable and there is no evidence of acute infarct or intracranial hemorrhage. Cerebral ventricles: Dilatation of the 3rd and lateral ventricles is commensurate with the degree of cerebral atrophy. Paranasal sinuses: Minimal mucosal density is seen along the posterior margin of the sphenoid sinus to the right of midline with other paranasal sinuses grossly clear throughout. Mastoid air cells: Grossly clear bilaterally. Probable cerumen seen in the external auditory canals bilaterally. Bones/joints: Bony calvarium and skull base are intact and no acute fractures are detected. Soft tissues: Unremarkable. IMPRESSION: Diffuse atrophy and probable microvascular ischemic changes with no evidence of acute infarct, recent hemorrhage or hydrocephalus. No acute intracranial process is detected. Dictated and Authenticated by: Kaveh Garcia MD. Ordering:CASSANDRA Ahuja MD
[2022-02-11 17:54] LABS: PTT Activated 32.6 sec (21.0-27.5); Prothrombin Time 21.2 sec (9.3-11.0)
[2022-02-11 17:55] LABS: INR 2.1 (0.9-1.1)
[2022-02-11 17:57] LABS: ALT 23 U/L (14-59); AST 37 U/L (15-37); Albumin 3.6 g/dL (3.4-5.0); Alkaline Phosphatase 91 U/L (46-116); Anion Gap 3.3 mmol/L (3-11); BUN 19 mg/dL (7-18); Bilirubin, Total 0.7 mg/dL (0.2-1.0); CO2 27.7 mmol/L (21.0-32.0); CREATININE 0.9 mg/dL (0.55-1.02); Calcium 9.2 mg/dL (8.5-10.1); Chloride 108 mmol/L (98-107); Glucose 111 mg/dL (74-106); Magnesium 2.1 mg/dL (1.8-2.4); Potassium 5.3 mmol/L (3.5-5.1); Sodium 139 mmol/L (136-145); Total Protein 7.3 g/dL (6.4-8.2); Troponin I < 50 ng/L (<or=60)
[2022-02-11 17:59] LABS: TSH (W/Ref FT4) 0.55 uIU/mL (0.36-3.74)
--- NOTE | 2022-02-11 18:17 | DI.VRAD_ITS ---
PROCEDURE INFORMATION: Exam: XR Chest Exam date and time: 02/11/2022 5:46 PM Age: 81 years old Clinical indication: Other: Dizziness, R/O acute disease TECHNIQUE: Imaging protocol: XR of the chest. Views: 2 views. COMPARISON: CR XR CHEST 2V PA LATERAL 06/22/2021 5:39 PM FINDINGS: Lungs: Lungs are clear throughout with no mass or consolidation detected. Pleural spaces: No pneumothorax or pleural effusion detected. Heart/Mediastinum: Heart size is normal and vessel margins are sharply defined. Bones/joints: No acute osseous lesions are detected. IMPRESSION: No acute findings. Dictated and Authenticated by: Kaveh Garcia MD. Ordering:CASSNADRA Ahuja MD
--- NOTE | 2022-02-11 18:23 | NUR.NOTE ---
Up to BSC and back to bed. unable to provide urine. will try again in a bit. given water
[2022-02-11 18:30] LABS: Anion Gap 3.7 mmol/L (3-11); BUN 19 mg/dL (7-18); CO2 27.3 mmol/L (21.0-32.0); CREATININE 0.9 mg/dL (0.55-1.02); Calcium 8.6 mg/dL (8.5-10.1); Chloride 110 mmol/L (98-107); Glucose 111 mg/dL (74-106); Potassium 4.1 mmol/L (3.5-5.1); Sodium 141 mmol/L (136-145)
[2022-02-11 19:23] LABS: Bilirubin Negative (Negative); Blood Negative (Negative); Clarity Clear (Clear); Glucose Negative (Negative); Ketones Negative (Negative); Leukocyte Esterase Negative (Negative); Nitrite Negative (Negative); Specific Gravity >= 1.030 (1.005-1.025); Urobilinogen 0.2 EU/dL (Up TO 0.2); pH 5.5 (5-8)
== END 2022-02-11 19:48 | disposition home or self-care (01) ==
PROVIDERS: Emergency Provider Physician Assistant; PCP Nurse Practitioner Family
DX: R42 Dizziness and giddiness (principal); H11.31 Conjunctival hemorrhage, right eye; E03.9 Hypothyroidism, unspecified
CPT/HCPCS: 36415; 36416; 80048; 80053; 82962; 93005; 96360; 99285; 70450; 71046; 81003; 83735; 84443; 84484; 85025; 85610; 85730; 93010; 99284

== ENCOUNTER 2022-03-04 09:45 | Outpatient (CLI) | payer OTHER, SELFPAY ==
--- NOTE | 2022-03-04 14:00 | HOLTER_ITS ---
APPROVED REPORT Conclusion This is a 48-hour Holter monitor reportedly ordered for atrial fibrillation and bradycardia Rhythm throughout was sinus with an average heart rate of 66. Minimum was 52, maximum 101 There were very rare isolated atrial and ventricular ectopic beats A total of 3 self-limited atrial runs occurred. The longest of these was 5 beats in duration There was no atrial fibrillation, no high-grade AV block, no pauses greater than 3 seconds There were no apparent patient symptoms
== END 2022-03-04 09:46 | disposition home or self-care (01) ==
LOC: RT 09:47
PROVIDERS: PCP Nurse Practitioner Family; Visit Provider Nurse Practitioner Family
DX: R00.1 Bradycardia, unspecified (principal); I48.91 Unspecified atrial fibrillation
CPT/HCPCS: 93225; 93226

== ENCOUNTER 2022-03-11 09:38 | Outpatient (CLI) | payer OTHER, SELFPAY | END 2022-03-11 09:39 | LOC: CARDO 05-12 11:20 | PROVIDERS: PCP Nurse Practitioner Family; Visit Provider Internal Medicine Cardiovascular Disease | DX: R00.1 Bradycardia, unspecified (principal); I48.91 Unspecified atrial fibrillation | CPT/HCPCS: 93227 ==

== ENCOUNTER 2022-05-27 08:51 | Outpatient (CLI) | payer OTHER, SELFPAY ==
--- NOTE | 2022-05-27 08:45 | RT.EKG_ITS ---
APPROVED REPORT Exam: Resting ECG Reason for Exam: PAF Patient Location: O HR:48 bpm ECG Measurements Heart Rate 48 AXIS DC 186 P 60 QRSd 98 QRS 15 QT 441 T 30 QTc 394 Conclusion Sinus bradycardia...rate< 50 Normal Electrocardiogram
== END 2022-05-27 08:52 | disposition home or self-care (01) ==
LOC: DI.CARD 08:52
PROVIDERS: PCP Nurse Practitioner Family; Visit Provider Internal Medicine Cardiovascular Disease
DX: I48.0 Paroxysmal atrial fibrillation (principal); R42 Dizziness and giddiness; R55 Syncope and collapse; R00.1 Bradycardia, unspecified
CPT/HCPCS: 93010

== ENCOUNTER → 2022-05-27 12:40 | Outpatient (BNVA) | payer OTHER, SELFPAY | PROVIDERS: PCP Nurse Practitioner Family; Referring Provider Nurse Practitioner Family; Visit Provider Internal Medicine Cardiovascular Disease | DX: R00.1 Bradycardia, unspecified (principal); Z79.01 Long term (current) use of anticoagulants; I48.0 Paroxysmal atrial fibrillation; I71.2 Thoracic aortic aneurysm, without rupture; I10 Essential (primary) hypertension; R55 Syncope and collapse; R42 Dizziness and giddiness | CPT/HCPCS: 93005; 99203; 99214 ==

== ENCOUNTER 2022-07-02 15:58 | Emergency (ER) | payer OTHER, SELFPAY ==
[2022-07-02] VITALS (9 sets, daily range): BP systolic 161–185; BP diastolic 66–111; PULSE 57–80; RESP 11–33; TEMP 36.4; O2SAT 96–100
--- NOTE | 2022-07-02 15:45 | RT.EKG_ITS ---
APPROVED REPORT Exam: Resting ECG Reason for Exam: dizziness Patient Location: E HR:57 bpm ECG Measurements Heart Rate 57 AXIS MI 176 P 58 QRSd 94 QRS 18 QT 404 T 40 QTc 395 Conclusion Sinus bradycardia...rate< 60 sinus bradycardia, normal axis, normal intervals nonischemic
--- NOTE | 2022-07-02 16:15 | DI.RAD_ITS ---
Exam(s) XR CHEST 1V IN DI DEPT EXAM: XR CHEST 1V IN DI DEPT CLINICAL HISTORY: dizziness. TECHNIQUE: 2D digital imaging was performed. COMPARISON: CR,XR XR CHEST 2V PA LATERAL from 02/11/2022 FINDINGS: Single AP portable view. Heart size is upper normal. The mediastinum is not widened. Lungs are clear. No infiltrates nor obvious pleural effusions. IMPRESSION: No acute pulmonary findings on this single AP portable view of the chest. DATA REPOSITORY: RADIATION DOSE DELIVERED:
--- NOTE | 2022-07-02 16:15 | DI.CT_ITS ---
Exam(s) CT HEAD WO EXAM: CT HEAD WO CLINICAL HISTORY: dizziness, hx of intracranial hemorrhage. TECHNIQUE: Imaging Protocol: Axial computed tomography images with coronal and sagittal reformatted images were created and reviewed COMPARISON: CT CT HEAD WO from 02/11/2022 FINDINGS: There are no skull fractures nor fluid in the visualized paranasal sinuses. There is some fluid not ed in mastoid air cells on the left side, similar to previous. There is no evidence of intracranial hemorrhage, mass effect, or shift of midline structures. There are no extra-axial fluid collections. The ventricles are not enlarged or shifted and there is no blo od within the ventricular system nor within the basal cisterns. Heavy calcification is again noted in the left vertebral artery at the skull base as well as within t he intracavernous internal carotid arteries. IMPRESSION: No acute intracranial findings on this noninfused CT scan of the brain. RADIATION DOSE DELIVERED: 683.91mGy.cm Total DLP DATA REPOSITORY: All CT scans at this facility are submitted to the National Radiology Data Registry (NRDR) Dose Index Registry (DIR) with the [employer] (A[employer]). RADIATION OPTIMIZATION: All CT scans at this facility use at least one of these dose optimization te chniques: automated exposure control; mA and/or kV adjustment per patient size (includes targeted exa ms where dose is matched to clinical indication); or iterative reconstruction.
--- NOTE | 2022-07-02 16:26 | ED.GENADUL_ITS ---
Discharge Plan Disposition Patient Disposition: HOME Condition: Improving Discharge Details Chief Complaint: GenMedical Clinical Impression: Light-headedness Primary Care Provider: Fatuma Boyer ED Provider: Trey Cook Home Meds and New Rx's Prescriptions: No Action losartan 50 mg tablet 50 mg PO DAILY verapamil 120 mg capsule,ext rel. pellets 24 hr 120 mg PO DAILY Qty: 90 3RF memantine 5 mg tablet 5 mg PO BID Rpikdofu-Medtrv-OGX with vit D 1 EACH tablet 1 ea PO DAILY donepezil 5 mg Tablet 5 mg PO QHS levothyroxine 50 mcg Tablet 50 mcg PO DAILY@0600 Qty: 30 0RF Bio-K plus 50 billion cell capsule,delayed release(DR/EC) 1 cap PO DAILY Qty: 120 0RF warfarin [Jantoven] 1 mg tablet 1 tab PO DAILY multivitamin [Daily Multiple] 1 EACH tablet 1 ea PO DAILY acetaminophen 500 mg tablet 1,000 mg PO Q8H PRN (Reason: pain) Qty: 90 3RF Discharge Instructions Instructions: Near Syncope (ED) Additional Instructions: Please follow-up with your primary care physician. Please return to the emergency department for any worsening symptoms. Medical Decision Making 82-year-old female history of prior subdural hematoma, hypertension, known aortic aneurysm stable at last visit presents with lightheadedness and dizziness earlier today, now resolved, denies chest pain headache nausea vomiting fevers chills shortness of breath or other systemic symptoms. Resting comfortably hemodynamically stable. Afebrile nontoxic. Cranial nerves intact, 5 out of 5 strength upper and lower extremities no truncal ataxia, alert oriented. Cons ider orthostasis versus vasovagal episode versus mild peripheral vertigo versus mild dehydration versus electrolyte abnormality versus UTI versus less likely intracranial hemorrhage or ACS or PE, low suspicion for complications of aortic aneurysm such as hematoma or rupture given history and physical. Given age and comorbidities will obtain basic labs chest x-ray EKG CT head, light fluids, UA, close reassessment disposition likely home with close follow-up 18: 54 resting comfortably asymptomatic hemodynamically stable labs and imaging unremarkable. Likely dirty catch urine given squames rare bacteria and no nitrites. HPI General Date/Time Provider Initiated Documentation: 07/02/22 16:13 . HPI Narrative: 82-year-old female history of hypertension prior subdural hematoma UTI and known thoracic aortic aneurysm presents with lightheadedness and dizziness that began earlier today. Patient denies passing out denies headache nausea vomiting chest pain or shortness of breath denies urinary symptoms or fevers. Feeling completely asymptomatic currently. Accompanied by her daughter Related Data Home Medications Medication Instructions Recorded Confirmed multivitamin (Daily Multiple 1 ea PO DAILY 07/28/17 07/02/22 tablet) glucosamine 750 qn-lkbkvo-etb 2-C 1 ea PO DAILY 08/17/17 07/02/22 30 mg-D3 1,000 unit-kiersten 1 mg tablet (Ewlqzglrjtq-Hlhvlfzyrfp-CJQ + vitD) losartan 50 mg tablet 50 mg PO DAILY 08/09/18 07/02/22 acetaminophen 500 mg tablet 1,000 mg PO Q8H PRN pain #90 tabs 04/12/19 07/02/22 donepezil 5 mg tablet 5 mg PO QHS 06/22/21 07/02/22 L. acidophilus,casei,rhamnosus 50 1 cap PO DAILY #120 caps 06/26/21 05/27/22 billion cell capsule,delayed release (Bio-K plus) levothyroxine 50 mcg tablet 50 mcg PO DAILY@0600 #30 tabs 06/26/21 07/02/22 warfarin 1 mg tablet (Jantoven) 1 tab PO DAILY 02/11/22 07/02/22 memantine 5 mg tablet 5 mg PO BID 03/24/22 07/02/22 verapamil 120 mg 24 hr 120 mg PO DAILY #90 caps 05/27/22 07/02/22 capsule,extended release Previous Rx's Medication Instructions Recorded acetaminophen 500 mg tablet 1,000 mg PO Q8H PRN pain #90 tabs 04/12/19 L. acidophilus,casei,rhamnosus 50 1 cap PO DAILY #120 caps 06/26/21 billion cell capsule,delayed release (Bio-K plus) levothyroxine 50 mcg tablet 50 mcg PO DAILY@0600 #30 tabs 06/26/21 verapamil 120 mg 24 hr 120 mg PO DAILY #90 caps 05/27/22 capsule,extended release Allergies Allergy/AdvReac Type Severity Reaction Status Date / Time No Known Allergies Allergy Verified 02/11/22 17:01 General Stated Complaint: GenMedical DARIUS: 3 Review of Systems Narrative: Review of Systems Constitutional: Lightheadedness, dizziness Eyes: negative ENT: negative Cardiovascular: negative Respiratory: negative Gastrointestinal: negative : negative Musculoskeletal: negative Skin: negative Neurologic: negative Psych: negative PFSH All Active Problems (Updated 07/02/22 @ 18:55 by Trey Cook MD) Light-headedness (Acute) Bacteremia (Acute) Subdural hematoma (Acute) Chronic anticoagulation (Acute) Acute UTI (Acute) Discharge planning issues (Acute) DVT prophylaxis (Acute) Hypothyroidism (Chronic) HTN (hypertension) (Chronic) Acute UTI (Acute) Syncope and collapse (Acute) Closed head injury (Acute) 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 Montague Sprain of medial collateral ligament of left knee (Acute) Osteoarthritis of right knee (Chronic) Injected: 09/04/2018 Memory loss (Acute) Thoracic aortic aneurysm (Chronic) Diastolic dysfunction (Acute) Iron deficiency anemia (Acute) Esophagitis (Acute) Bloody stools (Acute) Carotid arterial disease (Acute) Dizziness (Acute) Fatigue (Acute) Stress incontinence (Acute) Overweight (Acute) Osteopenia (Acute) Osteoarthritis (Chronic) Skin lesion of face (Acute) Varicose veins of both lower extremities (Acute) Tubular adenoma of colon (Acute) Paroxysmal atrial fibrillation (Chronic) Anxiety (Chronic) Medical History Carotid stenosis GERD (gastroesophageal reflux disease) Surgical History Cholecystectomy Colonoscopy - MAC (08/23/17) EGD - MAC (08/23/17) History of bladder surgery Bladder sling surgery x 2 Family History Father Alcohol use disorder Mother Dementia Social History (Updated 05/27/22 @ 13:16 by Jyothi Moyer RN) Smoking/Tobacco Use Status: Never Smoking risk assessment performed?: Yes Alcohol Intake: current Alcohol Intake frequency: a few times a month Alcohol t ype: wine Details: rare use, nothing in past several weeks Drug use: Never Substance use type: does not use Household members: family Housing: house Current gender identity: female What is your relationship status?: Panel score (0-1 are the most socially isolated patients): 0 Do you feel safe at home: Yes Do you feel safe in your relationship?: Yes Additional Social history: of many years in 06/2020. Kids in area. Exam Narrative Exam Narrative: Physical Examination General: alert, awake, cooperative, resting comfortably, no acute distress HEENT: normocephalic, atraumatic; PERRL, EOM intact, conjunctiva normal; no nasal discharge; moist mucous membranes, oral and pharyngeal mucosa normal, tolerating secretions Neck: supple, trachea midline; full ROM Chest: normal to inspection Respiratory: normal respiratory effort, speaking in full sentences, clear to auscultation, no wheezing, rales or rhonchi Cardiac: regular rate, regular rhythm, S1S2 intact, no murmurs rubs or gallops GI: abdomen soft, non-tender, non-distended; no palpable mass or hepatosplenomegaly Skin: no lesions, rashes or trauma appreciated Neuro: AAOx3, normal speech, moving all extremities cranial nerves II through XII intact, 5 out of 5 strength upper and lower extremities no truncal ataxia; Psych: Appropriate mood and affect Course Vital Signs Vital signs: Vital Signs Temperature 36.4 C L 07/02/22 15:58 Pulse 80 07/02/22 15:58 Respiratory Rate 20 07/02/22 15:58 Blood Pressure 185/76 H 07/02/22 15:58 Pulse Oximetry 96 07/02/22 15:58 Temperature 36.4 C L 07/02/22 15:58 Temperature Source Temporal Artery Scan 07/02/22 15:58 Pulse 80 07/02/22 15:58 Respiratory Rate 20 07/02/22 15:58 Respiratory Effort 07/02/22 16:20 Blood Pressure 185/76 H 07/02/22 15:58 Blood Pressure Position Sitting 07/02/22 15:58 Pulse Oximetry 96 07/02/22 15:58 Oxygen Delivery Method Room Air 07/02/22 15:58 Oxygen Flow Rate 0 07/02/22 15:58 Pain Level 0 07/02/22 15:58
[2022-07-02 16:59] LABS: Abs Immature Grans 0.01 10^3/uL (0.0-0.06); Absolute Basophil Count 0.02 10^3/uL (0.0-0.2); Absolute Eosinophil Count 0.12 10^3/uL (0.0-0.7); Absolute Lymphocyte Count 1.56 10^3/uL (1.2-3.4); Absolute Monocyte Count 0.46 10^3/uL (0.1-0.8); Absolute Neutrophil Count 2.12 10^3/uL (1.2-6.7); Basophils % 0.5; Eosinophils % 2.8; HCT 41.5 % (36.0-46.0); HGB 13.9 g/dL (11.2-15.7); Immature Grans % 0.2; Lymphocytes % 36.4; MCH 30.7 pg (27.0-33.0); MCHC 33.5 % (32.0-36.0); MCV 92 fL (80-95); MPV 10.4 fL (8.0-11.0); Monocytes % 10.7; Neutrophils % 49.4; Platelet Count 157 10^3/uL (130-400); RBC 4.53 10^6/uL (3.93-5.22); RDW 13.4 % (11.7-14.6); RDW-SD 45.6 fL; WBC 4.29 10^3/uL (4.4-10.8)
[2022-07-02 17:07] LABS: INR 2.3 (0.9-1.1); PTT Activated 33.5 sec (21.0-27.5)
[2022-07-02 17:19] LABS: ALT 19 U/L (14-59); AST 19 U/L (15-37); Albumin 3.7 g/dL (3.4-5.0); Alkaline Phosphatase 98 U/L (46-116); Anion Gap 7.1 mmol/L (3-11); BUN 19 mg/dL (7-18); CO2 28.9 mmol/L (21.0-32.0); Calcium 9.4 mg/dL (8.5-10.1); Chloride 107 mmol/L (98-107); Estimated GFR 56.25 (mL/min/1.73m2); Glucose 71 mg/dL (74-106); Potassium 3.9 mmol/L (3.5-5.1); Sodium 143 mmol/L (136-145); Total Protein 7.2 g/dL (6.4-8.2); Troponin I < 50 ng/L (<or=60)
--- NOTE | 2022-07-02 17:22 | DI.VRAD_ITS ---
PROCEDURE INFORMATION: Exam: CT Head Without Contrast Exam date and time: 07/02/2022 4:49 PM Age: 82 years old Clinical indication: Dizziness; Patient HX: History of intracranial hemorrhage. TECHNIQUE: Imaging protocol: Computed tomography of the head without contrast. Radiation optimization: All CT scans at this facility use at least one of these dose optimization techniques: automated exposure control; mA and/or kV adjustment per patient size (includes targeted exams where dose is matched to clinical indication); or iterative reconstruction. COMPARISON: CT HEAD WO 02/11/2022 5:35 PM FINDINGS: Brain: There is diffuse cerebral atrophy concordant with the patient's age. Chronic small vessel deep white matter ischemic disease is suggested by areas of patchy white matter low attenuation. No intracranial hemorrhage. No acute large territory CVA. No mass. No acute edema. No acute intracranial abnormality. Cerebral ventricles: Atrophy concordant ventriculomegaly. Paranasal sinuses: Visualized sinuses are unremarkable. No fluid levels. Mastoid air cells: Visualized mastoid air cells are well aerated. Bones/joints: Unremarkable. No acute fracture. Incidental finding of a right nasal turbinate xu bullosa. Soft tissues: Unremarkable. IMPRESSION: 1. No acute intracranial abnormality. 2. Age-related atrophy and chronic small vessel deep white matter ischemic disease. 3. No significant interval change since 02/11/2022. Dictated and Authenticated by: Jorge Martin MD. Ordering:LUCAS Yang MD
--- NOTE | 2022-07-02 17:23 | DI.VRAD_ITS ---
PROCEDURE INFORMATION: Exam: XR Chest Exam date and time: 07/02/2022 4:58 PM Age: 82 years old Clinical indication: Other: Dizziness TECHNIQUE: Imaging protocol: Radiologic exam of the chest. Views: 1 view. COMPARISON: CR XR CHEST 2V PA LATERAL 02/11/2022 5:46 PM FINDINGS: Lungs: Unremarkable. No consolidation. Pleural spaces: Unremarkable. No pleural effusion. No pneumothorax. Heart/Mediastinum: Unremarkable. No cardiomegaly. Bones/joints: Unremarkable. IMPRESSION: 1. No acute findings. 2. Clear lungs and pleural space bilaterally. 3. Stable exam since 02/11/2022. Dictated and Authenticated by: Jorge Martin MD. Ordering:LUCAS Yang MD
[2022-07-02 18:35] LABS: Bilirubin Negative (Negative); Blood Negative (Negative); Clarity Clear (Clear); Glucose Negative (Negative); Ketones Negative (Negative); Leukocyte Esterase Moderate (Negative); Nitrite Negative (Negative)
[2022-07-02 18:48] LABS: Bacteria Rare HPF (Negative); C & S Indicated? No/Sq. Contamination; Crystals Negative HPF (Negative); Epithelial Cells Many HPF (Negative); Mucus Negative (Negative); RBC 0-2 HPF (0-2)
== END 2022-07-02 19:07 | disposition home or self-care (01) ==
PROVIDERS: Emergency Provider Emergency Medicine; PCP Nurse Practitioner Family
DX: R42 Dizziness and giddiness (principal); I10 Essential (primary) hypertension; I71.9 Aortic aneurysm of unspecified site, without rupture; I48.0 Paroxysmal atrial fibrillation
CPT/HCPCS: 36415; 80053; 93005; 96360; 99284; 70450; 71045; 81003; 81015; 84484; 85025; 85610; 85730; 93010

== ENCOUNTER → 2022-07-30 00:47 | Outpatient (CLI) | payer OTHER, SELFPAY ==
--- NOTE | 2022-07-30 13:56 | DI.US_ITS ---
APPROVED REPORT EXAM: Comprehensive 2D, Doppler, and color-flow Echocardiogram Patient Location: Out-Patient Groundman/Lineman: Elen Mejia RDCS (AE) Indications: Thoracic aortic aneurysm Other Information Study Quality: Adequate Conclusion Borderline concentric left ventricular hypertrophy. Normal left ventricular chamber size. Estimated ejection fraction is 55%. Wall motion is normal Normal right ventricular size and systolic function Both atria are normal in size Aortic valve is trileaflet and calcified. There is mild aortic regurgitation. There is no significa nt aortic stenosis Mild mitral annular calcification. Mild to moderate mitral regurgitation Normal tricuspid valve with mild regurgitation. Estimated right ventricular systolic pressure is 29 mmHg Mildly dilated ascending aorta measuring 3.66 cm Wall motion Left Ventricle The left ventricle is normal size. The left ventricular systolic function is normal. The left ventric ular ejection fraction is within the normal range. Borderline concentric left ventricular hypertrophy . There is normal LV segmental wall motion. There is no ventricular septal defect visualized. LVEF is 55%. Right Ventricle The right ventricle is normal size. The right ventricular systolic function is normal. The RVSP is 29 .1mmHg. Atria The left atrium size is normal. The right atrium size is normal. The interatrial septum is intact wit h no evidence for an atrial septal defect. Aortic Valve Aortic valve is calcified. Aortic valve is trileaflet. Aortic valve gradient is 8 mmHg Mild aortic re gurgitation. Mitral Valve There is mitral annular calcification. No evidence of mitral valve stenosis. Mild to moderate mitral regurgitation. Tricuspid Valve The tricuspid valve is normal in structure. There is no tricuspid valve stenosis. Mild tricuspid regu rgitation. Pulmonic Valve The pulmonary valve is normal in structure. There is no pulmonic valvular stenosis. There is no pulmo zeyad valvular regurgitation. Great Vessels The aortic root is normal in size. The ascending aorta is mildly dilated. The IVC collapses <50% with inspiration. Pericardium There is no pericardial effusion. 2D Dimensions IVSD d PLAX 1.06 cm F: 0.6-1.0 LV Vol A2C d MOD 72.9 mL LVPW d PLAX 1.07 cm F: 0.6 - 1.0 LV Vol A4C d MOD 76.8 mL LVID d PLAX 4.27 cm F: 3.8 - 5.2 LA vol/ BSA A2C s A-L 28.8 mL/m2 LVDs 3.15 cm F: 2.2 - 3.5 LA vol/ BSA A4C s A-L 30.7 mL/m2 Ao Root d 2.88 cm F: 2.7 - 3.3 LA Vol/ BSA Biplane s A-L 32.8 mL/m2 Ao Asc Diam d 3.66 cm F: 2.3 - 3.1 LA Area A4C s MOD 18.00 cm2 LV EF Teichholz 51.0 % LA Area A2C s MOD 15.82 cm2 LVEF (Alves's) 50.94 % F: 54 - 74 LV EF A4C MOD 51.6 % LV Volume 61.80 mL F: 46 - 106 LV EF A2C MOD 50.4 % LV Volume Index 39.87 mL/m2 F: 29 - 61 LV EF Biplane MOD 50.9 % LV Vol Biplane MOD 75.2 mL SV 38.31 mL FS 25.75 % SV Index 24.65 mL/m2 M-Mode TAPSE 2.09 cm (M/F) >1.7 LV Diastology MV E' medial 0.045 (>0.07 m/s) E/A Ratio 0.6 LV E/e MED 14.70 (<14) MV E Vmax 0.66 (0.4-1.3 m/s) MV E' lateral 0.053 (>0.1 m/s) MV A Vmax 1.05 (0.4-1.3 m/s) LV E/e LAT 12.65 (<14) MV E/A Ratio 0.63 MV E/E' medial 14.70 MV E/E' lateral 12.65 Aortic Valve LVOT Area 3.37 cm2 AoV Area Vmax 2.02 cm2 LVOT Vmax 1.24 m/s AoV Area/ BSA (Vmax) 1.30 cm2/m2 LVOT Mean Galo. 0.77 m/s SHASHANK Mean Galo. 1.86 cm2 LVOT Peak Grad 6.2 mmHg SHASHANK Mean Galo. Index 1.20 cm2/m2 LVOT Mean Grad 2.9 mmHg AR DT 1894 msec LVOT VTI 0.293 m AR PHT 549 msec LVOT Diam s 2.05 cm AoV Vmax 2.08 m/s Velocity Ratio 0.59 AoV Mean Galo. 1.39 m/s AoV Peak Grad 17.3 mmHg LVOT SV 98.50 mL AoV Mean Grad 8.7 mmHg AoV VTI 0.445 m AoV Area VTI 2.21 cm2 AoV Area/ BSA (VTI) 1.42 cm/m2 Mitral Valve MV DT 265 (160-240 msec) MR Vmax 5.54 m/s MV PHT 77 msec MR VTI 2.229 m MV Area PHT 2.86 cm2 MR Peak Grad 122.8 mmHg MV VTI 0.448 m MR Mean Grad 77.1 mmHg MV Area VTI 2.20 (4.0-6.0 cm2) Pulmonary Valve PV Vmax 1.02 (0.5-1.5 m/s) RVOT Peak Gr. 2.12 mmHg PV Peak Grad 4.1 mmHg RVOT Mean Gr. 1.00 mmHg PV Mean Grad 2.0 mmHg RVOT VTI 0.175 m PV VTI 0.223 m RVOT Vmax 0.73 m/s Tricuspid Valve TR Peak Grad 21.1 mmHg TR Vmax 2.30 m/s RA Pressure 8.00 mmHg RVSP (TR) 29.1 mmHg
== END ==
PROVIDERS: PCP Nurse Practitioner Family; Visit Provider Internal Medicine Cardiovascular Disease
DX: I71.20 Thoracic aortic aneurysm, without rupture, unspecified (principal)
CPT/HCPCS: 93306

== ENCOUNTER 2022-09-12 09:48 | Emergency (ER) | payer OTHER, SELFPAY ==
[2022-09-12 09:59] VITALS: BP 170/86; PULSE 62; RESP 18; TEMP 36.5; O2SAT 99
--- OUTSIDE RECORDS SUMMARY | 2022-09-12 09:59 | XMS_ITS ---
:1940 Author Organization [facility] Address [address], [place] [id number] Care Team Providers Name Role Phone Jasmin De La Paz Unavailable Unavailable PROBLEMS Type Condition ICD9-CM Code ETH21-OO Code Onset Condition SNO MED Code Dates Status Problem Alzheimer's G30.1 Active 91750101 7 disease with late onset Problem Asymptomatic I66.9 Active 5343953 02 stenosis of intracranial artery Problem Iron deficiency D50.9 Active 8752 2001 anemia, unspecified iron deficiency anemia type Problem Memory problem R41.3 Active 66084 7006 Problem Mild cognitive G31.84 Active 10976 5003 impairment Problem Hyperreflexia of R29.2 Active 466 43854 lower extremity ALLERGIES No Known Allergies ENCOUNTERS Encounter Location Date Diagnosis [facility] [address], [address] [place], [place] [id number] [facility] [address] Mar, 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 ; [place], [place] Hyperreflexia of lower [id number] extremity R29.2 ; Subdural hematom a S06.5X9A and Asymptomatic liss nosis of intracranial art ale I66.9 [facility] [address], [address] [place], [place] [id number] [facility] [address] Jun, 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 ; [place], [place] Hyperreflexia of lower [id number] extremity R29.2 ; Subdural hematom a S06.5X9A and Asymptomatic liss nosis of intracranial art ale I66.9 [facility] [address], [address] [place], [place] [id number] [facility] [address], [address] [place], [place] [id number] [facility] [address] January, Road [address] [place], [place] [id number] [facility] [address] Nov, Al zheimer's disease with Road Suite late onset G30.1 and [place], [place] Hyperreflexia of lower [id number] extremity R29.2 [facility] [address], [address] [place], [place] [id number] [facility] [address] Jun, Al zheimer's disease with Road Suite late onset G30.1 [place], [place] [id number] [facility] [address] May, [address] [place], [place] [id number] [facility] [address] May, Al zheimer's disease with Road Suite late onset G30.1 and [place], [place] Hyperreflexia of lower [id number] extremity R29.2 [facility] [address], [address] [place], [place] [id number] [facility] [address], [address] [place], [place] [id number] [facility] [address] Aug, [address] [place], [place] [id number] [facility] [address], [address] [place] [id number] [facility] [address], [address] [place], [place] [id number] [facility] [address] Aug, Mi ld cognitive Road [facility] impairment G31.8 4 ; [place], [place] Dizziness R42 an d Memory [id number] problem R41.[address] Sep, Iron deficien cy anemia, Road [place] [address] unspecified iron [place], [place] deficiency anemi a type [id number] D50.[address], Road [address] [place] [id number] [facility] [address] [facility] Sep, Road [address] [place], [place] [id number] [facility] [address] [facility] Aug, Road [address] [place], [place] [id number] IMMUNIZATIONS Vaccine Route Administration Date Status Zostavax Unknown May 09, 2012 Administered Td -Adult Unknown Oct 24, 2008 Administered Td -Adult Unknown Aug 25, 1998 Administered Prevnar 13 Adult Unknown Jul 27, 2016 Administered Pneumovax [id number] Unknown Sep 16, 2005 Administe red JOLLY - Flu VACC 6 MONTHS > Unknown Jun 09, 2017 Admini stered JOLLY - Flu VACC 6 MONTHS > Unknown Jul 27, 2016 Admini stered JOLLY - Flu VACC 6 MONTHS > Unknown Jun 20, 2014 Admini stered JOLLY - Flu VACC 6 MONTHS > Unknown Jul 21, 2015 Admini stered SOCIAL HISTORY Qualifiers Date Never Smoker REASON FOR REFERRAL FUNCTIONAL STATUS PLAN OF CARE VITAL SIGNS Height 59 in 2022-04-20 Height 59 in 2021-06-30 Height 59 in 2020-06-11 Height 4 ft 11 in in 2019-08-28 Height 4 ft 11 in in 2017-10-10 Height 4 ft 11 in in 2017-10-04 Weight 138.2 lbs 2022-04-20 Weight 151.4 lbs 2021-06-30 Weight 168.8 lbs 2020-06-11 Weight 168.7 lbs 2019-08-28 Weight 169 lbs 2017-10-10 Weight 171 lbs 2017-10-04 Heart Rate 52 /min 2022-04-20 Heart Rate 53 /min 2021-06-30 Heart Rate 67 /min 2020-06-11 Heart Rate 58 /min 2019-08-28 Heart Rate 66 /min 2017-10-10 Heart Rate 62 /min 2017-10-04 Oximetry 98 2019-08-28 Respiratory Rate 16 /min 2017-10-10 Respiratory Rate 16 /min 2017-10-04 BMI 27.91 kg/m2 2022-04-20 BMI 30.58 kg/m2 2021-06-30 BMI 34.09 kg/m2 2020-06-11 BMI 34.07 kg/m2 2019-08-28 BMI 34.13 kg/m2 2017-10-10 BMI 34.53 kg/m2 2017-10-04 Blood pressure systolic 163 mm Hg 2022-04-20 Blood pressure diastolic 79 mm Hg 2022-04-20 MEDICATIONS Medication Instructions Dosage Frequency Start End Duration Statu s Date Date Memantine HCl 5 TAKE 1 30 Active MG TABLET BY MOUTH TWICE DAILY Oxybutynin Orally Once a 1 tablet 24h Active Chloride 5 MG day Levothyroxine Orally Once a 1 tablet 24h Act freida Sodium 50 MCG day on an empty stomach in the morning Calcium Orally Once a 1 tablet 24h Active Carbonate-Vitamin day with a D3 600-400 meal MG-UNIT Losartan Orally Once a 1 tablet 24h Active Potassium 50 MG day Verapamil HCl ER Orally Once a 1 tablet 24h Active 180 MG day Tylenol Extra Orally Three 1-2 8h Activ e Strength 500 MG times a day tablets as needed Memantine HCl 10 Orally Twice a 1 tablet 12h 90 day( s) Active MG day Donepezil HCl 5 Orally Once a 1 tablet 24h 90 days A ctive MG day at bedtime Glucosamine Chond Orally Once a 24h Active Complex/MSM - day Multivitamin Orally Once a 24h Activ e Adults - day PROCEDURES Procedure Date Ordered Result Body Site Prolong outpt/office vis Jun 30, 2021 NEUROBEHAVIORAL STATUS Aug 28, 2019 RESULTS Name Result Date Reference Range MR BRAIN WO CONTRAST 2019-09-24 REASON FOR VISIT Discharge from neurology, [facility] follow up, pt's daughter reports worsening memory problems - Pt presents today with her daughter, Vonda & her sister, Ellie. She reports her memory is worse, lack of appetite, and dizziness 4+ times a day lasting 1-2 seconds. She had a few falls this past winter. , RAD[facility] - patient wanting to be seen for her memory loss, cancel 07/29 appt, [facility] follow up to Subdural hematoma, records from [facility] and images pushed - Pt presents today with her daughter, Vonda & her sister, Ellie. Pt went to [facility] and dx with a small brain bleed, and was taken off of her Warfrin. She reports no residual effects of the bleed. Daughter reports she does not have much of an appetite and doesn't hydrate well. She will drink ensure but struggels with eating. , cerebral bleed, spoke with daughter, Memory lost , PT not doing well, RADHA- dementia follow up, med check; PLEASE CALL [phone],RADHA 6 month follow up, Change Donepezil from pm to am, Refill Request - Donepezil to [facility], Donezepil trial, [facility] EST F/U - Pt presents today with her , Alessandro, and daughter Vonda. Pt c/o inter mittent dizziness a couple times a month, and daughter note it is more often than pt is describing. , Pt report difficulties with memory, daughter notes it is declining. reports she will forget what she was getting and will ask numerous times before the task is completed. reports pt forgot how to start the car once. gets nervous about driving by herself, daughter and pt disagree., [facility] F/U, reschedule appt 04/15, RAD[facility] fu , MRI brain results, MRI brain images, MRI safety form LM 09/24, MRI status, RADHA- memory loss, RAD[facility]- Memory loss, GI fu labs, appt, GI bloody stools r/tdiverticular bleed, ended up in hospital for GI bleed had 2 transfusions, not having bloody stools, was having dizziness but it has subsided, Iron serum levels elevated, preload clinical info Insurance Providers [facility] Member Patient Patient Patient Patient Patient Subscriber Subscriber Subscriber Group Insurance Plan Plan Plan Plan ID Relationship Address Phone Name Date of ID Name Date of No Type Insurance Insurance Insurance Coverage to Subscriber Address Phone Name Dates WELLCARE [phone] WELLCARE self Shanell [id number] [facility] [address] BANKERS [phone] BANKERS self Shanell [id number] Plan J LIFE [id number] LIFE [place] INSURANCE [place] INSURANCE [id number] [facility] [address] [id number] [facility] CARE self Shanell [id number] LEVEL 3 [facility] [address] L[address] - [address] 04.25.2021 [facility] [id number] [address]ARE [address] MEDICARE self Shanell [id number] PART A [id number] [place] [address] UNITED [phone] UNITED self Shanell [id number] HEALTHCARE [id number] [place] 10 HEALTHCARE [place] [facility] [place] [id number] MEDICARE [id number] MEDICARE self Shanell [id number] [facility] [address] MEDICARE [phone] MEDICARE self Shanell [id number] PART A [id number] PART A [place] [id number]
[2022-09-12 10:38] LABS: Abs Immature Grans 0.01 10^3/uL (0.0-0.06); Absolute Basophil Count 0.03 10^3/uL (0.0-0.2); Absolute Eosinophil Count 0.13 10^3/uL (0.0-0.7); Absolute Lymphocyte Count 1.17 10^3/uL (1.2-3.4); Absolute Monocyte Count 0.26 10^3/uL (0.1-0.8); Basophils % 0.9; Eosinophils % 3.7; HCT 45.9 % (36.0-46.0); HGB 15.2 g/dL (11.2-15.7); Immature Grans % 0.3; Lymphocytes % 33.4; MCH 30.5 pg (27.0-33.0); MCHC 33.1 % (32.0-36.0); MCV 92 fL (80-95); MPV 10.3 fL (8.0-11.0); Monocytes % 7.4; Neutrophils % 54.3; Platelet Count 176 10^3/uL (130-400); RBC 4.98 10^6/uL (3.93-5.22); RDW 13.2 % (11.7-14.6)
[2022-09-12 10:56] LABS: ALT 19 U/L (14-59); AST 32 U/L (15-37); Alkaline Phosphatase 101 U/L (46-116); Anion Gap 7.9 mmol/L (3-11); BUN 17 mg/dL (7-18); Bilirubin, Total 1.3 mg/dL (0.2-1.0); CO2 29.1 mmol/L (21.0-32.0); CREATININE 1.1 mg/dL (0.55-1.02); Calcium 9.5 mg/dL (8.5-10.1); Chloride 106 mmol/L (98-107); Estimated GFR 50.17 (mL/min/1.73m2); Glucose 104 mg/dL (74-106); Potassium 4.1 mmol/L (3.5-5.1); Sodium 143 mmol/L (136-145); Total Protein 7.8 g/dL (6.4-8.2)
[2022-09-12 11:00] LABS: INR 3.3 (0.9-1.1); PTT Activated 38.8 sec (21.0-27.5); Prothrombin Time 30.5 sec (9.3-11.0)
[2022-09-12 11:15] VITALS: RESP 18
--- NOTE | 2022-09-12 11:15 | ED.GENADUL_ITS ---
Discharge Plan Disposition Patient Disposition: Home Condition: Stable Discharge Details Clinical Impression: Ecchymosis of eye Primary Care Provider: Fatuma Boyer ED Provider: Jose Shelton Home Meds and New Rx's Prescriptions: Continued losartan 50 mg tablet 50 mg PO DAILY verapamil 120 mg capsule,ext rel. pellets 24 hr 120 mg PO DAILY Qty: 90 3RF memantine 5 mg tablet 5 mg PO BID Slrastnb-Ehcgci-VQR with vit D 1 EACH tablet 1 ea PO DAILY donepezil 5 mg Tablet 5 mg PO QHS levothyroxine 50 mcg Tablet 50 mcg PO DAILY@0600 Qty: 30 0RF warfarin [Jantoven] 1 mg tablet 1 tab PO DAILY multivitamin [Daily Multiple] 1 EACH tablet 1 ea PO DAILY acetaminophen 500 mg tablet 1,000 mg PO Q8H PRN (Reason: pain) Qty: 90 3RF Discharge Instructions Additional Instructions: Your INR level is 3.3. Please watch for new or worsening symptoms and return to the ER for any concerns. Please contact your primary care provider tomorrow to discuss your ER visit and need for outpatient reevaluation. Medical Decision Making This is an 82-year-old female who lives with her daughter, chronic anticoagulation, presenting for spreading ecchymosis around her right eye. Reports that yesterday she had a small amount of ecchymosis to the medial aspect of her right periorbital region, went to bed, and upon awakening today it seems of spread some. She denies any injury or trauma. Again, she lives with her daughter and her daughter is adamant that there is no fall or trauma, and that she is acting her baseline mental status. Plan to check CBC for potential anemia, BMP, and coags. She does take warfarin. As there was no trauma whatsoever, she is at her baseline mental status, I see little indication for emergent CT of his brain. Left hand contusion, nontender, does not require im aging. Patient likely somehow ruptured a small vessel yesterday evening and then upon sleeping gravity spread the ecchymosis around her orbital region. There is no change of vision. No evidence of anemia or thrombocytopenia. INR is 3.3. Electrolytes unremarkable. No need to change the dose of her Coumadin given her INR of 3.3. Discussed work-up with patient and family. Discussed the importance of outpatient follow-up through her PCP to continue monitoring her INR. Strict discharge and return precautions were provided. Patient understands, is agreeable to this plan, and has no additional questions or concerns upon discharge. This documentation was generated using LilLuxeation system, please disregard any oddities of phrase or misspellings. Medical Records Medical records reviewed: Yes I reviewed the patient's medical records. Lab Data Lab results reviewed: Yes I reviewed the patient's lab results. Labs: Laboratory Tests Range/Units 09/12/22 09/12/22 09/12/22 10:25 10:25 10:25 WBC (4.4-10.8) 10^3/uL 3.50 L RBC (3.93-5.22) 10^6/uL 4.98 Hgb (11.2-15.7) g/dL 15.2 Hct (36.0-46.0) % 45.9 MCV (80-95) fL 92 MCH (27.0-33.0) pg 30.5 MCHC (32.0-36.0) % 33.1 RDW (11.7-14.6) % 13.2 Plt Count (130-400) 10^3/uL 176 MPV (8.0-11.0) fL 10.3 Immature Gran % 0.3 Neutrophils % 54.3 Lymphocytes % 33.4 Monocytes % 7.4 Eosinophils % 3.7 Basophils % 0.9 Nucleated RBC % (0.0-0.3) % 0.0 Absolute Neutrophils (1.2-6.7) 10^3/uL 1.90 Absolute Lymphocytes (1.2-3.4) 10^3/uL 1.17 L Absolute Monocytes (0.1-0.8) 10^3/uL 0.26 Absolute Eosinophils (0.0-0.7) 10^3/uL 0.13 Absolute Basophils (0.0-0.2) 10^3/uL 0.03 PT (9.3-11.0) sec 30.5 H INR (0.9-1.1) 3.3 H APTT (21.0-27.5) sec 38.8 H Sodium (136-145) mmol/L 143 Potassium (3.5-5.1) mmol/L 4.1 Chloride (98-107) mmol/L 106 Carbon Dioxide (21.0-32.0) mmol/L 29.1 Anion Gap (3-11) mmol/L 7.9 BUN (7-18) mg/dL 17 Creatinine (0.55-1.02) mg/dL 1.1 H Est GFR (CKD-EPI 2020) (mL/min/1.73m2) 50.17 Glucose (74-106) mg/dL 104 Calcium (8.5-10.1) mg/dL 9.5 Total Bilirubin (0.2-1.0) mg/dL 1.3 H AST (15-37) U/L 32 ALT (14-59) U/L 19 Alkaline Phosphatase (46-116) U/L 101 Total Protein (6.4-8.2) g/dL 7.8 Albumin (3.4-5.0) g/dL 4.0 HPI General Mode of arrival: ambulatory . Date/Time Provider Initiated Documentation: 09/12/22 10:07 . Limitations to Documentation: no limitations . Information obtained by: patient and family . HPI Narrative: 82-year-old female with a past medical history of carotid stenosis, GERD, anxiety, proximal atrial fibrillation, anemia, hypertension, DVT prophylaxis, on Coumadin, presents for nontraumatic bruising to the patient's right eye and left hand. Noticed this over the past 24 hours. Last night went to bed with a small amount of bruising to the medial aspect of her patient right orbit, this morning upon awaking the bruising spread some. Otherwise asymptomatic. INR checked in the office of her PCP 2 weeks ago was 4.0. Patient lives with her daughter who was present in the exam room. They are adamant that there has been no fall or trauma. Does admit that she bruises easily but felt as though the bruising to her eye was somewhat abnormal. Denies headache, visual changes, numbness, tingling, weakness. Daughter reports that she is at her baseline. Related Data Home Medications Medication Instructions Recorded Confirmed multivitamin (Daily Multiple 1 ea PO DAILY 07/28/17 09/12/22 tablet) glucosamine 750 kk-dkfhia-rcq 2-C 1 ea PO DAILY 08/17/17 09/12/22 30 mg-D3 1,000 unit-kiersten 1 mg tablet (Pczbxibllry-Zcedhkyylzi-REN + vitD) losartan 50 mg tablet 50 mg PO DAILY 08/09/18 09/12/22 acetaminophen 500 mg tablet 1,000 mg PO Q8H PRN pain #90 tabs 04/12/19 09/12/22 donepezil 5 mg tablet 5 mg PO QHS 06/22/21 09/12/22 levothyroxine 50 mcg tablet 50 mcg PO DAILY@0600 #30 tabs 06/26/21 09/12/22 warfarin 1 mg tablet (Jantoven) 1 tab PO DAILY 02/11/22 09/12/22 memantine 5 mg tablet 5 mg PO BID 03/24/22 09/12/22 verapamil 120 mg 24 hr 120 mg PO DAILY #90 caps 05/27/22 09/12/22 capsule,extended release Previous Rx's Medication Instructions Recorded acetaminophen 500 mg tablet 1,000 mg PO Q8H PRN pain #90 tabs 04/12/19 levothyroxine 50 mcg tablet 50 mcg PO DAILY@0600 #30 tabs 06/26/21 verapamil 120 mg 24 hr 120 mg PO DAILY #90 caps 05/27/22 capsule,extended release Allergies Allergy/AdvReac Type Severity Reaction Status Date / Time No Known Allergies Allergy Verified 02/11/22 17:01 General Stated Complaint: GenMedical DARIUS: 4 Review of Systems Constitutional Constitutional: Denies headache(s) and Denies weakness Eyes Eyes: Denies change in vision ENT Ears, Nose, Mouth, and Throat: Denies headache(s) and Denies neck pain Cardiovascular Cardiovascular: Denies chest pain and Denies dyspnea Respiratory Respiratory: Denies dyspnea Gastrointestinal Gastrointestinal: Denies abdominal pain Musculoskeletal Musculoskeletal: Denies neck pain, Denies numbness and Denies tingling Neurologic Neurologic: Denies headache(s), Denies numbness, Denies tingling and Denies weakness Hematologic/Lymphatic Hematologic/Lymphatic: Reports easy bleeding and Reports easy bruising PFSH All Active Problems (Updated 09/12/22 @ 11:39 by ANIA Carpio) Ecchymosis of eye (Acute) Bacteremia (Acute) Subdural hematoma (Acute) Chronic anticoagulation (Acute) Acute UTI (Acute) Discharge planning issues (Acute) DVT prophylaxis (Acute) Hypothyroidism (Chronic) HTN (hypertension) (Chronic) Acute UTI (Acute) Syncope and collapse (Acute) Closed head injury (Acute) 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 Montague Sprain of medial collateral ligament of left knee (Acute) Osteoarthritis of right knee (Chronic) Injected: 09/04/2018 Memory loss (Acute) Thoracic aortic aneurysm (Chronic) Diastolic dysfunction (Acute) Iron deficiency anemia (Acute) Esophagitis (Acute) Bloody stools (Acute) Carotid arterial disease (Acute) Dizziness (Acute) Fatigue (Acute) Stress incontinence (Acute) Overweight (Acute) Osteopenia (Acute) Osteoarthritis (Chronic) Skin lesion of face (Acute) Varicose veins of both lower extremities (Acute) Tubular adenoma of colon (Acute) Paroxysmal atrial fibrillation (Chronic) Anxiety (Chronic) Medical History Carotid stenosis GERD (gastroesophageal reflux disease) Surgical History Cholecystectomy Colonoscopy - MAC (08/23/17) EGD - MAC (08/23/17) History of bladder surgery Bladder sling surgery x 2 Family History Father Alcohol use disorder Mother Dementia Social History Smoking/Tobacco Use Status: Never Smoking risk assessment performed?: Yes Alcohol Intake: current Alcohol Intake frequency: a few times a month Alcohol type: wine Details: rare use, nothing in past several weeks Drug use: Never Substance use type: does not use Household members: family Housing: house Current gender identity: female What is your relationship status?: Panel score (0-1 are the most socially isolated patients): 0 Do you feel safe at home: Yes Do you feel safe in your relationship?: Yes Additional Social history: of many years in 06/2020. Kids in area. Exam Const General: cooperative, healthy appearing, comfortable and no acute distress Orientation: alert, awake, oriented x3 and other (At baseline mental status per daughter) [facility] Head: normal to inspection, normocephalic and atraumatic General nose exam: external nose normal Mouth: oral mucosae normal and moist mucous membranes Throat: posterior oropharynx normal Eyes Alignment and Position: alignment normal Conjunctivae: conjunctivae normal Sclera: sclerae normal Cornea: corneas normal Pupils: PERRL EOM: EOM intact bilaterally Eyes/upper lids images: 1. Nontender ecchymosis. No swelling. Skin is intact. Ocular movements unr emarkable Neck Neck: normal visual inspection, full ROM, no meningeal signs, trachea midline and supple Resp Effort & Inspection: normal respiratory effort and able to speak in complete sentences Auscultation: clear to auscultation bilaterally Cardio Rate: regular rate Rhythm: regular rhythm GI Palpation: soft and nontender Skin General skin exam: no rashes or lesions noted Other: No petechiae like rash Neuro General: patient alert, patient awake, moves all extremities and no focal motor deficits Cranial Nerves: CN's II-XI intact bilaterally Cognition: normal cognition Speech: speech normal Gait: normal gait Motor: muscle tone normal throughout Sensory Exam: no sensory deficits noted Extrem General: full ROM and capillary refill normal Hand/finger images: 1. Minimal nontender ecchymosis. Skin is intact. Psych Appearance: grossly normal Mental Status: mental status grossly normal Course Vital Signs Vital signs: Vital Signs Temperature 36.5 C 09/12/22 09:59 Pulse 62 09/12/22 09:59 Respiratory Rate 18 09/12/22 09:59 Blood Pressure 170/86 H 09/12/22 09:59 Pulse Oximetry 99 09/12/22 09:59 Temperature 36.5 C 09/12/22 09:59 Temperature Source Skin 09/12/22 09:59 Pulse 62 09/12/22 09:59 Respiratory Rate 18 09/12/22 09:59 Respiratory Effort 09/12/22 10:05 Blood Pressure 170/86 H 09/12/22 09:59 Blood Pressure Position Sitting 09/12/22 09:59 Pulse Oximetry 99 09/12/22 09:59 Oxygen Delivery Method Room Air 09/12/22 09:59 Oxygen Flow Rate 0 09/12/22 09:59 Pain Level 0 09/12/22 09:59 Lab/Test Results Lab/Test Results: Laboratory Tests Range/Units 09/12/22 09/12/22 09/12/22 10:25 10:25 10:25 WBC (4.4-10.8) 10^3/uL 3.50 L RBC (3.93-5.22) 10^6/uL 4.98 Hgb (11.2-15.7) g/dL 15.2 Hct (36.0-46.0) % 45.9 MCV (80-95) fL 92 MCH (27.0-33.0) pg 30.5 MCHC (32.0-36.0) % 33.1 RDW (11.7-14.6) % 13.2 Plt Count (130-400) 10^3/uL 176 MPV (8.0-11.0) fL 10.3 Immature Gran % 0.3 Neutrophils % 54.3 Lymphocytes % 33.4 Monocytes % 7.4 Eosinophils % 3.7 Basophils % 0.9 Nucleated RBC % (0.0-0.3) % 0.0 Absolute Neutrophils (1.2-6.7) 10^3/uL 1.90 Absolute Lymphocytes (1.2-3.4) 10^3/uL 1.17 L Absolute Monocytes (0.1-0.8) 10^3/uL 0.26 Absolute Eosinophils (0.0-0.7) 10^3/uL 0.13 Absolute Basophils (0.0-0.2) 10^3/uL 0.03 PT (9.3-11.0) sec 30.5 H INR (0.9-1.1) 3.3 H APTT (21.0-27.5) sec 38.8 H Sodium (136-145) mmol/L 143 Potassium (3.5-5.1) mmol/L 4.1 Chloride (98-107) mmol/L 106 Carbon Dioxide (21.0-32.0) mmol/L 29.1 Anion Gap (3-11) mmol/L 7.9 BUN (7-18) mg/dL 17 Creatinine (0.55-1.02) mg/dL 1.1 H Est GFR (CKD-EPI 2020) (mL/min/1.73m2) 50.17 Glucose (74-106) mg/dL 104 Calcium (8.5-10.1) mg/dL 9.5 Total Bilirubin (0.2-1.0) mg/dL 1.3 H AST (15-37) U/L 32 ALT (14-59) U/L 19 Alkaline Phosphatase (46-116) U/L 101 Total Protein (6.4-8.2) g/dL 7.8 Albumin (3.4-5.0) g/dL 4.0
[2022-09-12 12:10] VITALS: BP 151/84; PULSE 57; RESP 16; TEMP 36.4; O2SAT 95
[2022-09-12 12:14] VITALS: BP 151/84; PULSE 57; RESP 16; TEMP 36.4; O2SAT 95
== END 2022-09-12 12:17 | disposition home or self-care (01) ==
PROVIDERS: Emergency Provider Physician Assistant; PCP Nurse Practitioner Family
DX: R58 Hemorrhage, not elsewhere classified (principal); M79.81 Nontraumatic hematoma of soft tissue; I10 Essential (primary) hypertension; I48.91 Unspecified atrial fibrillation; Z86.718 Personal history of other venous thrombosis and embolism; Z79.01 Long term (current) use of anticoagulants
CPT/HCPCS: 36415; 80053; 99283; 85025; 85610; 85730; 99282

== ENCOUNTER → 2022-10-18 09:34 | Outpatient (BNVA) | payer OTHER, SELFPAY | PROVIDERS: PCP Nurse Practitioner Family; Referring Provider Nurse Practitioner Family; Visit Provider Internal Medicine Cardiovascular Disease | DX: I48.0 Paroxysmal atrial fibrillation (principal); I10 Essential (primary) hypertension; I77.810 Thoracic aortic ectasia | CPT/HCPCS: 99214; 99213 ==

== ENCOUNTER 2023-03-28 12:56 | Outpatient (REF) | payer OTHER, SELFPAY ==
[2023-03-28 15:19] LABS: Abs Immature Grans 0.01 10^3/uL (0.0-0.06); Absolute Basophil Count 0.02 10^3/uL (0.0-0.2); Absolute Eosinophil Count 0.13 10^3/uL (0.0-0.7); Absolute Lymphocyte Count 1.17 10^3/uL (1.2-3.4); Absolute Monocyte Count 0.33 10^3/uL (0.1-0.8); Absolute Neutrophil Count 2.03 10^3/uL (1.2-6.7); Basophils % 0.5; Eosinophils % 3.5; HCT 44.7 % (36.0-46.0); HGB 14.7 g/dL (11.2-15.7); Immature Grans % 0.3; Lymphocytes % 31.7; MCHC 32.9 % (32.0-36.0); MCV 91 fL (80-95); Monocytes % 8.9; Neutrophils % 55.1; Platelet Count 161 10^3/uL (130-400); RDW 13.9 % (11.7-14.6); RDW-SD 46.8 fL; WBC 3.69 10^3/uL (4.4-10.8)
[2023-03-28 15:47] LABS: Iron 100 ug/dL (50-170); Total Iron Binding Capacity 352 ug/dL (250-450); Transferrin Sat 28 % (15-50)
[2023-03-28 15:59] LABS: Anion Gap 7.1 mmol/L (3-11); BUN 19 mg/dL (7-18); CO2 28.9 mmol/L (21.0-32.0); Calcium 9.4 mg/dL (8.5-10.1); Chloride 108 mmol/L (98-107); Ferritin 32 ng/mL (8-252); Glucose 100 mg/dL (74-106); Potassium 4.6 mmol/L (3.5-5.1); Sodium 144 mmol/L (136-145); TSH (W/Ref FT4) 0.94 uIU/mL (0.36-3.74)
[2023-03-28 16:07] LABS: Vitamin D 25 Total 50.1 ng/mL (30-100)
== END 2023-03-28 12:57 | disposition home or self-care (01) ==
LOC: NCHCN 12:56
PROVIDERS: PCP Nurse Practitioner Family; Visit Provider Nurse Practitioner Family
DX: D64.9 Anemia, unspecified (principal); F02.80 Dementia in other diseases classified elsewhere, unspecified severity, without behavioral disturbance, psychotic disturbance, mood disturbance, and anxiety; I48.0 Paroxysmal atrial fibrillation; I10 Essential (primary) hypertension; E03.9 Hypothyroidism, unspecified; F41.9 Anxiety disorder, unspecified; M85.80 Other specified disorders of bone density and structure, unspecified site; R42 Dizziness and giddiness
CPT/HCPCS: 80048; 82306; 82728; 83540; 83550; 84443; 85025

== ENCOUNTER → 2023-04-19 08:43 | Outpatient (BNVA) | payer OTHER, SELFPAY | PROVIDERS: PCP Nurse Practitioner Family; Referring Provider Nurse Practitioner Family; Visit Provider Internal Medicine Cardiovascular Disease | DX: I48.0 Paroxysmal atrial fibrillation (principal); I10 Essential (primary) hypertension; I77.810 Thoracic aortic ectasia | CPT/HCPCS: 99213 ==

== ENCOUNTER 2023-06-03 14:10 | Outpatient (REF) | payer OTHER, SELFPAY | END 2023-06-03 14:11 | disposition home or self-care (01) | LOC: LBN 14:10 | PROVIDERS: PCP Nurse Practitioner Family; Visit Provider Physician Assistant Medical | DX: R35.0 Frequency of micturition (principal) | CPT/HCPCS: 87086 ==

== ENCOUNTER 2023-07-19 18:24 | Outpatient (REF) | payer OTHER, SELFPAY ==
[2023-07-19 21:16] LABS: Bilirubin Negative (Negative); Blood Negative (Negative); Clarity Clear (Clear); Glucose Negative (Negative); Ketones Negative (Negative); Leukocyte Esterase Negative (Negative); Nitrite Negative (Negative); Specific Gravity <= 1.005 (1.005-1.025); Urobilinogen 0.2 mg/dL (Up to 0.2); pH 5.5 (5-8)
== END 2023-07-19 18:25 | disposition home or self-care (01) ==
LOC: NCHCN 18:24
PROVIDERS: PCP Nurse Practitioner Family; Visit Provider Nurse Practitioner Family
DX: I62.00 Nontraumatic subdural hemorrhage, unspecified (principal); F02.80 Dementia in other diseases classified elsewhere, unspecified severity, without behavioral disturbance, psychotic disturbance, mood disturbance, and anxiety; I51.9 Heart disease, unspecified; I10 Essential (primary) hypertension; I48.0 Paroxysmal atrial fibrillation; E03.9 Hypothyroidism, unspecified; F41.9 Anxiety disorder, unspecified
CPT/HCPCS: 81003

== ENCOUNTER 2023-09-04 16:38 | Emergency (ER) | payer OTHER, SELFPAY ==
[2023-09-04] VITALS (37 sets, daily range): BP systolic 113–157; BP diastolic 60–89; PULSE 53–156; RESP 11–28; TEMP 36.6; O2SAT 100
--- NOTE | 2023-09-04 16:30 | RT.EKG_ITS ---
APPROVED REPORT Exam: Resting ECG Reason for Exam: chest pain Patient Location: E HR:158 bpm ECG Measurements Heart Rate 158 [place] [id number] P [id number] QRSd 83 QRS 40 QT 292 T 1 QTc 471 Conclusion Atrial fibrillation with rapid V-rate...A-rate 402 afib rvr, rate related ST changes
--- NOTE | 2023-09-04 16:45 | DI.CT_ITS ---
Exam(s) CT THORAX ABD/PEL CTA EXAM: CT THORAX ABD/PEL CTA CLINICAL HISTORY: hx of aneurysm, chest and epigastric pain. TECHNIQUE: Imaging Protocol: Axial CT angiography was performed with multi-slice acquisition and mu lti-planar and/or 3D reconstructions. CONTRAST MATERIAL: Intravenous: Omnipaque 350 Contrast volume:100 ml COMPARISON: CT CT BRAIN NECK CTA from 06/18/2021 FINDINGS: CHEST: Pulmonary Arteries: No evidence of filling defects to suggest pulmonary emboli. Tracheobronchial tree: No bronchiectasis or mucus plugging. Mediastinum and [place]: No dominant adenopathy or fluid collection. Moderate size hiatal hernia. Pulmonary parenchyma: No consolidation or dominant measurable mass. Pleura: No effusion. No pneumothorax. Heart: The heart is moderately dilated. No coronary artery calcifications are seen. Aorta: Ascending aorta measures 4 cm. No evidence of dissection. Somewhat tortuous. Mild atheroscl erotic changes. Bones: Degenerative changes in the spine. No compression fractures. Tubes, Catheters, and Lines: None. ABDOMEN and PELVIS: Liver: Normal size. Normal density. No suspicious measurable mass. Portal, Superior Mesenteric, and Splenic Veins: Unremarkable. Gallbladder and Biliary Tract: No radiodense calculus. No biliary dilatation. Pancreas: Normal density, no abnormal calcifications or inflammatory process. Spleen: Normal. Adrenals: No masses seen. Kidneys: Normal size, contour and axis. No radiodense stones. No obstructive uropathy. No masses seen . Vasculature: Abdominal aorta non-dilated. Atherosclerotic changes. No significant cyst stenosis of the aorta or branch vessels. Bowel: No obstruction or bowel wall thickening. Extensive diverticulosis. No evidence of diverticuli tis. Peritoneal Cavity: No ascites, collection or mesenteric inflammatory response. Lymph Nodes: Within normal limits. Soft Tissues: Unremarkable. Bladder: Symmetric distention, no gross wall thickening. Reproductive Organs: Status post hysterectomy Lymph Nodes: Within normal limits. Bones: Degenerative changes in the spine. IMPRESSION: 1. No evidence of pulmonary embolism. Mild dilatation of ascending aorta to 4 cm. No evidence of aort ic dissection. 2. No acute abdominal or pelvic process. RADIATION DOSE DELIVERED: Total DLP DATA REPOSITORY: All CT scans at this facility are submitted to the National Radiology Data Registry (NRDR) Dose Index Registry (DIR) with the [employer] (ACR). RADIATION OPTIMIZATION: All CT scans at this facility use at least one of these dose optimization te chniques: automated exposure control; mA and/or kV adjustment per patient size (includes targeted exa ms where dose is matched to clinical indication); or iterative reconstruction.
--- NOTE | 2023-09-04 16:45 | RT.EKG_ITS ---
APPROVED REPORT Exam: Resting ECG Reason for Exam: heart rate converted Patient Location: E HR:71 bpm ECG Measurements Heart Rate 71 AXIS DC 153 P 34 QRSd 85 QRS 8 QT 368 T 15 QTc 400 Conclusion Sinus rhythm...normal P axis, V-rate 60- 99 sinus rhtyhm, normal axis, normal intervals, non ischemic
[2023-09-04 17:02] LABS: Abs Immature Grans 0.01 10^3/uL (0.0-0.06); Absolute Basophil Count 0.03 10^3/uL (0.0-0.2); Absolute Eosinophil Count 0.09 10^3/uL (0.0-0.7); Absolute Lymphocyte Count 1.72 10^3/uL (1.2-3.4); Absolute Monocyte Count 0.44 10^3/uL (0.1-0.8); Absolute Neutrophil Count 2.71 10^3/uL (1.2-6.7); Basophils % 0.6; Eosinophils % 1.8; HCT 43.7 % (36.0-46.0); HGB 14.3 g/dL (11.2-15.7); Immature Grans % 0.2; Lymphocytes % 34.4; MCH 29.2 pg (27.0-33.0); MCHC 32.7 % (32.0-36.0); MCV 89 fL (80-95); MPV 10.3 fL (8.0-11.0); Monocytes % 8.8; Neutrophils % 54.2; Platelet Count 166 10^3/uL (130-400); RBC 4.89 10^6/uL (3.93-5.22); RDW 14.3 % (11.7-14.6); RDW-SD 46.2 fL
[2023-09-04] MEDS: LORazepam 2 MG/ML VIAL 0.5 MG IVP (17:09)
[2023-09-04] MEDS: Normal Saline 500 ML IV (17:09)
[2023-09-04 17:11] LABS: INR 3.1 (0.9-1.1); Prothrombin Time 28.3 sec (9.1-11.1)
[2023-09-04 17:23] LABS: ALT 21 U/L (14-59); AST 24 U/L (15-37); Albumin 3.6 g/dL (3.4-5.0); Alkaline Phosphatase 109 U/L (46-116); Anion Gap 10.2 mmol/L (3-11); BUN 22 mg/dL (7-18); Bilirubin, Total 1.4 mg/dL (0.2-1.0); CO2 25.8 mmol/L (21.0-32.0); CREATININE 1.2 mg/dL (0.55-1.02); Calcium 9.6 mg/dL (8.5-10.1); Chloride 108 mmol/L (98-107); Estimated GFR 44.91 (mL/min/1.73m2); Glucose 127 mg/dL (74-106); Magnesium 2.1 mg/dL (1.8-2.4); Potassium 4.2 mmol/L (3.5-5.1); Sodium 144 mmol/L (136-145); Total Protein 7.3 g/dL (6.4-8.2)
[2023-09-04 17:28] LABS: NT-proBNP 184 pg/mL (<300); Troponin I < 50 ng/L (<or=60)
[2023-09-04] MEDS: Normal Saline - Diluent 50 ML VIAL IJ (17:38)
[2023-09-04] MEDS: Omnipaque 350 MG/ML 100 ML BTL IJ (17:39)
[2023-09-04] MEDS: Normal Saline Flush 10 ML SYR IVP (17:39)
--- NOTE | 2023-09-04 18:25 | DI.VRAD_ITS ---
PROCEDURE INFORMATION: Exam: CTA Chest With Contrast CTA Abdomen and Pelvis With Contrast Exam date and time: 09/04/2023 5:40 PM Age: 83 years old Clinical indication: Other: HX of aneurysm, chest and epigastric pain; Prior surgery; Surgery date: 6+ months; Surgery type: Chelecystectomy TECHNIQUE: Imaging protocol: Computed tomographic angiography of the chest with contrast. Exam focused on the arteries. Computed tomographic angiography of the abdomen and pelvis with contrast. Exam focused on the arteries. 3D rendering (Not supervised by radiologist): MIP and/or 3D reconstructed images were created by the technologist. Contrast material: OMNIPAQUE 350; Contrast volume: 100 ml; Contrast route: INTRAVENOUS (IV); COMPARISON: CT CHEST/ABD/PEL W 06/04/2021 3:58 PM FINDINGS: VASCULATURE: Pulmonary arteries: Normal. No pulmonary emboli. Aorta: There is dilatation of the ascending aorta, 4 cm. No evidence for dissection. Mild atherosclerotic change present in the aorta. Aortic ectasia noted. Celiac trunk and mesenteric arteries: No occlusion or significant stenosis. Renal arteries: No occlusion or significant stenosis. Right iliac arteries: No occlusion or significant stenosis. Left iliac arteries: No occlusion or significant stenosis. Thyroid: There are multiple thyroid low-density areas. The largest in the left lobe measures up to 2.4 cm. Probable multinodular goiter. CHEST: Lungs: Unremarkable. No consolidation. No masses. Pleural spaces: Unremarkable. No pneumothorax. No pleural effusion. Heart: Unremarkable. No cardiomegaly. No pericardial effusion. Diaphragm: Moderate-sized hiatal hernia. ABDOMEN AND PELVIS: Liver: No mass. Gallbladder and bile ducts: Status post cholecystectomy. Pancreas: Unremarkable. No mass. No ductal dilation. Spleen: Incidental note made of heterogeneous splenic enhancement, artifact of bolus timing. Adrenal glands: Unremarkable. No mass. Kidneys and ureters: Unremarkable. No solid mass. No hydronephrosis. Stomach and bowel: Diverticulosis without acute diverticulitis. Appendix: No evidence of appendicitis. Intraperitoneal space: Unremarkable. No free air. No significant fluid collection. Urinary bladder: Unremarkable. No mass. Reproductive: Status post hysterectomy. Lymph nodes: Unremarkable. No enlarged lymph nodes. Bones/joints: Moderate lumbar spondylosis. Mild degenerative changes right glenohumeral articulation. Soft tissues: Unremarkable. IMPRESSION: 1. Aneurysmal dilatation of the ascending thoracic aorta, mild. 2. No evidence for pulmonary embolus. 3. Bilateral thyroid nodules. Dictated and Authenticated by: Floresita Diaz MD. Ordering:RHEA Gamez MD
--- NOTE | 2023-09-04 19:08 | ED.GENADUL_ITS ---
Discharge Plan Disposition Patient Disposition: Home Discharge Details Clinical Impression: A-fib, Chest pain Primary Care Provider: Fatuma Boyer ED Provider: Vera Hernandez Home Meds and New Rx's Prescriptions: Continued losartan 50 mg tablet 50 mg PO DAILY verapamil 120 mg capsule,ext rel. pellets 24 hr See Rx Instructions .ROUTE .COMPLEX Qty: 90 3RF Dose Instruction: TAKE 1 CAPSULE DAILY Rx Instructions: TAKE 1 CAPSULE DAILY donepezil 5 mg Tablet 5 mg PO QHS levothyroxine 50 mcg Tablet 50 mcg PO DAILY@0600 Qty: 30 0RF warfarin [Jantoven] 1 mg tablet 2 - 3 tab PO DAILY Rx Instructions: 2mg Sun// 3mg Tuesday/Tue/Tue/Tue multivitamin [Daily Multiple] 1 EACH tablet 1 ea PO DAILY acetaminophen 500 mg tablet 1,000 mg PO Q8H PRN (Reason: pain) Qty: 90 3RF memantine 10 mg tablet 10 mg PO BID Discharge Instructions Instructions: A-fib (Atrial Fibrillation) (ED), Chest Pain (ED) Additional Instructions: Please continue on your prescribed medication Follow-up with your doctor tomorrow, you may need adjustment of your verapamil Your INR is 3.1 which is great Should you have recurrence of symptoms, please be reevaluated Your tests today are reassuring Referrals: Fatuma Boyer [Primary Care Provider] - Discharge Data Discharge Date/Time-TO BE ENTERED AT DEPARTURE: 09/04/23 20:30 Medical Decision Making Patient's blood sugar 7 9050 no fever overnight we can monitor closely just like if [facility] accepts and we can determine going swelling 82-year-old female presenting with chest pain palpitations going into atrial fibrillation on arrival with RVR, rate 150 Was planning to administer diltiazem when patient converted in room, repeat EKG was performed, normal sinus rhythm, will hold on additional antiarrhythmic at this time Appropriately anticoagulated, Coumadin 3.1 chest pain and shortness of breath completely resolved post resolution of tachycardia delta troponin negative and pt remains asx with NSR throughout encounter placed on care management list for f/u in 24-48 hours for possible adjustment of medications pt alert and oriented, lungs ctabi, initially cardiac irregularly irregular, reassessment cardiac RRR, no peripheral edema or tenderness appreciated return precautions reviewed and pt expressed understanding HPI General Date/Time Provider Initiated Documentation: 09/04/23 16:45 . HPI Narrative: This 83-year-old female with history of paroxysmal atrial fibrillation, chronically anticoagulated on Coumadin, osteoarthritis, carotid arterial disease iron deficiency anemia, diastolic dysfunction presents with report of acute onset of chest pain and shortness of breath that started approximately an hour prior to arrival. States she was seated when the symptoms began. States she feels her heart is racing. Denies any calf pain or swelling. Denies any nausea or vomiting. Denies known history of coronary artery disease or tobacco use. Denies history of hyperlipidemia. Related Data Home Medications Medication Instructions Recorded Confirmed multivitamin (Daily Multiple 1 ea PO DAILY 07/28/17 09/04/23 tablet) losartan 50 mg tablet 50 mg PO DAILY 08/09/18 09/04/23 acetaminophen 500 mg tablet 1,000 mg (2 x 500 mg) PO Q8H PRN 04/12/19 09/04/23 pain #90 tabs donepezil 5 mg tablet 5 mg PO QHS 06/22/21 09/04/23 levothyroxine 50 mcg tablet 50 mcg PO DAILY@0600 #30 tabs 06/26/21 09/04/23 warfarin 1 mg tablet (Jantoven) 2 - 3 tab PO DAILY 02/11/22 09/04/23 verapamil 120 mg 24 hr See Rx Instructions .Route 05/02/23 09/04/23 capsule,extended release .COMPLEX #90 caps memantine 10 mg tablet 10 mg PO BID 09/04/23 09/04/23 Previous Rx's Medication Instructions Recorded acetaminophen 500 mg tablet 1,000 mg (2 x 500 mg) PO Q8H PRN 04/12/19 pain #90 tabs levothyroxine 50 mcg tablet 50 mcg PO DAILY@0600 #30 tabs 06/26/21 verapamil 120 mg 24 hr See Rx Instructions .Route 05/02/23 capsule,extended release .COMPLEX #90 caps Allergies Allergy/AdvReac Type Severity Reaction Status Date / Time No Known Allergies Allergy Verified 09/04/23 16:51 General Stated Complaint: Chest Pain DARIUS: 2 PFSH All Active Problems (Updated 09/04/23 @ 20:22 by ANIA Melara) Chest pain (Acute) A-fib (Chronic) Family circumstance (Acute) Impaired instrumental activities of daily living (IADL) (Acute) Dementia (Chronic) ACP (advance care planning) (Acute) Mild ascending aorta dilation (Acute) Bacteremia (Acute) Subdural hematoma (Acute) Chronic anticoagulation (Acute) Acute UTI (Acute) Discharge planning issues (Acute) DVT prophylaxis (Acute) Hypothyroidism (Chronic) HTN (hypertension) (Chronic) Acute UTI (Acute) Syncope and collapse (Acute) Closed head injury (Acute) 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 Montague Sprain of medial collateral ligament of left knee (Acute) Osteoarthritis of right knee (Chronic) Injected: 09/04/2018 Memory loss (Acute) Thoracic aortic aneurysm (Chronic) Diastolic dysfunction (Acute) Iron deficiency anemia (Acute) Esophagitis (Acute) Bloody stools (Acute) Carotid arterial disease (Acute) Dizziness (Acute) Fatigue (Acute) Stress incontinence (Acute) Overweight (Acute) Osteopenia (Acute) Osteoarthritis (Chronic) Skin lesion of face (Acute) Varicose veins of both lower extremities (Acute) Tubular adenoma of colon (Acute) Paroxysmal atrial fibrillation (Chronic) Anxiety (Chronic) Medical History Carotid stenosis GERD (gastroesophageal reflux disease) Surgical History Cholecystectomy Colonoscopy - MAC (08/23/17) EGD - MAC (08/23/17) History of bladder surgery Bladder sling surgery x 2 Family History Father Alcohol use disorder Mother Dementia Social History Smoking/Tobacco Use Status: Never Smoking risk assessment performed?: Yes Alcohol Intake: current Alcohol Intake frequency: a few times a month Alcohol type: wine Details: rare use, nothing in past several weeks Drug use: Never Substance use type: does not use Household members: family Housing: house Current gender identity: female What is your relationship status?: Panel score (0-1 are the most socially isolated patients): 0 Do you feel safe at home: Yes Do you feel safe in your relationship?: Yes Additional Social history: of many years in 06/2020. Kids in area. Lives with daughter Course Vital Signs Vital signs: Vital Signs Temperature 36.6 C 09/04/23 16:41 Pulse 156 H 09/04/23 16:41 Respiratory Rate 21 09/04/23 16:41 Blood Pressure 113/87 09/04/23 16:41 Pulse Oximetry 100 09/04/23 16:41 Temperature 36.6 C 09/04/23 16:41 Temperature Source Temporal Artery Scan 09/04/23 16:41 Pulse 56 L 09/04/23 18:16 Pulse 57 L 09/04/23 18:30 Respiratory Rate 12 09/04/23 18:30 Respiratory Effort Normal, Non-Labored 09/04/23 17:12 Respiratory Depth Normal 09/04/23 17:12 Respiratory Pattern Normal 09/04/23 17:12 Blood Pressure 144/61 H 09/04/23 18:16 Blood Pressure Mean 94 09/04/23 18:16 Blood Pressure Position Sitting 09/04/23 16:41 Pulse Oximetry 100 09/04/23 16:41 Oxygen Delivery Method Room Air 09/04/23 16:41 Oxygen Flow Rate 0 09/04/23 16:41 Pain Level 2 09/04/23 16:41 Lab/Test Results Lab/Test Results: Laboratory Tests Range/Units 09/04/23 16:45 WBC (4.4-10.8) 10^3/uL 5.00 RBC (3.93-5.22) 10^6/uL 4.89 Hgb (11.2-15.7) g/dL 14.3 Hct (36.0-46.0) % 43.7 MCV (80-95) fL 89 MCH (27.0-33.0) pg 29.2 MCHC (32.0-36.0) % 32.7 RDW (11.7-14.6) % 14.3 Plt Count (130-400) 10^3/uL 166 MPV (8.0-11.0) fL 10.3 Immature Gran % 0.2 Neutrophils % 54.2 Lymphocytes % 34.4 Monocytes % 8.8 Eosinophils % 1.8 Basophils % 0.6 Nucleated RBC % (0.0-0.3) % 0.0 Absolute Neutrophils (1.2-6.7) 10^3/uL 2.71 Absolute Lymphocytes (1.2-3.4) 10^3/uL 1.72 Absolute Monocytes (0.1-0.8) 10^3/uL 0.44 Absolute Eosinophils (0.0-0.7) 10^3/uL 0.09 Absolute Basophils (0.0-0.2) 10^3/uL 0.03 PT (9.1-11.1) sec 28.3 H INR (0.9-1.1) 3.1 H Sodium (136-145) mmol/L 144 Potassium (3.5-5.1) mmol/L 4.2 Chloride (98-107) mmol/L 108 H Carbon Dioxide (21.0-32.0) mmol/L 25.8 Anion Gap (3-11) mmol/L 10.2 BUN (7-18) mg/dL 22 H Creatinine (0.55-1.02) mg/dL 1.2 H Est GFR (CKD-EPI 2020) (mL/min/1.73m2) 44.91 Glucose (74-106) mg/dL 127 H Calcium (8.5-10.1) mg/dL 9.6 Magnesium (1.8-2.4) mg/dL 2.1 Total Bilirubin (0.2-1.0) mg/dL 1.4 H AST (15-37) U/L 24 ALT (14-59) U/L 21 Alkaline Phosphatase (46-116) U/L 109 Troponin I (<or=60) ng/L < 50 NT-Pro-B Natriuret Pep (<300) pg/mL 184 Total Protein (6.4-8.2) g/dL 7.3 Albumin (3.4-5.0) g/dL 3.6
[2023-09-04 20:17] LABS: Troponin I < 50 ng/L (<or=60)
--- NOTE | 2023-09-04 20:26 | NUR.NOTE ---
Pt placed on care management referral list for follow up with primary care for Afib with RVR and Chest Pain possible medication adjustment per ED CARLY Hernandez
== END 2023-09-04 20:30 | disposition home or self-care (01) ==
PROVIDERS: Emergency Provider Physician Assistant; PCP Nurse Practitioner Family
DX: R07.9 Chest pain, unspecified (principal); R06.02 Shortness of breath; I48.0 Paroxysmal atrial fibrillation; I65.29 Occlusion and stenosis of unspecified carotid artery; F03.90 Unspecified dementia, unspecified severity, without behavioral disturbance, psychotic disturbance, mood disturbance, and anxiety; Z79.01 Long term (current) use of anticoagulants
CPT/HCPCS: 36415; 71275; 80053; 93005; 96361; 96374; 96375; 99285; 74174; 83735; 83880; 84484; 85025; 85610; 93010; 99284; J2060; J3490

== ENCOUNTER 2023-10-07 19:57 | Emergency (ER) | payer OTHER, SELFPAY ==
[2023-10-07] VITALS (52 sets, daily range): BP systolic 113–136; BP diastolic 57–83; PULSE 86–96; RESP 12–28; TEMP 36.4–37.1; O2SAT 94–95
--- NOTE | 2023-10-07 19:45 | RT.EKG_ITS ---
APPROVED REPORT Exam: Resting ECG Reason for Exam: chest discomfort Patient Location: E HR:89 bpm ECG Measurements Heart Rate 89 AXIS [place] 162 P 39 QRSd 88 QRS 37 QT 338 T 17 QTc 411 Conclusion Sinus rhythm...normal P axis, V-rate 60- 99
--- NOTE | 2023-10-07 20:15 | DI.CT_ITS ---
Exam(s) CT THORAX ABD/PEL CTA EXAM: CT THORAX ABD/PEL CTA CLINICAL HISTORY: chest pain, cyanosis to hands, palpitation. TECHNIQUE: Imaging Protocol: Axial computed tomography images with coronal and sagittal reformatted images were created and reviewed CONTRAST MATERIAL: Intravenous: Omnipaque 350 Contrast volume:100 ml Oral: None COMPARISON: CT CT THORAX ABD/PEL CTA from 09/04/2023 FINDINGS: CHEST: AORTA: The diameter of the ascending thoracic aorta is again noted be enlarged at 4.1 cm. No dissect ion. The diameter of the mid thoracic aortic arch is 2.7 cm. Diameter of the proximal descending th oracic aorta is 2.3 cm. Diameter of the descending thoracic aorta is also within normal limits, eusebia uring 2 cm. There is no significant abdominal aortic aneurysm. There is moderate focal narrowing in the proximal 1 cm of the celiac artery. No significant narrowing at the origin of the SMA. No embo michael in the SMA. Inferior mesenteric artery appears patent. Renal arteries are patent. With respect of the iliac arteries, there is plaque on the medial wall of the proximal left common iliac artery w ith approximately 50 percent stenosis. No dissection or significant aneurysm at this level. Similar but less plaque on the medial wall of the opposite-right common carotid artery is noted with approxi mately 20 percent stenosis. There is no significant stenosis at the junction between the common and external iliac arteries on either side and both external iliac arteries are nicely patent as are the common femoral arteries and visualized proximal SFA arteries. Both internal iliac arteries are paten t. PULMONARY ARTERIES: No intraluminal filling defects in the main pulmonary arteries. No obvious pulmo nary emboli. LUNGS: No significant infiltrates nor pleural effusions. No concerning lung nodules. No findings in trachea and mainstem bronchi.. MEDIASTINUM: There is a large retrocardiac hiatal hernia. No hilar nor mediastinal adenopathy. Enla rged multi nodular thyroid goiter. CARDIAC: Heart size upper normal. No pericardial effusion ABDOMEN: There is no ascites. LIVER: There are no focal hepatic lesions nor dilatation of intrahepatic ducts. GALLBLADDER/BILIARY: Gallbladder not seen. Either contracted or surgically absent. No gallbladder r egion clips evident. CBD is not dilated. PANCREAS: No evidence of pancreatic mass nor dilatation of the pancreatic duct. SPLEEN: Spleen size normal. Spleen contains multiple calcified granulomas. Splenic and portal veins are patent. ADRENALS: Right adrenal gland unremarkable. Left adrenal gland exhibits a 9 x 9 mm nodule, similar t o previous. KIDNEYS: No significant cysts evident. No calculi nor hydronephrosis. No solid renal masses. ABDOMINAL AORTA: See above LYMPH NODES: There is no retroperitoneal nor para-aortic adenopathy. No obvious mesenteric masses. ABDOMINAL WALL: No evidence of significant anterior abdominal wall hernia. GI: There is no evidence of bowel obstruction, free air, nor abscess.No ischemic appearing bowel loop s. There is extensive diverticulosis of the left side of the colon and sigmoid but no evidence of ac ekaterina diverticulitis. No evidence of appendicitis PELVIS: LYMPH NODES: There is no intrapelvic nor inguinal adenopathy. GI: No evidence of appendicitis. URINARY BLADDER: No calculi nor masses evident REPRODUCTIVE: Uterus is atrophic or surgically absent. There are no abnormal adnexal masses. OSSEOUS: No significant osseous lesions. IMPRESSION: 1. There is relatively stable aneurysmal dilatation of the ascending thoracic aorta which measures 4. 1 cm. No evidence of dissection. No pericardial effusion. 2. No obvious pulmonary emboli. 3. No evidence of abdominal aortic aneurysm. Mild narrowing of the proximal celiac artery. 4. 50 percent stenosis of the left common iliac artery and 20 percent stenosis of the right common il iac artery. No dissection or significant aneurysms at these levels. 5. Diverticulosis of the colon without evidence of acute diverticulitis. RADIATION DOSE DELIVERED: 837.23mGy.cm Total DLP DATA REPOSITORY: All CT scans at this facility are submitted to the National Radiology Data Registry (NRDR) Dose Index Registry (DIR) with the [employer] (ACR). RADIATION OPTIMIZATION: All CT scans at this facility use at least one of these dose optimization te chniques: automated exposure control; mA and/or kV adjustment per patient size (includes targeted exa ms where dose is matched to clinical indication); or iterative reconstruction.
[2023-10-07 20:18] LABS: Abs Immature Grans 0.01 10^3/uL (0.0-0.06); Absolute Basophil Count 0.03 10^3/uL (0.0-0.2); Absolute Eosinophil Count 0.01 10^3/uL (0.0-0.7); Absolute Lymphocyte Count 1.27 10^3/uL (1.2-3.4); Absolute Monocyte Count 0.61 10^3/uL (0.1-0.8); Absolute Neutrophil Count 3.04 10^3/uL (1.2-6.7); Basophils % 0.6; Eosinophils % 0.2; HGB 14.9 g/dL (11.2-15.7); Immature Grans % 0.2; Lymphocytes % 25.6; MCH 29.7 pg (27.0-33.0); MCHC 33.1 % (32.0-36.0); MCV 90 fL (80-95); MPV 10.5 fL (8.0-11.0); Monocytes % 12.3; Neutrophils % 61.1; Platelet Count 150 10^3/uL (130-400); RBC 5.02 10^6/uL (3.93-5.22); RDW 14.3 % (11.7-14.6); RDW-SD 46.5 fL; WBC 4.97 10^3/uL (4.4-10.8)
[2023-10-07 20:27] LABS: Prothrombin Time 27.1 sec (9.1-11.1)
[2023-10-07 20:38] LABS: ALT 22 U/L (14-59); AST 25 U/L (15-37); Alkaline Phosphatase 110 U/L (46-116); Anion Gap 8.3 mmol/L (3-11); BUN 19 mg/dL (7-18); Bilirubin, Total 1.7 mg/dL (0.2-1.0); CO2 26.7 mmol/L (21.0-32.0); CREATININE 1.3 mg/dL (0.55-1.02); Calcium 9.7 mg/dL (8.5-10.1); Chloride 103 mmol/L (98-107); Glucose 177 mg/dL (74-106); Lipase 21 U/L (16-77); Potassium 3.5 mmol/L (3.5-5.1); Sodium 138 mmol/L (136-145); Total Protein 8.1 g/dL (6.4-8.2); Troponin I < 50 ng/L (< or =60)
[2023-10-07 20:47] LABS: Magnesium 1.9 mg/dL (1.8-2.4)
[2023-10-07] MEDS: Omnipaque 350 MG/ML 100 ML BTL IJ (21:02)
[2023-10-07] MEDS: Normal Saline Flush 10 ML SYR IVP (21:03)
[2023-10-07] MEDS: Normal Saline - Diluent 50 ML VIAL IJ (21:03)
[2023-10-07 21:06] LABS: NT-proBNP 222 pg/mL (<300)
[2023-10-07 21:17] LABS: FREE T4 1.46 ng/dL (0.76-1.46)
--- NOTE | 2023-10-07 21:29 | DI.VRAD_ITS ---
PROCEDURE INFORMATION: Exam: CTA Chest With Contrast CTA Abdomen and Pelvis With Contrast Exam date and time: 10/07/2023 8:45 PM Age: 83 years old Clinical indication: Other: Palpitations; Chest wall pain; Other: Cyanosis to hands; Other: Chest pain TECHNIQUE: Imaging protocol: Computed tomographic angiography of the chest with contrast. Exam focused on the arteries. Computed tomographic angiography of the abdomen and pelvis with contrast. Exam focused on the arteries. 3D rendering (Not supervised by radiologist): MIP and/or 3D reconstructed images were created by the technologist. Contrast material: OMNI 350; Contrast volume: 100 ml; Contrast route: INTRAVENOUS (IV); COMPARISON: CT THORAX ABD/PEL CTA 09/04/2023 5:40 PM FINDINGS: VASCULATURE: Pulmonary arteries: There is mild dilatation of the pulmonary artery that can be seen in cases of pulmonary hypertension. No pulmonary embolism. Aorta: There is mild stable aneurysmal dilatation of the ascending aorta. There are aortic calcifications. There are abdominal aortic and iliac atheromatous changes. Celiac trunk and mesenteric arteries: There is mild narrowing of the celiac trunk by an atheromatous plaque. Renal arteries: No occlusion or significant stenosis. Tiny calcified atheromatous plaque at the origin of the left renal artery. Right iliac arteries: No occlusion or significant stenosis. Left iliac arteries: There is aneurysmal dilatation with in atheromatous plaque in the left common iliac artery causing 50% narrowing. Veins: Multiple pelvic phleboliths. Thyroid: Multinodular thyroid with similar appearing multiple hypodense nodules, unchanged when compared to 2020. CHEST: Lungs: Stable nodule in the anterior segment of the right upper lobe measuring 4 mm. Pleural spaces: Unremarkable. No pneumothorax. No pleural effusion. Heart: Unremarkable. No cardiomegaly. No pericardial effusion. Diaphragm: There is a large hiatus hernia. ABDOMEN AND PELVIS: Liver: No mass. Gallbladder and bile ducts: Unremarkable. No calcified stones. No ductal dilation. Pancreas: Unremarkable. No mass. No ductal dilation. Spleen: Multiple calcified granulomas in the spleen. Adrenal glands: Nodular thickening of the left adrenal gland. Kidneys and ureters: Multiple tiny right renal cysts. Similar multifocal scarring of the left kidney, sequelae of prior insult. No hydronephrosis on either side. Stomach and bowel: There is diverticulosis of the colon with no changes of diverticulitis. Appendix: Not visualized to be correlated with history of appendectomy. Intraperitoneal space: Unremarkable. No free air. No significant fluid collection. Urinary bladder: Unremarkable. No mass. Reproductive: Unremarkable as visualized. Lymph nodes: Unremarkable. No enlarged lymph nodes. Bones/joints: There is an S shaped scoliotic curvature of the thoracolumbar spine. There is multilevel moderate to severe degenerative disease of the lumbar spine with posterior osteophyte disc complexes. Soft tissues: Unremarkable. IMPRESSION: 1. Stable mild aneurysmal dilatation of the ascending aorta. 2. No pulmonary embolism. 3. There is mild narrowing at the origin of the celiac artery by atheromatous plaque. 4. Findings of prior granulomatous disease in the spleen. 5. Stable multinodular thyroid. 6. Diverticulosis of the colon with no changes of diverticulitis. Dictated and Authenticated by: Nasim Penn MD. Ordering:RHEA Gamez MD
[2023-10-07 22:53] LABS: Troponin I < 50 ng/L (< or =60)
--- NOTE | 2023-10-09 08:47 | W.ED.GENAD ---
HPI General Stated Complaint: Arrhythmia DARIUS: 2 Date/Time Provider Initiated Documentation: 10/07/23 19:57. HPI Narrative: This 83-year-old female with history of dementia, mild ascending aorta dilation, bacteremia, subdural hematoma presents with report of chest pressure and palpitations. She states it is resolved since arriving here her symptoms started at approximately 7:00 this evening while she was walking. Patient states her hands have also been discolored and numb when she is outside or they become cold. Denies any abdominal pain, chest pain, shortness of breath. Denies any current chest pain, nausea, vomiting, calf pain or swelling. Related Data Home Medications Medication Instructions Recorded Confirmed multivitamin (Daily Multiple 1 ea PO DAILY 07/28/17 10/07/23 tablet) losartan 50 mg tablet 50 mg PO DAILY 08/09/18 10/07/23 acetaminophen 500 mg tablet 1,000 mg (2 x 500 mg) PO Q8H PRN 04/12/19 10/07/23 pain #90 tabs donepezil 5 mg tablet 5 mg PO QHS 06/22/21 10/07/23 levothyroxine 50 mcg tablet 50 mcg PO DAILY@0600 #30 tabs 06/26/21 10/07/23 warfarin 1 mg tablet (Jantoven) 2 - 3 tab PO DAILY 02/11/22 10/07/23 verapamil 120 mg 24 hr See Rx Instructions .Route 05/02/23 10/07/23 capsule,extended release .COMPLEX #90 caps memantine 10 mg tablet 10 mg PO BID 09/04/23 10/07/23 Previous Rx's Medication Instructions Recorded acetaminophen 500 mg tablet 1,000 mg (2 x 500 mg) PO Q8H PRN 04/12/19 pain #90 tabs levothyroxine 50 mcg tablet 50 mcg PO DAILY@0600 #30 tabs 06/26/21 verapamil 120 mg 24 hr See Rx Instructions .Route 05/02/23 capsule,extended release .COMPLEX #90 caps Allergies Allergy/AdvReac Type Severity Reaction Status Date / Time No Known Allergies Allergy Verified 09/04/23 16:51 PFSH All Active Problems (Updated 10/07/23 @ 22:47 by ANIA Melara) Chest pain (Acute) Raynaud's disease (Acute) Family circumstance (Acute) Impaired instrumental activities of daily living (IADL) (Acute) Dementia (Chronic) ACP (advance care planning) (Acute) Mild ascending aorta dilation (Acute) Bacteremia (Acute) Subdural hematoma (Acute) Chronic anticoagulation (Acute) Acute UTI (Acute) Discharge planning issues (Acute) DVT prophylaxis (Acute) Hypothyroidism (Chronic) HTN (hypertension) (Chronic) Acute UTI (Acute) Syncope and collapse (Acute) Closed head injury (Acute) 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 Montague Sprain of medial collateral ligament of left knee (Acute) Osteoarthritis of right knee (Chronic) Injected: 09/04/2018 Memory loss (Acute) Thoracic aortic aneurysm (Chronic) Diastolic dysfunction (Acute) Iron deficiency anemia (Acute) Esophagitis (Acute) Bloody stools (Acute) Carotid arterial disease (Acute) Dizziness (Acute) Fatigue (Acute) Stress incontinence (Acute) Overweight (Acute) Osteopenia (Acute) Osteoarthritis (Chronic) Skin lesion of face (Acute) Varicose veins of both lower extremities (Acute) Tubular adenoma of colon (Acute) Paroxysmal atrial fibrillation (Chronic) Anxiety (Chronic) Medical History Carotid stenosis GERD (gastroesophageal reflux disease) Surgical History Cholecystectomy Colonoscopy - MAC (08/23/17) EGD - MAC (08/23/17) History of bladder surgery Bladder sling surgery x 2 Family History Father Alcohol use disorder Mother Dementia Social History Smoking/Tobacco Use Status: Never Smoking risk assessment performed?: Yes Alcohol Intake: current Alcohol Intake frequency: a few times a month Alcohol type: wine Details: rare use, nothing in past several weeks Drug use: Never Substance use type: does not use Household members: family Housing: house Current gender identity: female What is your relationship status?: Panel score (0-1 are the most socially isolated patients): 0 Do you feel safe at home: Yes Do you feel safe in your relationship?: Yes Additional Social history: of many years in 06/2020. Kids in area. Lives with daughter Course Vital Signs Vital signs: Vital Signs Temperature 37.1 C 01/12/24 19:59 Pulse 96 H 10/07/23 19:59 Respiratory Rate 21 10/07/23 19:59 Blood Pressure 116/75 10/07/23 19:59 Pulse Oximetry 94 10/07/23 19:59 Temperature 36.4 C L 10/07/23 23:07 Temperature Source Tympanic 10/07/23 19:59 Pulse 88 10/07/23 23:07 Respiratory Rate 15 10/07/23 23:07 Respiratory Effort Short of Breath 10/07/23 20:06 Blood Pressure 127/83 10/07/23 23:07 Blood Pressure Position Sitting 10/07/23 19:59 Pulse Oximetry 95 10/07/23 23:07 Oxygen Delivery Method Room Air 10/07/23 19:59 Oxygen Flow Rate 0 10/07/23 19:59 Pain Level 0 10/07/23 23:07 Comment ear probe used d/t issues w/ SpO2 reading on fingers 10/07/23 19:59 Lab/Test Results Lab/Test Results: Laboratory Tests Range/Units 10/07/23 10/07/23 20:05 22:31 WBC (4.4-10.8) 10^3/uL 4.97 RBC (3.93-5.22) 10^6/uL 5.02 Hgb (11.2-15.7) g/dL 14.9 Hct (36.0-46.0) % 45.0 MCV (80-95) fL 90 MCH (27.0-33.0) pg 29.7 MCHC (32.0-36.0) % 33.1 RDW (11.7-14.6) % 14.3 Plt Count (130-400) 10^3/uL 150 MPV (8.0-11.0) fL 10.5 Immature Gran % 0.2 Neutrophils % 61.1 Lymphocytes % 25.6 Monocytes % 12.3 Eosinophils % 0.2 Basophils % 0.6 Nucleated RBC % (0.0-0.3) % 0.0 Absolute Neutrophils (1.2-6.7) 10^3/uL 3.04 Absolute Lymphocytes (1.2-3.4) 10^3/uL 1.27 Absolute Monocytes (0.1-0.8) 10^3/uL 0.61 Absolute Eosinophils (0.0-0.7) 10^3/uL 0.01 Absolute Basophils (0.0-0.2) 10^3/uL 0.03 PT (9.1-11.1) sec 27.1 H INR (0.9-1.1) 3.0 H Sodium (136-145) mmol/L 138 Potassium (3.5-5.1) mmol/L 3.5 Chloride (98-107) mmol/L 103 Carbon Dioxide (21.0-32.0) mmol/L 26.7 Anion Gap (3-11) mmol/L 8.3 BUN (7-18) mg/dL 19 H Creatinine (0.55-1.02) mg/dL 1.3 H Est GFR (CKD-EPI 2020) (mL/min/1.73m2) 40.80 Glucose (74-106) mg/dL 177 H Calcium (8.5-10.1) mg/dL 9.7 Magnesium (1.8-2.4) mg/dL 1.9 Total Bilirubin (0.2-1.0) mg/dL 1.7 H AST (15-37) U/L 25 ALT (14-59) U/L 22 Alkaline Phosphatase (46-116) U/L 110 Troponin I (< or =60) ng/L < 50 < 50 NT-Pro-B Natriuret Pep (<300) pg/mL 222 Total Protein (6.4-8.2) g/dL 8.1 Albumin (3.4-5.0) g/dL 4.0 Lipase (16-77) U/L 21 TSH (0.36-3.74) uIU/mL 0.30 L Free T4 (0.76-1.46) ng/dL 1.46 Medical Decision Making 83-year-old female in no acute distress normal sinus rhythm, no chest pain at time of assessment Hand discoloration noted, likely consistent with Raynaud's, after warm towels were applied, cap refill and coloration improves Distal pulses intact all 4 extremities Given age and comorbidities CTA chest abdomen pelvis was ordered to evaluate for occlusion No evidence of acute abnormality on CTA per radiology interpretation my review 2 troponins negative with EKG without obvious ischemia Echo from 22 with preserved ejection fraction of 55% with left ventricular hypertrophy, no other abnormalities noted Patient afebrile and nontoxic Was reluctant to stay for second troponin Patient is feeling well she is ambulatory with steady gait and asymptomatic She is requesting discharge home Most is aware that we do not see an acute cause of patient's symptoms at this time, she is encouraged to continue all of her prescribed meds and recheck with her primary care physician on Tuesday She is encouraged to wear gloves when she is outside or with any cold exposure to prevent worsening of her likely Raynaud's of her hands Given the threshold to return with new or worsening complaints Quality:SDOH Health Related Social Needs: No Data to Display Discharge Plan Disposition Patient Disposition: Against Medical Advice Discharge Details Clinical Impression: Raynaud's disease, Chest pain Primary Care Provider: Fatuma Boyer ED Provider: Vera Hernandez Home Meds and New Rx's Prescriptions: Continued losartan 50 mg tablet 50 mg PO DAILY verapamil 120 mg capsule,ext rel. pellets 24 hr See Rx Instructions .ROUTE .COMPLEX Qty: 90 3RF Dose Instruction: TAKE 1 CAPSULE DAILY Rx Instructions: TAKE 1 CAPSULE DAILY donepezil 5 mg Tablet 5 mg PO QHS levothyroxine 50 mcg Tablet 50 mcg PO DAILY@0600 Qty: 30 0RF warfarin [Jantoven] 1 mg tablet 2 - 3 tab PO DAILY Rx Instructions: 2mg Sun//urs 3mg Tuesday/Tue/Tue/Tue multivitamin [Daily Multiple] 1 EACH tablet 1 ea PO DAILY acetaminophen 500 mg tablet 1,000 mg PO Q8H PRN (Reason: pain) Qty: 90 3RF memantine 10 mg tablet 10 mg PO BID Discharge Instructions Instructions: Chest Pain (ED), Raynaud Disease (ED) Additional Instructions: You likely have Raynaud's, wear gloves when you go outside or if your hands get cold Follow-up with your doctor for outpatient stress test Your CAT scan does not show acute abnormality and your labs are reassuring Follow-up with your doctor on Tuesday Referrals: Fatuma Boyer [Primary Care Provider] - Discharge Data Discharge Date/Time-TO BE ENTERED AT DEPARTURE: 10/07/23 23:10
== END 2023-10-07 23:10 | disposition left against medical advice (07) ==
PROVIDERS: Emergency Provider Physician Assistant; PCP Nurse Practitioner Family
DX: I73.00 Raynaud's syndrome without gangrene (principal); R07.9 Chest pain, unspecified; F03.90 Unspecified dementia, unspecified severity, without behavioral disturbance, psychotic disturbance, mood disturbance, and anxiety; Z79.01 Long term (current) use of anticoagulants; Z79.899 Other long term (current) drug therapy; E03.9 Hypothyroidism, unspecified; Z86.718 Personal history of other venous thrombosis and embolism; I50.30 Unspecified diastolic (congestive) heart failure; I11.0 Hypertensive heart disease with heart failure; I48.91 Unspecified atrial fibrillation
CPT/HCPCS: 71275; 80053; 83690; 93005; 99285; 74174; 83735; 83880; 84439; 84443; 84484; 85025; 85610; 93010; J3490

== ENCOUNTER 2023-12-13 18:13 | Outpatient (REF) | payer OTHER, SELFPAY ==
[2023-12-13 21:18] LABS: TSH (W/Ref FT4) 0.34 uIU/mL (0.36-3.74)
[2023-12-13 21:43] LABS: FREE T4 1.17 ng/dL (0.76-1.46)
== END 2023-12-13 18:14 | disposition home or self-care (01) ==
LOC: NCHCN 18:13
PROVIDERS: PCP Nurse Practitioner Family; Visit Provider Nurse Practitioner Family
DX: E03.9 Hypothyroidism, unspecified (principal)
CPT/HCPCS: 84439; 84443

== ENCOUNTER 2024-03-21 16:49 | Emergency (ER) | payer OTHER, SELFPAY ==
[2024-03-21 16:56] VITALS: BP 150/75; PULSE 89; RESP 14; TEMP 37; O2SAT 97
--- NOTE | 2024-03-21 17:00 | DI.RAD_ITS ---
Exam(s) XR FINGER RT LITTLE EXAM: XR FINGER RT LITTLE CLINICAL HISTORY: swollen DIP joint. TECHNIQUE: 2D digital imaging was performed of the right finger. Three views were obtained. PA/AP, oblique, and lateral views were obtained. COMPARISON: No priors for comparison. FINDINGS: BONES: No acute fracture is present. No bony destructive lesion is seen. JOINTS: No dislocation is present. At the DIP joint there is marked joint space narrowing. Osteophy anderson are seen. Dystrophic calcification is seen posteriorly. There appears to be an erosion at the u lnar aspect of the DIP joint. The PIP joint is well maintained as is the metacarpophalangeal joint. SOFT TISSUE: There is soft tissue swelling of the finger. IMPRESSION: 1. Arthritic changes seen at the DIP joint of the 5th finger. 2. Question of an erosion at the ulnar aspect of the DIP joint. This may represent erosive osteoarth ritis versus infection. 3. Soft tissue swelling of the finger. DATA REPOSITORY: RADIATION DOSE DELIVERED:
--- NOTE | 2024-03-21 17:03 | ED.GENADUL_ITS ---
Discharge Plan Disposition Patient Disposition: Home Condition: Stable Discharge Details Clinical Impression: Finger pain Primary Care Provider: Fatuma Boyer ED Provider: Trey Cook Home Meds and New Rx's Prescriptions: New cephalexin 500 mg capsule 500 mg PO TID 7 Days Qty: 21 0RF No Action losartan 50 mg tablet 50 mg PO DAILY verapamil 120 mg capsule,ext rel. pellets 24 hr See Rx Instructions .ROUTE .COMPLEX Qty: 90 3RF Dose Instruction: TAKE 1 CAPSULE DAILY Rx Instructions: TAKE 1 CAPSULE DAILY donepezil 5 mg Tablet 5 mg PO QHS levothyroxine 50 mcg Tablet 50 mcg PO DAILY@0600 Qty: 30 0RF warfarin [Jantoven] 1 mg tablet 2 - 3 tab PO DAILY Rx Instructions: 2mg Sun// 3mg Tuesday/Tue/Tue/Tue multivitamin [Daily Multiple] 1 EACH tablet 1 ea PO DAILY acetaminophen 500 mg tablet 1,000 mg PO Q8H PRN (Reason: pain) Qty: 90 3RF memantine 10 mg tablet 10 mg PO BID Discharge Instructions Instructions: Osteoarthritis, Insect bites and stings Additional Instructions: Please only take antibiotics if skin inflammation at joint is worsening over the next couple days otherwise discard antibiotic prescription. Continue with ice i buprofen and acetaminophen as needed. Please return to the emergency department for any worsening symptoms HPI General Date/Time Provider Initiated Documentation: 03/21/24 17:02 . HPI Narrative: 84-year-old female presents with swelling to her right pinky finger that began yesterday, mildly uncomfortable however not terribly painful denies fevers chills or systemic signs of illness, does have history of arthritis, no recent injury Related Data Home Medications Medication Instructions Recorded Confirmed multivitamin (Daily Multiple 1 ea PO DAILY 07/28/17 03/21/24 tablet) losartan 50 mg tablet 50 mg PO DAILY 08/09/18 03/21/24 acetaminophen 500 mg tablet 1,000 mg (2 x 500 mg) PO Q8H PRN 04/12/19 03/21/24 pain #90 tabs donepezil 5 mg tablet 5 mg PO QHS 06/22/21 03/21/24 levothyroxine 50 mcg tablet 50 mcg PO DAILY@0600 #30 tabs 06/26/21 03/21/24 warfarin 1 mg tablet (Septoven) 2 - 3 tab PO DAILY 02/11/22 03/21/24 verapamil 120 mg 24 hr See Rx Instructions .Route 05/02/23 03/21/24 capsule,extended release .COMPLEX #90 caps memantine 10 mg tablet 10 mg PO BID 09/04/23 03/21/24 cephalexin 500 mg capsule 500 mg PO TID 7 days #21 caps 03/21/24 Previous Rx's Medication Instructions Recorded acetaminophen 500 mg tablet 1,000 mg (2 x 500 mg) PO Q8H PRN 04/12/19 pain #90 tabs levothyroxine 50 mcg tablet 50 mcg PO DAILY@0600 #30 tabs 06/26/21 verapamil 120 mg 24 hr See Rx Instructions .Route 05/02/23 capsule,extended release .COMPLEX #90 caps cephalexin 500 mg capsule 500 mg PO TID 7 days #21 caps 03/21/24 Allergies Allergy/AdvReac Type Severity Reaction Status Date / Time No Known Allergies Allergy Verified 03/21/24 17:02 General Stated Complaint: Orthopedic DARIUS: 4 Review of Systems Narrative: Review of Systems Constitutional: negative Eyes: negative ENT: negative Cardiovascular: negative Respiratory: negative Gastrointestinal: negative : negative Musculoskeletal: Skin: negative Neurologic: negative Psych: negative Exam Narrative Exam Narrative: Physical Examination General: alert, awake, cooperative, resting comfortably, no acute distress HEENT: normocephalic, atraumatic; PERRL, EOM intact, conjunctiva normal; no nasal discharge; moist mucous membranes, oral and pharyngeal mucosa normal, tolerating secretions Neck: supple, trachea midline; full ROM Chest: normal to inspection Respiratory: normal respiratory effort, speaking in full sentences, clear to auscultation, no wheezing, rales or rhonchi Cardiac: regular rate, regular rhythm, S1S2 intact, no murmurs rubs or gallops GI: abdomen soft, non-tender, non-distended; no palpable mass or hepatosplenomegaly : Back: Skin: no lesions, rashes or trauma appreciated Neuro: AAOx3, normal speech, moving all extremities Extremities: Localized erythema and induration to DIP joint and portion of distal phalanx right fifth digit upper extremity, full range of motion both distal and proximal flexion as well as extension and involve digit, warm well- perfused good capillary refill nontender to the touch nonfluctuant, central punctate region of slight purple discoloration Psych: Appropriate mood and affect Course Vital Signs Vital signs: Vital Signs Temperature 37.0 C 03/21/24 16:56 Pulse 89 03/21/24 16:56 Respiratory Rate 14 03/21/24 16:56 Blood Pressure 150/75 H 03/21/24 16:56 Pulse Oximetry 97 03/21/24 16:56 Temperature 37.0 C 03/21/24 16:56 Temperature Source Temporal Artery Scan 03/21/24 16:56 Pulse 89 03/21/24 16:56 Respiratory Rate 14 03/21/24 16:56 Blood Pressure 150/75 H 03/21/24 16:56 Blood Pressure Position Sitting 03/21/24 16:56 Pulse Oximetry 97 03/21/24 16:56 Oxygen Delivery Method Room Air 03/21/24 16:56 Oxygen Flow Rate 0 03/21/24 16:56 Pain Level 1 03/21/24 16:56 Medical Decision Making 84-year-old female presents with localized swelling and pain to DIP joint and distal phalanx of right hand, no trauma, afebrile nontoxic full range of motion at joint and finger, patient does have history of arthritis, sensation intact median radial ulnar nerve distribution, good capillary refill, consider osteoarthritis versus inflammatory arthritis such as rheumatoid arthritis versus localized insect bite given central punctate region noted at induration versus localized cellulitis low suspicion for tenosynovitis or septic joint given full range of motion without discomfort nontoxic afebrile state. Will obtain screening x-ray will consider starting empiric antibiotics in case this is a superficial cellulitis Home care instruction return precautions to be given 18: 50 patient was seen for acute distress pain-free full range of motion of finger, x-ray showing was read as a cortical cyst and evidence of degenerative changes to joint history physical imaging consistent with component of osteoarthritis low suspicion for erosive joint infection. Patient and family given strict return precautions for any worsening symptoms. Will be given empiric Keflex in case there is a component of superficial skin infection. Quality:SDOH Health Related Social Needs: No Data to Display PFSH All Active Problems (Updated 03/21/24 @ 19:25 by Trey Cook MD) Finger pain (Acute) Family circumstance (Acute) Impaired instrumental activities of daily living (IADL) (Acute) Dementia (Chronic) ACP (advance care planning) (Acute) Mild ascending aorta dilation (Acute) Bacteremia (Acute) Subdural hematoma (Acute) Chronic anticoagulation (Acute) Acute UTI (Acute) Discharge planning issues (Acute) DVT prophylaxis (Acute) Hypothyroidism (Chronic) HTN (hypertension) (Chronic) Acute UTI (Acute) Syncope and collapse (Acute) Closed head injury (Acute) 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 Montague Sprain of medial collateral ligament of left knee (Acute) Osteoarthritis of right knee (Chronic) Injected: 09/04/2018 Memory loss (Acute) Thoracic aortic aneurysm (Chronic) Diastolic dysfunction (Acute) Iron deficiency anemia (Acute) Esophagitis (Acute) Bloody stools (Acute) Carotid arterial disease (Acute) Dizziness (Acute) Fatigue (Acute) Stress incontinence (Acute) Overweight (Acute) Osteopenia (Acute) Osteoarthritis (Chronic) Skin lesion of face (Acute) Varicose veins of both lower extremities (Acute) Tubular adenoma of colon (Acute) Paroxysmal atrial fibrillation (Chronic) Anxiety (Chronic) Medical History Carotid stenosis GERD (gastroesophageal reflux disease) Surgical History Cholecystectomy Colonoscopy - MAC (08/23/17) EGD - MAC (08/23/17) History of bladder surgery Bladder sling surgery x 2 Family History Father Alcohol use disorder Mother Dementia Social History Smoking/Tobacco Use Status: Never Smoking risk assessment performed?: Yes Alcohol Intake: current Alcohol Intake frequency: a few times a month Alcohol type: wine Details: rare use, nothing in past several weeks Drug use: Never Substance use type: does not use Household members: family Housing: house Current gender identity: female What is your relationship status?: Panel score (0-1 are the most socially isolated patients): 0 Do you feel safe at home: Yes Do you feel safe in your relationship?: Yes Additional Social history: of many years in 06/2020. Kids in [place]. Lives with daughter
--- NOTE | 2024-03-21 18:26 | DI.VRAD_ITS ---
PROCEDURE INFORMATION: Exam: XR Left Finger(s) Exam date and time: 03/21/2024 5:26 PM Age: 84 years old Clinical indication: Other: Swollen dip joint TECHNIQUE: Imaging protocol: Radiologic exam of the left fingers. Views: Minimum 2 views. COMPARISON: No relevant prior studies available. FINDINGS: Bones/joints: The bones are demineralized. Severe 5th DIP degenerative changes. No acute fracture or subluxation. Dystrophic chronic appearing soft tissue calcifications about the 5th PIP joint. 4 mm subchondral cystic structure in the head of the 5th middle phalanx, favored degenerative rather than erosive. Soft tissues: Digital soft tissue swelling. IMPRESSION: 1. No acute bony pathology. 2. Severe 5th DIP degenerative changes. 3. 4 mm subchondral cystic structure in the head of the 5th middle phalanx, favored degenerative rather than erosive. Dictated and Authenticated by: Jessi Montenegro MD. Ordering:LUCAS Yang MD
== END 2024-03-21 19:31 | disposition home or self-care (01) ==
PROVIDERS: Emergency Provider Emergency Medicine; PCP Nurse Practitioner Family
DX: R22.31 Localized swelling, mass and lump, right upper limb (principal); M79.644 Pain in right finger(s); M19.041 Primary osteoarthritis, right hand
CPT/HCPCS: 99283; 73140

== ENCOUNTER 2024-03-27 17:01 | Outpatient (REF) | payer OTHER, SELFPAY ==
[2024-03-27 21:42] LABS: Anion Gap 5.4 mmol/L (3-11); BUN 16 mg/dL (7-18); CO2 29.6 mmol/L (21.0-32.0); CREATININE 1.1 mg/dL (0.55-1.02); Calcium 9.3 mg/dL (8.5-10.1); Chloride 108 mmol/L (98-107); Estimated GFR 49.55 (mL/min/1.73m2); Glucose 125 mg/dL (74-106); Potassium 5.2 mmol/L (3.5-5.1); Sodium 143 mmol/L (136-145)
[2024-03-27 22:52] LABS: INR 2.6 (0.9-1.1)
== END 2024-03-27 17:02 | disposition home or self-care (01) ==
LOC: NCHCN 17:01
PROVIDERS: PCP Nurse Practitioner Family; Visit Provider Nurse Practitioner Family
DX: I10 Essential (primary) hypertension (principal); I48.0 Paroxysmal atrial fibrillation
CPT/HCPCS: 80048; 85610

== ENCOUNTER 2024-04-06 16:25 | Emergency (ER) | payer OTHER, SELFPAY ==
[2024-04-06] VITALS (28 sets, daily range): BP systolic 119–182; BP diastolic 70–97; PULSE 56–78; RESP 10–26; O2SAT 99
--- NOTE | 2024-04-06 16:15 | RT.EKG_ITS ---
APPROVED REPORT Exam: Resting ECG Reason for Exam: chest pain Patient Location: E HR:76 bpm ECG Measurements Heart Rate 76 AXIS UT 165 P 48 QRSd 87 QRS 35 QT 363 T 40 QTc 408 Conclusion Sinus rhythm...normal P axis, V-rate 60- 99
--- NOTE | 2024-04-06 16:36 | W.ED.GENAD ---
Discharge Plan Disposition Patient Disposition: Home Discharge Details Clinical Impression: Chest pain, Esophageal hiatal hernia Primary Care Provider: Fatuma Boyer ED Provider: Maddy Quiros Home Meds and New Rx's Prescriptions: Continued losartan 50 mg tablet 50 mg PO DAILY verapamil 120 mg capsule,ext rel. pellets 24 hr See Rx Instructions .ROUTE .COMPLEX Qty: 90 3RF Dose Instruction: TAKE 1 CAPSULE DAILY Rx Instructions: TAKE 1 CAPSULE DAILY donepezil 5 mg Tablet 5 mg PO QHS levothyroxine 50 mcg Tablet 50 mcg PO DAILY@0600 Qty: 30 0RF warfarin [Jantoven] 1 mg tablet 2 - 3 tab PO DAILY Rx Instructions: 2mg Sun// 3mg Tuesday/Tue/Tue/Tue multivitamin [Daily Multiple] 1 EACH tablet 1 ea PO DAILY acetaminophen 500 mg tablet 1,000 mg PO Q8H PRN (Reason: pain) Qty: 90 3RF memantine 10 mg tablet 10 mg PO BID Discharge Instructions Instructions: Hiatal Hernia (DC) Additional Instructions: Please call [facility] first thing Tuesday morning to schedule follow-up appointment next week. I recommend that you discuss the findings from your CAT scan with your primary care provider. Return to emergency care if you develop new chest pain, episodes of dizziness, fever, cough, difficulty breathing, uncontrollable vomiting, belly pain, or if you are very worried and need to be rechecked again immediately Referrals: Fatuma Boyer [Primary Care Provider] - HPI General Date/Time Provider Initiated Documentation: 04/06/24 16:27. HPI Narrative: Shanell is a 84-year-old female with history of dementia, anticoagulation with warfarin a fib, HTN, hypothyroidism, carotid arterial disease, and mild dilated ascending aorta who presents to the emergency department today accompanied by her daughter for evaluation of chest pain. She reports that she has had this intermittent squeezing chest pain that lasts approximately 2 to 3 minutes. This is located in the left side of her chest, does not radiate. Resolved spontaneously. She also reports intermittent dizziness associated with this, though not necessarily occurring at the same time. She denies recent fever/chills, headache, vision changes, shortness of breath, diaphoresis, nausea/vomiting, abdominal pain, change in bowel or bladder function, change in p.o. intake., diaphoresis. She denies history of IL, says she has come to the emergency dept multiple times for chest pain, no history of IL. Physical exam reassuring. Patient is alert and interactive, no acute distress. Easy work of breathing, lung sounds clear bilaterally. No chest wall pain with palpation of L anterior chest wall. Normal heart sounds. Abdomen is soft, nondistended, nontender to palpation. No pulsatile massese noted in abdomen. Radial and pedal pulses intact bilaterally. No pedal edema noted. 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 D/dx includes but is not limited to: ACS, aortic dissection (based on history of dilated aorta), cardiac arrhythmia, pneumothorax, esophageal spasm, GERD, PNA. PE less likely based on chronic anticoagulation. HEART score 3, indicating low risk of MACE (largely age and risk factors) I independently interpreted the following tests: CBC, CMP, INR, and serial troponins all reassuring. EKG unremarkable, normal sinus rhythm rate 76, no changes consistent with acute ischemia. I did review previous records, including most recent cardiology visit on 04/19/2023 and cardiology visit on 10/18/2022. She was noted to have echo with mild/mod mitral regurgitation, mild aortic and tricuspid regurgitation, and EF 55%, normal wall motion. Ascending aorta measured 3.66 cm; at that time it was considered not of current medical concern. CT abdomen/pelvis performed. Stable moderate sized sliding-type hiatal hernia noted, apparent wall thickening of herniated portion noted, question gastritis or neoplasm. 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 Minimal groundglass infiltrate in the right upper and lower lobes concerning for mild pneumonitis. No evidence of acute aortic pathology. No new episodes of chest pain while in the emergency department. Cardiac workup today reassuring. Symptoms likely due to gastritis/hiatal hernia. Recommend close follow-up with PCP for management of symptoms and discussion of CT results. Reviewed red flags indicating need for return to emergency care. Patient and daughter are agreeable with plan of care. Related Data Home Medications ?Medication ?Instructions ?Recorded ?Confirmed multivitamin (Daily Multiple 1 ea PO DAILY 07/28/17 03/21/24 tablet) losartan 50 mg tablet 50 mg PO DAILY 08/09/18 03/21/24 acetaminophen 500 mg tablet 1,000 mg (2 x 500 mg) PO Q8H PRN 07/18/19 06/26/24 pain #90 tabs donepezil 5 mg tablet 5 mg PO QHS 06/22/21 03/21/24 levothyroxine 50 mcg tablet 50 mcg PO DAILY@0600 #30 tabs 06/26/21 03/21/24 warfarin 1 mg tablet (Jantoven) 2 - 3 tab PO DAILY 02/11/22 03/21/24 verapamil 120 mg 24 hr See Rx Instructions .Route 05/02/23 03/21/24 capsule,extended release .COMPLEX #90 caps memantine 10 mg tablet 10 mg PO BID 09/04/23 03/21/24 Previous Rx's ?Medication ?Instructions ?Recorded acetaminophen 500 mg tablet 1,000 mg (2 x 500 mg) PO Q8H PRN 04/12/19 pain #90 tabs levothyroxine 50 mcg tablet 50 mcg PO DAILY@0600 #30 tabs 06/26/21 verapamil 120 mg 24 hr See Rx Instructions .Route 05/02/23 capsule,extended release .COMPLEX #90 caps Allergies Allergy/AdvReac Type Severity Reaction Status Date / Time No Known Allergies Allergy Verified 03/21/24 17:02 General Stated Complaint: Chest Pain DARIUS: 3 Review of Systems Narrative: see HPI Exam Const General: cooperative, healthy appearing, comfortable, no acute distress and not diaphoretic Nutritional Appearance: average body habitus Orientation: alert and awake HENVA Head: atraumatic Mouth: oral mucosae normal Chest Chest: normal inspection of the chest and normal palpation of entire chest wall Resp Effort & Inspection: normal respiratory effort and able to speak in complete sentences Auscultation: clear to auscultation bilaterally Cardio Jugular venous pressure: no JVD Rate: regular rate Rhythm: regular rhythm GI Inspection: normal to inspection and no visible pulsation Palpation: soft, not firm and nontender Neuro General: moves all extremities, no meningeal signs, no focal motor deficits and CN's II-XI intact bilaterally Cranial Nerves: facial strength normal and able to elevate shoulders bilaterally Speech: speech normal Motor: muscle tone normal throughout and strength 5/5 throughout Extrem General: no pedal edema Course Vital Signs Vital signs: Vital Signs Pulse 76 04/06/24 16:31 Respiratory Rate 22 04/06/24 16:31 Blood Pressure 159/84 H 04/06/24 16:31 Pulse Oximetry 99 04/06/24 16:31 Pulse 76 04/06/24 16:31 Respiratory Rate 22 04/06/24 16:31 Blood Pressure 159/84 H 04/06/24 16:31 Blood Pressure Position Sitting 04/06/24 16:31 Pulse Oximetry 99 04/06/24 16:31 Oxygen Delivery Method Room Air 04/06/24 16:31 Oxygen Flow Rate 0 04/06/24 16:31 Medical Decision Making Quality:SDOH Health Related Social Needs: No Data to Display PFSH All Active Problems (Updated 04/06/24 @ 20:07 by Maddy Rodriguez) Esophageal hiatal hernia (Chronic) Chest pain (Acute) Finger pain (Acute) Family circumstance (Acute) Impaired instrumental activities of daily living (IADL) (Acute) Dementia (Chronic) ACP (advance care planning) (Acute) Mild ascending aorta dilation (Acute) Bacteremia (Acute) Subdural hematoma (Acute) Chronic anticoagulation (Acute) Acute UTI (Acute) Discharge planning issues (Acute) DVT prophylaxis (Acute) Hypothyroidism (Chronic) HTN (hypertension) (Chronic) Acute UTI (Acute) Syncope and collapse (Acute) Closed head injury (Acute) 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 Montague Sprain of medial collateral ligament of left knee (Acute) Osteoarthritis of right knee (Chronic) Injected: 09/04/2018 Memory loss (Acute) Thoracic aortic aneurysm (Chronic) Diastolic dysfunction (Acute) Iron deficiency anemia (Acute) Esophagitis (Acute) Bloody stools (Acute) Carotid arterial disease (Acute) Dizziness (Acute) Fatigue (Acute) Stress incontinence (Acute) Overweight (Acute) Osteopenia (Acute) Osteoarthritis (Chronic) Skin lesion of face (Acute) Varicose veins of both lower extremities (Acute) Tubular adenoma of colon (Acute) Paroxysmal atrial fibrillation (Chronic) Anxiety (Chronic) Medical History Carotid stenosis GERD (gastroesophageal reflux disease) Surgical History Cholecystectomy Colonoscopy - MAC (08/23/17) EGD - MAC (08/23/17) History of bladder surgery Bladder sling surgery x 2 Family History Father Alcohol use disorder Mother Dementia Social History Smoking/Tobacco Use Status: Never Smoking risk assessment performed?: Yes Alcohol Intake: current Alcohol Intake frequency: a few times a month Alcohol type: wine Details: rare use, nothing in past several weeks Drug use: Never Substance use type: does not use Household members: family Housing: house Current gender identity: female What is your relationship status?: Panel score (0-1 are the most socially isolated patients): 0 Do you feel safe at home: Yes Do you feel safe in your relationship?: Yes Additional Social history: of many years in 06/2020. Kids in area. Lives with daughter
[2024-04-06 16:50] LABS: Abs Immature Grans 0.01 10^3/uL (0.0-0.06); Absolute Basophil Count 0.03 10^3/uL (0.0-0.2); Absolute Eosinophil Count 0.17 10^3/uL (0.0-0.7); Absolute Lymphocyte Count 1.43 10^3/uL (1.2-3.4); Absolute Monocyte Count 0.51 10^3/uL (0.1-0.8); Absolute Neutrophil Count 2.84 10^3/uL (1.2-6.7); Basophils % 0.6 %; Eosinophils % 3.4 %; HCT 40.2 % (36.0-46.0); HGB 13.2 g/dL (11.2-15.7); Immature Grans % 0.2 %; Lymphocytes % 28.7 %; MCH 29.1 pg (27.0-33.0); MCHC 32.8 % (32.0-36.0); MCV 89 fL (80-95); MPV 9.7 fL (8.0-11.0); Monocytes % 10.2 %; Neutrophils % 56.9 %; Platelet Count 165 10^3/uL (130-400); RBC 4.53 10^6/uL (3.93-5.22); RDW 14.2 % (11.7-14.6); RDW-SD 46.5 fL; WBC 4.99 10^3/uL (4.4-10.8)
[2024-04-06 17:00] LABS: INR 2.3 (0.9-1.1); Prothrombin Time 21.5 sec (9.1-11.1)
[2024-04-06 17:07] LABS: ALT 22 U/L (14-59); AST 25 U/L (15-37); Albumin 3.5 g/dL (3.4-5.0); Alkaline Phosphatase 104 U/L (46-116); Anion Gap 8.3 mmol/L (3-11); BUN 14 mg/dL (7-18); Bilirubin, Total 0.98 mg/dL (0.2-1.0); CO2 26.7 mmol/L (21.0-32.0); CREATININE 1.1 mg/dL (0.55-1.02); Calcium 9.4 mg/dL (8.5-10.1); Chloride 108 mmol/L (98-107); Estimated GFR 49.55 (mL/min/1.73m2); Glucose 89 mg/dL (74-106); Magnesium 1.8 mg/dL (1.8-2.4); Potassium 3.5 mmol/L (3.5-5.1); Sodium 143 mmol/L (136-145); Total Protein 7.5 g/dL (6.4-8.2); Troponin I < 50 ng/L (< or =60)
[2024-04-06 17:14] LABS: NT-proBNP 260 pg/mL (<300)
[2024-04-06] MEDS: Aspirin 81 MG CHEW 324 MG CH (17:14)
--- NOTE | 2024-04-06 17:26 | DI.RAD_ITS ---
Exam(s) XR CHEST 2V PA LATERAL EXAM: XR CHEST 2V PA LATERAL CLINICAL HISTORY: CP TECHNIQUE: 2D digital imaging was performed of the chest. Two images were obtained. PA and lateral views were obtained. COMPARISON: CR,XR XR CHEST 1V IN DI DEPT from 07/02/2022 FINDINGS: MEDIASTINUM: There is a small hiatal hernia. HEART: Normal. PULMONARY VASCULATURE: Normal. LUNGS: Clear. PLEURAL SPACE: No pleural effusion or pneumothorax. BONE:Within normal limits for the patient's age. OTHER FINDINGS:Normal. IMPRESSION: No acute pulmonary findings. DATA REPOSITORY: RADIATION DOSE DELIVERED:
--- NOTE | 2024-04-06 18:25 | DI.CT_ITS ---
Exam(s) CT THORAX ABD/PEL CTA EXAM: CT THORAX ABD/PEL CTA CLINICAL HISTORY: CTA chest/abd/pel for aorta. TECHNIQUE: Imaging Protocol: Axial CT angiography was performed with multi-slice acquisition and m ulti-planar and/or 3D reconstructions. CONTRAST MATERIAL: Intravenous: Omnipaque 350 Contrast volume:structured data in ml Oral: yes / COMPARISON: CT CT THORAX ABD/PEL CTA from 10/07/2023 FINDINGS: CHEST: Pulmonary Arteries: No evidence of filling defect to suggest pulmonary emboli. Tracheobronchial tree: Patent where visualized. Mediastinum and [place]: No dominant adenopathy or fluid collection. Moderate size hiatal hernia. Pulmonary parenchyma: No consolidation or dominant measurable mass. Mild patchy infiltrate in the rig ht upper lobe. Minimal patchy ground-glass densities in the right lower lobe. Pleura: No effusion or pneumothorax. Heart: The heart is not dilated. No coronary artery calcifications are seen. Aorta: Ascending aorta measures 4 cm, stable from prior.. Mild atherosclerotic changes. No evidence of dissection. Bones: Scoliosis and degenerative changes. No compression fracture. Tubes, Catheters, and Lines: None. ABDOMEN AND PELVIS: Abdomen: Celiac axis: Focal area of narrowing at the proximal celiac axis, common proximally 50 percent. No c hange from prior. Mesenteric arteries: No evidence of occlusion or significant stenosis. Renal Arteries: No evidence of occlusion or significant stenosis. There is a single renal artery per fusing each kidney. Aorta: No evidence of occlusion or significant stenosis. No aneurysm or dissection. Irregular athe rosclerotic calcification. Pelvis: Iliac Arteries: Plaque at the proximal common iliac arteries causing mild stenosis on the left. Common Femoral Arteries: No evidence of occlusion or significant stenosis. ABDOMEN: Liver: Normal density. No measurable mass. Portal, Superior Mesenteric, and Splenic Veins: Unremarkable. Gallbladder and Biliary Tract: No radiodense calculus or dilation. Pancreas: Normal density, no abnormal calcifications or inflammatory process. Spleen: Normal. Adrenals: No masses seen. Kidneys: Normal size, contour and axis. No radiodense stones or obstructive uropathy. No masses seen. Bowel: No obstruction or bowel wall thickening. Severe diverticulosis. No evidence of diverticuli tis. Peritoneal Cavity: No ascites, collection or mesenteric inflammatory response. Lymph Nodes: Within normal limits. Bones: Degenerative changes and scoliosis in the spine. Soft Tissues: Unremarkable. PELVIS: Bladder: Symmetric distention, no gross wall thickening. Reproductive Organs: Status post hysterectomy. Lymph Nodes: Within normal limits. Bones: Within normal limits. IMPRESSION: Mild infiltrates in the right upper and lower lobes may represent pneumonitis. Stable diameter of ascending aorta at 4 cm. Stable appearance of stool approximate 50 percent stenosis at the celiac axis. Stable mild narrowing of the left proximal common iliac artery. Moderate size hiatal hernia. Severe diverticulosis. RADIATION DOSE DELIVERED: Total DLP DATA REPOSITORY: All CT scans at this facility are submitted to the National Radiology Data Registry (NRDR) Dose Index Registry (DIR) with the [employer] (ACR). RADIATION OPTIMIZATION: All CT scans at this facility use at least one of these dose optimization te chniques: automated exposure control; mA and/or kV adjustment per patient size (includes targeted exa ms where dose is matched to clinical indication); or iterative reconstruction.
[2024-04-06] MEDS: Normal Saline - Diluent 50 ML VIAL IJ (18:44)
[2024-04-06] MEDS: Omnipaque 350 MG/ML 100 ML BTL IJ (18:46)
[2024-04-06 18:54] LABS: Lab Add On Test DONE
[2024-04-06 19:16] LABS: TSH (W/Ref FT4) 0.37 uIU/mL (0.36-3.74)
--- NOTE | 2024-04-06 19:47 | DI.VRAD_ITS ---
PROCEDURE INFORMATION: Exam: CTA Chest With Contrast CTA Abdomen and Pelvis With Contrast Exam date and time: 04/06/2024 6:43 PM Age: 84 years old Clinical indication: Chest wall pain; Other: Chest pain, cta chest/abd/pel for aorta TECHNIQUE: Imaging protocol: Computed tomographic angiography of the chest with contrast. Exam focused on the arteries. Computed tomographic angiography of the abdomen and pelvis with contrast. Exam focused on the arteries. 3D rendering (Not supervised by radiologist): MIP and/or 3D reconstructed images were created by the technologist. Contrast material: OMNI 350; Contrast volume: 100 ml; Contrast route: INTRAVENOUS (IV); COMPARISON: CT THORAX ABD/PEL CTA 10/07/2023 8:45 PM FINDINGS: VASCULATURE: Pulmonary arteries: Normal. No pulmonary emboli. Aorta: There is stable mild fusiform dilation of the ascending aorta measuring maximum diameter of 4 cm. Mild scattered atherosclerotic calcification of the thoracic aorta. No evidence of aortic dissection. Moderate atherosclerotic calcification throughout the distal aorta. Celiac trunk and mesenteric arteries: Greater than 50% stenosis of the origin of the celiac artery. Renal arteries: No occlusion or significant stenosis. Right iliac arteries: No occlusion or significant stenosis. Left iliac arteries: Mural thrombus produces mild stenosis of the left common iliac artery. Left internal and external iliac arteries appear widely patent. Thyroid: Stable heterogeneous appearance of the thyroid gland moderate enlargement left lobe with multiple nodular appearing in the thyroid. CHEST: Lungs: Minimal ground-glass infiltrate right upper lobe and right lower lobe. Left lung appears largely clear. Pleural spaces: Unremarkable. No pneumothorax. No pleural effusion. Heart: Unremarkable. No cardiomegaly. No pericardial effusion. Diaphragm: Stable moderate-sized sliding-type hiatal hernia. ABDOMEN AND PELVIS: Liver: No mass. Gallbladder and biliary ducts: Unremarkable. No calcified stones. No ductal dilation. Pancreas: Unremarkable. No mass. No ductal dilation. Spleen: Unremarkable. No splenomegaly. Adrenal glands: Unremarkable. No mass. Kidneys and ureters: Unremarkable. No solid mass. No hydronephrosis. Stomach and bowel: Apparent wall thickening of the herniated portion of the stomach. Distal stomach appears unremarkable. Significant diverticulosis of the distal colon. No large or small bowel wall thickening or evidence of obstruction. Appendix: No evidence of appendicitis. Intraperitoneal space: Unremarkable. No free air. No significant fluid collection. Urinary bladder: Unremarkable. No mass. Reproductive: Unremarkable as visualized. Lymph nodes: Unremarkable. No enlarged lymph nodes. Bones/joints: Moderate thoracolumbar scoliosis. Significant multilevel degenerative disc changes. No vertebral body compression or acute fracture. Soft tissues: Unremarkable. IMPRESSION: 1. Stable moderate-sized sliding-type hiatal hernia apparent wall thickening of the herniated portion of the stomach. While this may simply be due to underdistention or peristalsis, the possibility of gastritis or infiltrating neoplasm should be considered depending on clinical presentation. 2. 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 Other incidental atherosclerotic changes as noted 3. Minimal ground-glass infiltrate in the right upper and lower lobes concerning mild pneumonitis. 4. No evidence of acute aortic pathology. Dictated and Authenticated by: Javi Soto MD. Ordering:ANAT Castañeda MD
[2024-04-06 20:06] LABS: Troponin I < 50 ng/L (< or =60)
--- NOTE | 2024-04-06 20:19 | NUR.NOTE ---
Referral faxed to [facility] Marialuisa Boyer to f/u next week for chest pain.Nursing Note:
--- NOTE | 2024-04-11 10:49 | NUR.NOTE ---
Accessed chart to reconcile [facility] EKG orders with [facility] EKG's in system. Duplicate order cancelled. Nursing Note:
== END 2024-04-06 20:16 | disposition home or self-care (01) ==
PROVIDERS: Emergency Provider Nurse Practitioner Family; PCP Nurse Practitioner Family
DX: R07.9 Chest pain, unspecified (principal); R06.02 Shortness of breath; R42 Dizziness and giddiness; I10 Essential (primary) hypertension; K44.9 Diaphragmatic hernia without obstruction or gangrene; Z79.01 Long term (current) use of anticoagulants; Z86.79 Personal history of other diseases of the circulatory system
CPT/HCPCS: 71275; 80053; 93005; 99285; 71046; 74174; 83735; 83880; 84443; 84484; 85025; 85610; 93010; 99283; J3490

== ENCOUNTER → 2024-04-17 10:47 | Outpatient (BNVA) | payer OTHER, SELFPAY | PROVIDERS: PCP Nurse Practitioner Family; Visit Provider Internal Medicine Cardiovascular Disease | DX: I48.0 Paroxysmal atrial fibrillation (principal); I77.810 Thoracic aortic ectasia; I10 Essential (primary) hypertension | CPT/HCPCS: 99213 ==

== ENCOUNTER 2024-05-01 13:13 | Emergency (ER) | payer OTHER, SELFPAY ==
[2024-05-01] VITALS (21 sets, daily range): BP systolic 189–212; BP diastolic 61–101; PULSE 48–58; RESP 9–21; TEMP 36.2–36.6; O2SAT 98–100
--- NOTE | 2024-05-01 13:55 | ED.GENADUL_ITS ---
Discharge Plan Disposition Patient Disposition: Home Condition: Good Discharge Details Clinical Impression: Mood change, Dizziness Primary Care Provider: Fatuma Boyer ED Provider: Garrett Antonio Home Meds and New Rx's Prescriptions: No Action losartan 50 mg tablet 50 mg PO DAILY verapamil 120 mg capsule,ext rel. pellets 24 hr See Rx Instructions .ROUTE .COMPLEX Qty: 90 3RF Dose Instruction: TAKE 1 CAPSULE DAILY Rx Instructions: TAKE 1 CAPSULE DAILY donepezil 5 mg Tablet 5 mg PO QHS levothyroxine 50 mcg Tablet 50 mcg PO DAILY@0600 Qty: 30 0RF warfarin [Jantoven] 1 mg tablet 2 - 3 tab PO DAILY Rx Instructions: 2mg Sun// 3mg Tuesday/Tue/Tue/Tue multivitamin [Daily Multiple] 1 EACH tablet 1 ea PO DAILY acetaminophen 500 mg tablet 1,000 mg PO Q8H PRN (Reason: pain) Qty: 90 3RF memantine 10 mg tablet 10 mg PO BID Discharge Instructions Instructions: [facility] HPI General Date/Time Provider Initiated Documentation: 05/01/24 13:20 . HPI Narrative: This is an 84-year-old female with past medical history of dementia, who is currently on Coumadin for A-fib, hypertension, high cholesterol, carotid artery disease, mildly dilated ascending aorta which has been recently imaged and remained stable, who has had a mild stroke in the past, presents today for evaluation of change in mental status. Family states that she was at the [facility] today when she suddenly became very aggressive agitated and confused while getting her blood pressure taken. This continued for a few minutes and slowly gradually improved. She also had some mild associated shortness of breath which was very minimal. She denies falls or trauma. She denies any medication changes. She denies any numbness tingling or weakness. No other complaints at this time. Family states that she seems to be back to her mental baseline at this point. No other complaints or modifying factors currently. No falls or trauma recently. Related Data Home Medications ?Medication ?Instructions ?Recorded ?Confirmed multivitamin (Daily Multiple 1 ea PO DAILY 07/28/17 05/01/24 tablet) losartan 50 mg tablet 50 mg PO DAILY 08/09/18 05/01/24 acetaminophen 500 mg tablet 1,000 mg (2 x 500 mg) PO Q8H PRN 04/12/19 05/01/24 pain #90 tabs donepezil 5 mg tablet 5 mg PO QHS 06/22/21 05/01/24 levothyroxine 50 mcg tablet 50 mcg PO DAILY@0600 #30 tabs 06/26/21 05/01/24 warfarin 1 mg tablet (Jantoven) 2 - 3 tab PO DAILY 02/11/22 05/01/24 verapamil 120 mg 24 hr See Rx Instructions .Route 05/02/23 05/01/24 capsule,extended release .COMPLEX #90 caps memantine 10 mg tablet 10 mg PO BID 09/04/23 05/01/24 Previous Rx's ?Medication ?Instructions ?Recorded acetaminophen 500 mg tablet 1,000 mg (2 x 500 mg) PO Q8H PRN 04/12/19 pain #90 tabs levothyroxine 50 mcg tablet 50 mcg PO DAILY@0600 #30 tabs 06/26/21 verapamil 120 mg 24 hr See Rx Instructions .Route 05/02/23 capsule,extended release .COMPLEX #90 caps Allergies Allergy/AdvReac Type Severity Reaction Status Date / Time No Known Allergies Allergy Verified 04/17/24 11:06 General Stated Complaint: Anxiety DARIUS: 3 Review of Systems All systems reviewed & are unremarkable except as noted in HPI and below Exam Narrative Exam Narrative: 1.Const: Well-nourished, Well-developed, appearing stated age 2.Eyes: PERRL, no conjunctival injection, and symmetrical lids. 3.ENT: Atraumatic external nose and ears. Moist MM. Neck: Symmetric, trachea midline, No thyromegaly. 4.CVS: +S1/S2, No murmurs or gallops. Peripheral pulses 2+ and equal in all extremities. Brisk capillary refill in all extremities. 5.RESP: Unlabored respiratory effort. Clear to auscultation bilaterally. No wheezes rales or rhonchi 6.GI: Soft, Nontender/Nondistended, No hepatosplenomegaly. No guarding or rebound. 7.MSK: Normocephalic/Atraumatic, Extremities w/o deformity or ttp No cyanosis or clubbing, Normal movement of all extremities 8.Skin: Warm, Dry. No rashes or lesions. 9.Neuro: wildlife officer II-XII grossly intact. Sensation grossly intact, no focal neurologic deficits. All 6 cardinal planes of vision are fully intact. No evidence of rotatory or vertical nystagmus. The patient demonstrated a normal [id number], good dexterity. There was no evidence of dysdiadochokinesia. Patient was able to ambulate without difficulty. There was no wide-based gait. Romberg testing was normal. [id number] testing was normal. Sensation was intact bilaterally as well as muscle strength bilaterally for all extremities. Patient was able to verbalize butter cup with no slurring, or miss pronunciation. 10.Psych: (AAO) x3. Appropriate mood and affect Course Vital Signs Vital signs: Vital Signs Temperature 36.6 C 05/01/24 13:18 Pulse 57 L 05/01/24 13:18 Respiratory Rate 20 05/01/24 13:18 Blood Pressure 190/61 H 05/01/24 13:18 Pulse Oximetry 99 05/01/24 13:18 Temperature 36.6 C 05/01/24 13:18 Pulse 48 L 05/01/24 13:29 Pulse 48 L 05/01/24 13:30 Respiratory Rate 15 05/01/24 13:30 Respiratory Effort Normal, Non-Labored 05/01/24 13:30 Respiratory Depth Normal 05/01/24 13:30 Blood Pressure 205/76 H 05/01/24 13:29 Blood Pressure Mean 127 05/01/24 13:29 Pulse Oximetry 100 05/01/24 13:30 Medical Decision Making This is an 84-year-old female with past medical history of dementia, who is currently on Coumadin for A-fib, hypertension, high cholesterol, carotid artery disease, mildly dilated ascending aorta which has been recently imaged and remained stable, who has had a mild stroke in the past, presents today for evaluation of change in mental status. Family states that she was at the [facility] today when she suddenly became very aggressive agitated and confused while getting her blood pressure taken. This continued for a few minutes and slowly gradually improved. She also had some mild associated shortness of breath which was very minimal. She denies falls or trauma. She denies any medication changes. She denies any numbness tingling or weakness. No other complaints at this time. Family states that she seems to be back to her mental baseline at this point. No other complaints or modifying factors currently. No falls or trauma recently. Exam demonstrates well-appearing female, no signs of trauma, neurologic exam normal, lungs are clear. Differential includes acute mental status change s econdary to dementia, bleed intracranially, electrolyte disturbance of thyroid dysfunction. That being said the patient looks notably well at this time. ACS or cardiac etiology is on the differential but unlikely. Will gently rehydrate, check for UTI, evaluate for these etiologies, monitor closely and reassess. 3:[address] scan has returned, no evidence of acute process. Laboratory workup shows no white count bandemia or left shift, INR is near baseline. VBG shows no respiratory acidosis. She actually has minimal alkalosis. Electrolytes normal, renal function normal. Bilirubin elevated at 1.7, however this has been consistent with prior values. Troponin normal, thyroid function normal, urinalysis shows no evidence of infection. I did contact the patient's primary care provider Marialuisa Boyer, we discussed the case together. She is concerned about the episodes that happened at the clinic where the patient was getting very angry, hitting her head, and yelling I just cannot do this. She was also very concerned that the daughter felt that she was not able to care for the patient while at home with these episodes that seem to be recurring. They are currently trying to get into [place] in, but that will not be feasible until later this fall. Marialuisa did ask that we reach out to case management to further discuss additional home options. Right now the patient demonstrates a normal mental status, normal neurologic assessment, normal workup with no signs of infection electrolyte abnormality or other atypical component. On personal physical exam at this time her interactions are very normal, and there does not appear to be the active episodes right now that were happening a few hours ago. I do not see an indication for admission at this point, however we will discuss with case management potential outpatient assistance. 4:59 PM Case management will come and evaluate the patient. Patient on reassessment remained stable and shows no focal neurologic deficits or abnormalities. I did discuss with family potential additional outpatient resources. The daughter states that she works night shifts now and is at home during the day to help with the patient. However case management will still come and evaluate the patient here. Patient otherwise is notably stable for discharge. Marialuisa Merlin did state that they have tried meclizine in the past for the dizziness and it actually made her sedated, so we will avoid this moving forward. Patient will be signed out to my colleague Dr. Cardenas for follow-up with case management. FINDINGS: Ventricles and Extra axial spaces: Normal in size and morphology for the patient's age. Hemorrhage: None. Cerebral parenchyma: No evidence of acute infarct or mass. Mild atrophy. Mild white matter changes of small vessel disease. Midline shift: None. Brainstem/Cerebellum: Normal. Calvarium: Normal. Visualized Paranasal sinuses:Minimal mucous retention left sphenoid sinus. Mastoids: Clear. Soft Tissues: Unremarkable. ORBITS: Unremarkable. PITUITARY: Not enlarged. IMPRESSION: No acute intracranial process. Quality:SDOH Health Related Social Needs: No Data to Display PFSH All Active Problems (Updated 05/01/24 @ 16:01 by Garrett Antonio DO) Mood change (Acute) Esophageal hiatal hernia (Chronic) Chest pain (Acute) Family circumstance (Acute) Impaired instrumental activities of daily living (IADL) (Acute) Dementia (Chronic) ACP (advance care planning) (Acute) Mild ascending aorta dilation (Acute) Bacteremia (Acute) Subdural hematoma (Acute) Chronic anticoagulation (Acute) Acute UTI (Acute) Discharge planning issues (Acute) DVT prophylaxis (Acute) Hypothyroidism (Chronic) HTN (hypertension) (Chronic) Acute UTI (Acute) Syncope and collapse (Acute) Closed head injury (Acute) 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 Montague Sprain of medial collateral ligament of left knee (Acute) Osteoarthritis of right knee (Chronic) Injected: 09/04/2018 Memory loss (Acute) Thoracic aortic aneurysm (Chronic) Diastolic dysfunction (Acute) Iron deficiency anemia (Acute) Esophagitis (Acute) Bloody stools (Acute) Carotid arterial disease (Acute) Dizziness (Acute) Fatigue (Acute) Stress incontinence (Acute) Overweight (Acute) Osteopenia (Acute) Osteoarthritis (Chronic) Skin lesion of face (Acute) Varicose veins of both lower extremities (Acute) Tubular adenoma of colon (Acute) Paroxysmal atrial fibrillation (Chronic) Anxiety (Chronic) Medical History GERD (gastroesophageal reflux disease) Carotid stenosis Surgical History History of bladder surgery Bladder sling surgery x 2 EGD - MAC (08/23/17) Colonoscopy - MAC (08/23/17) Cholecystectomy Family History Father Alcohol use disorder Mother Dementia Social History Smoking/Tobacco Use Status: Never Smoking risk assessment performed?: Yes Alcohol Intake: current Alcohol Intake frequency: a few times a month Alcohol type: wine Details: rare use, nothing in past several weeks Drug use: Never Substance use type: does not use Household members: family Housing: house Current gender identity: female What is your relationship status?: Panel score (0-1 are the most socially isolated patients): 0 Do you feel safe at home: Yes Do you feel safe in your relationship?: Yes Additional Social history: of many years in 06/2020. Kids in area. Lives with daughter
[2024-05-01] MEDS: Normal Saline 500 ML IV (14:02)
[2024-05-01 14:03] LABS: BE (Venous) 1 mmol/L (-2-3); HCO3 (Venous) 25 mmol/L (23-28); O2 Sat (Venous) 59 %; TCO2 (Venous) 23 mmol/L (24-29); pCO2 (Venous) 35 mmHg (41-51); pH (Venous) 7.46 (7.31-7.41); pO2 (Venous) 29 mmHg
[2024-05-01 14:06] LABS: Absolute Basophil Count 0.02 10^3/uL (0.0-0.2); Absolute Eosinophil Count 0.11 10^3/uL (0.0-0.7); Absolute Lymphocyte Count 1.74 10^3/uL (1.2-3.4); Absolute Monocyte Count 0.46 10^3/uL (0.1-0.8); Basophils % 0.4 %; Eosinophils % 2.4 %; HCT 40.4 % (36.0-46.0); HGB 13.2 g/dL (11.2-15.7); Lymphocytes % 38.4 %; MCHC 32.7 % (32.0-36.0); MCV 89 fL (80-95); Monocytes % 10.2 %; Neutrophils % 48.6 %; Platelet Count 142 10^3/uL (130-400); RBC 4.55 10^6/uL (3.93-5.22); RDW 14.5 % (11.7-14.6); WBC 4.53 10^3/uL (4.4-10.8)
[2024-05-01 14:20] LABS: PTT Activated 30.9 sec (23.6-32.8)
[2024-05-01 14:30] LABS: ALT 18 U/L (14-59); AST 25 U/L (15-37); Albumin 3.5 g/dL (3.4-5.0); Alkaline Phosphatase 101 U/L (46-116); Anion Gap 7.5 mmol/L (3-11); BUN 14 mg/dL (7-18); Bilirubin, Total 1.72 mg/dL (0.2-1.0); CO2 27.5 mmol/L (21.0-32.0); CREATININE 1.1 mg/dL (0.55-1.02); Calcium 9.7 mg/dL (8.5-10.1); Chloride 108 mmol/L (98-107); Estimated GFR 49.55 (mL/min/1.73m2); Glucose 101 mg/dL (74-106); Potassium 4.4 mmol/L (3.5-5.1); Sodium 143 mmol/L (136-145); TSH (W/Ref FT4) 0.53 uIU/mL (0.36-3.74); Troponin I < 50 ng/L (< or =60)
--- NOTE | 2024-05-01 15:02 | DI.CT_ITS ---
Exam(s) CT HEAD WO EXAM: CT HEAD WO CLINICAL HISTORY: confused, altered mental status. TECHNIQUE: Imaging Protocol: Axial computed tomography images with coronal and sagittal reformatted images were created and reviewed COMPARISON: CT CT HEAD WO from 07/02/2022 FINDINGS: Ventricles and Extra axial spaces: Normal in size and morphology for the patient's age. Hemorrhage: None. Cerebral parenchyma: No evidence of acute infarct or mass. Mild atrophy. Mild white matter changes of small vessel disease. Midline shift: None. Brainstem/Cerebellum: Normal. Calvarium: Normal. Visualized Paranasal sinuses:Minimal mucous retention left sphenoid sinus. Mastoids: Clear. Soft Tissues: Unremarkable. ORBITS: Unremarkable. PITUITARY: Not enlarged. IMPRESSION: No acute intracranial process. RADIATION DOSE DELIVERED: Total DLP DATA REPOSITORY: All CT scans at this facility are submitted to the National Radiology Data Registry (NRDR) Dose Index Registry (DIR) with the [employer] (ACR). RADIATION OPTIMIZATION: All CT scans at this facility use at least one of these dose optimization te chniques: automated exposure control; mA and/or kV adjustment per patient size (includes targeted exa ms where dose is matched to clinical indication); or iterative reconstruction.
[2024-05-01 15:31] LABS: Bilirubin Negative (Negative); Blood Negative (Negative); Clarity Clear (Clear); Glucose Negative (Negative); Ketones Negative (Negative); Leukocyte Esterase Negative (Negative); Nitrite Negative (Negative); Urobilinogen 0.2 mg/dL (Up to 0.2); pH 7.5 (5-8)
--- NOTE | 2024-05-01 17:12 | W.EDPROG ---
Date of service: 05/01/24 Time of Service: 17:13 Medical Decision Making Patient stable currently asymptomatic, met with care management and patient's family is comfortable bringing her home and they have outpatient resources set up. Return precautions given Quality:SDOH Health Related Social Needs: No Data to Display Sign Out Sign Out Data: Sign Out Comment: Atypical dizzy and anger and mood abnormality at family doctor's office. Laboratory workup and imaging workup negative. Follow-up with case management for outpatient assistance. Last updated by Garrett Antonio DO at 05/01/24 17:03 Discharge Plan Disposition Patient Disposition: Home Condition: Good Discharge Details Clinical Impression: Mood change, Dizziness Primary Care Provider: Fatuma Boyer ED Provider: Brad Cardenas Home Meds and New Rx's Prescriptions: Continued losartan 50 mg tablet 50 mg PO DAILY verapamil 120 mg capsule,ext rel. pellets 24 hr See Rx Instructions .ROUTE .COMPLEX Qty: 90 3RF Dose Instruction: TAKE 1 CAPSULE DAILY Rx Instructions: TAKE 1 CAPSULE DAILY donepezil 5 mg Tablet 5 mg PO QHS levothyroxine 50 mcg Tablet 50 mcg PO DAILY@0600 Qty: 30 0RF warfarin [Jantoven] 1 mg tablet 2 - 3 tab PO DAILY Rx Instructions: 2mg Sun//urs 3mg Tuesday/Tue/Tue/Sat multivitamin [Daily Multiple] 1 EACH tablet 1 ea PO DAILY acetaminophen 500 mg tablet 1,000 mg PO Q8H PRN (Reason: pain) Qty: 90 3RF memantine 10 mg tablet 10 mg PO BID Discharge Instructions Instructions: [facility] ED Additional Instructions: Follow-up with your primary care provider as needed If you feel more ill or have new symptoms such as difficulty breathing or persistent vomiting return to the emergency department
[2024-05-01] MEDS: Meclizine 25 MG TAB PO (17:27)
== END 2024-05-01 17:34 | disposition home or self-care (01) ==
PROVIDERS: Student in an Organized Health Care Education/Training Program; Emergency Provider Emergency Medicine; PCP Nurse Practitioner Family
DX: R45.86 Emotional lability (principal); I10 Essential (primary) hypertension; R42 Dizziness and giddiness; Z79.01 Long term (current) use of anticoagulants
CPT/HCPCS: 00123; 36415; 80053; 82805; 96360; 96361; 99284; 70450; 81003; 84443; 84484; 85025; 85610; 85730; 99283

== ENCOUNTER 2024-07-17 16:23 | Outpatient (REF) | payer OTHER, SELFPAY ==
[2024-07-17 15:54] LABS: INR 2.4 (0.9-1.1); Prothrombin Time 22.7 sec (9.1-11.1)
== END 2024-07-17 16:24 | disposition home or self-care (01) ==
LOC: NCHCN 16:23
PROVIDERS: PCP Nurse Practitioner Family; Visit Provider Nurse Practitioner Family
DX: I48.0 Paroxysmal atrial fibrillation (principal)
CPT/HCPCS: 85610

== ENCOUNTER 2024-08-22 15:06 | Outpatient (REF) | payer OTHER, SELFPAY ==
[2024-08-22 15:19] LABS: INR 1.8 (0.9-1.1); Prothrombin Time 17.3 sec (9.1-11.1)
== END 2024-08-22 15:07 | disposition home or self-care (01) ==
LOC: NCHCN 15:06
PROVIDERS: PCP Nurse Practitioner Family; Visit Provider Nurse Practitioner Family
DX: I48.0 Paroxysmal atrial fibrillation (principal)
CPT/HCPCS: 85610

== ENCOUNTER 2024-08-29 10:34 | Outpatient (REF) | payer OTHER, SELFPAY ==
[2024-08-29 12:23] LABS: Prothrombin Time 21.1 sec (9.1-11.1)
[2024-08-29 12:28] LABS: INR 2.2 (0.9-1.1)
== END 2024-08-29 10:35 | disposition home or self-care (01) ==
LOC: NCHCN 10:34
PROVIDERS: PCP Nurse Practitioner Family; Visit Provider Nurse Practitioner Family
DX: I48.0 Paroxysmal atrial fibrillation (principal)
CPT/HCPCS: 85610

== ENCOUNTER 2024-09-24 15:07 | Outpatient (REF) | payer OTHER, SELFPAY ==
[2024-09-24 13:50] LABS: Prothrombin Time 31.1 sec (9.1-11.1)
[2024-09-24 13:53] LABS: INR 3.4 (0.9-1.1)
== END 2024-09-24 15:08 | disposition home or self-care (01) ==
LOC: NCHCN 15:07
PROVIDERS: PCP Nurse Practitioner Family; Visit Provider Nurse Practitioner Family
DX: I48.0 Paroxysmal atrial fibrillation (principal)
CPT/HCPCS: 85610

== ENCOUNTER 2024-09-27 21:23 | Outpatient (REF) | payer MEDICARE, SELFPAY ==
[2024-09-27 15:51] LABS: INR 2.5 (0.9-1.1); Prothrombin Time 22.9 sec (9.1-11.1)
== END 2024-09-27 21:24 | disposition home or self-care (01) ==
LOC: NCHCN 21:23
PROVIDERS: PCP Nurse Practitioner Family; Visit Provider Nurse Practitioner Family
DX: I48.0 Paroxysmal atrial fibrillation (principal)
CPT/HCPCS: 85610

== ENCOUNTER 2024-10-03 16:31 | Outpatient (REF) | payer MEDICARE, SELFPAY ==
[2024-10-03 16:48] LABS: INR 2.4 (0.9-1.1); Prothrombin Time 22.4 sec (9.1-11.1)
== END 2024-10-03 16:32 | disposition home or self-care (01) ==
LOC: NCHCN 16:31
PROVIDERS: PCP Nurse Practitioner Family; Visit Provider Nurse Practitioner Family
DX: I48.0 Paroxysmal atrial fibrillation (principal)
CPT/HCPCS: 85610

== ENCOUNTER 2024-10-17 12:12 | Outpatient (REF) | payer MEDICARE, SELFPAY ==
[2024-10-17 12:01] LABS: INR 2.2 (0.9-1.1); Prothrombin Time 20.9 sec (9.1-11.1)
== END 2024-10-17 12:13 | disposition home or self-care (01) ==
LOC: NCHCN 12:12
PROVIDERS: PCP Nurse Practitioner Family; Visit Provider Nurse Practitioner Family
DX: I48.0 Paroxysmal atrial fibrillation (principal)
CPT/HCPCS: 85610

== ENCOUNTER 2024-11-13 15:18 | Inpatient (IN) | payer MEDICARE, MEDICAID, SELFPAY ==
[2024-11-13] VITALS (150 sets, daily range): BP systolic 145–219; BP diastolic 76–154; PULSE 49–124; RESP 10–38; TEMP 36.4–37; O2SAT 77–100
--- NOTE | 2024-11-13 15:15 | RT.EKG_ITS ---
APPROVED REPORT Exam: Resting ECG Reason for Exam: Chest Pain Patient Location: E HR:55 bpm ECG Measurements Heart Rate 55 AXIS TN 177 P 42 QRSd 101 QRS -5 QT 427 T 4 QTc 411 Conclusion Sinus bradycardia...rate< 60 No STEMI
--- NOTE | 2024-11-13 16:15 | ED.GENADUL_ITS ---
Discharge Plan Disposition Patient Disposition: Admit to [facility] Discharge Details Clinical Impression: Acute non-ST elevation myocardial infarction (NSTEMI) Primary Care Provider: Fatuma Boyer ED Provider: Orlando Armenta Home Meds and New Rx's Prescriptions: No Action losartan 50 mg tablet 50 mg PO DAILY verapamil 120 mg capsule,ext rel. pellets 24 hr See Rx Instructions .ROUTE .COMPLEX Qty: 90 3RF Dose Instruction: TAKE 1 CAPSULE DAILY Rx Instructions: TAKE 1 CAPSULE DAILY donepezil 5 mg Tablet 5 mg PO QHS levothyroxine 50 mcg Tablet 50 mcg PO DAILY@0600 Qty: 30 0RF warfarin [Jantoven] 1 mg tablet 2 - 3 tab PO DAILY Rx Instructions: 2mg Sun// 3mg Tuesday/Tue/Tue/Tue multivitamin [Daily Multiple] 1 EACH tablet 1 ea PO DAILY acetaminophen 500 mg tablet 1,000 mg PO Q8H PRN (Reason: pain) Qty: 90 3RF memantine 10 mg tablet 10 mg PO BID HPI General Date/Time Provider Initiated Documentation: 11/13/24 15:38 . HPI Narrative: MDM This is an overall well-appearing afebrile and not tachycardic 84-year-old female with intermittent chest tightness concerning for multiple etiologies. Based on patient age ACS is certainly a possibility so we will send troponin testing to the patient ischemic ECG showing sinus bradycardia with interventricular conduction delay normal axis and QTc and UT within normal limits. Compared to prior patient does have left lateral chest wall ST segment depressions. There is very minor submillimeter ST segment elevation in leads V1 and aVR. Will treat with 324 mg of aspirin. Patient has a history of thoracic aortic aneurysm however has had no tearing quality to her pain so my suspicion for aortic dissection is low. Patient is short of breath but is otherwise low risk for PE so we will send a D-dimer to rule stratify for PE. No fevers no cough to suggest pneumonia. No trauma and equal breath sounds without pneumothorax. Not hypotensive nor dialysis patient making my suspicion low for tamponade. Patient has not been vomiting to suggest increased risk for esophageal rupture. No rash to chest to suggest zoster. I considered CVA however beyond the patient's confusion which daughter reports is at baseline she has no focal neurological deficits so I did not feel that she would be a tPA candidate and would benefit from an MRI. Patient does not appear volume overloaded so I am not concern for acute heart failure. 5 PM Patient had a significantly elevated troponin at greater than 10 times upper limit of normal: 1381 ng/L. Will initiate heparin drip and cardiology transferred [place] [facility] Repeat ECG showing slightly improved ST segment depressions. Not meeting STEMI criteria. There is mild ST segment upsloping new in aVL. Patient has ongoing chest pain for which we will treat with nitroglycerin. 6pm I spoke to Dr. Judge from cards at [facility] who agree w/heparin & ASA. He advised 300 mg clopidogrel and nitro gtt. Patient will be listed for 11/14. Dr. Pisano accepting for tomorrow. 11 PM Late charting due to patient care. Patient had third ECG with more concerning ST segment depressions. Posterior ECG was obtained and this did not meet STEMI criteria. [facility] [place]eng[place]. They still advised local hospitalization. Was in touch with Dr. Sosa who graciously agreed to accept the patient for hospitalization. We obtained a CT scan which was negative for aortic dissection and PE. [facility] advised decreasing the patient's blood pressure from 199 mmHg systolic to 150 mmHg systolic. Chronic conditions affecting the care of the patient: Dementia hypertension History obtained from an outside historian: Patient and her daughter External record review: N/A Diagnostic interpretations performed by me: Per my independent interpretation chest x-ray shows: Per my independent interpretation EKG shows: Minor ST segment depressions left chest wall leads. ]Medications: 324 mg aspirin heparin clopidogrel nitro drip Social determinants of health affecting disposition: N/A Management discussed with: Cardiology hospitalist Treatment/interventions considered: N/A Response to therapies provided: No recurrent chest pain in the ED HPI This is an 84-year-old female with history of dementia diastolic dysfunction right in the emergency department via private vehicle in the setting of intermittent chest pain. Patient arrives with her daughter who provides history. Patient was reportedly feeling short of breath and having intermittent sharp central chest pain. She denies radiation of her pain. She denies abdominal pain nausea vomiting leg swelling fevers and cough. She has no history of PE nor DVT. She has a history of paroxysmal atrial fibrillation for which she takes warfarin. Exam General: Well-appearing in no acute distress speaking in complete sentences. Head: Normocephalic, atraumatic. Eye: Extraocular eye movements intact. No conjunctival injection. No scleral icterus. Ear, nose, mouth, throat: Grossly normal inspection. Normal voice, handling secretions normally. Neck: Trachea midline. Cardiovascular: Well-perfused distal extremities. Regular rate and rhythm. Respiratory: Nonlabored respiration. Clear lungs bilaterally. No wheezes. Gastrointestinal: Nondistended abdomen. Soft nontender. Musculoskeletal: No significant lower extremity pitting edema. Moving all 4 extremities spontaneously. Skin: Normal for age and race, grossly normal temperature and turgor. No acute rash. Neurologic: Alert to person and place but not time. Cranial nerves II to XII intact grossly. 5 out of 5 bilateral upper and lower extremity strength. Related Data Home Medications ?Medication ?Instructions ?Recorded ?Confirmed multivitamin (Daily Multiple 1 ea PO DAILY 07/28/17 05/01/24 tablet) losartan 50 mg tablet 50 mg PO DAILY 08/09/18 11/13/24 acetaminophen 500 mg tablet 1,000 mg (2 x 500 mg) PO Q8H PRN 04/12/19 11/13/24 pain #90 tabs donepezil 5 mg tablet 5 mg PO QHS 06/22/21 11/13/24 levothyroxine 50 mcg tablet 50 mcg PO DAILY@0600 #30 tabs 06/26/21 11/13/24 warfarin 1 mg tablet (Jantoven) 2 - 3 tab PO DAILY 02/11/22 11/13/24 memantine 10 mg tablet 10 mg PO BID 09/04/23 11/13/24 verapamil 120 mg 24 hr See Rx Instructions .Route 07/02/24 capsule,extended release .COMPLEX #90 caps Previous Rx's ?Medication ?Instructions ?Recorded acetaminophen 500 mg tablet 1,000 mg (2 x 500 mg) PO Q8H PRN 04/12/19 pain #90 tabs levothyroxine 50 mcg tablet 50 mcg PO DAILY@0600 #30 tabs 06/26/21 verapamil 120 mg 24 hr See Rx Instructions .Route 07/02/24 capsule,extended release .COMPLEX #90 caps Allergies Allergy/AdvReac Type Severity Reaction Status Date / Time No Known Allergies Allergy Verified 11/13/24 19:04 General Stated Complaint: Chest Pain DARIUS: 3 Course Vital Signs Vital signs: Vital Signs Pulse 57 L 11/13/24 15:26 Respiratory Rate 16 11/13/24 15:26 Blood Pressure 190/79 H 11/13/24 15:26 Pulse Oximetry 99 11/13/24 15:26 Temperature Source Tympanic 11/13/24 15:26 Pulse 57 L 11/13/24 15:26 Respiratory Rate 16 11/13/24 15:26 Respiratory Effort Short of Breath, Pursed Lip 11/13/24 15:37 Respiratory Depth Deep 11/13/24 15:37 Blood Pressure 190/79 H 11/13/24 15:26 Blood Pressure Position Supine 11/13/24 15:26 Pulse Oximetry 99 11/13/24 15:26 Oxygen Delivery Method Room Air 11/13/24 15:26 Oxygen Flow Rate 0 11/13/24 15:26 Pain Level 0 11/13/24 15:37 Medical Decision Making Quality:SDOH Health Related Social Needs: Health related social needs feeling lonely/isolated (Z 60.8), education (Z55.6) Critical Care Time Critical Care Time Critical Care Time: Yes Total Critical Care Time: 45 Attestation: Myocardial injury bedside assessment consultation with cardiology [facility] All Active Problems (Updated 11/13/24 @ 21:58 by Orlando Navas) Hypertensive emergency (Acute) Acute non-ST elevation myocardial infarction (NSTEMI) (Acute) Family circumstance (Acute) Impaired instrumental activities of daily living (IADL) (Acute) Dementia (Chronic) ACP (advance care planning) (Acute) Mild ascending aorta dilation (Acute) Bacteremia (Acute) Subdural hematoma (Acute) Chronic anticoagulation (Acute) Acute UTI (Acute) Discharge planning issues (Acute) DVT prophylaxis (Acute) Hypothyroidism (Chronic) HTN (hypertension) (Chronic) Acute UTI (Acute) Syncope and collapse (Acute) Closed head injury (Acute) 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 Montague Sprain of medial collateral ligament of left knee (Acute) Osteoarthritis of right knee (Chronic) Injected: 09/04/2018 Memory loss (Acute) Thoracic aortic aneurysm (Chronic) Diastolic dysfunction (Acute) Esophagitis (Acute) Bloody stools (Acute) Carotid arterial disease (Acute) Dizziness (Acute) Fatigue (Acute) Stress incontinence (Acute) Overweight (Acute) Osteopenia (Acute) Osteoarthritis (Chronic) Skin lesion of face (Acute) Varicose veins of both lower extremities (Acute) Tubular adenoma of colon (Acute) Paroxysmal atrial fibrillation (Chronic) Anxiety (Chronic) Medical History (Updated 11/13/24 @ 21:58 by Orlando Navas) Iron deficiency anemia GERD (gastroesophageal reflux disease) Carotid stenosis Surgical History History of bladder surgery Bladder sling surgery x 2 EGD - MAC (08/23/17) Colonoscopy - MAC (08/23/17) Cholecystectomy Family History Father Alcohol use disorder Mother Dementia Social History (Updated 11/13/24 @ 21:34 by Orlando Navas) Smoking/Tobacco Use Status: Never Smoking risk assessment performed?: Yes Alcohol Intake: current Alcohol Intake frequency: a few times a month Alcohol type: wine Details: rare use, nothing in past several weeks Drug use: Never Substance use type: does not use Household members: family Housing: house Current gender identity: female What is your relationship status?: Panel score (0-1 are the most socially isolated patients): 0 Do you feel safe at home: Yes Do you feel safe in your relationship?: Yes Additional Social history: of many years in 06/2020. Kids in area. Daughter Nona and two sisters Zoila and Ellie are close. Now living at [facility]. PAWSS Have you Been Recently Intoxicated or Drunk Within the Last 30 days?: No Have you Ever Experienced Previous Episodes of Alcohol Withdrawal?: No Have you ever Experienced Withdrawal Seizures?: No Have you ever Experienced Delirium Tremens(DT)s?: No Have you ever undergone Alcohol Rehabilitation Treatment (i.e, inpt ot outpatient treatment programs)?: No Have you ever Experienced Blackouts?: No Have you ever Combined Alcohol with other Downers within the last 90 days?: No Have you ever Combined Alcohol with any other Substance of Abuse during the last 90 days?: No Positive Blood Alcohol level on Presentation? [PCS.BAL]: No Evidence of Increased Autonomic Activity (i.e. HR>120, tremor, sweating, agitation, nausea)?: No Result: 0
[2024-11-13 16:21] LABS: Absolute Basophil Count 0.03 10^3/uL (0.0-0.2); Absolute Lymphocyte Count 1.48 10^3/uL (1.2-3.4); Absolute Monocyte Count 0.58 10^3/uL (0.1-0.8); Absolute Neutrophil Count 2.37 10^3/uL (1.2-6.7); Basophils % 0.6 %; Eosinophils % 4.3 %; HCT 38.8 % (36.0-46.0); HGB 12.8 g/dL (11.2-15.7); Lymphocytes % 31.8 %; MCH 29.9 pg (27.0-33.0); MCV 91 fL (80-95); Monocytes % 12.4 %; Neutrophils % 50.9 %; Platelet Count 148 10^3/uL (130-400); RBC 4.28 10^6/uL (3.93-5.22); RDW 15.5 % (11.7-14.6); RDW-SD 51.2 fL; WBC 4.66 10^3/uL (4.4-10.8)
--- NOTE | 2024-11-13 16:28 | DI.RAD_ITS ---
Exam(s) XR PORTABLE CHEST AP EXAM: XR PORTABLE CHEST AP CLINICAL HISTORY: Chest pain. TECHNIQUE: 2D digital imaging was performed. COMPARISON: CR XR CHEST 2V PA LATERAL from 04/06/2024 FINDINGS: Single AP portable view. Heart size is upper normal. The upper mediastinum is not widened. There is a moderate size hiatal h ernia again noted in the lower posterior retrocardiac mediastinum. This appears unchanged in size fr om 04/06/2024. Lungs are clear. No infiltrates nor obvious pleural effusions. IMPRESSION: No acute pulmonary findings on this single AP portable view of the chest. Moderate size hiatal hernia again noted. DATA REPOSITORY: RADIATION DOSE DELIVERED:
[2024-11-13] MEDS: Aspirin 81 MG CHEW 324 MG CH (16:36)
[2024-11-13 16:41] LABS: INR 2.3 (0.9-1.1); Prothrombin Time 22.2 sec (9.1-11.1)
--- NOTE | 2024-11-13 16:45 | RT.EKG_ITS ---
APPROVED REPORT Exam: Resting ECG Reason for Exam: Chest pain Patient Location: E HR:56 bpm ECG Measurements Heart Rate [address] 190 P 38 QRSd 97 QRS -2 QT 442 T -1 QTc 428 Conclusion Sinus bradycardia...rate< 60 No STEMI
[2024-11-13 16:50] LABS: ALT 20 U/L (14-59); AST 32 U/L (15-37); Albumin 3.4 g/dL (3.4-5.0); Alkaline Phosphatase 77 U/L (46-116); Anion Gap 3.7 mmol/L (3-11); BUN 17 mg/dL (7-18); Bilirubin, Total 0.87 mg/dL (0.2-1.0); CO2 29.3 mmol/L (21.0-32.0); CREATININE 1.1 mg/dL (0.55-1.02); Calcium 9.8 mg/dL (8.5-10.1); Chloride 109 mmol/L (98-107); Estimated GFR 49.55 (mL/min/1.73m2); Glucose 112 mg/dL (74-106); NT-proBNP 1057 pg/mL (<300); Potassium 4.5 mmol/L (3.5-5.1); Sodium 142 mmol/L (136-145); Total Protein 6.9 g/dL (6.4-8.2)
[2024-11-13 16:52] LABS: Troponin I 1381 ng/L (<or=51)
[2024-11-13 17:05] LABS: D-Dimer 286 ng/mlFEU (<500)
[2024-11-13 17:21] LABS: Troponin I 1274 ng/L (<or=51)
[2024-11-13] MEDS: Heparin in 0.45% NaCl 25,000 UNIT/250 ML BAG 8 UNIT IVINF (17:32)
[2024-11-13 18:50] LABS: Troponin I 2089 ng/L (<or=51)
[2024-11-13] MEDS: Clopidogrel 300 MG TAB PO (19:06)
--- NOTE | 2024-11-13 19:10 | HPE_ITS ---
Date of service: 11/13/24 Time of Service: 19:11 Assessment and Plan Assessment and plan (1) Acute non-ST elevation myocardial infarction (NSTEMI): Status: Acute Assessment and plan: Chest discomfort with associated EKG changes and troponemia are all consistent with ACS. No STEMI on EKG Case was reviewed in the emergency room and patient was accepted for non- emergent cardiac catheterization at [facility] with Dr. Pisano accepting pending bed availability. After atrial fibrillation and dynamic ST depressions noted Dr. Judge was again consulted. No change in treatment, posterior EKG ordered and he will review. Continue heparin drip, aspirin, clopidogrel. (2) Hypertensive emergency: Status: Acute Assessment and plan: Given some ongoing shortness of breath and marked hypertension I agree with NTG drip, continue to titrate to about 25% BP reduction, or around SBP 160. She will be monitored in our ICU while she is here. (3) Paroxysmal atrial fibrillation: Status: Chronic Assessment and plan: Went into atrial fibrillation while she was in the ED, which is a sign of stress on her heart. There was no notable change in blood pressure or cognition or symptoms. Dr. Judge recommended against agressive rate control, continue just outpatient verapimil unless the rates are getting to 130s or higher consistently. She is on heparin drip, holding warfarin (4) Hypothyroidism: Status: Chronic Assessment and plan: Looks like she has been consistently a little overcorrected with TSH around 0.3- 0.5. Given her age (as well as anxiety, paroxysmal atrial fibrillation) a reasonable goal would be a TSH 2-3. Holding levothyroxine tomorrow, recheck the TSH/reflex. (5) Dementia: Status: Chronic Assessment and plan: Continue outpatient dementia therapy to avoid withdrawal causing worsening mental status. (6) Thoracic aortic aneurysm: Status: Chronic Assessment and plan: CT reassuring, no significant change. (7) Discharge planning issues: Status: Acute Assessment and plan: Palliative patient. She is DNR/DNI and COLST indicates she does not want very aggressive care, but daughter does consent to IV therapy in the ICU and transfer for cardiac testing. 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 The patient cannot relate a history, but per her daughter the nurse called her at 2pm after finding the patient uncomfortable and anxious with some shortness of breath and chest discomfort. The patient has a history of anxiety so the nurse initially stayed with the patient to try to calm her down, but the patient was not improving so the decision was made to call for transportation to the emergency room. Since being in the ED she has been given aspirin and plavix and started on a heparin drip and nitroglycerin. She currently denies chest pain. She feels anxious because she doesn't know what is happening to her. She does feel some trouble catching her breath but denies other complaints. Of note, per PCP records indicate heart disease and diastolic dysfunction but without specific documentation. These issues are not mentioned on her most recent cardiology notes. Her last echocardiogram in July 2022 showed borderline LVH but the report did not mention diastolic dysfunction. Also of note, she had a small subdural hematoma in 05/2021 that was diagnosed 2 weeks after a syncopal epidode with head trauma. She was on warfarin at that time but her INR was below 2 when she had fabrice fall and again 2 weeks later when hematoma diagnosed. She has an incedentally noted dilated ascending aorta that was 4cm and stable on her last CT in March of 2024. Review of Systems All systems reviewed & are unremarkable except as noted in HPI and below (somewhat limted with dementia) Constitutional Constitutional: Denies chills and Denies fever(s) Cardiovascular Cardiovascular: Reports lightheadedness and Denies radiating jaw, neck or arm pain Neurologic Neurologic: Denies abnormal speech, Denies behavioral changes, Denies localized weakness and Reports memory loss (at baseline per daughter) Psychiatric Psychiatric: Reports anxiety (not new), Denies behavioral changes and Reports memory loss (at baseline per daughter) Hematologic/Lymphatic Hematologic/Lymphatic: Denies easy bleeding PFSH All Active Problems (Updated 11/13/24 @ 21:58 by Orlando Navas) Hypertensive emergency (Acute) Acute non-ST elevation myocardial infarction (NSTEMI) (Acute) Family circumstance (Acute) Impaired instrumental activities of daily living (IADL) (Acute) Dementia (Chronic) ACP (advance care planning) (Acute) Mild ascending aorta dilation (Acute) Bacteremia (Acute) Acute UTI (Acute) Chronic anticoagulation (Acute) Subdural hematoma (Acute) Discharge planning issues (Acute) DVT prophylaxis (Acute) Closed head injury (Acute) Syncope and collapse (Acute) Acute UTI (Acute) 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 Montague Paroxysmal atrial fibrillation (Chronic) Tubular adenoma of colon (Acute) Varicose veins of both lower extremities (Acute) Skin lesion of face (Acute) Osteoarthritis (Chronic) Anxiety (Chronic) Osteopenia (Acute) Overweight (Acute) Stress incontinence (Acute) Fatigue (Acute) Dizziness (Acute) Carotid arterial disease (Acute) Bloody stools (Acute) Esophagitis (Acute) Diastolic dysfunction (Acute) Thoracic aortic aneurysm (Chronic) Memory loss (Acute) Osteoarthritis of right knee (Chronic) Injected: 09/04/2018 Sprain of medial collateral ligament of left knee (Acute) HTN (hypertension) (Chronic) Hypothyroidism (Chronic) Medical History (Updated 11/13/24 @ 21:58 by Orlando Navas) Iron deficiency anemia GERD (gastroesophageal reflux disease) Carotid stenosis Surgical History History of bladder surgery Bladder sling surgery x 2 EGD - MAC (08/23/17) Colonoscopy - MAC (08/23/17) Cholecystectomy Family History Father Alcohol use disorder Mother Dementia Social History (Updated 11/13/24 @ 21:34 by Orlando Navas) Smoking/Tobacco Use Status: Never Smoking risk assessment performed?: Yes Alcohol Intake: current Alcohol Intake frequency: a few times a month Alcohol type: wine Details: rare use, nothing in past several weeks Drug use: Never Substance use type: does not use Household members: family Housing: house Current gender identity: female What is your relationship status?: Panel score (0-1 are the most socially isolated patients): 0 Do you feel safe at home: Yes Do you feel safe in your relationship?: Yes Additional Social history: of many years in 06/2020. Kids in area. Daughter Nona and two sisters Zoila and Ellie are close. Now living at [facility] assisted living. Meds Allergies and Home Medications Allergies Allergy/AdvReac Type Severity Reaction Status Date / Time No Known Allergies Allergy Verified 11/13/24 19:04 Home Medications ?Medication ?Instructions ?Recorded ?Confirmed ?Type multivitamin (Daily Multiple 1 ea PO DAILY 07/28/17 05/01/24 History tablet) losartan 50 mg tablet 50 mg PO DAILY 08/09/18 11/13/24 History acetaminophen 500 mg tablet 1,000 mg (2 x 500 mg) PO Q8H PRN 04/12/19 11/13/24 Rx pain #90 tabs donepezil 5 mg tablet 5 mg PO QHS 06/22/21 11/13/24 History levothyroxine 50 mcg tablet 50 mcg PO DAILY@0600 #30 tabs 06/26/21 11/13/24 Rx warfarin 1 mg tablet (Jantoven) 2 - 3 tab PO DAILY 02/11/22 11/13/24 History memantine 10 mg tablet 10 mg PO BID 09/04/23 11/13/24 History verapamil 120 mg 24 hr See Rx Instructions .Route 07/02/24 Rx capsule,extended release .COMPLEX #90 caps Exam Narrative Exam Narrative: GEN: Alert and oriented to self, pleasant and cooperative, unable to give history. No acute distress at rest. HEENT: Head atraumatic. Conjunctiva clear, no icterus. PEERL, EOMI. no rhinorrhea. MMM, OP benign. Neck is supple with no masses or lymphadenopathy, trachea midline. I do no appreciate elevated JVP. LUNGS: CTAB with mild tachypnea and some purse lipped breathing at times. Able to speak in sentences. CV: Irregularly irregular with no murmurs, gallops, or rubs. ABD: active bowel sounds, soft, nontender and nondistended. No masses. EXT: no cyanosis, clubbing, or edema, legs are not tender MSK: No joint redness or swelling NEURO: CN 2-12 grossly intact. Normal movement of 4 extremities. Normal speech and coordination. No tremor SKIN: No rashes or open wounds. PSYCH: Mood and affect mildly anxious, no hallucinations or other evident abnormal thoughts. short term memory is poor. Results Imaging Chest x-ray: report reviewed (No acute pulmonary findings on this single AP portable view of the chest. Moderate size hiatal hernia again noted.) and image reviewed CT scan - chest: report reviewed (1. No evidence of pulmonary embolus to the segmental level. 2. Unruptured aneurysm of the ascending aorta 4.3 x 4.1 cm. 3. No dissection of the aorta. ) EKG: report reviewed and image reviewed (repeated x 3, 15:15 and 16:45 and sinus heri with lateral <1mm ST depression 2, V4-5. 20:30 afib at 101, 1-2mm ST depression 1, 2, V3-6. No STEMI) Labs 11/13/24 16:15 11/13/24 16:15 Labs: Laboratory Results - last 24 hr 11/13/24 11/13/24 11/13/24 16:15 16:58 18:25 WBC 4.66 RBC 4.28 Hgb 12.8 Hct 38.8 MCV 91 MCH 29.9 MCHC 33.0 RDW 15.5 H Plt Count 148 MPV 10.0 Immature Gran % 0.0 Neutrophils % 50.9 Lymphocytes % 31.8 Monocytes % 12.4 Eosinophils % 4.3 Basophils % 0.6 Nucleated RBC % 0.0 Absolute Neutrophils 2.37 Absolute Lymphocytes 1.48 Absolute Monocytes 0.58 Absolute Eosinophils 0.20 Absolute Basophils 0.03 PT 22.2 H INR 2.3 H D-Dimer 286 Sodium 142 Potassium 4.5 Chloride 109 H Carbon Dioxide 29.3 Anion Gap 3.7 BUN 17 Creatinine 1.1 H Est GFR (CKD-EPI 2020) 49.55 Glucose 112 H Calcium 9.8 Magnesium 2.0 Total Bilirubin 0.87 AST 32 ALT 20 Alkaline Phosphatase 77 Troponin I 1381 H* 1274 H* 2089 H* NT-Pro-B Natriuret Pep 1057 H Total Protein 6.9 Albumin 3.4 Last Vital Signs Temp 36.4 C L 11/13/24 16:37 Pulse 57 L 11/13/24 15:26 Resp 16 11/13/24 15:26 BP 190/79 H 11/13/24 15:26 Pulse Ox 99 11/13/24 15:26 PAWSS Have you Been Recently Intoxicated or Drunk Within the Last 30 days?: No Have you Ever Experienced Previous Episodes of Alcohol Withdrawal?: No Have you ever Experienced Withdrawal Seizures?: No Have you ever Experienced Delirium Tremens(DT)s?: No Have you ever undergone Alcohol Rehabilitation Treatment (i.e, inpt ot outpatient treatment programs)?: No Have you ever Experienced Blackouts?: No Have you ever Combined Alcohol with other Downers within the last 90 days?: No Have you ever Combined Alcohol with any other Substance of Abuse during the last 90 days?: No Positive Blood Alcohol level on Presentation? [PCS.BAL]: No Evidence of Increased Autonomic Activity (i.e. HR>120, tremor, sweating, agitation, nausea)?: No Result: 0 Time Spent Time spent with Patient: >75 minutes Time was spent: preparing to see the patient(eg.review tests), obtaining and/or reviewing separately otained hiistory, ordering medications,tests, procedures, referring, communicating with other health transitional care manager, indepentently interpreting results, counseling the patient and care coordination
[2024-11-13] MEDS: nitroGLYcerin in D5W 50 MG/250 ML BTL IV (19:13)
[2024-11-13] MEDS: Omnipaque 350 MG/ML 100 ML BTL IJ (20:00)
[2024-11-13] MEDS: Normal Saline - Diluent 50 ML VIAL IJ (20:01)
--- NOTE | 2024-11-13 20:15 | RT.EKG_ITS ---
APPROVED REPORT Exam: Resting ECG Reason for Exam: Rhytmn changes Patient Location: E HR:102 bpm ECG Measurements Heart Rate 102 AXIS IA [id number] P [id number] QRSd 94 QRS 7 QT 312 T 243 QTc 407 Conclusion Atrial fibrillation...? atrial activity Repol abnrm suggests ischemia, diffuse leads...ST-T neg, ant/lat/inf No STEMI
--- NOTE | 2024-11-13 20:15 | DI.CT_ITS ---
Exam(s) CT THORAX ABD/PEL CTA EXAM: CT THORAX ABD/PEL CTA CLINICAL HISTORY: History of aneurysm. TECHNIQUE: Imaging Protocol: Axial CT angiography was performed with multi-slice acquisition and m ulti-planar and/or 3D reconstructions. Lung Computer Aided Detection (CAD) was utilized. CONTRAST MATERIAL: Intravenous: Omnipaque 350 contrast volume:100 mL Oral: No COMPARISON: CT CT THORAX ABD/PEL CTA from 04/06/2024 FINDINGS: CHEST: Tracheobronchial tree: Patent where visualized. There is no evidence of bronchiectasis. Pulmonary parenchyma: There is a stable 3 mm nodule in the base of the left lower lobe (series 14, im age 89). There is atelectasis in the lung bases. No focal consolidating infiltrates are present. There are no new pulmonary nodules. Pulmonary Arteries: No evidence of filling defect to suggest pulmonary emboli. Mediastinum and [place]: No dominant adenopathy or fluid collection. The esophagus is unremarkable.There is a large hiatal hernia. Visualized thyroid: There is again seen a multinodular thyroid gland. There is a 1.7 cm nodule in th e left lobe of the thyroid gland. The left lobe is enlarged and extends into the superior mediastinu m. Nonemergent thyroid ultrasound should be considered for further evaluation. Pleura: No effusion or pneumothorax. Heart: The heart is not dilated. Coronary artery calcification is present. No pericardial effusion. Aorta: The ascending thoracic aorta measures 4 x 4.1 cm. Atherosclerotic calcification is present. No evidence of dissection. Soft Tissues: Unremarkable. Bones: Within normal limits for the patient's age. ABDOMEN AND PELVIS: Abdomen: Celiac axis/mesenteric arteries: No evidence of occlusion or significant stenosis. Renal Arteries: No evidence of occlusion or significant stenosis. Aorta: No evidence of occlusion or significant stenosis. No aneurysm or dissection. Atheroscleroti c calcification is present. Pelvis: Iliac Arteries: No evidence of occlusion or significant stenosis. Common Femoral Arteries: No evidence of occlusion or significant stenosis. ABDOMEN: Liver: Normal density. No measurable mass. Portal, superior mesenteric and splenic veins: Gallbladder and Biliary Tract: No biliary ductal dilatation. Pancreas: Normal density, no abnormal calcifications or inflammatory process. Spleen: Granuloma are seen in the spleen. Adrenals: No masses seen. Kidneys: Normal size, contour and axis. No radiodense stones or obstructive uropathy. There is a smal l simple cyst in the left kidney. No follow-up is recommended. Bowel: There is diverticulosis of the colon without evidence of acute diverticulitis. There is no farnaz dence of bowel obstruction or bowel wall thickening. There is no evidence of appendicitis. Peritoneal Cavity: No ascites, collection or mesenteric inflammatory response. No free air. Lymph Nodes: Within normal limits. Bones: Within normal limits for the patient's age. Soft Tissues: Unremarkable. PELVIS: Bladder: Symmetric distention, no gross wall thickening. Reproductive Organs: The uterus is absent. Lymph Nodes: Within normal limits. Bones: Within normal limits for the patient's age. IMPRESSION: 1. No evidence of thoracic aortic dissection or pulmonary embolism. 2. No evidence of abdominal aortic aneurysm or dissection. 3. Multinodular thyroid gland. Nonemergent thyroid ultrasound is recommended for further evaluation. 4. No acute abdominal or pelvic process. RADIATION DOSE DELIVERED: 1,380.26mGy.cm Total DLP DATA REPOSITORY: All CT scans at this facility are submitted to the National Radiology Data Registry (NRDR) Dose Index Registry (DIR) with the [employer] (ACR). RADIATION OPTIMIZATION: All CT scans at this facility use at least one of these dose optimization te chniques: automated exposure control; mA and/or kV adjustment per patient size (includes targeted exa ms where dose is matched to clinical indication); or iterative reconstruction.
--- NOTE | 2024-11-13 21:05 | DI.VRAD_ITS ---
PROCEDURE INFORMATION: Exam: CTA Chest With Contrast CTA Abdomen and Pelvis With Contrast Exam date and time: 11/13/2024 7:49 PM Age: 84 years old Clinical indication: Shortness of breath; Difficulty breathing or dyspnea and other: History of aneurysm TECHNIQUE: Imaging protocol: Computed tomographic angiography of the chest with contrast. Exam focused on the arteries. Computed tomographic angiography of the abdomen and pelvis with contrast. Exam focused on the arteries. 3D rendering (Not supervised by radiologist): MIP and/or 3D reconstructed images were created by the technologist. Radiation optimization: All CT scans at this facility use at least one of these dose optimization techniques: automated exposure control; mA and/or kV adjustment per patient size (includes targeted exams where dose is matched to clinical indication); or iterative reconstruction. Contrast material: [id number]; Contrast volume: 100 ml; Contrast route: INTRAVENOUS (IV); COMPARISON: CT THORAX ABD/PEL CTA 04/06/2024 6:43 PM FINDINGS: VASCULATURE: Pulmonary arteries: No evidence of pulmonary embolus to the segmental level. Aorta: Unruptured aneurysm of the ascending aorta 4.3 x 4.1 cm. No dissection of the aorta. Celiac trunk and mesenteric arteries: No occlusion or significant stenosis. Renal arteries: No occlusion or significant stenosis. Right iliac arteries: No occlusion or significant stenosis. Left iliac arteries: No occlusion or significant stenosis. Veins: Varices in the right groin Thyroid: The thyroid is heterogeneous bilaterally CHEST: Lungs: Unremarkable. No consolidation. No masses. Pleural spaces: Unremarkable. No pneumothorax. No pleural effusion. Heart: Unremarkable. No cardiomegaly. No pericardial effusion. Coronary arteries: Coronary artery calcifications may indicate coronary artery disease. Diaphragm: Moderate hiatal hernia ABDOMEN AND PELVIS: Liver: No mass. Gallbladder and biliary ducts: Unremarkable. No calcified stones. No ductal dilation. Pancreas: Unremarkable. No mass. No ductal dilation. Spleen: Unremarkable. No splenomegaly. Adrenal glands: Unremarkable. No mass. Kidneys and ureters: Unremarkable. No solid mass. No hydronephrosis. Stomach and bowel: Severe diverticulosis of the rectosigmoid. No diverticulitis Appendix: No evidence of appendicitis. Intraperitoneal space: Unremarkable. No free air. No significant fluid collection. Urinary bladder: The bladder is distended 10 cm Reproductive: Surgical resection of the uterus Lymph nodes: Unremarkable. No enlarged lymph nodes. Bones/joints: Unremarkable. No acute fracture. Soft tissues: Small umbilical hernia contains fat IMPRESSION: 1. No evidence of pulmonary embolus to the segmental level. 2. Unruptured aneurysm of the ascending aorta 4.3 x 4.1 cm. 3. No dissection of the aorta. Dictated and Authenticated by: Manav Montanez MD. Orderin Kathi Perry MD
--- NOTE | 2024-11-13 21:15 | RT.EKG_ITS ---
APPROVED REPORT Exam: Resting ECG Reason for Exam: Per [facility] Posterior leads 7,8,9. Chest pain, Patient Location: E HR:65 bpm ECG Measurements Heart Rate 65 AXIS GA 184 P 39 QRSd 118 QRS -11 QT 428 T 2 QTc 445 Conclusion Sinus rhythm...normal P axis, V-rate 60- 99 Nonspecific intraventricular conduction delay...QRSd >115mS, not LBBB/RBBB Anteroseptal infarct, old...Q >40mS, V1-V2 No STEMI
[2024-11-13 22:57] LABS: TSH (W/Ref FT4) 0.81 uIU/mL (0.36-3.74)
[2024-11-13 23:16] LABS: Troponin I 7982 ng/L (<or=51)
--- NOTE | 2024-11-13 23:30 | RT.EKG_ITS ---
APPROVED REPORT Exam: Resting ECG Reason for Exam: elevated troponin Patient Location: E HR:51 bpm ECG Measurements Heart Rate 51 AXIS TX 178 P 36 QRSd 103 QRS -16 QT 471 T 27 QTc 436 Conclusion Sinus bradycardia...rate< 60 Inferior infarct, old...Q >35mS, II III aVF no STEMI
[2024-11-13 23:31] LABS: PTT Activated > 155.0 sec (20.6-30.2)
--- NOTE | 2024-11-13 23:57 | NUR.NOTE ---
Nursing Note: critical lab results: trop 7,982 PTT >155 pt asking to use the commode Heparin drip paused per protocol, pt pleasantly confused, denies any pain at present time, no dizziness when using the commode
[2024-11-14] VITALS (56 sets, daily range): BP systolic 110–192; BP diastolic 65–96; PULSE 41–83; RESP 10–32; TEMP 36.7–38.8; O2SAT 84–98
[2024-11-14 04:52] LABS: HCT 39.4 % (36.0-46.0); HGB 12.9 g/dL (11.2-15.7); MCH 29.6 pg (27.0-33.0); MCHC 32.7 % (32.0-36.0); MCV 90 fL (80-95); MPV 10.4 fL (8.0-11.0); Platelet Count 142 10^3/uL (130-400); RBC 4.36 10^6/uL (3.93-5.22); RDW 14.7 % (11.7-14.6); RDW-SD 49.6 fL; WBC 5.62 10^3/uL (4.4-10.8)
[2024-11-14 04:57] LABS: Prothrombin Time 19.1 sec (9.1-11.1)
[2024-11-14 05:06] LABS: ALT 27 U/L (14-59); AST 112 U/L (15-37); Albumin 3.3 g/dL (3.4-5.0); Alkaline Phosphatase 82 U/L (46-116); Anion Gap 7.2 mmol/L (3-11); BUN 13 mg/dL (7-18); Bilirubin, Total 1.19 mg/dL (0.2-1.0); CO2 27.8 mmol/L (21.0-32.0); Calcium 9.2 mg/dL (8.5-10.1); Calculated LDL 72 mg/dL (<100); Chloride 107 mmol/L (98-107); Cholesterol 161 mg/dL (<200); Estimated GFR 55.55 (mL/min/1.73m2); Glucose 117 mg/dL (74-106); HDL Cholesterol 76 mg/dL (40-60); Potassium 4.5 mmol/L (3.5-5.1); Sodium 142 mmol/L (136-145); Total Protein 6.9 g/dL (6.4-8.2); Triglyceride 66 mg/dL (<150)
[2024-11-14 05:09] LABS: PTT Activated 31.2 sec (20.6-30.2)
[2024-11-14 05:28] LABS: Troponin I 20215 ng/L (<or=51)
--- NOTE | 2024-11-14 05:30 | NUR.NOTE ---
lab called with troponin results/ morning troponin . Dr Navas notified
--- NOTE | 2024-11-14 06:07 | NUR.NOTE ---
labs drawn -PTT now 31.2 from over 155. bolus of 2000 units given and gtt increased to 9.5 or 950 units.
--- NOTE | 2024-11-14 07:00 | RT.EKG_ITS ---
APPROVED REPORT Exam: Resting ECG Reason for Exam: NSTEMI Patient Location: I HR:58 bpm ECG Measurements Heart Rate 58 AXIS MD 171 P 30 QRSd 94 QRS -15 QT 449 T 1 QTc 442 Conclusion Sinus bradycardia...rate< 60 Otherwise normal ECG
--- NOTE | 2024-11-14 07:58 | DSE_ITS ---
Date of service: 11/14/24 Time of Service: 07:58 DS: Diagnosis Discharge Diagnosis (1) Acute non-ST elevation myocardial infarction (NSTEMI): Status: Acute (2) Hypertensive emergency: Status: Acute (3) Paroxysmal atrial fibrillation: Status: Chronic (4) Hypothyroidism: Status: Chronic (5) Dementia: Status: Chronic (6) Thoracic aortic aneurysm: Status: Chronic (7) Discharge planning issues: Status: Acute Discharge Plan Disposition Patient Disposition: Transfer-Acute Inpatient Care Specific Acute Inpt Facility: [facility] Condition: Serious Discharge Details Reason For Visit: NSTEMI Admit Date/Time: 11/13/24 21:00 Admit Provider: Orlando Navas Attending Provider: Orlando Navas Primary Care Provider: Fatuma Boyer [facility] Hospital Course: 84 yo F with history of 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 After initial EKG and troponins of 1381 and 1274 the ED, the case was discussed with [facility] cardiology and she was given aspirin and clopidogrel and started on a heparin drip. Blood pressures were 180s/210s/90s- 120 and she was started on nitroglycerin. CT chest was she had some ongoing chest discomfort at that point and history of dilated aorta, but it was reassuring. She was accepted by [facility] cardiology for the floor pending bed. Troponin at 16:25 increased to 2089. At around 8:15 her heart rate jumped up to around 100 and EKG revealed atrial fibrillation with more pronounced ST depressions laterally. [facility] was again consulted and recommended a posterior EKG which did not show STEMI. Troponins continue to trend up to 7982 at 22:28. Around 23:30 she converted back to sinus. She was not having ongoing chest pain but she still felt short of breath. [place] [address] at 4:10 am. Case was again reviewed with Dr. Judge from [facility] cardiology who upgraded the transfer to CV status. Home Meds and New Rx's Prescriptions: No Action losartan 50 mg tablet 50 mg PO DAILY verapamil 120 mg capsule,ext rel. pellets 24 hr See Rx Instructions .ROUTE .COMPLEX Qty: 90 3RF Dose Instruction: TAKE 1 CAPSULE DAILY Rx Instructions: TAKE 1 CAPSULE DAILY donepezil 5 mg Tablet 5 mg PO QHS levothyroxine 50 mcg Tablet 50 mcg PO DAILY@0600 Qty: 30 0RF warfarin [Jantoven] 1 mg tablet 2 - 3 tab PO DAILY Rx Instructions: 2mg Sun//Thurs 3mg Tuesday/Tue/Tue/Sat multivitamin [Daily Multiple] 1 EACH tablet 1 ea PO DAILY acetaminophen 500 mg tablet 1,000 mg PO Q8H PRN (Reason: pain) Qty: 90 3RF memantine 10 mg tablet 10 mg PO BID Discharge Instructions Activity:: bed rest Equipment/Supplies:: No Equipment Needed Diet:: NPO at transfer pending cath Discharge Orders Discharge Orders: Discharge Order (Routine); Ordered 11/14/24 Ordered By: Orlando Navas DS: Summary Time Spent with Patient providing and/or coordinating discharge services: Greater than 30 minutes Status at Discharge Functional status at discharge: uses cane/walker Overall status at discharge: patient is not back to baseline Mental Status: mental status grossly normal Speech and Movement: speech and movement normal Mood: anxious mood Affect: anxious affect Quality:SDOH Health Related Social Needs: Health related social needs feeling lonely/isolated (Z 60.8), education (Z55.6) Referrals and interventions: pt does not need assistance with any of these Exam Narrative Exam Narrative: GEN: Alert and oriented to self, pleasant and cooperative, unable to give h istory due to dementia. No acute distress at rest. LUNGS: CTAB with mild tachypnea and some purse lipped breathing at times. Able to speak in sentences. CV: Regular no murmurs, gallops, or rubs. JVP not elevated ABD: soft, nontender and nondistended. EXT: no cyanosis, clubbing, or edema, legs are not tender PSYCH: Mood and affect mildly anxious, no hallucinations or other evident abnormal thoughts. short term memory is poor. Psych Mental Status: mental status grossly normal Speech and Movement: speech and movement normal Mood: anxious mood Affect: anxious affect DS: Data Vitals/I&O Vitals and I&O: Vital Signs Temperature 36.7 C 11/14/24 06:20 Temperature Source Temporal Artery Scan 11/14/24 06:20 Pulse 59 L 11/14/24 06:10 Pulse 59 L 11/14/24 06:10 Respiratory Rate 20 11/14/24 06:10 Respiratory Effort Normal, Non-Labored 11/14/24 01:57 Respiratory Depth Normal 11/14/24 01:57 Respiratory Pattern Normal 11/14/24 01:57 Blood Pressure 140/73 11/14/24 06:01 Blood Pressure Mean 94 11/14/24 06:01 Blood Pressure Position Supine 11/14/24 01:57 Pulse Oximetry 96 11/14/24 06:10 Oxygen Delivery Method Room Air 11/14/24 01:57 Oxygen Flow Rate 0 11/14/24 01:57 Pain Level 0 11/14/24 01:57 Comment period of dizziness. made aware 11/13/24 19:01 Intake & Output 11/13/24 11/13/24 11/14/24 11:59 23:59 11:59 Intake Total 53.642 / 53.642 2.533 / 2.533 Output Total 100 / 100 Balance 53.642 / 53.642 -97.467 / -97.467 Weight 66.075 kg 66.8 kg Intake: IV 53.642 / 53.642 2.533 / 2.533 Oral 0 / 0 Output: Urine 100 / 100 Other: Urine Color Yellow Data Completed and Pending Labs on day of discharge: Labs from last 24 hours 11/14/24 11/13/24 11/13/24 04:10 22:28 18:25 WBC 5.62 RBC 4.36 Hgb 12.9 Hct 39.4 MCV 90 MCH 29.6 MCHC 32.7 RDW 14.7 H Plt Count 142 MPV 10.4 Immature Gran % Neutrophils % Lymphocytes % Monocytes % Eosinophils % Basophils % Nucleated RBC % Absolute Neutrophils Absolute Lymphocytes Absolute Monocytes Absolute Eosinophils Absolute Basophils PT 19.1 H INR 2.0 H APTT 31.2 H > 155.0 H* D-Dimer Sodium 142 Potassium 4.5 Chloride 107 Carbon Dioxide 27.8 Anion Gap 7.2 BUN 13 Creatinine 1.0 Est GFR (CKD-EPI 2020) 55.55 Glucose 117 H Calcium 9.2 Magnesium Total Bilirubin 1.19 H AST 112 H ALT 27 Alkaline Phosphatase 82 [place] [address] H* 7982 H* 2089 H* NT-Pro-B Natriuret Pep Total Protein 6.9 Albumin 3.3 L Triglycerides 66 Total Cholesterol 161 LDL Cholesterol, Calc 72 HDL Cholesterol 76 TSH 0.81 11/13/24 11/13/24 16:58 16:15 WBC 4.66 RBC 4.28 Hgb 12.8 Hct 38.8 MCV 91 MCH 29.9 MCHC 33.0 RDW 15.5 H Plt Count 148 MPV 10.0 Immature Gran % 0.0 Neutrophils % 50.9 Lymphocytes % 31.8 Monocytes % 12.4 Eosinophils % 4.3 Basophils % 0.6 Nucleated RBC % 0.0 Absolute Neutrophils 2.37 Absolute Lymphocytes 1.48 Absolute Monocytes 0.58 Absolute Eosinophils 0.20 Absolute Basophils 0.03 PT 22.2 H INR 2.3 H APTT D-Dimer 286 Sodium 142 Potassium 4.5 Chloride 109 H Carbon Dioxide 29.3 Anion Gap 3.7 BUN 17 Creatinine 1.1 H Est GFR (CKD-EPI 2020) 49.55 Glucose 112 H Calcium 9.8 Magnesium 2.0 Total Bilirubin 0.87 AST 32 ALT 20 Alkaline Phosphatase 77 Troponin I 1274 H* 1381 H* NT-Pro-B Natriuret Pep 1057 H Total Protein 6.9 Albumin 3.4 Triglycerides Total Cholesterol LDL Cholesterol, Calc HDL Cholesterol TSH PFSH All Active Problems (Updated 11/13/24 @ 21:58 by Orlando Navas) Hypertensive emergency (Acute) Acute non-ST elevation myocardial infarction (NSTEMI) (Acute) Family circumstance (Acute) Impaired instrumental activities of daily living (IADL) (Acute) Dementia (Chronic) ACP (advance care planning) (Acute) Mild ascending aorta dilation (Acute) Bacteremia (Acute) Acute UTI (Acute) Chronic anticoagulation (Acute) Subdural hematoma (Acute) Discharge planning issues (Acute) DVT prophylaxis (Acute) Closed head injury (Acute) Syncope and collapse (Acute) Acute UTI (Acute) 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 Montague Paroxysmal atrial fibrillation (Chronic) Tubular adenoma of colon (Acute) Varicose veins of both lower extremities (Acute) Skin lesion of face (Acute) Osteoarthritis (Chronic) Anxiety (Chronic) Osteopenia (Acute) Overweight (Acute) Stress incontinence (Acute) Fatigue (Acute) Dizziness (Acute) Carotid arterial disease (Acute) Bloody stools (Acute) Esophagitis (Acute) Diastolic dysfunction (Acute) Thoracic aortic aneurysm (Chronic) Memory loss (Acute) Osteoarthritis of right knee (Chronic) Injected: 09/04/2018 Sprain of medial collateral ligament of left knee (Acute) HTN (hypertension) (Chronic) Hypothyroidism (Chronic) Medical History (Updated 11/13/24 @ 21:58 by Orlando Navas) Iron deficiency anemia GERD (gastroesophageal reflux disease) Carotid stenosis Surgical History History of bladder surgery Bladder sling surgery x 2 EGD - MAC (08/23/17) Colonoscopy - MAC (08/23/17) Cholecystectomy Family History Father Alcohol use disorder Mother Dementia Social History (Updated 11/13/24 @ 21:34 by Orlando Navas) Smoking/Tobacco Use Status: Never Smoking risk assessment performed?: Yes Alcohol Intake: current Alcohol Intake frequency: a few times a month Alcohol type: wine Details: rare use, nothing in past several weeks Drug use: Never Substance use type: does not use Household members: family Housing: halfway Current gender identity: female What is your relationship status?: Panel score (0-1 are the most socially isolated patients): 0 Do you feel safe at home: Yes Do you feel safe in your relationship?: Yes Additional Social history: of many years in 06/2020. Kids in area. Daughter Nona and two sisters Zoila and Ellie are close. Now living at [facility]. Time Spent with Patient Time Spent with Patient: 45-69 minutes Time was spent: preparing to see the patient(eg.review tests), obtaining and/or reviewing separately otained hiistory, ordering medications,tests, procedures, referring, communicating with other health healthcare project manager, indepentently interpreting results, counseling the patient and care coordination
[2024-11-14] MEDS: Normal Saline Flush 10 ML SYR (09:16)
--- NOTE | 2024-11-14 13:55 | NUR.NOTE ---
This nurse accompanied patient on IFT via [facility] managing nitro drip and heparin drip. Vitals remained stable and she was free of chest pain during the transport. Patient was accompanied by DPOA for the transport as well. Pt was handed off to team with MD ozuna transferred to the [facility] [place] bed and drips continued on their pumps.
== END 2024-11-14 10:00 | disposition short-term general hospital (02) | DRG 281 ==
LOC: ER 23:19 → ICU 11-14 01:19
PROVIDERS: Admitting Provider Family Medicine; Emergency Provider Emergency Medicine; PCP Nurse Practitioner Family; Responsible Provider Family Medicine; Visit Provider Family Medicine
DX: I21.4 Non-ST elevation (NSTEMI) myocardial infarction (principal); I16.1 Hypertensive emergency; I48.0 Paroxysmal atrial fibrillation; I10 Essential (primary) hypertension; E03.9 Hypothyroidism, unspecified; I71.21 Aneurysm of the ascending aorta, without rupture; Z66 Do not resuscitate; Z79.01 Long term (current) use of anticoagulants; Z96.652 Presence of left artificial knee joint; I83.93 Asymptomatic varicose veins of bilateral lower extremities; F41.9 Anxiety disorder, unspecified; I51.89 Other ill-defined heart diseases; D50.9 Iron deficiency anemia, unspecified; K21.9 Gastro-esophageal reflux disease without esophagitis; F03.90 Unspecified dementia, unspecified severity, without behavioral disturbance, psychotic disturbance, mood disturbance, and anxiety
CPT/HCPCS: 00123; 36415; 71275; 80053; 80061; 85027; 93005; 96365; 96366; 96367; 99291; 71045; 74174; 83735; 83880; 84443; 84484; 85025; 85379; 85610; 85730; 93010; 99223; 99239; J1644; J2305; J3490

== ENCOUNTER 2024-11-26 16:11 | Outpatient (CLI) | payer MEDICARE, SELFPAY ==
[2024-11-26 14:45] LABS: INR 1.7 (0.9-1.1); Prothrombin Time 16.4 sec (9.1-11.1)
== END 2024-11-26 16:12 | disposition home or self-care (01) ==
LOC: LBO 16:14
PROVIDERS: PCP Nurse Practitioner Family; Visit Provider Nurse Practitioner Family
DX: I48.0 Paroxysmal atrial fibrillation (principal)
CPT/HCPCS: 36415; 85610

== ENCOUNTER 2024-11-29 08:17 | Outpatient (CLI) | payer MEDICARE, SELFPAY ==
--- NOTE | 2024-11-29 08:15 | RT.EKG_ITS ---
APPROVED REPORT Exam: Resting ECG Reason for Exam: PAF, CAD Patient Location: O HR:86 bpm ECG Measurements Heart Rate 86 AXIS MS 181 P 28 QRSd 101 QRS -19 QT 430 T 51 QTc 515 Conclusion Sinus rhythm with multiple premature atrial contractions Low voltage, precordial leads...precordial leads <1.0mV Baseline wander in lead(s) V3
== END 2024-11-29 08:18 | disposition home or self-care (01) ==
LOC: DI.CARD 08:18
PROVIDERS: PCP Nurse Practitioner Family; Visit Provider Internal Medicine Cardiovascular Disease
DX: I48.0 Paroxysmal atrial fibrillation (principal); I21.4 Non-ST elevation (NSTEMI) myocardial infarction
CPT/HCPCS: 93010

== ENCOUNTER 2024-11-29 11:24 | Outpatient (REF) | payer MEDICARE, SELFPAY ==
[2024-11-29 11:53] LABS: Anion Gap 8.2 mmol/L (3-11); BUN 17 mg/dL (7-18); CO2 26.8 mmol/L (21.0-32.0); CREATININE 1.2 mg/dL (0.55-1.02); Calcium 9.1 mg/dL (8.5-10.1); Chloride 114 mmol/L (98-107); Estimated GFR 44.64 (mL/min/1.73m2); Glucose 121 mg/dL (74-106); Potassium 4.4 mmol/L (3.5-5.1); Sodium 149 mmol/L (136-145)
[2024-11-29 12:00] LABS: INR 1.9 (0.9-1.1); Prothrombin Time 18.5 sec (9.1-11.1)
== END 2024-11-29 11:25 | disposition home or self-care (01) ==
LOC: NCHCN 11:24
PROVIDERS: PCP Nurse Practitioner Family; Visit Provider Nurse Practitioner Family
DX: I48.0 Paroxysmal atrial fibrillation (principal); I10 Essential (primary) hypertension
CPT/HCPCS: 80048; 85610

== ENCOUNTER → 2024-11-29 12:47 | Outpatient (BNVA) | payer MEDICARE, SELFPAY | PROVIDERS: PCP Nurse Practitioner Family; Referring Provider Nurse Practitioner Family; Visit Provider Internal Medicine Cardiovascular Disease | DX: I48.0 Paroxysmal atrial fibrillation (principal); I21.4 Non-ST elevation (NSTEMI) myocardial infarction | CPT/HCPCS: 93005; 99214 ==

== ENCOUNTER 2024-12-03 18:17 | Outpatient (REF) | payer MEDICARE, SELFPAY ==
[2024-12-03 17:59] LABS: INR 2.4 (0.9-1.1); Prothrombin Time 22.4 sec (9.1-11.1)
== END 2024-12-03 18:18 | disposition home or self-care (01) ==
LOC: NCHCN 18:17
PROVIDERS: PCP Nurse Practitioner Family; Visit Provider Nurse Practitioner Family
DX: I48.0 Paroxysmal atrial fibrillation (principal)
CPT/HCPCS: 85610

== ENCOUNTER 2024-12-10 10:55 | Outpatient (REF) | payer MEDICARE, SELFPAY ==
[2024-12-10 11:34] LABS: INR 2.8 (0.9-1.1); Prothrombin Time 26.3 sec (9.1-11.1)
== END 2024-12-10 10:56 | disposition home or self-care (01) ==
LOC: NCHCN 10:55
PROVIDERS: PCP Nurse Practitioner Family; Visit Provider Nurse Practitioner Family
DX: I48.0 Paroxysmal atrial fibrillation (principal)
CPT/HCPCS: 85610

== ENCOUNTER 2024-12-12 18:33 | Outpatient (REF) | payer MEDICARE, SELFPAY ==
[2024-12-12 16:34] LABS: Anion Gap 6.2 mmol/L (3-11); BUN 15 mg/dL (7-18); CO2 29.8 mmol/L (21.0-32.0); CREATININE 1.2 mg/dL (0.55-1.02); Calcium 9.2 mg/dL (8.5-10.1); Chloride 109 mmol/L (98-107); Estimated GFR 44.64 (mL/min/1.73m2); Glucose 128 mg/dL (74-106); Potassium 4.1 mmol/L (3.5-5.1); Sodium 145 mmol/L (136-145)
== END 2024-12-12 18:34 | disposition home or self-care (01) ==
LOC: NCHCN 18:33
PROVIDERS: PCP Nurse Practitioner Family; Visit Provider Nurse Practitioner Family
DX: N28.9 Disorder of kidney and ureter, unspecified (principal)
CPT/HCPCS: 80048

== ENCOUNTER 2024-12-17 15:19 | Outpatient (REF) | payer MEDICARE, SELFPAY ==
[2024-12-17 14:52] LABS: Prothrombin Time 23.1 sec (9.1-11.1)
[2024-12-17 14:56] LABS: INR 2.4 (0.9-1.1)
== END 2024-12-17 15:20 | disposition home or self-care (01) ==
LOC: NCHCN 15:19
PROVIDERS: PCP Nurse Practitioner Family; Visit Provider Nurse Practitioner Family
DX: I48.0 Paroxysmal atrial fibrillation (principal)
CPT/HCPCS: 85610

== ENCOUNTER 2025-01-20 12:03 | Emergency (ER) | payer MEDICARE, MEDICAID, SELFPAY ==
[2025-01-20 12:14] VITALS: BP 143/104; PULSE 112; RESP 20; TEMP 36.5; O2SAT 98
--- NOTE | 2025-01-20 12:30 | DI.RAD_ITS ---
Exam(s) XR CHEST 2V PA LATERAL EXAM: XR CHEST 2V PA LATERAL CLINICAL HISTORY: URI symptoms TECHNIQUE: 2D digital imaging was performed of the chest. Two images were obtained. PA and lateral views were obtained. COMPARISON: CR XR PORTABLE CHEST AP from 11/13/2024 FINDINGS: MEDIASTINUM: Normal. HEART: Normal. PULMONARY VASCULATURE: Normal. LUNGS: Clear. PLEURAL SPACE: No pleural effusion or pneumothorax. BONE:Within normal limits for the patient's age. OTHER FINDINGS:Normal. IMPRESSION: No acute pulmonary findings. DATA REPOSITORY: RADIATION DOSE DELIVERED:
--- NOTE | 2025-01-20 12:48 | W.ED.GENAD ---
Discharge Plan Disposition Patient Disposition: Home Condition: Stable Discharge Details Clinical Impression: Upper respiratory infection, viral Primary Care Provider: Fatuma Boyer ED Provider: Jordyn Kerr Home Meds and New Rx's Prescriptions: New benzonatate 100 mg capsule 100 mg PO TID PRN (Reason: cough) Qty: 10 0RF Rx Instructions: Take one tablet 3 times a day as needed for cough Continued clopidogrel 75 mg tablet 75 mg PO DAILY amiodarone 200 mg tablet 200 mg PO DAILY pantoprazole 40 mg tablet,delayed release (DR/EC) 40 mg PO DAILY rosuvastatin 20 mg tablet 20 mg PO DAILY meclizine 25 mg tablet 25 mg PO BID-QID PRN Patient Comments: 11/28/[address] Medel for vertico RH verapamil 120 mg capsule,ext rel. pellets 24 hr See Rx Instructions .ROUTE .COMPLEX Qty: 90 3RF Dose Instruction: TAKE 1 CAPSULE DAILY Rx Instructions: TAKE 1 CAPSULE DAILY donepezil 5 mg Tablet 5 mg PO QHS levothyroxine 50 mcg Tablet 50 mcg PO DAILY@0600 Qty: 30 0RF warfarin [Jantoven] 1 mg tablet 2 - 3 tab PO DAILY Rx Instructions: 2mg Sun//urs 3mg Tuesday/Tue/Tue/Sat multivitamin [Daily Multiple] 1 EACH tablet 1 ea PO DAILY acetaminophen 500 mg tablet 1,000 mg PO Q8H PRN (Reason: pain) Qty: 90 3RF memantine 10 mg tablet 10 mg PO BID Discharge Instructions Instructions: Viral Upper Respiratory Infection, Adult (DC), Cough, runny nose, and the common cold Additional Instructions: No evidence of pneumonia on the chest x-ray, negative for COVID flu and RSV. Please take the cough medicine as directed up to 3 times daily as needed. Follow up with primary care provider in 3-5 days. Return to ED sooner if any worsening or concerns. Thank you for allowing us to care for you today. Referrals: Fatuma Boyer [Primary Care Provider] - 1 week Discharge Data Discharge Date/Time-TO BE ENTERED AT DEPARTURE: 01/20/25 14:18 HPI General Mode of arrival: ambulatory. Date/Time Provider Initiated Documentation: 01/20/25 12:33. Limitations to Documentation: no limitations. Information obtained by: patient, family, RN notes reviewed and old records reviewed. HPI Narrative: 84 year old female presents from assisted facility with URI type symptoms x 2 days. Afebrile, congested cough, history of cardiac disease with stent placement, iron deficiency anemia, GERD carotid stenosis. At the facility that she states that they do need an order for as needed medications has not taken anything no wheezing noted on exam. Related Data Home Medications ?Medication ?Instructions ?Recorded ?Confirmed multivitamin (Daily Multiple 1 ea PO DAILY 07/28/17 01/20/25 tablet) acetaminophen 500 mg tablet 1,000 mg (2 x 500 mg) PO Q8H PRN 04/12/19 01/20/25 pain #90 tabs donepezil 5 mg tablet 5 mg PO QHS 06/22/21 01/20/25 levothyroxine 50 mcg tablet 50 mcg PO DAILY@0600 #30 tabs 06/26/21 01/20/25 warfarin 1 mg tablet (Jantoven) 2 - 3 tab PO DAILY 02/11/22 01/20/25 memantine 10 mg tablet 10 mg PO BID 09/04/23 01/20/25 verapamil 120 mg 24 hr See Rx Instructions .Route 07/02/24 01/20/25 capsule,extended release .COMPLEX #90 caps amiodarone 200 mg tablet 200 mg PO DAILY 11/29/24 01/20/25 clopidogrel 75 mg tablet 75 mg PO DAILY 11/29/24 01/20/25 meclizine 25 mg tablet 25 mg PO BID-QID PRN 11/29/24 01/20/25 pantoprazole 40 mg tablet,delayed 40 mg PO DAILY 11/29/24 01/20/25 release rosuvastatin 20 mg tablet 20 mg PO DAILY 11/29/24 01/20/25 benzonatate 100 mg capsule 100 mg PO TID PRN cough #10 caps 01/20/25 Previous Rx's ?Medication ?Instructions ?Recorded acetaminophen 500 mg tablet 1,000 mg (2 x 500 mg) PO Q8H PRN 04/12/19 pain #90 tabs levothyroxine 50 mcg tablet 50 mcg PO DAILY@0600 #30 tabs 06/26/21 verapamil 120 mg 24 hr See Rx Instructions .Route 07/02/24 capsule,extended release .COMPLEX #90 caps benzonatate 100 mg capsule 100 mg PO TID PRN cough #10 caps 01/20/25 Allergies Allergy/AdvReac Type Severity Reaction Status Date / Time No Known Allergies Allergy Verified 01/20/25 12:17 General Stated Complaint: RespSymp DARIUS: 4 Review of Systems All systems reviewed & are unremarkable except as noted in HPI and below Respiratory Respiratory: Reports chest congestion and Reports cough Exam Narrative Exam Narrative: Constitutional: Alert and oriented x3. Appears stated age. Normal body habitus. Head: Normocephalic, no trauma. Eyes: Pupils PERRL, Red reflex noted, EOM's intact. Eyelids symmetrical without lesions, discharge, or swelling. ENT: Bilateral TM's WNL, External ear normal to inspection, no mastoid TTP, swelling, or erythema, Nasal turbinates WNL, no nasal discharge. Normal dentition, Posterior pharynx WNL, no exudate. Chest: RRR, Normal S1, S2, distal pulses intact. Resp: Lungs clear to auscultation bilaterally, no wheezes, rales, or rhonchi. Abdomen: Soft, non-distended, Normoactive bowel sounds all 4 quads. Musculoskeletal: Normal gait, Moves all 4 extremities without difficulty. Skin: No suspicious rashes or lesions. Capillary refill less than 2 sec. Neurologic: Cranial nerves II-XII intact. Alert and oriented x 3. Motor: No deficits noted. Sensory: Intact bilaterally all 4 extremities. Hematologic/Lymphatic: No ecchymosis, no lymphadenopathy. Course Vital Signs Vital signs: Vital Signs Temperature 36.5 C 01/20/25 12:14 Pulse 112 H 01/20/25 12:14 Respiratory Rate 20 01/20/25 12:14 Blood Pressure 143/104 H 01/20/25 12:14 Pulse Oximetry 98 01/20/25 12:14 Temperature 36.5 C 01/20/25 12:14 Pulse 112 H 01/20/25 12:14 Respiratory Rate 20 01/20/25 12:14 Blood Pressure 143/104 H 01/20/25 12:14 Pulse Oximetry 98 01/20/25 12:14 Pain Level 0 01/20/25 12:14 Medical Decision Making 84 year old female presents from assisted facility with URI type symptoms x 2 days. Afebrile, congested cough, history of cardiac disease with stent placement, iron deficiency anemia, GERD carotid stenosis. At the facility that she states that they do need an order for as needed medications has not taken anything no wheezing noted on exam. Fluvid swab ordered and chest x-ray. Negative for COVID flu RSV. Patient discharged with a prescription for Tessalon Perles instructed on use and strict return instructions. Given follow-up care. This text was generated using [employer] system, please disregard any oddities of phrase or misspellings. Medical Records Medical records reviewed: Yes I reviewed the patient's medical records. Quality:SDOH Health Related Social Needs: Health related social needs feeling lonely/isolated (Z60.8), education (Z55.6) PFSH All Active Problems (Updated 01/20/25 @ 13:38 by Jordyn Kerr NP) Upper respiratory infection, viral (Acute) Hypertensive emergency (Acute) Acute non-ST elevation myocardial infarction (NSTEMI) (Acute) Family circumstance (Acute) Impaired instrumental activities of daily living (IADL) (Acute) Dementia (Chronic) ACP (advance care planning) (Acute) Mild ascending aorta dilation (Acute) Bacteremia (Acute) Subdural hematoma (Acute) Chronic anticoagulation (Acute) Acute UTI (Acute) DVT prophylaxis (Acute) Hypothyroidism (Chronic) HTN (hypertension) (Chronic) Acute UTI (Acute) Syncope and collapse (Acute) Closed head injury (Acute) 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 Montague Sprain of medial collateral ligament of left knee (Acute) Osteoarthritis of right knee (Chronic) Injected: 09/04/2018 Memory loss (Acute) Thoracic aortic aneurysm (Chronic) Diastolic dysfunction (Acute) Esophagitis (Acute) Bloody stools (Acute) Carotid arterial disease (Acute) Dizziness (Acute) Fatigue (Acute) Stress incontinence (Acute) Overweight (Acute) Osteopenia (Acute) Osteoarthritis (Chronic) Skin lesion of face (Acute) Varicose veins of both lower extremities (Acute) Tubular adenoma of colon (Acute) Paroxysmal atrial fibrillation (Chronic) Anxiety (Chronic) Medical History Iron deficiency anemia GERD (gastroesophageal reflux disease) Carotid stenosis Surgical History History of bladder surgery Bladder sling surgery x 2 EGD - MAC (08/23/17) Colonoscopy - MAC (08/23/17) Cholecystectomy Family History Father Alcohol use disorder Mother Dementia Social History Smoking/Tobacco Use Status: Never Smoking risk assessment performed?: Yes Alcohol Intake: current Alcohol Intake frequency: a few times a month Alcohol type: wine Details: rare use, nothing in past several weeks Drug use: Never Substance use type: does not use Household members: family Housing: care home Current gender identity: female What is your relationship status?: Panel score (0-1 are the most socially isolated patients): 0 Do you feel safe at home: Yes Do you feel safe in your relationship?: Yes Additional Social history: of many years in 06/2020. Kids in area. Daughter Nona and two sisters Zoila and Ellie are close. Now living at [facility] assisted living.
[2025-01-20 13:25] LABS: COVID-19 PCR Negative (Negative); Influenza A PCR Negative (Negative); Influenza B PCR Negative (Negative); RSV PCR Negative (Negative)
[2025-01-20] MEDS: Benzonatate 100 MG CAP PO (13:29)
[2025-01-20 13:35] LABS: Source Nasopharynx
--- NOTE | 2025-01-20 15:53 | NUR.NOTE ---
Revised Benzonate orders faxed back to [facility] and sent to Medical Records for scanning in to chart. Nursing Note:
== END 2025-01-20 14:18 | disposition home or self-care (01) ==
PROVIDERS: Emergency Provider Registered Nurse Emergency; PCP Nurse Practitioner Family
DX: J06.9 Acute upper respiratory infection, unspecified (principal); B97.89 Other viral agents as the cause of diseases classified elsewhere; I10 Essential (primary) hypertension; E03.9 Hypothyroidism, unspecified; I25.10 Atherosclerotic heart disease of native coronary artery without angina pectoris; I25.2 Old myocardial infarction; I48.0 Paroxysmal atrial fibrillation; Z95.5 Presence of coronary angioplasty implant and graft; Z79.01 Long term (current) use of anticoagulants; Z79.02 Long term (current) use of antithrombotics/antiplatelets
CPT/HCPCS: 87637; 99283; 71046

== ENCOUNTER 2025-02-25 15:50 | Outpatient (REF) | payer MEDICARE, MEDICAID, SELFPAY ==
[2025-02-25 12:19] LABS: INR 1.6 (0.9-1.1); Prothrombin Time 15.9 sec (9.1-11.1)
== END 2025-02-25 15:51 | disposition home or self-care (01) ==
LOC: NCHCN 15:50
PROVIDERS: PCP Nurse Practitioner Family; Visit Provider Nurse Practitioner Family
DX: Z79.01 Long term (current) use of anticoagulants (principal)
CPT/HCPCS: 85610

== ENCOUNTER 2025-03-01 10:22 | Outpatient (CLI) | payer MEDICARE, MEDICAID, SELFPAY ==
--- NOTE | 2025-03-01 10:30 | RT.EKG_ITS ---
APPROVED REPORT Exam: Resting ECG Reason for Exam: NSTEMI Patient Location: O HR:53 bpm ECG Measurements Heart Rate 53 AXIS VT 174 P 27 QRSd 97 QRS -19 QT 444 T 23 QTc 417 Conclusion Sinus rhythm...normal P axis, V-rate 50- 99 Low voltage, precordial leads...precordial leads <1.0mV Otherwise normal ECG
== END 2025-03-01 10:23 | disposition home or self-care (01) ==
LOC: DI.CARD 10:34
PROVIDERS: PCP Nurse Practitioner Family; Visit Provider Internal Medicine Cardiovascular Disease
DX: I21.4 Non-ST elevation (NSTEMI) myocardial infarction (principal)
CPT/HCPCS: 93010

== ENCOUNTER → 2025-03-01 10:22 | Outpatient (BNVA) | payer MEDICARE, MEDICAID, SELFPAY | PROVIDERS: PCP Nurse Practitioner Family; Referring Provider Nurse Practitioner Family; Visit Provider Internal Medicine Cardiovascular Disease | DX: I21.4 Non-ST elevation (NSTEMI) myocardial infarction (principal); I48.0 Paroxysmal atrial fibrillation; I25.10 Atherosclerotic heart disease of native coronary artery without angina pectoris; Z79.01 Long term (current) use of anticoagulants | CPT/HCPCS: 99213; 93005 ==

== ENCOUNTER 2025-05-02 14:20 | Outpatient (REF) | payer MEDICARE, MEDICAID, SELFPAY ==
[2025-05-02 12:44] LABS: Magnesium 2.1 mg/dL (1.8-2.4); TSH (W/Ref FT4) 0.53 uIU/mL (0.36-3.74); Vitamin B12 584 pg/mL (193-986)
[2025-05-02 16:15] LABS: Anion Gap 5.5 mmol/L (3-11); BUN 15 mg/dL (7-18); CO2 27.5 mmol/L (21.0-32.0); Calcium 9.2 mg/dL (8.5-10.1); Chloride 109 mmol/L (98-107); Estimated GFR 49.24 (mL/min/1.73m2); Glucose 118 mg/dL (74-106); Potassium 4.6 mmol/L (3.5-5.1); Sodium 142 mmol/L (136-145)
== END 2025-05-02 14:21 | disposition home or self-care (01) ==
LOC: NCHCN 14:20
PROVIDERS: PCP Nurse Practitioner Family; Visit Provider Nurse Practitioner Family
DX: E03.9 Hypothyroidism, unspecified (principal)
CPT/HCPCS: 80048; 82607; 83735; 84443

== ENCOUNTER → 2025-09-12 11:08 | Outpatient (BNVA) | payer MEDICARE, MEDICAID, SELFPAY | PROVIDERS: PCP Nurse Practitioner Family; Referring Provider Nurse Practitioner Family; Visit Provider Internal Medicine Cardiovascular Disease | DX: I25.10 Atherosclerotic heart disease of native coronary artery without angina pectoris (principal); I48.0 Paroxysmal atrial fibrillation; Z79.01 Long term (current) use of anticoagulants; F03.90 Unspecified dementia, unspecified severity, without behavioral disturbance, psychotic disturbance, mood disturbance, and anxiety | CPT/HCPCS: 99214 ==

== ENCOUNTER 2025-09-24 14:34 | Outpatient (REF) | payer MEDICARE, MEDICAID, SELFPAY ==
[2025-09-24 15:40] LABS: Glucose Negative (Negative)
== END 2025-09-24 14:35 | disposition home or self-care (01) ==
LOC: NCHCN 14:34
PROVIDERS: PCP Nurse Practitioner Family; Visit Provider Nurse Practitioner Family
DX: R32 Unspecified urinary incontinence (principal)
CPT/HCPCS: 81003